=== PATIENT | male | born 1950 | race Caucasian/White ===

== ENCOUNTER → 2018-03-22 15:00 | Outpatient (CLI) | payer MEDICARE, OTHER, SELFPAY ==
[2018-03-22 15:44] LABS: Add Manual Diff / Slide Review NO; Basophils Percent Auto 0.9 % (0-2); Eosinophils Percent Auto 9.2 % (2-4); Hematocrit 38.8 % (41-53); Hemoglobin 13.3 g/dL (13.5-17.5); Lymphocytes Percent Auto 18.2 % (25-40); Mean Corpuscular HGB Conc 34.3 % (30-36); Mean Corpuscular Hemoglobin 31.6 PG (26-34); Mean Corpuscular Volume 92.2 fL (80-100); Monocytes Percent Auto 4.3 % (3-14); Neutrophils Absolute Auto 5800 /uL (3000-5900); Neutrophils Percent Auto 67.4 % (50-75); Platelet Count 329 X10^3/uL (150-400); Red Blood Cell Count 4.21 X10^6/uL (4.5-5.9); Red Cell Distribution Width 13.6 % (11.6-14.8); White Blood Cell Count 8.6 X10^3/uL (4.5-11.0)
[2018-03-22 16:17] LABS: Microalbumi Creatinin Ratio Ur 18.6 ug/mg CR (<30); Microalbumin Urine Random 2.2 mg/dL (0-1.6)
[2018-03-22 16:37] LABS: Alanine Aminotransferase 17 IU/L (21-72); Albumin 4.2 g/dL (3.5-5.0); Albumin Globulin Ratio 1.5 (1.0-2.8); Alkaline Phosphatase 94 U/L (38-126); Aspartate Aminotransferase 9 IU/L (17-59); Bilirubin Total 0.5 mg/dL (0.2-1.3); Cholesterol 210 mg/dL (140-199); Estimated Glomerular Filt Rate > 60.0 mL/min (>60); Globulin 2.8 g/dL (1.7-4.1); Glucose 166 mg/dL (80-110); HDL Cholesterol 45 mg/dL (40-60); HEMOLYSIS < 15 (0-50); LDL Cholesterol Calculated 112 mg/dL (<100); Potassium 4.1 mmol/L (3.4-5.1); Sodium 141 mmol/L (137-145); Triglycerides 266 mg/dL (35-150)
[2018-03-22 16:38] LABS: Hemoglobin A1C% w Est Avg Glu 6.9 % (4.0-6.0)
[2018-03-22 17:06] LABS: Prostate Specific Antigen Scrn 1.57 ng/mL (0.1-4.0)
[2018-03-22 17:07] LABS: Thyroid Stimulating Hormone 1.36 uIU/mL (0.47-4.68)
== END ==
PROVIDERS: Family Provider Family Medicine; PCP Family Medicine; Visit Provider Family Medicine
DX: E11.9 Type 2 diabetes mellitus without complications (principal); E78.2 Mixed hyperlipidemia; I10 Essential (primary) hypertension; K52.839 Microscopic colitis, unspecified; N18.2 Chronic kidney disease, stage 2 (mild); R63.4 Abnormal weight loss; Z12.5 Encounter for screening for malignant neoplasm of prostate; Z87.442 Personal history of urinary calculi
CPT/HCPCS: 36415; 80053; 80061; 82043; 82570; 83036; 84443; 85025; G0103

== ENCOUNTER → 2018-09-13 13:10 | Outpatient (CLI) | payer MEDICARE, OTHER, SELFPAY ==
--- NOTE | 2018-09-13 13:14 | DI.RAD.S_ITS ---
PROCEDURE: XR SHOULDER LT MIN 2V INDICATIONS: left shoulder pain TECHNIQUE: 3 views of the shoulder were acquired. COMPARISON: None. FINDINGS: Bones: No fractures or dislocations. No suspicious bony lesions. Visualized ribs appear intact. Nonspecific sub-5 mm calcification projecting adjacent to the proximal left humeral diaphysis. Mild acromioclavicular and glenohumeral spurring Soft tissues: Minimal left shoulder calcific tendinitis. IMPRESSION: Minimal left shoulder calcific tendinitis. Dictated by: Elijah Cannon M.D. on 09/13/2018 at 15:23 Approved by: Elijah Cannon M.D. on 09/13/2018 at 15:27
== END ==
PROVIDERS: PCP Student in an Organized Health Care Education/Training Program; Visit Provider Student in an Organized Health Care Education/Training Program
DX: M25.512 Pain in left shoulder (principal)
CPT/HCPCS: 73030

== ENCOUNTER → 2018-09-14 08:31 | Outpatient (CLI) | payer MEDICARE, OTHER, SELFPAY ==
--- NOTE | 2018-09-14 08:33 | DI.US.S_ITS ---
PROCEDURE: US ABD AORTA ANEURYSM SCREEN INDICATIONS: AAA screen TECHNIQUE: Real time scanning was performed of the aorta and iliac arteries, with image documentation. COMPARISON: None. FINDINGS: Aorta: Proximal aortic diameter measures 1.8 cm. Mid-aorta measures 1.4 cm. Distal aortic diameter is 1.5 cm. Iliac arteries: Right common iliac artery measures 0.9 cm. Left common iliac artery measures 0.9 cm. IMPRESSION: No aneurysmal dilation. Dictated by: Esmer Lim M.D. on 09/14/2018 at 15:07 Approved by: Esmer Lim M.D. on 09/14/2018 at 15:07
== END ==
PROVIDERS: PCP Student in an Organized Health Care Education/Training Program; Visit Provider Student in an Organized Health Care Education/Training Program
DX: Z13.6 Encounter for screening for cardiovascular disorders (principal); Z87.891 Personal history of nicotine dependence
CPT/HCPCS: 76706

== ENCOUNTER → 2019-04-11 12:44 | Outpatient (CLI) | payer MEDICARE, OTHER, SELFPAY ==
[2019-04-11 13:30] LABS: Hematocrit 38.4 % (41-53); Hemoglobin 13.2 g/dL (13.5-17.5); Mean Corpuscular HGB Conc 34.5 % (30-36); Mean Corpuscular Hemoglobin 32.3 PG (26-34); Mean Corpuscular Volume 93.6 fL (80-100); Platelet Count 334 X10^3/uL (150-400); Red Cell Distribution Width 13.6 % (11.6-14.8); White Blood Cell Count 8.3 X10^3/uL (4.5-11.0)
[2019-04-11 13:34] LABS: Reticulocyte Count, Percent 1.1 % (0.87-2.60)
[2019-04-11 13:47] LABS: HEMOLYSIS < 15 (0-50); Iron 103 ug/dL (49-181)
[2019-04-11 13:49] LABS: Alanine Aminotransferase 14 IU/L (21-72); Albumin 4.7 g/dL (3.5-5.0); Albumin Globulin Ratio 1.6 (1.0-2.8); Alkaline Phosphatase 86 U/L (38-126); Aspartate Aminotransferase 14 IU/L (17-59); BUN Creatinine Ratio 14.2 (6-22); Bilirubin Total 0.7 mg/dL (0.2-1.3); Blood Urea Nitrogen 17 mg/dL (9-20); Calcium 10.3 mg/dL (8.4-10.2); Carbon Dioxide 28 mmol/L (22-32); Chloride 103 mmol/L (98-107); Cholesterol 235 mg/dL (140-199); Estimated Glomerular Filt Rate > 60.0 mL/min (>60); Globulin 2.9 g/dL (1.7-4.1); Glucose 183 mg/dL (80-110); HDL Cholesterol 45 mg/dL (40-60); HEMOLYSIS < 15 (0-50); LDL Cholesterol Calculated 130 mg/dL (<100); Potassium 5.3 mmol/L (3.4-5.1); Sodium 141 mmol/L (137-145); Total Protein 7.6 g/dL (6.3-8.2); Triglycerides 302 mg/dL (35-150)
[2019-04-11 13:59] LABS: Hemoglobin A1C% w Est Avg Glu 6.8 % (4.0-6.0); Percent Iron Saturation 29 % (20-50); Total Iron Binding Capacity 357 ug/dL (261-462); Transferrin 292 mg/dL (206-381)
[2019-04-11 14:20] LABS: TSH w/ Reflex to FT4 1.63 uIU/mL (0.47-4.68)
[2019-04-11 14:54] LABS: Folate 5.1 ng/mL (2.76-20.0); Vitamin B12 286 pg/mL (239-931)
[2019-04-11 17:16] LABS: Vitamin D 25 Hydroxy (D3) 37.1 ng/mL (30.0-100.0)
== END ==
PROVIDERS: PCP Student in an Organized Health Care Education/Training Program; Visit Provider Student in an Organized Health Care Education/Training Program
DX: D64.9 Anemia, unspecified (principal); E78.2 Mixed hyperlipidemia; E55.9 Vitamin D deficiency, unspecified; E11.9 Type 2 diabetes mellitus without complications; N18.2 Chronic kidney disease, stage 2 (mild); Z79.899 Other long term (current) drug therapy; I12.9 Hypertensive chronic kidney disease with stage 1 through stage 4 chronic kidney disease, or unspecified chronic kidney disease
CPT/HCPCS: 36415; 80053; 80061; 82306; 82607; 82728; 82746; 83036; 83540; 83550; 84443; 85027; 85045

== ENCOUNTER → 2019-07-11 13:56 | Outpatient (CLI) | payer MEDICARE, OTHER, SELFPAY ==
[2019-07-11 15:45] LABS: Hemoglobin A1C% w Est Avg Glu 7.4 % (4.0-6.0)
[2019-07-11 15:55] LABS: Alanine Aminotransferase 10 IU/L (21-72); Albumin 4.1 g/dL (3.5-5.0); Albumin Globulin Ratio 1.5 (1.0-2.8); Alkaline Phosphatase 75 U/L (38-126); Aspartate Aminotransferase 13 IU/L (17-59); BUN Creatinine Ratio 14.5 (6-22); Bilirubin Total 0.6 mg/dL (0.2-1.3); Blood Urea Nitrogen 16 mg/dL (9-20); Calcium 9.8 mg/dL (8.4-10.2); Carbon Dioxide 27 mmol/L (22-32); Chloride 102 mmol/L (98-107); Cholesterol 229 mg/dL (140-199); Estimated Glomerular Filt Rate > 60.0 mL/min (>60); Globulin 2.7 g/dL (1.7-4.1); Glucose 124 mg/dL (80-110); HDL Cholesterol 40 mg/dL (40-60); HEMOLYSIS < 15 (0-50); LDL Cholesterol Calculated 117 mg/dL (<100); Potassium 4.3 mmol/L (3.4-5.1); Sodium 140 mmol/L (137-145); Total Protein 6.8 g/dL (6.3-8.2); Triglycerides 360 mg/dL (35-150)
[2019-07-11 17:01] LABS: Creatinine Urine Random 88.3 mg/dL
[2019-07-11 17:06] LABS: Microalbumi Creatinin Ratio Ur 36.2 ug/mg CR (<30); Microalbumin Urine Random 3.2 mg/dL (0-1.6)
== END ==
PROVIDERS: PCP Student in an Organized Health Care Education/Training Program; Visit Provider Student in an Organized Health Care Education/Training Program
DX: E11.9 Type 2 diabetes mellitus without complications (principal); E78.2 Mixed hyperlipidemia; I10 Essential (primary) hypertension; N18.2 Chronic kidney disease, stage 2 (mild); Z79.899 Other long term (current) drug therapy; Z71.1 Person with feared health complaint in whom no diagnosis is made; Z91.89 Other specified personal risk factors, not elsewhere classified
CPT/HCPCS: 36415; 80053; 80061; 82043; 82570; 83036; 86787

== ENCOUNTER → 2020-04-07 13:28 | Outpatient (CLI) | payer MEDICARE, OTHER, SELFPAY ==
[2020-04-07 15:42] LABS: BUN Creatinine Ratio 13.5 (6-22); Blood Urea Nitrogen 19 mg/dL (9-20); Estimated Glomerular Filt Rate 49.8 mL/min (>60)
[2020-04-07 15:43] LABS: Hemoglobin A1C% w Est Avg Glu 6.5 % (4.0-6.0)
[2020-04-07 16:11] LABS: Prostate Specific Antigen Scrn 1.55 ng/mL (0.1-4.0)
[2020-04-07 16:31] LABS: Creatinine Urine Random 108.7 mg/dL
[2020-04-07 16:34] LABS: Microalbumi Creatinin Ratio Ur 17.4 ug/mg CR (<30); Microalbumin Urine Random 1.9 mg/dL (0-1.6)
== END ==
PROVIDERS: PCP Student in an Organized Health Care Education/Training Program; Referring Provider Student in an Organized Health Care Education/Training Program; Visit Provider Student in an Organized Health Care Education/Training Program
DX: E11.9 Type 2 diabetes mellitus without complications (principal); I10 Essential (primary) hypertension; N18.2 Chronic kidney disease, stage 2 (mild)
CPT/HCPCS: 36415; 82043; 82565; 82570; 83036; 84520; G0103

== ENCOUNTER → 2020-09-02 14:14 | Outpatient (CLI) | payer MEDICARE, OTHER, SELFPAY ==
[2020-09-02 15:57] LABS: BUN Creatinine Ratio 17.2 (6-22); Blood Urea Nitrogen 20 mg/dL (9-20); Estimated Glomerular Filt Rate > 60.0 mL/min (>60)
[2020-09-02 16:12] LABS: Hemoglobin A1C% w Est Avg Glu 6.8 % (4.0-6.0)
== END ==
PROVIDERS: PCP Student in an Organized Health Care Education/Training Program; Referring Provider Student in an Organized Health Care Education/Training Program; Visit Provider Student in an Organized Health Care Education/Training Program
DX: N17.9 Acute kidney failure, unspecified (principal); E11.9 Type 2 diabetes mellitus without complications
CPT/HCPCS: 36415; 82565; 83036; 84520

== ENCOUNTER → 2021-02-03 10:47 | Outpatient (CLI) | payer MEDICARE, OTHER, SELFPAY ==
[2021-02-03 12:06] LABS: BUN Creatinine Ratio 16.8 (6-22); Blood Urea Nitrogen 20 mg/dL (9-20); Estimated Glomerular Filt Rate > 60.0 mL/min (>60); Uric Acid 7.1 mg/dL (3.5-8.5)
[2021-02-03 13:24] LABS: Microalbumi Creatinin Ratio Ur 63.5 ug/mg CR (<30); Microalbumin Urine Random 7.5 mg/dL (0-1.6)
[2021-02-03 14:44] LABS: Hemoglobin A1C% w Est Avg Glu 7.2 % (4.0-6.0)
== END ==
PROVIDERS: PCP Student in an Organized Health Care Education/Training Program; Referring Provider Student in an Organized Health Care Education/Training Program; Visit Provider Student in an Organized Health Care Education/Training Program
DX: E11.9 Type 2 diabetes mellitus without complications (principal); M10.9 Gout, unspecified; N18.2 Chronic kidney disease, stage 2 (mild); I10 Essential (primary) hypertension
CPT/HCPCS: 36415; 82043; 82565; 82570; 83036; 84520; 84550

== ENCOUNTER → 2021-02-19 14:48 | Outpatient (CLI) | payer MEDICARE, OTHER, SELFPAY ==
[2021-02-19] MEDS: COVID-19 VACC #1, MRNA(MOD) 100 MCG/0.5 ML VIAL IM (14:59)
== END ==
PROVIDERS: PCP Student in an Organized Health Care Education/Training Program; Visit Provider Internal Medicine
DX: Z23 Encounter for immunization (principal)
CPT/HCPCS: 0011A; 91301

== ENCOUNTER → 2021-03-19 12:59 | Outpatient (CLI) | payer MEDICARE, OTHER, SELFPAY ==
[2021-03-19] MEDS: COVID-19 VACC #2, MRNA(MOD) 100 MCG/0.5 ML VIAL IM (13:20)
== END ==
PROVIDERS: PCP Student in an Organized Health Care Education/Training Program; Visit Provider Internal Medicine
DX: Z23 Encounter for immunization (principal)
CPT/HCPCS: 0012A; 91301

== ENCOUNTER 2021-04-23 09:49 | Emergency (ER) | payer MEDICARE, OTHER, SELFPAY ==
[2021-04-23] VITALS (17 sets, daily range): BP systolic 149–181; BP diastolic 72–85; PULSE 72–115; RESP 15–47; TEMP 37.1; O2SAT 94–98; BMI 27.8
[2021-04-23 10:31] LABS: Add Manual Diff / Slide Review NO; Basophils Absolute Auto 100 /uL (0-100); Basophils Percent Auto 0.8 % (0-2); Eosinophils Absolute Auto 300 /uL (0-450); Eosinophils Percent Auto 2.3 % (2-4); Hematocrit 36.6 % (41-53); Hemoglobin 12.4 g/dL (13.5-17.5); Lymphocytes Absolute Auto 1400 /uL (1100-4500); Lymphocytes Percent Auto 9.4 % (25-40); Mean Corpuscular Hemoglobin 31.5 PG (26-34); Mean Corpuscular Volume 92.5 fL (80-100); Monocytes Absolute Auto 1000 /uL (0-900); Monocytes Percent Auto 6.7 % (3-14); Neutrophils Absolute Auto 11900 /uL (1500-7000); Neutrophils Percent Auto 80.8 % (50-75); Platelet Count 373 X10^3/uL (150-400); Red Blood Cell Count 3.95 X10^6/uL (4.5-5.9); Red Cell Distribution Width 13.9 % (11.6-14.8); White Blood Cell Count 14.7 X10^3/uL (4.5-11.0)
[2021-04-23 10:41] LABS: Alanine Aminotransferase 13 IU/L (<50); Albumin 4.4 g/dL (3.5-5.0); Albumin Globulin Ratio 1.4 (1.0-2.8); Alkaline Phosphatase 89 U/L (38-126); Aspartate Aminotransferase 19 IU/L (17-59); Bilirubin Total 0.5 mg/dL (0.2-1.3); Blood Urea Nitrogen 21 mg/dL (9-20); Calcium 9.7 mg/dL (8.4-10.2); Carbon Dioxide 19 mmol/L (22-32); Chloride 108 mmol/L (98-107); Estimated Glomerular Filt Rate 46.3 mL/min (>60); Globulin 3.1 g/dL (1.7-4.1); Glucose 190 mg/dL (80-110); HEMOLYSIS 45 (0-50); Lipase 131 U/L (23-300); Potassium 4.1 mmol/L (3.4-5.1); Sodium 138 mmol/L (137-145); Total Protein 7.5 g/dL (6.3-8.2)
[2021-04-23 11:48] LABS: Bacteria Urine None Seen
[2021-04-23 12:15] LABS: Culture Indicated Urine Specimen Cultured; RBC Urine 10-30/HPF (0-5/HPF); WBC Urine 5-10/HPF (0-5/HPF)
--- NOTE | 2021-04-23 12:24 | ED_ITS ---
HPI - Abdominal Pain General Chief Complaint: Abdominal Pain Stated Complaint: states kidney stones Time Seen by Provider: 04/23/21 12:11 Source: patient Mode of arrival: Ambulatory Limitations: no limitations History of Present Illness HPI narrative: Patient is a 71-year-old male with history of kidney stones, hype rtension diabetes hyperlipidemia presenting today with 2 days of flank pain. He said the flank pain is actually a dull ache in his bilateral however today he is having increasing pain on the left side which is radiating to his abdomen. He is noted to have blood in his urine in the emergency department. He occasionally has some nausea but no vomiting. No fever or chills. MD complaint: abdominal pain and flank pain Onset (ago): day(s) (2) Pain Consistency: intermittent Related Data Home Medications Medication Instructions Recorded Confirmed aspirin 81 mg chewable tablet 81 mg PO DAILY 03/28/18 02/10/21 Previous Rx's Medication Instructions Recorded trazodone 50 mg tablet 50 mg PO HS PRN #30 tab 03/31/18 ketoconazole 2 % topical cream 1 applictn TOP BID PRN #15 gram 06/13/19 diclofenac sodium 75 mg 75 mg PO BID PRN #60 ect 04/17/20 tablet,delayed release omeprazole 20 mg capsule,delayed 20 mg PO DAILY #90 cap 10/01/20 release amlodipine 10 mg tablet 10 mg PO QDAY #90 tab 10/10/20 gemfibrozil 600 mg tablet 600 mg PO BID #180 tab 10/10/20 allopurinol 300 mg tablet 300 mg PO DAILY #90 tab 10/20/20 atorvastatin 80 mg tablet 80 mg PO HS #90 tab 10/21/20 metformin 1,000 mg tablet 1,000 mg PO BID #180 tab 11/28/20 sitagliptin 100 mg tablet 100 mg PO Q DAY #90 tab 02/19/21 losartan 50 mg tablet 50 mg PO DAILY #90 tab 04/07/21 budesonide 3 mg 3 mg PO QDAY #90 cap 04/17/21 capsule,delayed,extended release glipizide 10 mg tablet, extended 10 mg PO DAILY #90 tab 04/17/21 release 24 hr hydrocodone-acetaminophen 1 tab PO Q6H PRN #10 tab 04/23/21 ondansetron 4 mg PO Q8H PRN #10 tab 04/23/21 tamsulosin [Flomax] 0.4 mg PO DAILY #7 cap 04/23/21 Allergies Allergy/AdvReac Type Severity Reaction Status Date / Time MALCOLM Inhibitors AdvReac Severe Elevated Verified 04/23/21 10:02 creatinine Review of Systems Review of Systems Narrative: GENERAL: Denies chills, fatigue, malaise, fever, sweats, travel HEENT: Denies sinus pain, ear pain, sore throat, difficulty swallowing, neck pain RESPIRATORY: Denies dyspnea, cough, wheezing, hemoptysis, sputum. CARDIOVASCULAR: Denies chest pain, palpitations, orthopnea, edema GASTROINTESTINAL: See HPI : + flank pain Denies dysuria, frequency, incontinence, hematuria, urinary retention MUSCULOSKELETAL: Denies weakness, joint pain, or bony pain SKIN: No rash, no erythema, no pruritus NEUROLOGIC: Denies weakness, dizziness, headache, numbness, change in speech, confusion PSYCHIATRIC: No concerning psychosocial issues. 12 point review of systems is negative except for those stated above and HPI Patient History Medical History Anemia (Unknown) Asthma (Unknown) Chronic renal insufficiency, stage II (mild) (10/10/15) Depression (09/04/14) Depression (Unknown) Essential hypertension (09/11/15) Hyperlipidemia (Unknown) Hypertension (Unknown) Hypertriglyceridemia (Unknown) Kidney disease (Unknown) Kidney stones (2011) Labyrinthitis Lymphocytic colitis (2012) Microscopic colitis (10/10/15) Myopia (Unknown) Rosacea (Unknown) Type 2 diabetes mellitus without complication (09/11/15) Family History Father Cancer Mother Stroke Social History marital status: unmarried,single household members: none lives independently: Yes Smoking Status: Former smoker Smoking Status: Former smoker alcohol intake frequency: 0-2 drinks per day Substance Use Type: does not use Exam Initial Vital Signs Initial Vital Signs: Vital Signs Temperature 98.7 F 04/23/21 09:51 Pulse Rate 115 H 04/23/21 09:51 Respiratory Rate 15 04/23/21 09:51 Blood Pressure 173/77 H 04/23/21 09:51 Pulse Oximetry 98 04/23/21 09:51 GENERAL: Alert pleasant 71-year-old male and in no acute distress. HEENT: Head atraumatic,EOMI, pupils reactive, face symmetric, moist mucous membranes CARDIOVASCULAR: Regular rate and rhythm without murmurs, rubs or gallops. RESPIRATORY: Breath sounds equal bilaterally, no wheezes rales or rhonchi. ABDOMEN: Soft, nontender. Normoactive bowel sounds all 4 quadrants. No guarding or rebound. : Mild left CVA tenderness EXTREMITIES: Normal range of motion, no clubbing or edema. Neurovascularly intact NEUROLOGICAL: Alert and oriented x4.Normal gait and speech. SKIN: Warm, dry, no laceration, no petechiae, no rashes or lesions. Course Orders Ordered: ED Orders 04/23/21 12:41 CT kidney ureter bladder (KUB) Stat Discontinued Medications Ketorolac Tromethamine (Ketorolac 30 Mg/Ml Vial) 30 mg IV NOW ONE Stop: 04/23/21 12:32 Last Admin: 04/23/21 12:48 Dose: 30 mg Documented by: TYLER Vital Signs Vital signs: Vital Signs - 8 hr 04/23/21 11:30 04/23/21 12:00 04/23/21 12:30 Pulse Rate 83 79 94 H Respiratory Rate 18 17 Blood Pressure Pulse Oximetry 94 95 97 04/23/21 12:42 04/23/21 12:48 04/23/21 13:00 Pulse Rate 89 88 82 Respiratory Rate 16 17 19 Blood Pressure 181/85 H 161/74 H 149/82 H Pulse Oximetry 97 97 95 04/23/21 13:30 04/23/21 14:00 04/23/21 14:30 Pulse Rate 76 75 72 Respiratory Rate 17 17 16 Blood Pressure 157/78 H 154/80 H 150/76 H Pulse Oximetry 94 95 95 04/23/21 15:00 04/23/21 15:01 04/23/21 15:03 Pulse Rate 83 91 H 86 Respiratory Rate 47 H 24 Blood Pressure 181/74 H 152/72 H Pulse Oximetry 96 94 96 04/23/21 15:12 Pulse Rate 80 Respiratory Rate 18 Blood Pressure 152/72 H Pulse Oximetry 97 MDM - Abdominal Pain Lab Data Attestation: I reviewed the patient's lab results. Result diagrams: 04/23/21 10:20 06/24/21 10:20 Labs: Lab Results 04/23/21 04/23/21 04/23/21 Range/Units 09:53 10:20 10:20 WBC 14.7 H (4.5-11.0) X10^3/uL RBC 3.95 L (4.5-5.9) X10^6/uL Hgb 12.4 L (13.5-17.5) g/dL Hct 36.6 L (41-53) % MCV 92.5 (80-100) fL MCH 31.5 (26-34) PG MCHC 34.0 (30-36) % RDW 13.9 (11.6-14.8) % Plt Count 373 (150-400) X10^3/uL Neut % (Auto) 80.8 H (50-75) % Lymph % (Auto) 9.4 L (25-40) % [place] % (Auto) 6.7 (3-14) % Eos % (Auto) 2.3 (2-4) % Baso % (Auto) 0.8 (0-2) % Neut # (Auto) 20453 H (8111-3259) /uL Lymph # (Auto) 1400 (5069-0485) /uL [place] # (Auto) 1000 H (0-900) /uL Eos # (Auto) 300 (0-450) /uL Baso # (Auto) 100 (0-100) /uL Sodium 138 (137-145) mmol/L Potassium 4.1 (3.4-5.1) mmol/L Chloride 108 H (98-107) mmol/L Carbon Dioxide 19 L (22-32) mmol/L BUN 21 H (9-20) mg/dL Creatinine 1.50 H (0.66-1.25) mg/dL Estimated GFR 46.3 L (>60) mL/min BUN/Creatinine Ratio 14.0 (6-22) Glucose 190 H (80-110) mg/dL Calcium 9.7 (8.4-10.2) mg/dL Total Bilirubin 0.5 (0.2-1.3) mg/dL AST 19 (17-59) IU/L ALT 13 (<50) IU/L Alkaline Phosphatase 89 (38-126) U/L Total Protein 7.5 (6.3-8.2) g/dL Albumin 4.4 (3.5-5.0) g/dL Globulin 3.1 (1.7-4.1) g/dL Albumin/Globulin Ratio 1.4 (1.0-2.8) Lipase 131 (23-300) U/L Urine RBC 10-30/hpf H (0-5/HPF) Urine WBC 5-10/hpf H (0-5/HPF) Urine Bacteria None seen (None) Ur Culture Indicated? Specimen cultured Point of care testing: Urine Dip Bedside Urine Glucose Negative Bedside Urine Bilirubin - Negative Bedside Urine Ketone - Negative Urine Specific [place] 1.030 Bedside Urine Occult Blood +++ Bedside Urine pH 6.0 Bedside Urine Protein + 30 Bedside Urine Urobilinogen - Negative Bedside Urine Nitrite - Negative Bedside Urine Leukocytes - Negative Esterase Imaging Data CT scan - abdomen/pelvis: Radiologist's Impression: PROCEDURE: CT KIDNEY URETER BLADDER (KUB) INDICATIONS: left flank pain TECHNIQUE: Axial sections were acquired from the lung bases to the pubic symphysis. Coronal and sagittal reformats were performed. For radiation dose reduction, the following was used: automated exposure control, adjustment of mA and/or kV according to patient size. COMPARISON:[facility], CT, KIDNEY/ URETER/BLADDER, 04/19/2015, 5:14. FINDINGS: Image quality: Excellent. Lung bases: Unremarkable. Heart: No significant findings. URINARY: Right Kidney: There is a 1.5 x 0.9 by 2.2 cm calcification inferior right re nal pole, Hounsfield units 480. It was present in 2014 at which time it measured 1.2 x 0.8 x 1.8 cm. No hydronephrosis. Renal atrophy Right Ureter: No hydroureter. Left Kidney: 0.8 x 1.0 x 0.7 cm focus of calcification is noted within the inferior left renal pole, Hounsfield units 380. There is mild to moderate hydronephrosis. It is noted that calcification was present in the inferior left renal pole in 2015 although mildly decreased in size measuring 0.5 x 0.5 by 0.7 cm. Left Ureter: 8 mm proximal left ureteral calcification, Hounsfield unit 532 is present. There is mild proximal hydroureter. Bladder: Normal wall thickness. No stones. ABDOMEN: Liver: Liver is mildly enlarged with steatosis. Gallbladder: Minimal dependent calcifications are noted within the bladder with out wall thickening. Biliary ducts: Unremarkable. Pancreas: Unremarkable. Spleen: Unremarkable. Adrenal Glands: Unremarkable. Stomach and Bowel: Stomach, small bowel loops, and colon are unremarkable. Colonic diverticula are present. Peritoneum: No abnormal intraperitoneal fluid. No free air. Ventral Wall: No hernia. Abdominal Nodes: No enlarged retroperitoneal or mesenteric lymph nodes. Vessels: Aorta and inferior vena cava are normal in size. PELVIS: Pelvic Organs: Prostate gland is prominent. Pelvic Nodes: Unremarkable. Miscellaneous: Bilateral fat containing inguinal hernias are present. Bones: Unremarkable. IMPRESSION: 1. Gmnp-[id number]-ocigdidr left hydronephrosis and proximal hydroureter secondary to 8 mm proximal left ureteral calculus. 2. Bilateral nonobstructing renal calculi which have increased in size compared to 2015. 3. Cholelithiasis without imaging evidence of cholecystitis. 4. Diverticulosis. Dictated by: Esmer Lim M.D. on 04/23/2021 at 12:47 ECG Data Attestation: I personally reviewed and interpreted this ECG as follows: Interpretation: Normal sinus rhythm rate 98 p.r. interval 212 QRS [address] changes or T-wave inversions MDM Narrative Medical decision making narrative: Patient is found have an 8 mm proximal left- sided kidney stone. He has mild increasing creatinine 1.5 with leukocytosis of 14 without signs of infection. Pain is controlled with Toradol. Discussion with Dr. Lorenzo states that he follow up as an outpatient. Discharge Plan Departure Patient Disposition: Home Clinical Impression: Kidney stone on left side Instructions: DI for Kidney Stones Activity Restrictions/Additional Instructions: * You've been diagnosed with kidney stone * What to do: Increase fluid intake, Strain urine, try to catch stone, he will likely need intervention for this stone * Please follow-up with your primary care provider in the next 2-[address] Lorenzo, urology to schedule follow-up appointment. -If you should have fever, or pain is uncontrolled with medication at home or any other concerning symptoms return to ER for further evaluation MEDICATIONS--> SENT TO [facility] Take Motrin 600 mg every 8 hours as needed for pain Take [place] every 6 hours if needed for severe pain Take Zofran every 4-6 hours if needed for nausea Flomax 0.4mg daily CONTROLLED SUBSTANCE DISCHARGE (Narcotoic/benzodiazepine) 1. You have been prescribed narcotic medications, it does have acetaminophen/Tylenol/paracetamol in it so do not take extra Tylenol or Tylenol containing products 2. Please understand that we cannot provide further refills of narcotics, benzodiazepines or controlled substances through the ED and her pain management will need to be through your provider. 3. While on these medications you cannot drive or operate heavy machinery. 4. You cannot sign legal documents or perform any duties such as this. 5. As long as you're taking opiate pain medications he should also be taking a stool softener such as Colace, Dulcolax, MiraLAX or prune juice, to help avoid constipation. Prescriptions: New hydrocodone-acetaminophen 5-325 mg tablet 1 tab PO Q6H PRN (Reason: pain) Qty: 10 RF: 0 tamsulosin [Flomax] 0.4 mg capsule,extended release 24hr 0.4 mg PO DAILY Qty: 7 RF: 0 ondansetron 4 mg tablet,disintegrating 4 mg PO Q8H PRN (Reason: nausea and vomiting) Qty: 10 RF: 0 No Action aspirin 81 mg tablet,chewable 81 mg PO DAILY RF: 0 trazodone 50 mg tablet 50 mg PO HS PRN (Reason: insomnia) Qty: 30 RF: 11 ketoconazole 2 % cream 1 applictn TOP BID PRN (Reason: itching/rash) Qty: 15 RF: 2 omeprazole 20 mg capsule,delayed release(DR/EC) 20 mg PO DAILY Qty: 90 RF: 1 amlodipine 10 mg tablet 10 mg PO QDAY Qty: 90 RF: 3 gemfibrozil 600 mg tablet 600 mg PO BID Qty: 180 RF: 3 allopurinol 300 mg tablet 300 mg PO DAILY Qty: 90 RF: 3 atorvastatin 80 mg tablet 80 mg PO HS Qty: 90 RF: 3 metformin [Glucophage] 1,000 mg tablet 1,000 mg PO BID Qty: 180 RF: 1 Januvia 100 mg tablet 100 mg PO Q DAY Qty: 90 RF: 3 losartan 50 mg tablet 50 mg PO DAILY Qty: 90 RF: 2 glipizide 10 mg tablet extended release 24hr 10 mg PO DAILY Qty: 90 RF: 1 budesonide 3 mg capsule,delayed,extend.release 3 mg PO QDAY Qty: 90 RF: 2 diclofenac sodium 75 mg tablet,delayed release (DR/EC) 75 mg PO BID PRN (Reason: pain) Qty: 60 RF: 5 Referrals: Yousif Jimenez MD [Primary Care Provider] - Caleb Lorenzo MD [Physician] -
--- NOTE | 2021-04-23 12:41 | DI.CT.S_ITS ---
PROCEDURE: CT KIDNEY URETER BLADDER (KUB) INDICATIONS: left flank pain TECHNIQUE: Axial sections were acquired from the lung bases to the pubic symphysis. Coronal and sagittal reformats were performed. For radiation dose reduction, the following was used: automated exposure control, adjustment of mA and/or kV according to patient size. COMPARISON:[facility], CT, KIDNEY/ URETER/BLADDER, 04/19/2015, 5:14. FINDINGS: Image quality: Excellent. Lung bases: Unremarkable. Heart: No significant findings. URINARY: Right Kidney: There is a 1.5 x 0.9 by 2.2 cm calcification inferior right renal pole, Hounsfield units 480. It was present in 2014 at which time it measured 1.2 x 0.8 x 1.8 cm. No hydronephrosis. Renal atrophy Right Ureter: No hydroureter. Left Kidney: 0.8 x 1.0 x 0.7 cm focus of calcification is noted within the inferior left renal pole, Hounsfield units 380. There is mild to moderate hydronephrosis. It is noted that calcification was present in the inferior left renal pole in 2015 although mildly decreased in size measuring 0.5 x 0.5 by 0.7 cm. Left Ureter: 8 mm proximal left ureteral calcification, Hounsfield unit 532 is present. There is mild proximal hydroureter. Bladder: Normal wall thickness. No stones. ABDOMEN: Liver: Liver is mildly enlarged with steatosis. Gallbladder: Minimal dependent calcifications are noted within the bladder without wall thickening. Biliary ducts: Unremarkable. Pancreas: Unremarkable. Spleen: Unremarkable. Adrenal Glands: Unremarkable. Stomach and Bowel: Stomach, small bowel loops, and colon are unremarkable. Colonic diverticula are present. Peritoneum: No abnormal intraperitoneal fluid. No free air. Ventral Wall: No hernia. Abdominal Nodes: No enlarged retroperitoneal or mesenteric lymph nodes. Vessels: Aorta and inferior vena cava are normal in size. PELVIS: Pelvic Organs: Prostate gland is prominent. Pelvic Nodes: Unremarkable. Miscellaneous: Bilateral fat containing inguinal hernias are present. Bones: Unremarkable. IMPRESSION: 1. Qatu-ya-pvsmnvan left hydronephrosis and proximal hydroureter secondary to 8 mm proximal left ureteral calculus. 2. Bilateral nonobstructing renal calculi which have increased in size compared to 2015. 3. Cholelithiasis without imaging evidence of cholecystitis. 4. Diverticulosis. Dictated by: Esmer Lim M.D. on 04/23/2021 at 12:47 Approved by: Esmer Lim M.D. on 04/23/2021 at 12:53
[2021-04-23] MEDS: KETOROLAC 30 MG/ML VIAL IV (12:48)
== END 2021-04-23 15:12 | disposition home or self-care (01) ==
PROVIDERS: Emergency Provider Emergency Medicine; PCP Student in an Organized Health Care Education/Training Program
DX: N20.0 Calculus of kidney (principal); R11.0 Nausea; I10 Essential (primary) hypertension; Z87.891 Personal history of nicotine dependence
CPT/HCPCS: 36415; 74176; 80053; 81003; 81015; 83690; 85025; 87086; 93005; 93010; 96374; 99284; J1885

== ENCOUNTER → 2021-04-28 10:04 | Outpatient (CLI) | payer MEDICARE, OTHER, SELFPAY ==
--- NOTE | 2021-04-28 10:07 | DI.RAD.S_ITS ---
PROCEDURE: XR KUB INDICATIONS: Kidney stone TECHNIQUE: One view of the abdomen acquired. COMPARISON: [facility], CT, CT KIDNEY URETER BLADDER (KUB), 04/23/2021, 12:41. FINDINGS: Surgical changes and devices: None. Bowel: Bowel gas pattern is normal. Soft tissues: Bilateral renal stones. The proximal left ureteral stone seen on CT is not well seen. Visualized solid organ contours appear normal in size. Bones: No suspicious bony lesions. IMPRESSION: 1. The proximal left ureteral stone seen on CT is not well seen on this radiograph. 2. Bilateral renal calculi. Dictated by: Liam Elliott M.D. on 04/28/2021 at 17:38 Approved by: Liam Elliott M.D. on 04/28/2021 at 17:41
[2021-04-28 15:22] LABS: COVID19 -Nasal RAPID Negative (Negative)
== END ==
PROVIDERS: PCP Student in an Organized Health Care Education/Training Program; Referring Provider Specialist; Visit Provider Specialist
DX: N20.0 Calculus of kidney (principal); N20.1 Calculus of ureter; E78.2 Mixed hyperlipidemia; Z87.442 Personal history of urinary calculi; Z20.822 Contact with and (suspected) exposure to COVID-19
CPT/HCPCS: 36415; 74018; 84153; 87635; 99214

== ENCOUNTER 2021-04-29 07:34 | Day surgery (SDC) | payer MEDICARE, OTHER, SELFPAY ==
[2021-04-29] VITALS (8 sets, daily range): BP systolic 121–147; BP diastolic 61–76; PULSE 67–95; RESP 10–17; TEMP 36.2–36.7; O2SAT 94–99; BMI 27.8
--- NOTE | 2021-04-29 | DI.RAD.S_ITS ---
PROCEDURE: XR ABDOMEN 1V INDICATIONS: CYSTO AND LEFT STENT PLACEMENT TECHNIQUE: One view of the abdomen acquired. COMPARISON: None. FINDINGS: Surgical changes and devices: Two-view show a guidewire superimposed on the expected region of the left kidney and thereafter the upper aspect of a ureteral stent can be seen in this same area.. Bowel: Bowel gas pattern is normal. Soft tissues: No suspicious abdominal calcifications. Visualized solid organ contours appear normal in size. Bones: No suspicious bony lesions. IMPRESSION: Limited visualization of the urological procedure, with guidewire and thereafter stent in expected position over the upper left quadrant. Dictated by: Gregory Porter M.D. on 04/29/2021 at 12:37 Approved by: Gregory Porter M.D. on 04/29/2021 at 12:37
[2021-04-29] MEDS: LACTATED RINGERS 1,000 ML 42 ML IV (07:54)
[2021-04-29] MEDS: ACETAMINOPHEN 325 MG TABLET 650 MG PO (08:15)
--- NOTE | 2021-04-29 08:33 | PM.PREOP ---
Pre-operative Note Interval Note History & Physical reviewed/Exam performed by Physician: Yes Changes to H&P: No
[2021-04-29] MEDS: CEFAZOLIN 1 GM VIAL 2 GM IV (08:50)
--- NOTE | 2021-04-29 09:13 | SUR.OPER ---
Lithotomy on padded OR bed, head on pillow, arms secured on padded arm boards at <90 degrees abduction. Legs secured in padded yellow fins stirrups.
--- NOTE | 2021-04-29 09:20 | PM.OP.1 ---
Operative Date/Time/Diagnoses Date of procedure: 04/29/21 Time of procedure: 09:20 Pre-op diagnosis: 1. Obstructing 8 x 11 mm left proximal to mid ureteral calculus. 2. Intractable left renal colic. Post-op diagnosis: same Procedure & Clinicians Procedure: 1. Cystoscopy/left ureteral stone manipulation without removal. 2. Cystoscopy/placement left ureteral stent. Same procedure as scheduled: Yes Indications: 1. Obstructing 8 x 11 mm left proximal to mid ureteral calculus. 2. Intractable left renal colic. Surgeon: Caleb Lorenzo Click Yes if Unassisted: Yes Anesthesia Type: General Operative Notes Findings: 1. Urethra-normal caliber without annular stricture or lesion. 2. External sphincter-coapted with normal overlying urothelium. 3. Prostate-4 cm length with [id number] lateral lobe hyperplasia and elevated median bar. 4. Bladder-1+ trabeculation. Normal ureteral orifices bilaterally. There were numerous tiny calcific fragments line dependently in the base of the bladder. Following advancement of the hybrid ureteral guidewire a turbid obstructive efflux was observed. Also, numerous tiny calcific fragments noted within the efflux. Closure Type: not applicable Specimen(s): none sent Applied: other (Seven [place] times 22-32 cm multi-length stent) Estimated Blood Loss (mL): 0 Blood products transfused: none Tourniquet time (min): 0 Procedure in detail: The patient was positioned supine and was administered general anesthesia. The patient was then positioned in semi lithotomy and the lower abdomen, genitalia, and groin were then prepped and draped in sterile fashion. The 22 [place] panendoscope was then passed a lower urinary tract with the findings as described above. A 0.35 hybrid guidewire was then selected and advanced into the left ureter and advanced proximally under direct and fluoroscopic guidance. Next, a 7 [place] by 22-32 cm multi-length stent was selected. This too was then advanced under direct and fluoroscopic guidance over the ureteral guidewire. NO RETRIEVAL LINE WAS LEFT ATTACHED. The bladder was then drained completely and all instrumentation was removed. The patient was then repositioned in supine, was awakened, and transferred to [facility] for transport to the PACU. Complications: none Post-operative Condition: stable Disposition: PACU Plan for aftercare: Home
== END 2021-04-29 10:15 | disposition home or self-care (01) ==
PROVIDERS: PCP Student in an Organized Health Care Education/Training Program; Referring Provider Specialist; Visit Provider Specialist
PROC: (CPT 52330; principal; 2021-04-29 08:45)
DX: N20.1 Calculus of ureter (principal); E11.22 Type 2 diabetes mellitus with diabetic chronic kidney disease; I12.9 Hypertensive chronic kidney disease with stage 1 through stage 4 chronic kidney disease, or unspecified chronic kidney disease; N18.2 Chronic kidney disease, stage 2 (mild); K21.9 Gastro-esophageal reflux disease without esophagitis; Z87.442 Personal history of urinary calculi; Z79.84 Long term (current) use of oral hypoglycemic drugs; Z87.891 Personal history of nicotine dependence
CPT/HCPCS: 52330; 52332; 74018; 76000; 82962; J0690; J2405; J2704

== ENCOUNTER → 2021-05-06 07:47 | Outpatient (CLI) | payer MEDICARE, OTHER, SELFPAY ==
[2021-05-06 14:20] LABS: COVID19 -Nasal RAPID Negative (Negative)
== END ==
PROVIDERS: PCP Student in an Organized Health Care Education/Training Program; Visit Provider Specialist
DX: Z20.822 Contact with and (suspected) exposure to COVID-19 (principal)
CPT/HCPCS: 87635; C9803

== ENCOUNTER 2021-05-08 08:01 | Day surgery (SDC) | payer MEDICARE, OTHER, SELFPAY ==
[2021-05-05 08:46] VITALS: BMI 27.8
[2021-05-08] VITALS (8 sets, daily range): BP systolic 122–157; BP diastolic 60–76; PULSE 68–104; RESP 10–14; TEMP 36.1–36.3; O2SAT 92–98; BMI 27.8
[2021-05-08] MEDS: LACTATED RINGERS 500 ML 25 ML IV (08:47)
--- NOTE | 2021-05-08 09:25 | PM.PREOP ---
Pre-operative Note Interval Note History & Physical reviewed/Exam performed by Physician: Yes Changes to H&P: No
[2021-05-08] MEDS: CEFAZOLIN 1 GM VIAL 2 GM IV (09:46)
--- NOTE | 2021-05-08 09:51 | SUR.OPER ---
Lithotomy on padded OR bed, head on pillow, arms secured on padded arm boards at <90 degrees abduction. Legs secured in padded yellow fins stirrups.
[2021-05-08] MEDS: IOPAMIDOL 15 ML VIAL INJ (09:58)
--- NOTE | 2021-05-08 10:32 | SUR.OPER ---
SOLTIVE LASER TOTAL ENERGY 9.763 KJ TOTAL TIME 20:00 MIN
--- NOTE | 2021-05-08 10:51 | PM.OP.1 ---
Operative Date/Time/Diagnoses Date of procedure: 05/08/21 Time of procedure: 10:51 Pre-op diagnosis: 1. History of obstructing 12 mm left UPJ calculus. 2. Retained left ureteral stent Post-op diagnosis: same Procedure & Clinicians Procedure: 1. Cystoscopy and left ureteroscopic intrarenal laser lithotripsy. 2. Cystoscopy and left retrograde pyelogram. 3. Cystoscopy and left ureteral stent exchange (6 Pashto by 22-32 cm). Same procedure as scheduled: Yes Indications: 1. History of obstructing 12 mm left ureteropelvic junction calculus. 2. Retained left ureteral stent. Surgeon: Caleb Lorenzo Click Yes if Unassisted: Yes Anesthesia Type: General Operative Notes Findings: 1. Urethra-normal caliber without annular stricture or lesion. 2. External sphincter-coapted with normal overlying urothelium. 3. Xsznykzu-8-8.5 cm length with moderate lateral lobe hyperplasia. 4. Bladder-1+ trabeculation. Normal right ureteral orifice. Left ureteral orifice had emanating left ureteral stent was surrounding mild edema and erythema. 5. Left upper tract-index calculus was identified in the left lower pole and was subsequently fragmented with the laser as planned. Closure Type: not applicable Specimen(s): none sent Applied: other (Six Pashto by 22-32 cm multi-length stent) Estimated Blood Loss (mL): 0 Blood products transfused: none Tourniquet time (min): 0 Procedure in detail: Patient was positioned in supine and was administered general anesthesia. He was then repositioned semi lithotomy the lower abdomen, genitalia, groin were then prepped and draped sterile fashion. The 22 Pashto panendoscope was then passed lower urinary tract with findings as described above. Foreign body grasper was then utilized to engage the distal end of the left ureteral stent and upon withdrawal the distal end was brought just distal to the urethral meatus. A 0.35 hybrid guidewire was then advanced through the lumen of the retained stent and advanced proximally under direct fluoroscopic guidance. The retained stent was then backloaded off the remainder of the wire and discarded. A dual lumen access sheath was then advanced over this wire under direct and fluoroscopic guidance into the left upper collecting system. Now a 2nd 0.35 hybrid guidewire was advanced through the accessory lumen of the dual-lumen ureteral access sheath and was advanced proximally under direct and fluoroscopic guidance. Now the dual-lumen ureteral access sheath was backloaded off both wires. One wire was secured to the drape usual fashion. Over the other wire the flexible ureteral scope was advanced under direct and fluoroscopic guidance. The guidewire was then withdrawn and left retrograde pyelogram was then performed delineating the intrarenal left collecting system. Index calculus was identified the left lower pole. A 200 micron laser fiber was then selected. All operating room personnel and patient were then fitted with laser safety eyewear. Laser lithotripsy was then commenced with excellent subsequent fragmentation of the calculus. The flexible ureteral scope was then withdrawn and removed. Twenty-two Pashto panendoscope was then front loaded and advanced over the existing safety guidewire. A 6 Pashto by 22-32 cm multi-length stent was then selected. NO RETRIEVAL LINE WAS LEFT ATTACHED. The bladder contents or completely. All instrumentation was removed. The patient was then repositioned supine, was awakened, [facility]. Complications: none Post-operative Condition: stable Disposition: PACU Plan for aftercare: Discharge home
[2021-05-08] MEDS: FUROSEMIDE 20 MG/2 ML VIAL IV (11:25)
--- NOTE | 2021-05-08 12:18 | SUR.PHASEII ---
late add: spoke with Dr Lorenzo yesterday 05/07/21 to discuss pt leaving via MD beto stated that was ok.
== END 2021-05-08 12:50 | disposition home or self-care (01) ==
PROVIDERS: PCP Student in an Organized Health Care Education/Training Program; Referring Provider Specialist; Visit Provider Specialist
PROC: (CPT 52356; principal; 2021-05-08 09:15)
DX: N20.1 Calculus of ureter (principal); I10 Essential (primary) hypertension; E11.21 Type 2 diabetes mellitus with diabetic nephropathy; Z79.84 Long term (current) use of oral hypoglycemic drugs
CPT/HCPCS: 52356; 76000; 82962; J0690; J1940; J2405; J2704; J3010

== ENCOUNTER → 2021-05-14 09:01 | Outpatient (CLI) | payer MEDICARE, OTHER, SELFPAY ==
[2021-05-14 09:45] LABS: Hemoglobin A1C% w Est Avg Glu 7.5 % (4.0-6.0)
[2021-05-14 09:56] LABS: BUN Creatinine Ratio 14.5 (6-22); Blood Urea Nitrogen 20 mg/dL (9-20); Estimated Glomerular Filt Rate 50.9 mL/min (>60)
[2021-05-14 09:59] LABS: Creatinine Urine Random 172.2 mg/dL
[2021-05-14 10:30] LABS: Microalbumi Creatinin Ratio Ur 2845.5 ug/mg CR (<30)
== END ==
PROVIDERS: PCP Student in an Organized Health Care Education/Training Program; Referring Provider Student in an Organized Health Care Education/Training Program; Visit Provider Student in an Organized Health Care Education/Training Program
DX: E11.22 Type 2 diabetes mellitus with diabetic chronic kidney disease (principal); N18.2 Chronic kidney disease, stage 2 (mild); R30.0 Dysuria; Z96.0 Presence of urogenital implants
CPT/HCPCS: 36415; 81002; 82043; 82565; 82570; 83036; 84520

== ENCOUNTER → 2021-08-05 10:29 | Outpatient (CLI) | payer MEDICARE, OTHER, SELFPAY ==
[2021-08-05 12:36] LABS: Prostate Specific Antigen 1.28 ng/mL (0.10-4.00)
== END ==
PROVIDERS: PCP Student in an Organized Health Care Education/Training Program; Referring Provider Specialist; Visit Provider Specialist
DX: R97.20 Elevated prostate specific antigen [PSA] (principal)
CPT/HCPCS: 36415; 84153

== ENCOUNTER → 2021-11-13 08:41 | Outpatient (CLI) | payer MEDICARE, OTHER, SELFPAY ==
[2021-11-13 09:45] LABS: BUN Creatinine Ratio 18.4 (6-22); Blood Urea Nitrogen 23 mg/dL (9-20); Estimated Glomerular Filt Rate 57.1 mL/min (>60)
[2021-11-13 09:53] LABS: Hemoglobin A1C% w Est Avg Glu 6.5 % (4.0-6.0)
== END ==
PROVIDERS: PCP Student in an Organized Health Care Education/Training Program; Referring Provider Student in an Organized Health Care Education/Training Program; Visit Provider Student in an Organized Health Care Education/Training Program
DX: E11.9 Type 2 diabetes mellitus without complications (principal); N18.2 Chronic kidney disease, stage 2 (mild)
CPT/HCPCS: 36415; 82565; 83036; 84520

== ENCOUNTER → 2022-03-09 12:45 | Outpatient (CLI) | payer MEDICARE, OTHER, SELFPAY ==
[2022-03-09 13:52] LABS: Appearance Urine UA CLEAR; Bilirubin Urine UA NEGATIVE (NEGATIVE); Color Urine UA YELLOW; Glucose Urine UA NEGATIVE (Negative); Ketones Urine UA NEGATIVE (NEGATIVE); Leukocyte Esterase Urine UA NEGATIVE (NEGATIVE); Nitrite Urine UA NEGATIVE (Negative); Occult Blood Urine UA NEGATIVE (Negative); Protein Urine UA 1+ (Negative); Specific Gravity Urine UA 1.015 (1.000-1.035); Urobilinogen Urine UA 0.2 E.U./dL (0.2)
[2022-03-09 14:06] LABS: Hemoglobin A1C% w Est Avg Glu 6.1 % (4.0-6.0)
[2022-03-09 14:08] LABS: Bacteria Urine None Seen; Culture Indicated Urine Cult Not Indicated; RBC Urine None Seen (0-5/HPF); Squamous Epithelial Cell Urine 0-1 /HPF (0-5/HPF); WBC Urine None Seen (0-5/HPF)
[2022-03-09 15:12] LABS: Creatinine Urine Random 136.8 mg/dL
[2022-03-09 15:16] LABS: Microalbumi Creatinin Ratio Ur 125.7 ug/mg CR (<30); Microalbumin Urine Random 17.2 mg/dL (0-1.6)
[2022-03-09 15:32] LABS: Alanine Aminotransferase 13 IU/L (<50); Albumin Globulin Ratio 1.6 (1.0-2.8); Alkaline Phosphatase 68 U/L (38-126); Aspartate Aminotransferase 16 IU/L (17-59); BUN Creatinine Ratio 18.6 (6-22); Bilirubin Total 0.5 mg/dL (0.2-1.3); Blood Urea Nitrogen 22 mg/dL (9-20); Carbon Dioxide 23 mmol/L (22-32); Chloride 107 mmol/L (98-107); Estimated Glomerular Filt Rate > 60 mL/min (>60); Globulin 2.5 g/dL (1.7-4.1); Glucose 190 mg/dL (80-110); HEMOLYSIS < 15 (0-50); Sodium 137 mmol/L (137-145); Total Protein 6.5 g/dL (6.3-8.2)
[2022-03-09 15:33] LABS: Cholesterol 196 mg/dL (140-199); HDL Cholesterol 47 mg/dL (40-60); LDL Cholesterol Calculated 101 mg/dL (<100); Triglycerides 239 mg/dL (35-150)
[2022-03-09 15:58] LABS: Prostate Specific Antigen Scrn 1.59 ng/mL (0.1-4.0)
== END ==
PROVIDERS: PCP Student in an Organized Health Care Education/Training Program; Referring Provider Specialist; Visit Provider Specialist
DX: N18.9 Chronic kidney disease, unspecified (principal); Z12.5 Encounter for screening for malignant neoplasm of prostate; R80.9 Proteinuria, unspecified; E11.69 Type 2 diabetes mellitus with other specified complication; E78.2 Mixed hyperlipidemia; N18.2 Chronic kidney disease, stage 2 (mild)
CPT/HCPCS: 36415; 80053; 80061; 81001; 82043; 82570; 83036; 84156; G0103

== ENCOUNTER → 2022-06-25 10:46 | Outpatient (CLI) | payer MEDICARE, OTHER, SELFPAY ==
[2022-06-25 11:51] LABS: Hemoglobin A1C% w Est Avg Glu 9.5 % (4.0-6.0)
[2022-06-25 12:05] LABS: Blood Urea Nitrogen 22 mg/dL (9-20); Estimated Glomerular Filt Rate > 60 mL/min (>60)
== END ==
PROVIDERS: PCP Student in an Organized Health Care Education/Training Program; Referring Provider Student in an Organized Health Care Education/Training Program; Visit Provider Student in an Organized Health Care Education/Training Program
DX: E11.9 Type 2 diabetes mellitus without complications (principal); N18.2 Chronic kidney disease, stage 2 (mild)
CPT/HCPCS: 36415; 82565; 83036; 84520

== ENCOUNTER → 2022-12-22 09:34 | Outpatient (CLI) | payer MEDICARE, OTHER, SELFPAY ==
--- NOTE | 2022-12-22 09:36 | DI.RAD.S_ITS ---
PROCEDURE: XR KUB INDICATIONS: kidney stone TECHNIQUE: One view of the abdomen acquired. COMPARISON: [facility], CR, XR KUB, 04/28/2021, 10:17. FINDINGS: Surgical changes and devices: None. Bowel: Bowel gas pattern is normal. Soft tissues: Previously visualized renal stones are not seen. Visualized solid organ contours appear normal in size. Bones: No suspicious bony lesions. IMPRESSION: Previously visualized renal stones are not seen. This could due to interval passage versus being obscured by overlying bowel gas. Dictated by: Cristian Luna M.D. on 12/22/2022 at 11:54 Approved by: Cristian Luna M.D. on 12/22/2022 at 11:55
[2022-12-22 12:14] LABS: Prostate Specific Antigen 1.75 ng/mL (0.10-4.00)
== END ==
PROVIDERS: PCP Student in an Organized Health Care Education/Training Program; Referring Provider Specialist; Visit Provider Specialist
DX: N40.1 Benign prostatic hyperplasia with lower urinary tract symptoms (principal); N13.8 Other obstructive and reflux uropathy; N20.0 Calculus of kidney; Z96.0 Presence of urogenital implants
CPT/HCPCS: 36415; 74018; 84153

== ENCOUNTER → 2023-02-08 10:47 | Outpatient (CLI) | payer MEDICARE, OTHER, SELFPAY ==
[2023-02-08 11:55] LABS: Alanine Aminotransferase 17 IU/L (<50); Albumin 3.8 g/dL (3.5-5.0); Albumin Globulin Ratio 1.3 (1.0-2.8); Alkaline Phosphatase 60 U/L (38-126); Aspartate Aminotransferase 16 IU/L (17-59); BUN Creatinine Ratio 22.5 (6-22); Bilirubin Total 0.4 mg/dL (0.2-1.3); Blood Urea Nitrogen 27 mg/dL (9-20); Calcium 10.5 mg/dL (8.4-10.2); Carbon Dioxide 27 mmol/L (22-32); Chloride 102 mmol/L (98-107); Cholesterol 221 mg/dL (140-199); Estimated Glomerular Filt Rate > 60 mL/min (>60); Globulin 2.9 g/dL (1.7-4.1); Glucose 107 mg/dL (80-110); HDL Cholesterol 58 mg/dL (40-60); HEMOLYSIS < 15 (0-50); LDL Cholesterol Calculated 119 mg/dL (<100); Potassium 4.8 mmol/L (3.4-5.1); Sodium 138 mmol/L (137-145); Total Protein 6.7 g/dL (6.3-8.2); Triglycerides 218 mg/dL (35-150)
[2023-02-08 11:58] LABS: Creatinine Urine Random 63.9 mg/dL
[2023-02-08 12:02] LABS: Microalbumi Creatinin Ratio Ur 179.9 ug/mg CR (<30); Microalbumin Urine Random 11.5 mg/dL (0-1.6)
[2023-02-08 12:44] LABS: Hep C Virus Ab w/Reflex Quant NEGATIVE s/c (NEGATIVE)
[2023-02-09 04:35] LABS: Fructosamine 216 umol/L (0-285)
== END ==
PROVIDERS: PCP Student in an Organized Health Care Education/Training Program; Referring Provider Student in an Organized Health Care Education/Training Program; Visit Provider Student in an Organized Health Care Education/Training Program
DX: E11.69 Type 2 diabetes mellitus with other specified complication (principal); E78.2 Mixed hyperlipidemia; I10 Essential (primary) hypertension; N18.2 Chronic kidney disease, stage 2 (mild); Z11.59 Encounter for screening for other viral diseases
CPT/HCPCS: 36415; 80053; 80061; 82043; 82570; 82985; 86803

== ENCOUNTER → 2023-04-15 09:52 | Outpatient (CLI) | payer MEDICARE, OTHER, SELFPAY ==
[2023-04-15 10:34] LABS: Creatinine Urine Random 45.4 mg/dL
[2023-04-15 10:37] LABS: Microalbumi Creatinin Ratio Ur 330.3 ug/mg CR (<30)
[2023-04-15 11:22] LABS: Alanine Aminotransferase 15 IU/L (<50); Albumin 4.2 g/dL (3.5-5.0); Albumin Globulin Ratio 1.5 (1.0-2.8); Alkaline Phosphatase 77 U/L (38-126); Aspartate Aminotransferase 15 IU/L (17-59); BUN Creatinine Ratio 21.8 (6-22); Bilirubin Total 0.7 mg/dL (0.2-1.3); Blood Urea Nitrogen 19 mg/dL (9-20); Carbon Dioxide 27 mmol/L (22-32); Chloride 102 mmol/L (98-107); Estimated Glomerular Filt Rate > 60 mL/min (>60); Globulin 2.8 g/dL (1.7-4.1); Glucose 267 mg/dL (80-110); HEMOLYSIS < 15 (0-50); Potassium 4.4 mmol/L (3.4-5.1); Sodium 138 mmol/L (137-145)
[2023-04-15 11:51] LABS: Thyroid Stimulating Hormone 3.17 uIU/mL (0.47-4.68)
[2023-04-16 17:40] LABS: Ionized Calcium 5.3 mg/dL (4.5-5.6)
== END ==
PROVIDERS: PCP Pediatrics; Referring Provider Pediatrics; Visit Provider Pediatrics
DX: I10 Essential (primary) hypertension (principal); E11.69 Type 2 diabetes mellitus with other specified complication; E78.2 Mixed hyperlipidemia; N18.2 Chronic kidney disease, stage 2 (mild); E11.9 Type 2 diabetes mellitus without complications; N20.0 Calculus of kidney
CPT/HCPCS: 36415; 80053; 82043; 82330; 82570; 84443

== ENCOUNTER → 2023-06-03 09:43 | Outpatient (CLI) | payer MEDICARE, OTHER, SELFPAY ==
[2023-06-04 05:18] LABS: x Labcorp Estim. Avg Glu (eAG) 197 mg/dL (.); x Labcorp Hemoglobin A1c 8.5 % (4.8-5.6)
== END ==
PROVIDERS: PCP Pediatrics; Referring Provider Pediatrics; Visit Provider Pediatrics
DX: E11.9 Type 2 diabetes mellitus without complications (principal)
CPT/HCPCS: 36415; 83036

== ENCOUNTER → 2023-06-09 10:28 | Outpatient (CLI) | payer MEDICARE, OTHER, SELFPAY ==
[2023-06-09 16:15] LABS: MRSA (Nasal) PCR Not Detected (Not Detect)
== END ==
PROVIDERS: PCP Pediatrics; Referring Provider Pediatrics; Visit Provider Pediatrics
DX: L73.9 Follicular disorder, unspecified (principal)
CPT/HCPCS: 87797

== ENCOUNTER 2023-08-04 12:37 | Day surgery (SDC) | payer MEDICARE, OTHER, SELFPAY ==
--- NOTE | 2023-08-04 | PATH_ITS ---
[facility] Accession Number: [id number] No. of containers..06 Tissue . 01 Material submitted: . PART A: colon - ASCENDING POLYP PART B: colon - TRANSVERSE POLYPS (3) PART C: colon - BIG TRANSVERSE POLYP PART D: colon - SPLENIC FLEXURE POLYP X2 PART E: colon - DESCENDING POLYP PART F: rectum - RECTAL POLYP . 01 Diagnosis: A. Ascending Colon, Polyp: Tubular adenoma, two fragments. . B. Transverse Colon, Polyps (3): Tubular adenomas. . C. Big Transverse Polyp: Tubular adenoma. . D. Splenic Flexure Polyp x2: Tubular adenomas. . E. Descending Colon, Polyp: Tubular adenoma. . F. Rectum, Polyp: Tubular adenoma. MRV 08/09/2023 1408 Local . 01 Electronically signed: . Tereza Clarke MD, Pathologist NPI- [id number] . 01 Gross description: . Part A: ASCENDING POLYP: Received in formalin is 1 fragment(s) of overton, soft tissue measuring 0.6 x 0.5 x 0.5 cm which is bisected and submitted entirely in 1 cassette(s) Part B: TRANSVERSE POLYPS (3): Received in formalin is multiple fragment(s) of overton, soft tissue measuring 1.2 x 0.5 x 0.3 cm in aggregate submitted entirely in 1 cassette(s) Part C: BIG TRANSVERSE POLYP: Received in formalin is multiple fragment(s) of overton, soft tissue measuring 2.0 x 1.0 x 0.5 cm in aggregate submitted entirely in 1 cassette(s) Part D: SPLENIC FLEXURE POLYP X2: Received in formalin is multiple fragment(s) of overton, soft tissue measuring 1.5 x 0.5 x 0.4 cm in aggregate submitted entirely in 1 cassette(s) Part E: DESCENDING POLYP: Received in formalin is 1 fragment(s) of overton, soft tissue measuring 1.2 x 0.5 x 0.4 cm in aggregate which is bisected and submitted entirely in 1 cassette(s) Part F: RECTAL POLYP: Received in formalin is 1 fragment(s) of overton, soft tissue measuring 0.4 x 0.3 x 0.2 cm submitted entirely in 1 cassette(s) /AAY 08/05/2023 2314 Local . 01 Pathologist provided ICD-10: D12.2, D12.3, D12.4, D12.8 . 01 CPT . 707509, 910794, 136216, [id number], [id number], [id number] Specimen Comment: A courtesy copy of this report has been sent to [phone] Performed at: 01 [facility] [address] [place] [address], [place], [place] [id number] MD Bart Ocampo MD Phone: [phone]
[2023-08-04] MEDS: LACTATED RINGERS 1,000 ML 150 ML IV (12:54)
[2023-08-04 12:59] VITALS: BP 146/76; PULSE 116; RESP 16; TEMP 36.2; O2SAT 97; BMI 24.4
--- NOTE | 2023-08-04 14:40 | PM.HP.1 ---
History of Present Illness History of Present Illness Date Patient Seen: 08/04/23 Time Patient Seen: 14:40 Chief complaint: Colonoscopy Narrative: Marty is a 73-year-old man who is here for a colonoscopy. He believes his last 1 was 5 or 6 years ago and polyps were removed. [facility], [facility] Medical History (Updated 08/04/23 @ 14:41 by Toni Ashraf MD) Screening due Folliculitis Myalgia COVID-19 BPH w urinary obs/LUTS Bilateral nephrolithiasis Retained ureteral stent Bilateral nephrolithiasis Left ureteral calculus Labyrinthitis Lymphocytic colitis (2012) Rosacea (Unknown) Kidney stones (2011) Kidney disease (Unknown) Myopia (Unknown) Asthma (Unknown) Anemia (Unknown) Depression (Unknown) Hypertriglyceridemia (Unknown) Hypertension (Unknown) Hyperlipidemia (Unknown) Microscopic colitis (10/10/15) Chronic renal insufficiency, stage II (mild) (10/10/15) Depression (09/04/14) Type 2 diabetes mellitus without complication (09/11/15) Essential hypertension (09/11/15) Surgical History Hx of cystoscopy (04/29/21) Family History Father Cancer Mother Stroke Social History marital status: unmarried,single household members: none lives independently: Yes Smoking Status: Former smoker alcohol intake: current Meds Home Medications and Allergies Home Medications Medication Instructions Recorded Confirmed Type amlodipine 10 mg tablet 10 mg PO DAILY #90 tabs 01/05/23 08/04/23 Rx budesonide 3 mg 3 mg PO BID #180 caps 01/05/23 08/04/23 Rx capsule,delayed,extended release gemfibrozil 600 mg tablet 600 mg PO BID #180 tabs 01/05/23 08/04/23 Rx omeprazole 20 mg capsule,delayed 20 mg PO DAILY #90 caps 01/05/23 08/04/23 Rx release sitagliptin phosphate 100 mg 100 mg PO DAILY #90 tabs 02/15/23 08/04/23 Rx tablet (Januvia) trazodone 50 mg tablet 50 mg PO BEDTIME PRN sleep #30 tabs 02/22/23 08/04/23 Rx diclofenac sodium 75 mg 75 mg PO BID PRN gout 05/10/23 08/04/23 History tablet,delayed release potassium citrate 10 mEq (1,080 10 meq PO BID 05/10/23 08/04/23 History mg) tablet,extended release lisinopril 10 mg tablet 10 mg PO DAILY #90 tabs 05/13/23 08/04/23 Rx ketoconazole 2 % topical cream 1 applic topical BID PRN 06/07/23 08/04/23 Rx itching/rash #15 grams losartan 50 mg tablet 25 mg (1/2 x 50 mg) PO DAILY #30 06/13/23 08/04/23 Rx tabs metformin 1,000 mg tablet 1,000 mg PO BIDWMEAL #180 tabs 07/25/23 08/04/23 Rx cholecalciferol (vitamin D3) 50 50 mcg PO DAILY 08/04/23 08/04/23 History mcg (2,000 unit) capsule (Vitamin D3) glipizide 10 mg tablet 10 mg PO DAILY 08/04/23 08/04/23 History Allergies Allergy/AdvReac Type Severity Reaction Status Date / Time MALCOLM Inhibitors AdvReac Severe Elevated Verified 08/04/23 12:55 creatinine Exam Vital Signs (past 8 hours): - 08/04/23 12:59 Temperature 97.1 F L Pulse Rate 116 H Respiratory Rate 16 Blood Pressure 146/76 H Pulse Oximetry 97 Oxygen Delivery Method Room Air Oxygen Delivery Method Room Air Const General: No acute distress Resp Effort & Inspection: normal respiratory effort Assessment & Plan Assessment and plan (1) History of colon polyps: Status: Acute Plan: We reviewed the risks and benefits of colonoscopy and he would like to proceed.
--- NOTE | 2023-08-04 15:36 | PM.OP.COLON ---
Operative Date/Time/Diagnoses Date of procedure: 08/04/23 Time of procedure: 15:36 Pre-op diagnosis: History of polyps Post-op diagnosis: same Procedure & Clinicians Study performed: Colonoscopy Same procedure as scheduled: Yes Surgeon: Toni Ashraf Procedure Notes Procedure in detail: Surgeon: Toni Ashraf MD Anesthesia: Alisha Willie DO Procedure: The patient was brought to the endoscopy suite, placed in left lateral decubitus position. The patient was connected to monitoring devices. A time-out was performed. Sedation was administered. Once the patient was adequately sedated, a digital rectal exam was performed and was normal. The scope was then inserted and advanced to the cecum where the appendiceal orifice was identified and photographed. The scope was then slowly withdrawn over greater than 6 minutes. The mucosa was thoroughly inspected. There was a 7 mm polyp in the ascending colon removed with a cold snare. There were 3 polyps in the transverse colon, each about 6 mm and removed with cold snare. They were sent together. There was a 1 cm polyp in the distal transverse colon removed with a cold snare. An additional 3 mm polyp was next to it and removed with a cold snare and they were sent together. The 1 cm polypectomy site was bleeding and so an 11 mm short clip was applied to the mucosal defect with good effect. Tattoo ink was injected just distal and proximal to the polypectomy site. Two additional 7 mm polyps were resected from the splenic flexure using a cold snare. A 5 mm polyp was resected from the descending colon using cold snare. A 5 mm polyp was resected from the rectum using a cold snare. The scope was retroflexed in the rectum. No other abnormalities were seen. The scope was straightened and removed. The patient was awakened and brought to recovery. Scope withdrawal time: 32 minutes Sedation time: 36 minutes EBL: 10 mL Findings: Multiple polyps as detailed above. The only polyp that was greater than or equal to 1 cm was in the distal transverse colon Post-procedure Disposition: PACU
[2023-08-04 15:41] VITALS: BP 119/66; PULSE 88; RESP 15; TEMP 36.1; O2SAT 98
[2023-08-04 15:46] VITALS: BP 149/69; PULSE 93; RESP 14; O2SAT 99
[2023-08-04 15:55] VITALS: BP 130/62; PULSE 88; RESP 16; TEMP 36.2; O2SAT 98
== END 2023-08-04 16:10 | disposition home or self-care (01) ==
PROVIDERS: PCP Pediatrics; Referring Provider Surgery; Visit Provider Surgery
PROC: 0DJD8ZZ Inspection of Lower Intestinal Tract, Via Natural or Artificial Opening Endoscopic (ICD-10-PCS; CPT 45378; principal; 2023-08-04 13:45)
DX: Z12.11 Encounter for screening for malignant neoplasm of colon (principal); Z86.010 Personal history of colon polyps; D12.2 Benign neoplasm of ascending colon; D12.3 Benign neoplasm of transverse colon; D12.4 Benign neoplasm of descending colon
CPT/HCPCS: 45385; 45381; J2704

== ENCOUNTER → 2023-09-20 08:56 | Outpatient (CLI) | payer MEDICARE, OTHER, SELFPAY ==
[2023-09-20 10:39] LABS: Hemoglobin A1C% w Est Avg Glu 7.1 % (4.0-6.0)
[2023-09-20 10:43] LABS: Alanine Aminotransferase 11 IU/L (<50); Albumin 3.9 g/dL (3.5-5.0); Albumin Globulin Ratio 1.4 (1.0-2.8); Alkaline Phosphatase 64 U/L (38-126); Aspartate Aminotransferase 13 IU/L (17-59); BUN Creatinine Ratio 22.6 (6-22); Bilirubin Total 0.5 mg/dL (0.2-1.3); Blood Urea Nitrogen 28 mg/dL (9-20); Calcium 10.2 mg/dL (8.4-10.2); Carbon Dioxide 25 mmol/L (22-32); Chloride 105 mmol/L (98-107); Cholesterol 275 mg/dL (140-199); Estimated Glomerular Filt Rate > 60 mL/min (>60); Globulin 2.7 g/dL (1.7-4.1); Glucose 158 mg/dL (80-110); HDL Cholesterol 51 mg/dL (40-60); HEMOLYSIS < 15 (0-50); LDL Cholesterol Calculated 192 mg/dL (<100); Potassium 5.6 mmol/L (3.4-5.1); Sodium 141 mmol/L (137-145); Total Protein 6.6 g/dL (6.3-8.2); Triglycerides 162 mg/dL (35-150); Uric Acid 10.3 mg/dL (3.5-8.5)
== END ==
PROVIDERS: PCP Family Medicine; Referring Provider Family Medicine; Visit Provider Family Medicine
DX: E11.9 Type 2 diabetes mellitus without complications (principal); E11.69 Type 2 diabetes mellitus with other specified complication; E78.2 Mixed hyperlipidemia; I10 Essential (primary) hypertension; N18.2 Chronic kidney disease, stage 2 (mild); M10.9 Gout, unspecified
CPT/HCPCS: 36415; 80053; 80061; 83036; 84550

== ENCOUNTER → 2023-12-26 10:03 | Outpatient (CLI) | payer MEDICARE, OTHER, SELFPAY ==
[2023-12-26 11:33] LABS: Alanine Aminotransferase 14 IU/L (<50); Albumin 3.7 g/dL (3.5-5.0); Albumin Globulin Ratio 1.2 (1.0-2.8); Alkaline Phosphatase 76 U/L (38-126); Aspartate Aminotransferase 15 IU/L (17-59); BUN Creatinine Ratio 23.4 (6-22); Bilirubin Total 0.5 mg/dL (0.2-1.3); Blood Urea Nitrogen 36 mg/dL (9-20); Calcium 9.5 mg/dL (8.4-10.2); Carbon Dioxide 19 mmol/L (22-32); Chloride 103 mmol/L (98-107); Estimated Glomerular Filt Rate 48 mL/min (>60); Glucose 309 mg/dL (80-110); HEMOLYSIS < 15 (0-50); Potassium 4.8 mmol/L (3.4-5.1); Sodium 135 mmol/L (137-145); Total Protein 6.7 g/dL (6.3-8.2)
== END ==
PROVIDERS: PCP Family Medicine; Referring Provider Family Medicine; Visit Provider Family Medicine
DX: I10 Essential (primary) hypertension (principal); M10.9 Gout, unspecified
CPT/HCPCS: 36415; 80053; 84550

== ENCOUNTER 2024-01-12 10:09 | Inpatient (IN) | payer MEDICARE, OTHER, SELFPAY ==
[2024-01-12] VITALS (19 sets, daily range): BP systolic 133–188; BP diastolic 69–94; PULSE 70–103; RESP 13–18; TEMP 36.3–36.6; O2SAT 98–100; BMI 26.4
--- NOTE | 2024-01-12 10:20 | DI.RAD.S_ITS ---
PROCEDURE: XR CHEST 1V INDICATIONS: Chest pain TECHNIQUE: One view of the chest was acquired. COMPARISON: None. FINDINGS: Surgical changes and devices: None. Lungs and pleura: Lungs are clear. No pleural effusions or pneumothorax. Mediastinum: Mediastinal contours appear normal. Heart size is normal. Bones and chest wall: No suspicious bony lesions. Overlying soft tissues appear unremarkable. IMPRESSION: No acute cardiopulmonary abnormality is seen. Dictated by: Cristian Luna M.D. on 01/12/2024 at 10:52 Approved by: Cristian Luna M.D. on 01/12/2024 at 10:53
[2024-01-12 10:30] LABS: Add Manual Diff / Slide Review YES; Hematocrit 34.6 % (41-53); Hemoglobin 12.2 g/dL (13.5-17.5); Mean Corpuscular HGB Conc 35.4 % (30-36); Mean Corpuscular Hemoglobin 38.3 PG (26-34); Mean Corpuscular Volume 108.1 fL (80-100); Platelet Count 453 X10^3/uL (150-400); Red Cell Distribution Width 15.1 % (11.6-14.8); White Blood Cell Count 8.9 X10^3/uL (4.5-11.0)
--- NOTE | 2024-01-12 10:47 | ED.CHESTPAIN ---
HPI - Chest Pain General Chief Complaint: Chest Pain Stated Complaint: poss heart attack Time Seen by Provider: 01/12/24 10:19 Source: patient Mode of arrival: Ambulatory History of Present Illness HPI narrative: Patient is a 73-year-old male. History of hypertension, [id number] diabetes, high triglycerides who is here for evaluation of left-sided chest pressure and left arm pain. He states the symptoms started approximately 0600 hours this morning. He was asleep at the time. He is unsure as to whether or not it was the discomfort that woke him up or he woke up on his own. It has been consistent since then however has had periods of time in his worse than others. Not worse with palpation or movement or breathing. Some nausea but no vomiting. His symptoms are much better but not completely resolved. No history of heart attack. No lower extremity swelling. Related Data Home Medications Medication Instructions Recorded Confirmed diclofenac sodium 75 mg 75 mg PO BID PRN gout 05/10/23 01/12/24 tablet,delayed release potassium citrate 10 mEq (1,080 10 meq PO BID 05/10/23 01/12/24 mg) tablet,extended release cholecalciferol (vitamin D3) 50 50 mcg PO DAILY 08/04/23 01/12/24 mcg (2,000 unit) capsule (Vitamin D3) Previous Rx's Medication Instructions Recorded budesonide 3 mg 3 mg PO BID #180 caps 01/05/23 capsule,delayed,extended release omeprazole 20 mg capsule,delayed 20 mg PO DAILY #90 caps 01/05/23 release trazodone 50 mg tablet 50 mg PO BEDTIME PRN sleep #30 tabs 02/22/23 ketoconazole 2 % topical cream 1 applic topical BID PRN 06/07/23 itching/rash #15 grams losartan 50 mg tablet 25 mg (1/2 x 50 mg) PO DAILY #30 06/13/23 tabs metformin 1,000 mg tablet 1,000 mg PO BIDWMEAL #180 tabs 11/10/23 metoprolol succinate 25 mg 12.5 mg (1/2 x 25 mg) PO DAILY #45 11/14/23 tablet,extended release 24 hr tabs allopurinol 100 mg tablet 100 mg PO DAILY #30 tabs 12/13/23 glipizide 2.5 mg tablet 2.5 mg PO DAILY #30 tabs 12/29/23 amlodipine 10 mg tablet 10 mg PO DAILY #90 tabs 01/04/24 gemfibrozil 600 mg tablet 600 mg PO BID #180 tabs 01/04/24 Allergies Allergy/AdvReac Type Severity Reaction Status Date / Time MALCOLM Inhibitors AdvReac Severe Elevated Verified 01/12/24 10:25 creatinine Review of Systems Constitutional Constitutional: Reports system reviewed and no additional complaints, except as documented Cardiovascular Cardiovascular: Reports system reviewed and no additional complaints, except as documented Respiratory Respiratory: Reports system reviewed and no additional complaints, except as documented Integumentary/Breasts Skin/Breast: Reports system reviewed and no additional complaints, except as documented Neurologic Neurologic: Reports system reviewed and no additional complaints, except as documented Hematologic/Lymphatic On Anticoagulants: No Patient History Medical History Screening due Folliculitis Myalgia COVID-19 BPH w urinary obs/LUTS Bilateral nephrolithiasis Retained ureteral stent Bilateral nephrolithiasis Left ureteral calculus Labyrinthitis Lymphocytic colitis (2012) Rosacea (Unknown) Kidney stones (2011) Kidney disease (Unknown) Myopia (Unknown) Asthma (Unknown) Anemia (Unknown) Depression (Unknown) Hypertriglyceridemia (Unknown) Hypertension (Unknown) Hyperlipidemia (Unknown) Microscopic colitis (10/10/15) Chronic renal insufficiency, stage II (mild) (10/10/15) Depression (09/04/14) Type 2 diabetes mellitus without complication (09/11/15) Essential hypertension (09/11/15) Surgical History Hx of cystoscopy (04/29/21) Family History Father Cancer Mother Stroke Social History marital status: unmarried,single household members: none lives independently: Yes Smoking Status: Former smoker alcohol intake: current Smoking Status: Former smoker alcohol intake frequency: 0-2 drinks per day Substance Use Type: does not use Exam Initial Vital Signs Initial Vital Signs: Vital Signs Pulse Rate 101 H 01/12/24 10:15 Respiratory Rate 16 01/12/24 10:15 Blood Pressure 169/78 H 01/12/24 10:15 Pulse Oximetry 100 01/12/24 10:15 Const General: cooperative, comfortable and No ill appearing [facility] Head: normal to inspection and normocephalic Resp Effort & Inspection: normal respiratory effort Auscultation: clear to auscultation bilaterally Cardio Rate: regular rate Rhythm: regular rhythm GI Inspection: normal to inspection and non-distended Neuro General: patient alert, patient awake and moves all extremities Extrem General: capillary refill normal Course Orders Ordered: ED Orders 01/12/24 10:12 PTT Partial Thromboplastin Andre Q6H 01/12/24 10:17 Complete Blood Count AUTO DIFF Stat Comprehensive Metabolic Panel Stat Lipase Stat Magnesium Stat Troponin & CK Cardiac Panel Stat 01/12/24 10:20 XR chest 1V Stat EKG-12 Lead Stat 01/12/24 18:00 PTT Partial Thromboplastin Andre Q6H 01/13/24 00:00 PTT Partial Thromboplastin Andre Q6H 01/13/24 05:00 Hemoglobin and Hematocrit DAILY Platelet Count DAILY 01/13/24 06:00 PTT Partial Thromboplastin Andre Q6H 01/14/24 05:00 Hemoglobin and Hematocrit DAILY Platelet Count DAILY Heparin Sodium/Dextrose (Heparin Drip) 25,000 unit in 500 mls @ 20.684 mls/hr IV CONT GERALDINE; Protocol Last Titration: 01/12/24 12:55 Dose: 11.6 units/kg/hr, 20 mls/hr Documented By: GILDARDO Co-signed By: JAZMINE Admin: 01/12/24 12:15 Dose: 11.6 units/kg/hr, 20 mls/hr Documented By: GILDARDO Co-signed By: MINNIE Discontinued Medications Aspirin (Aspirin 81 Mg Chew Tab) 324 mg PO NOW ONE Stop: 01/12/24 11:51 Last Admin: 01/12/24 12:06 Dose: 324 mg Documented By: GILDARDO Heparin Sodium (Porcine) (Heparin 5,000 Unit/Ml Vial) 5,000 unit 60 unit/kg (5000 unit) IV NOW ONE Stop: 01/12/24 11:49 Last Admin: 01/12/24 12:13 Dose: 5,000 unit Documented By: GILDARDO Nitroglycerin (Nitroglycerin 0.4 Mg Sl Tab) 0.4 mg SL [id number] PRN PRN Reason: Chest Pain Last Admin: 01/12/24 11:46 Dose: 0.4 mg Documented By: Admin: 01/12/24 11:20 Dose: 0.4 mg Documented By: Admin: 01/12/24 10:56 Dose: 0.4 mg Documented By: MINNIE Vital Signs Vital signs: Vital Signs - 8 hr 01/12/24 10:15 01/12/24 10:15 01/12/24 10:17 Temperature 97.3 F L Pulse Rate 101 H 103 H Respiratory Rate 16 17 Blood Pressure 169/78 H 169/78 H Pulse Oximetry 100 100 Oxygen Delivery Method Room Air 01/12/24 10:30 01/12/24 10:30 01/12/24 10:55 Temperature Pulse Rate 92 H Respiratory Rate 14 Blood Pressure 168/85 H 188/80 H Pulse Oximetry 100 Oxygen Delivery Method 01/12/24 10:55 01/12/24 10:56 01/12/24 11:00 Temperature Pulse Rate 93 H 93 H 91 H Respiratory Rate 18 15 Blood Pressure 188/80 H Pulse Oximetry 100 99 Oxygen Delivery Method 01/12/24 11:00 01/12/24 11:10 01/12/24 11:10 Temperature Pulse Rate 93 H Respiratory Rate 18 Blood Pressure 162/69 H 156/73 H Pulse Oximetry 100 Oxygen Delivery Method 01/12/24 11:20 01/12/24 11:30 01/12/24 11:30 Temperature Pulse Rate 91 H 87 Respiratory Rate 13 Blood Pressure 159/69 H 133/73 Pulse Oximetry 99 Oxygen Delivery Method 01/12/24 11:42 01/12/24 11:46 01/12/24 11:46 Temperature Pulse Rate 88 85 83 Respiratory Rate 16 17 Blood Pressure 159/82 H 157/85 H 157/85 H Pulse Oximetry 100 100 Oxygen Delivery Method Room Air Room Air 01/12/24 11:51 Temperature Pulse Rate 87 Respiratory Rate 16 Blood Pressure 146/72 H Pulse Oximetry 100 Oxygen Delivery Method Room Air MDM - Chest Pain Lab Data Attestation: I reviewed the patient's lab results. 01/12/24 10:17 01/12/24 10:17 Labs: Lab Results 01/12/24 Range/Units 10:17 WBC 8.9 (4.5-11.0) X10^3/uL RBC 3.20 L (4.5-5.9) X10^6/uL Hgb 12.2 L (13.5-17.5) g/dL Hct 34.6 L (41-53) % MCV 108.1 H (80-100) fL MCH 38.3 H (26-34) PG MCHC 35.4 (30-36) % RDW 15.1 H (11.6-14.8) % Plt Count 453 H (150-400) X10^3/uL Neut % (Auto) Not Reportable Lymph % (Auto) Not Reportable [place] % (Auto) Not Reportable Eos % (Auto) Not Reportable Baso % (Auto) Not Reportable Lymph # (Auto) Not Reportable [place] # (Auto) Not Reportable Baso # (Auto) Not Reportable Total Counted 100 Seg Neutrophils % 81.0 H (38-70) % Lymphocytes % (Manual) 17.0 L (25-45) % Monocytes % (Manual) 2.0 (2-11) % Neutrophils # (Manual) 7209 H (4460-1736) /uL RBC Morphology Normal morphology Sodium 139 (137-145) mmol/L Potassium 4.0 (3.4-5.1) mmol/L Chloride 108 H (98-107) mmol/L Carbon Dioxide 18 L (22-32) mmol/L BUN 26 H (9-20) mg/dL Creatinine 1.06 (0.66-1.25) mg/dL Estimated GFR > 60 (>60) mL/min BUN/Creatinine Ratio 24.5 H (6-22) Glucose 299 H (80-110) mg/dL Calcium 9.6 (8.4-10.2) mg/dL Magnesium 1.2 L (1.6-2.3) mg/dL Total Bilirubin 0.7 (0.2-1.3) mg/dL AST 17 (17-59) IU/L ALT 22 (<50) IU/L Alkaline Phosphatase 90 (38-126) U/L Total Creatine Kinase < 20 L (55-170) U/L Troponin I < 0.012 (0.01-0.034) ng/mL Total Protein 7.2 (6.3-8.2) g/dL Albumin 3.8 (3.5-5.0) g/dL Globulin 3.4 (1.7-4.1) g/dL Albumin/Globulin Ratio 1.1 (1.0-2.8) Lipase 120 (23-300) U/L Imaging Data Chest x-ray: Radiologist's Impression: PROCEDURE: XR CHEST 1V INDICATIONS: Chest pain TECHNIQUE: One view of the chest was acquired. COMPARISON: None. FINDINGS: Surgical changes and devices: None. Lungs and pleura: Lungs are clear. No pleural effusions or pneumothorax. Mediastinum: Mediastinal contours appear normal. Heart size is normal. Bones and chest wall: No suspicious bony lesions. Overlying soft tissues appear unremarkable. IMPRESSION: No acute cardiopulmonary abnormality is seen. ECG Data Attestation: I personally reviewed and interpreted this ECG as follows: Interpretation: Sinus rhythm Ventricular rate 93 Normal axis First-degree AV block WA interval 218 milliseconds Normal QTC Nonspecific ST T wave changes MDM Narrative Medical decision making narrative: Patient reports improvement of symptoms after nitro. First troponin ordered just under 6 hours after the onset of consistent symptoms which is negative. EKG is unremarkable. Discussed the case with Dr. Foley hospitalist on-call who will admit for further evaluation and treatment. He recommended starting the patient on heparin. Discussed the need for admission with the patient. He expressed understanding and agreement with plan. Discharge Plan Departure Patient Disposition: Admitted as Observation Clinical Impression: Chest pain Admit Date/Time: 01/12/24 11:57 Admit Provider: Dar Foley
[2024-01-12 10:56] LABS: Albumin 3.8 g/dL (3.5-5.0); Albumin Globulin Ratio 1.1 (1.0-2.8); Alkaline Phosphatase 90 U/L (38-126); Aspartate Aminotransferase 17 IU/L (17-59); BUN Creatinine Ratio 24.5 (6-22); Bilirubin Total 0.7 mg/dL (0.2-1.3); Blood Urea Nitrogen 26 mg/dL (9-20); Calcium 9.6 mg/dL (8.4-10.2); Carbon Dioxide 18 mmol/L (22-32); Chloride 108 mmol/L (98-107); Creatine Kinase < 20 U/L (55-170); Estimated Glomerular Filt Rate > 60 mL/min (>60); Globulin 3.4 g/dL (1.7-4.1); Glucose 299 mg/dL (80-110); HEMOLYSIS < 15 (0-50); Lipase 120 U/L (23-300); Magnesium 1.2 mg/dL (1.6-2.3); Sodium 139 mmol/L (137-145); Total Protein 7.2 g/dL (6.3-8.2)
[2024-01-12] MEDS: NITROGLYCERIN 0.4 MG SL TAB SL ×3 (10:56→11:46)
[2024-01-12 11:03] LABS: Alanine Aminotransferase 22 IU/L (<50)
[2024-01-12 11:08] LABS: Troponin I < 0.012 ng/mL (0.01-0.034)
--- NOTE | 2024-01-12 11:11 | PC.NURSE ---
Patient reports pain in neck and pressure in chest have subsided however there is still a deep ache in my left chest.
[2024-01-12 11:38] LABS: Neutrophils Absolute Manual 7209 /uL (3000-5900); Total Cells Counted 100
[2024-01-12 11:39] LABS: RBC Morphology Normal Morphology
--- NOTE | 2024-01-12 12:05 | P.HP_ITS ---
History of Present Illness History of Present Illness Date Patient Seen: 01/12/24 Time Patient Seen: 13:00 Chief complaint: poss heart attack Narrative: The patient is a 73-year-old male with a history of diabetes 2, hypertension, and high triglycerides who awoke with her this morning at 6:00 a.m.. The pain was substernal with radiation to the arm. The pain isolated and then worsened to about 9:00 a.m. when he decided to present for medical attention. No associated nausea, vomiting, diaphoresis, or dyspnea. He has no cardiac history and denies history of chest pain or exertional dyspnea. No orthopnea edema symptoms. In the emergency department his ECG was nonacute and in sinus rhythm. He was given nitroglycerin with some improvement of pain. He would normal troponin. The patient had a stress test 15 years ago said to be normal. He denies a prominent history of dyspepsia. He was started on heparin for possible unstable angina in the emergency department now feels mostly pain-free. He has a small residual component of left-sided chest pain which increases with palpation or deep movement or coughing. He denies recent URI symptoms. No rhinorrhea, cough. No fevers or chills. He has not short of breath. No pleuritic component to the pain. CXR was unremarkable. He does have extensive ecchymosis. This is chronic for him. He stopped taking baby aspirin about 2 years ago because of this. He also stopped atorvastatin about a year and a half ago because of prominent leg weakness. His like weakness was primarily in the thighs and did improve to some degree after this stopping the medication but he is still weak there. [facility] Medical History Screening due Folliculitis Myalgia COVID-19 BPH w urinary obs/LUTS Bilateral nephrolithiasis Retained ureteral stent Bilateral nephrolithiasis Left ureteral calculus Labyrinthitis Lymphocytic colitis (2012) Rosacea (Unknown) Kidney stones (2011) Kidney disease (Unknown) Myopia (Unknown) Asthma (Unknown) Anemia (Unknown) Depression (Unknown) Hypertriglyceridemia (Unknown) Hypertension (Unknown) Hyperlipidemia (Unknown) Microscopic colitis (10/10/15) Chronic renal insufficiency, stage II (mild) (10/10/15) Depression (09/04/14) Type 2 diabetes mellitus without complication (09/11/15) Essential hypertension (09/11/15) Surgical History Hx of cystoscopy (04/29/21) Family History Father Cancer Mother Stroke Social History marital status: unmarried,single household members: none lives independently: Yes Smoking Status: Former smoker alcohol intake: current Meds Home Medications and Allergies Home Medications Medication Instructions Recorded Confirmed Type budesonide 3 mg 3 mg PO BID #180 caps 01/05/23 01/12/24 Rx capsule,delayed,extended release omeprazole 20 mg capsule,delayed 20 mg PO DAILY #90 caps 01/05/23 01/12/24 Rx release trazodone 50 mg tablet 50 mg PO BEDTIME PRN sleep #30 tabs 02/22/23 01/12/24 Rx diclofenac sodium 75 mg 75 mg PO BID PRN gout 05/10/23 01/12/24 History tablet,delayed release potassium citrate 10 mEq (1,080 10 meq PO BID 05/10/23 01/12/24 History mg) tablet,extended release ketoconazole 2 % topical cream 1 applic topical BID PRN 06/07/23 01/12/24 Rx itching/rash #15 grams losartan 50 mg tablet 25 mg (1/2 x 50 mg) PO DAILY #30 06/13/23 01/12/24 Rx tabs cholecalciferol (vitamin D3) 50 50 mcg PO DAILY 08/04/23 01/12/24 History mcg (2,000 unit) capsule (Vitamin D3) metformin 1,000 mg tablet 1,000 mg PO BIDWMEAL #180 tabs 11/10/23 01/12/24 Rx metoprolol succinate 25 mg 12.5 mg (1/2 x 25 mg) PO DAILY #45 11/14/23 01/12/24 Rx tablet,extended release 24 hr tabs allopurinol 100 mg tablet 100 mg PO DAILY #30 tabs 12/13/23 01/12/24 Rx glipizide 2.5 mg tablet 2.5 mg PO DAILY #30 tabs 12/29/23 01/12/24 Rx amlodipine 10 mg tablet 10 mg PO DAILY #90 tabs 01/04/24 01/12/24 Rx gemfibrozil 600 mg tablet 600 mg PO BID #180 tabs 01/04/24 01/12/24 Rx Allergies Allergy/AdvReac Type Severity Reaction Status Date / Time MALCOLM Inhibitors AdvReac Severe Elevated Verified 01/12/24 10:25 creatinine Review of Systems Review of Systems Narrative: All else reviewed and otherwise unremarkable except as noted in the history and physical. Exam Vital Signs (past 8 hours): - 01/12/24 10:15 01/12/24 10:15 01/12/24 10:17 Temperature 97.3 F L Pulse Rate 101 H 103 H Respiratory Rate 16 17 Blood Pressure 169/78 H 169/78 H Pulse Oximetry 100 100 Oxygen Delivery Method Room Air 01/12/24 10:30 01/12/24 10:30 01/12/24 10:55 Temperature Pulse Rate 92 H Respiratory Rate 14 Blood Pressure 168/85 H 188/80 H Pulse Oximetry 100 Oxygen Delivery Method 01/12/24 10:55 01/12/24 10:56 01/12/24 11:00 Temperature Pulse Rate 93 H 93 H 91 H Respiratory Rate 18 15 Blood Pressure 188/80 H Pulse Oximetry 100 99 Oxygen Delivery Method 01/12/24 11:00 01/12/24 11:10 01/12/24 11:10 Temperature Pulse Rate 93 H Respiratory Rate 18 Blood Pressure 162/69 H 156/73 H Pulse Oximetry 100 Oxygen Delivery Method 01/12/24 11:20 01/12/24 11:30 01/12/24 11:30 Temperature Pulse Rate 91 H 87 Respiratory Rate 13 Blood Pressure 159/69 H 133/73 Pulse Oximetry 99 Oxygen Delivery Method 01/12/24 11:46 Temperature Pulse Rate 85 Respiratory Rate Blood Pressure 157/85 H Pulse Oximetry Oxygen Delivery Method Oxygen Delivery Method Room Air Narrative Exam Narrative: NAD, alert and oriented, fluent speech, calm. Normocephalic skull, EOMI, anicteric sclera, symmetric pupils. Oropharynx unremarkable, no droop. Neck supple, midline trachea, no adenopathy. Lungs clear, normal rate and effort. Heart regular, no murmur gallop or rub. Abdomen is soft, non distended and non tender. Extremities are free of edema. Skin is free of rash or lesions. He does have extensive ecchymosis. This is chronic for him. He stopped taking baby aspirin about 2 years ago because of this. Joints are not swollen or deformed. Judgment appears to be normal. Objective Imaging Chest x-ray: Radiologist's impression: No acute cardiopulmonary abnormality is seen. Labs 01/12/24 10:17 01/12/24 10:17 Labs: Laboratory Results - last 24 hr 01/12/24 10:17 WBC 8.9 RBC 3.20 L Hgb 12.2 L Hct 34.6 L MCV 108.1 H MCH 38.3 H MCHC 35.4 RDW 15.1 H Plt Count 453 H Neut % (Auto) Not Reportable Lymph % (Auto) Not Reportable Tucker % (Auto) Not Reportable Eos % (Auto) Not Reportable Baso % (Auto) Not Reportable Lymph # (Auto) Not Reportable Tucker # (Auto) Not Reportable Baso # (Auto) Not Reportable Total Counted 100 Seg Neutrophils % 81.0 H Lymphocytes % (Manual) 17.0 L Monocytes % (Manual) 2.0 Neutrophils # (Manual) 7209 H RBC Morphology Normal morphology Sodium 139 Potassium 4.0 Chloride 108 H Carbon Dioxide 18 L BUN 26 H Creatinine 1.06 Estimated GFR > 60 BUN/Creatinine Ratio 24.5 H Glucose 299 H Calcium 9.6 Magnesium 1.2 L Total Bilirubin 0.7 AST 17 ALT 22 Alkaline Phosphatase 90 Total Creatine Kinase < 20 L Troponin I < 0.012 Total Protein 7.2 Albumin 3.8 Globulin 3.4 Albumin/Globulin Ratio 1.1 Lipase 120 Assessment & Plan Assessment & Plan narrative: 1. Possible unstable angina, present on admission and active. 2. HTN, present on admission and active. 3. DM 2, present on admission and active. 4. High triglyceridemia, present on admission and active. 5. Asthma, present on admission and stable. 6. CKD 2, present on admission and active. PLAN: -heparin drip -serial troponins -ASA, BB -ECHO to assess LVEF and R/O WMA. -hold PO DM meds and SSI. Full code He lives alone and has no children. Time Spent With Patient Time with patient: 30 to 49 minutes with 50% spent counseling/coordinating care Quality MIPS - Admit I confirm the patient?s Advance Care Plan is present, Code status is documented, Surrogate decision maker is in patient?s record [If Yes, STOP here]: Yes [facility] - Meds 'Current medications' to include all prescriptions, [id number] products, herbals, cannabis/cannabidiol products, and vitamin/mineral/dietary (nutritional) supplements. I have utilized all available resources to obtain, update, or review the patient?s current medications. [If Yes, STOP here]: Yes
[2024-01-12] MEDS: ASPIRIN 81 MG CHEW TAB 324 MG PO (12:06)
[2024-01-12] MEDS: HEPARIN 5,000 UNIT/ML VIAL 5000 UNIT IV (12:13)
[2024-01-12] MEDS: HEPARIN DRIP 25,000 UNIT/500 ML IV.SOLN 20 UNIT IV (12:15)
[2024-01-12 12:18] LABS: PTT Partial Thromboplastin Tim 53 SECONDS (25.1-36.5)
--- NOTE | 2024-01-12 13:37 | DI.ECHO.S_ITS ---
[facility] +---------+ : : [address] : : : : [id number] : : : : Phone: [phone]+ Echocardiogram Report + + :Name: LUZ KUMAR Study Date: 01/12/2024 Height: 71 in : :[facility] ReadingLocation: Weight: 190 lb : : Gender: Male BSA: 2.1 m2 : :: 1950 Age: 73 yrs BP: 185/94 mmHg: :Reason For Study: CHEST PAIN : :Ordering Physician: LAUREN, : :LENIN Aviles Performed By: Sean Thompson : :Referring: LENIN AGUILAR : + + Interpretation Summary The ejection fraction is estimated to be 55-60%. Diastolic parameters suggest probable normal left ventricular diastolic function and normal filling pressures. The right ventricle is normal in size and function. No significant valvular abnormality. Procedure: A two-dimensional transthoracic echocardiogram with color flow and Doppler was performed. The study quality was technically adequate. There is no prior echocardiogram noted for this patient. The patient was in normal sinus rhythm during the exam. The heart rate ranged between 89-107 bpm during the study. Left Ventricle: The left ventricle is normal in size and wall thickness. The ejection fraction is estimated to be 55-60%. There are no obvious focal wall motion abnormalities noted but poor endocardial definition reduces the sensitivity for the detection of such. Diastolic parameters suggest probable normal left ventricular diastolic function and normal filling pressures. Right Ventricle: The right ventricle is normal in size and function. The right ventricular systolic function is normal. Atria: The left atrial size is normal. The right atrium is mildly dilated. The interatrial septum grossly appears intact with no obvious evidence for an atrial septal defect. Mitral Valve: The mitral valve is normal in structure and function. There is no mitral valve stenosis. There is no mitral regurgitation noted. Aortic Valve: The aortic valve is trileaflet. There is no aortic valve stenosis. No aortic regurgitation is present. Tricuspid Valve: There has been no significant change since the previous study. There has been no significant change since the previous study. There is a trace or physiologic amount of tricuspid regurgitation. Pulmonic Valve: The pulmonic valve is not well visualized. There is no pulmonic valvular stenosis. There has been no significant change since the previous study. Great Vessels: The aortic root is normal size. The dimensions of the ascending aorta are normal. The IVC is of normal diameter and collapses greater than 50% with a sniff. This suggests a low right atrial pressure of 3 mm Hg. Pericardium/ Pleura There is no pericardial effusion. There is no pleural effusion. MMode/2D Measurements & Calculations LVIDd: 5.1 cm LVOT diam: 2.3 cm LVIDs: 3.4 cm Ao root diam: 3.3 cm FS: 32.4 % asc Aorta Diam: 3.0 cm IVSd: 0.90 cm LVPWd: 1.0 cm LV martinez. diameter/BSA (cm/m^2): 2.5 LV sys. diameter/BSA (cm/m^2): 1.7 LA A2 area: 20.2 cm2 RA long axis: 4.5 cm LA A4 area: 17.3 cm2 RA area: 13.9 cm2 LA length (vol): 4.9 cm RA vol: 36.5 ml LA vol: 60.0 ml RA : 17.7 ml/m2 LA vol index: 29.1 ml/m2 RVD1 (basal): 3.4 cm RVD2 (mid): 2.6 cm TAPSE: 2.0 cm Doppler Measurements & Calculations Ao V2 max: 138.9 cm/sec LVOT Max Gerry: 113.9 cm/sec Ao V2 mean: 90.8 cm/sec LV V1 max P.2 mmHg Ao max P.7 mmHg LV V1 VTI: 23.8 cm Ao mean P.8 mmHg ADALBERTO(I,D): 4.0 cm2 Ao V2 VTI: 24.5 cm ADALBERTO(V,D): 3.4 cm2 sev ratio: 0.97 ADALBERTO indexed to BSA (cm^2/m^2): 1.9 MV E max gerry: 60.7 cm/sec PA V2 max: 149.6 cm/sec MV A max gerry: 97.3 cm/sec PA V2 mean: 117.5 cm/sec MV E/A: 0.62 PA mean P.0 mmHg MV dec time: 0.19 sec PA pr(Accel): 39.6 mmHg SV(LVOT): 97.6 ml Reading Physician:TAMI
[2024-01-12] MEDS: GEMFIBROZIL 600 MG 600 EACH PO ×2 (14:00→20:46)
[2024-01-12] MEDS: METOPROLOL ER 25 MG TABLET 12.5 MG PO (14:45)
[2024-01-12] MEDS: LOSARTAN 50 MG TABLET 25 MG PO (14:45)
[2024-01-12] MEDS: allopurinoL 100 MG TABLET PO (14:45)
[2024-01-12] MEDS: AMLODIPINE 5 MG TABLET 10 MG PO (14:47)
[2024-01-12] MEDS: BUDESONIDE 3 MG CAP PO ×2 (14:54→20:53)
--- NOTE | 2024-01-12 15:48 | PC.NURSE ---
Patient arrived from ED at 1300 A&OX4. He reports chest pain and L arm pain subsided to almost nothing. SBP elevated in 180's. Patient reports slight dizziness with ambulating to BR and back [facility] bed [facility]. He reports last having eaten last night but denies appetite today. He has a heparin drip running to L UE at 11.6 Units/20ml/hr, per MAR hung at 1255. Lab notified of next draw at 1855. Echo completed at bedside. Admission assessment completed. Troponin drawn. RN observed Skin rash to Left side of his back and under both arms, he stated he's had for a couple of years'. He states he lives alone and doesn't talk to people regularly and denied having a support system. He denied needing a SW consult. Bed alarm on, oriented to unit/ room, telemetry, ACHS BG, monitoring for bleeding. he declines SCD's at this time. Continuous monitoring.
[2024-01-12 17:16] LABS: Troponin I 0.651 ng/mL (0.01-0.034)
[2024-01-12] MEDS: INSULIN LISPRO 100 UNIT/ML 3ML VIAL SUBCUT ×2 (17:21→20:46)
[2024-01-12] MEDS: CLOPIDOGREL 75 MG TABLET 300 MG PO (18:53)
[2024-01-12 19:10] LABS: PTT Partial Thromboplastin Tim 82 SECONDS (25.1-36.5)
[2024-01-12] MEDS: TRAZODONE 50 MG TABLET PO (20:53)
[2024-01-12] MEDS: MAGNESIUM SULFATE 2 GM/50 ML PIGGYBACK IV (22:00)
[2024-01-13] VITALS (8 sets, daily range): BP systolic 123–153; BP diastolic 65–85; PULSE 79–91; RESP 16–18; TEMP 36.2–36.9; O2SAT 97–100
[2024-01-13 01:02] LABS: PTT Partial Thromboplastin Tim 69 SECONDS (25.1-36.5)
[2024-01-13] MEDS: PANTOPRAZOLE DR 20 MG TABLET PO (06:15)
[2024-01-13 06:52] LABS: Add Manual Diff / Slide Review NO; Basophils Absolute Auto 0 /uL (0-100); Basophils Percent Auto 0.3 % (0-2); Eosinophils Absolute Auto 0 /uL (0-450); Eosinophils Percent Auto 0.3 % (2-4); Hematocrit 31.6 % (41-53); Hemoglobin 11.3 g/dL (13.5-17.5); Lymphocytes Absolute Auto 700 /uL (1100-4500); Lymphocytes Percent Auto 7.7 % (25-40); Mean Corpuscular HGB Conc 35.6 % (30-36); Mean Corpuscular Hemoglobin 38.2 PG (26-34); Mean Corpuscular Volume 107.3 fL (80-100); Monocytes Absolute Auto 600 /uL (0-900); Monocytes Percent Auto 6.4 % (3-14); Neutrophils Absolute Auto 7700 /uL (1500-7000); Neutrophils Percent Auto 85.3 % (50-75); Platelet Count 373 X10^3/uL (150-400); Red Blood Cell Count 2.94 X10^6/uL (4.5-5.9); Red Cell Distribution Width 14.9 % (11.6-14.8)
[2024-01-13 06:58] LABS: PTT Partial Thromboplastin Tim 69 SECONDS (25.1-36.5)
[2024-01-13 07:05] LABS: BUN Creatinine Ratio 28.4 (6-22); Blood Urea Nitrogen 23 mg/dL (9-20); Carbon Dioxide 27 mmol/L (22-32); Chloride 106 mmol/L (98-107); Estimated Glomerular Filt Rate > 60 mL/min (>60); Glucose 227 mg/dL (80-110); HEMOLYSIS < 15 (0-50); Sodium 137 mmol/L (137-145)
[2024-01-13] MEDS: INSULIN LISPRO 100 UNIT/ML 3ML VIAL SUBCUT ×4 (08:25→21:07)
[2024-01-13] MEDS: ASPIRIN EC 81 MG TABLET PO (08:26)
[2024-01-13] MEDS: CHOLECALCIFEROL (VITAMIN D3) 1,000 UNIT TABLET 2000 UNIT PO (08:26)
[2024-01-13] MEDS: allopurinoL 100 MG TABLET PO (08:26)
[2024-01-13] MEDS: GEMFIBROZIL 600 MG 600 EACH PO ×2 (08:28→21:07)
[2024-01-13] MEDS: BUDESONIDE 3 MG CAP PO ×2 (08:28→21:07)
[2024-01-13] MEDS: LOSARTAN 50 MG TABLET 25 MG PO (08:29)
[2024-01-13] MEDS: AMLODIPINE 5 MG TABLET 10 MG PO (08:29)
[2024-01-13] MEDS: METOPROLOL ER 25 MG TABLET 12.5 MG PO (08:29)
[2024-01-13] MEDS: CLOPIDOGREL 75 MG TABLET PO (08:31)
--- NOTE | 2024-01-13 11:39 | CM.DANOTE ---
DCP Assessment Note Pt is a 73yo M, resident [facility], presented to the ED with symptoms congruent with a possible heart attack. Pt is single, never , with no children. Pt lives alone in an apartment and at baseline, is independent and drives his own vehicle. PCP: Nina Loza Payer: Medicare, [employer] [facility] Reviewed chart and team rounds for pt's medical status and initial discharge needs. COMMERCIAL CREDIT OFFICER met w/patient at bedside; introduced self and role. Pt was found lying in bed, alert and oriented. Pt was able to verbalize preferences and declined any pending discharge needs at this time. Pt was able to provide Emergency Contact: Maddy Serrano, Sister who lives in [place], [place] ( ). COMMERCIAL CREDIT OFFICER discussed plans of possible procedure at [facility] and pt was agreeable to plan. Plan: Per hospitalist, pending possible procedure at [facility] and monitoring before discharge. Pt drove himself to ED, vehicle is parked at [facility] parking lot. Hoping to drive himself home. CM team will plan to follow clinical course closely for assessment of need and coordination of discharge plan. MEENAKSHI Campos Discharge Planning/Care Management CM Discharge Assessment Start: 01/13/24 11:35 Freq: Status: Active Protocol: Document 01/13/24 11:35 MW (Rec: 01/13/24 11:38 MW [id number]) Discharge Planning Assessment Assigned Latex Spooler MEENAKSHI Pérez DPOA/Assigned Designee Name Sister Jimenez Contact Information [phone] Advance Directives? No History Provided By Patient,Medical Record Has Patient been admitted in last 30 No days? Prior Living Arrangements Apartment/Condo Household Members none Type of transporation used prior to Drives own vehicle admit Comment Pt drove himself to ED, vehicle parked in [facility] parking lot. Independent with ADL's Yes Is patient alert and oriented? Yes Caregiver for Another No Comment No discharge plans identified at this time, following closely. Barriers to Discharge No Discharge Plan Home Transportation Arrangement Pt hopes to drive himself home at discharge. Whiteboard Updated in Patient Room with Yes name and ext. # of Latex Spooler Please Provide Date Initial DC 01/13/24 Assessment Was Performed Next Review Type Continued Stay Review
--- NOTE | 2024-01-13 12:19 | P.PN_ITS ---
Subjective Subjective Interval history: No chest pain overnight. No dyspnea overnight. He had a very low-level troponin elevation yesterday late afternoon but then had a very significant troponin mL of the night of 44. Echo yesterday without wall motion abnormalities and normal EF. His ECG this morning is nonacute. Discuss this with Cardiology at [facility] 7:10 a.m.. We are trying to work towards an expedited transfer but due to capacity issues there this has been delayed. We have sent [facility] see if we can get an expedited transfer for coronary evaluation from Cardiology. Exam Vital Signs (past 8 hours): - 01/13/24 08:00 01/13/24 08:29 01/13/24 08:29 Temperature 97.9 F Pulse Rate 91 H 91 H 91 H Respiratory Rate 16 Blood Pressure 153/85 H 153/85 H 153/85 H Pulse Oximetry 100 Oxygen Flow Rate 0 01/13/24 11:42 01/13/24 11:47 Temperature 98 F Pulse Rate 88 88 Respiratory Rate 16 Blood Pressure 148/78 H 148/78 H Pulse Oximetry 99 Oxygen Flow Rate 0 Oxygen Delivery Method Room Air Oxygen Flow Rate 0 Narrative Exam Narrative: NAD, alert and oriented. Fluent speech. Lungs are clear, normal rate and effort. Heart is regular, no murmur gallop or rub. Abdomen is soft, non distended. Extremities are free of edema. Objective ECG Impression: ECG this morning, NSR, no ST segment elevations or Q-waves. Imaging Echo: Radiologist's impression: The ejection fraction is estimated to be 55-60%. Diastolic parameters suggest probable normal left ventricular diastolic function and normal filling pressures. The right ventricle is normal in size and function. No significant valvular abnormality. Labs 01/13/24 06:20 01/13/24 06:20 Labs: Laboratory Results - last 24 hr 01/12/24 01/12/24 01/12/24 10:12 15:55 18:25 WBC RBC Hgb Hct MCV MCH MCHC RDW Plt Count Neut % (Auto) Lymph % (Auto) Juncos % (Auto) Eos % (Auto) Baso % (Auto) Neut # (Auto) Lymph # (Auto) [place] # (Auto) Eos # (Auto) Baso # (Auto) APTT 53 H 82 H* D Sodium Potassium Chloride Carbon Dioxide BUN Creatinine Estimated GFR BUN/Creatinine Ratio Glucose Calcium Magnesium Troponin I 0.651 H* 01/13/24 01/13/24 00:40 06:20 WBC 9.0 RBC 2.94 L Hgb 11.3 L Hct 31.6 L MCV 107.3 H MCH 38.2 H MCHC 35.6 RDW 14.9 H Plt Count 373 Neut % (Auto) 85.3 H Lymph % (Auto) 7.7 L Juncos % (Auto) 6.4 Eos % (Auto) 0.3 L Baso % (Auto) 0.3 Neut # (Auto) 7700 H Lymph # (Auto) 700 L Juncos # (Auto) 600 Eos # (Auto) 0 Baso # (Auto) 0 APTT 69 H D 69 H Sodium 137 Potassium 4.0 Chloride 106 Carbon Dioxide 27 BUN 23 H Creatinine 0.81 Estimated GFR > 60 BUN/Creatinine Ratio 28.4 H Glucose 227 H Calcium 9.0 Magnesium 2.0 Troponin I 44.700 H* 39.300 H* PFSH Medical History Screening due Folliculitis Myalgia COVID-19 BPH w urinary obs/LUTS Bilateral nephrolithiasis Retained ureteral stent Bilateral nephrolithiasis Left ureteral calculus Labyrinthitis Lymphocytic colitis (2012) Rosacea (Unknown) Kidney stones (2011) Kidney disease (Unknown) Myopia (Unknown) Asthma (Unknown) Anemia (Unknown) Depression (Unknown) Hypertriglyceridemia (Unknown) Hypertension (Unknown) Hyperlipidemia (Unknown) Microscopic colitis (10/10/15) Chronic renal insufficiency, stage II (mild) (10/10/15) Depression (09/04/14) Type 2 diabetes mellitus without complication (09/11/15) Essential hypertension (09/11/15) Surgical History Hx of cystoscopy (04/29/21) Family History Father Cancer Mother Stroke Social History marital status: unmarried,single household members: none lives independently: Yes Smoking Status: Former smoker alcohol intake: current Assessment & Plan Assessment & Plan narrative: 1. NSTEMI, new and active. 2. HTN, present on admission and active. 3. DM 2, present on admission and active. 4. High triglyceridemia, present on admission and active. 5. Asthma, present on admission and stable. 6. CKD 2, present on admission and active. PLAN: -continue heparin drip -serial troponins -ASA, BB, was loaded with Plavix 300 yesterday and we will continue 75 daily. -ECHO as above. -hold PO DM meds and SSI. Discussed at length with Dr. Billings at [facility] Cardiology. Unable to take the patient at this point in transfer due to bed capacity issues. We are contacting all other hospitals as of 10:30 a.m.. The patient remains clinically stable and symptom-free.
[2024-01-13] MEDS: HEPARIN DRIP 25,000 UNIT/500 ML IV.SOLN 18.271 UNIT IV (16:41)
--- NOTE | 2024-01-13 18:42 | PC.NURSE ---
MOVED TO ROOM 229, REPORTED TO ESTRELLA SCHWAB
--- NOTE | 2024-01-13 21:14 | PC.NURSE ---
Patient alert, oriented , no labored breathing, no c/o chest pain or chest pressure, able to ambulate to bathroom with standby assist, sinus rhythm on bedside property assessment monitor.
[2024-01-14] VITALS: BP 142/75; PULSE 79; RESP 24; TEMP 36.5; O2SAT 98
[2024-01-14 04:00] VITALS: BP 147/73; PULSE 78; RESP 20; TEMP 36.8; O2SAT 98
[2024-01-14 05:05] LABS: Add Manual Diff / Slide Review NO; Basophils Absolute Auto 0 /uL (0-100); Basophils Percent Auto 0.2 % (0-2); Eosinophils Absolute Auto 0 /uL (0-450); Eosinophils Percent Auto 0.6 % (2-4); Hematocrit 29.8 % (41-53); Hemoglobin 10.6 g/dL (13.5-17.5); Lymphocytes Absolute Auto 900 /uL (1100-4500); Lymphocytes Percent Auto 13.6 % (25-40); Mean Corpuscular HGB Conc 35.5 % (30-36); Mean Corpuscular Hemoglobin 38.3 PG (26-34); Mean Corpuscular Volume 107.9 fL (80-100); Monocytes Absolute Auto 500 /uL (0-900); Neutrophils Absolute Auto 5400 /uL (1500-7000); Neutrophils Percent Auto 78.6 % (50-75); Platelet Count 347 X10^3/uL (150-400); Red Blood Cell Count 2.76 X10^6/uL (4.5-5.9); Red Cell Distribution Width 15.3 % (11.6-14.8); White Blood Cell Count 6.9 X10^3/uL (4.5-11.0)
[2024-01-14 05:16] LABS: BUN Creatinine Ratio 24.4 (6-22); Blood Urea Nitrogen 33 mg/dL (9-20); Calcium 8.6 mg/dL (8.4-10.2); Carbon Dioxide 26 mmol/L (22-32); Chloride 106 mmol/L (98-107); Estimated Glomerular Filt Rate 56 mL/min (>60); Glucose 225 mg/dL (80-110); HEMOLYSIS < 15 (0-50); Potassium 4.1 mmol/L (3.4-5.1); Sodium 136 mmol/L (137-145)
[2024-01-14 05:56] LABS: Adenovirus Not Detected (Not Detect); B. parapertussis Not Detected (Not Detecte); Bordetella pertussis Not Detected (Not Detect); Chlamydophila pneumoniae Not Detected (Not Detect); Coronavirus 229E Not Detected (Not Detect); Coronavirus HKU1 Not Detected (Not Detect); Coronavirus NL 63 Not Detected (Not Detect); Coronavirus OC43 Not Detected (Not Detect); Human Metapneumovirus Not Detected (Not Detect); Human Rhinovirus/Enterovirus Not Detected (Not Detect); Influenza A Not Detected (Not Detect); Influenza B Not Detected (Not Detect); Mycoplasma pneumoniae Not Detected (Not Detect); Parainfluenza Virus 1 Not Detected (Not Detect); Parainfluenza Virus 2 Not Detected (Not Detect); Parainfluenza Virus 3 Not Detected (Not Detect); Parainfluenza Virus 4 Not Detected (Not Detect); Respiratory Syncytial Virus Not Detected (Not Detect); SARS- CoV-2 Not Detected (Not Detecte)
[2024-01-14] MEDS: PANTOPRAZOLE DR 20 MG TABLET PO (06:05)
[2024-01-14 06:45] LABS: PTT Partial Thromboplastin Tim 66 SECONDS (25.1-36.5)
[2024-01-14 08:00] VITALS: BP 124/71; PULSE 75; RESP 14; TEMP 36.8; O2SAT 97
[2024-01-14] MEDS: INSULIN LISPRO 100 UNIT/ML 3ML VIAL SUBCUT (08:09)
[2024-01-14] MEDS: AMLODIPINE 5 MG TABLET 10 MG PO (08:21)
[2024-01-14] MEDS: allopurinoL 100 MG TABLET PO (08:21)
[2024-01-14] MEDS: ASPIRIN EC 81 MG TABLET PO (08:22)
[2024-01-14] MEDS: BUDESONIDE 3 MG CAP PO (08:22)
[2024-01-14] MEDS: CLOPIDOGREL 75 MG TABLET PO (08:23)
[2024-01-14] MEDS: CHOLECALCIFEROL (VITAMIN D3) 1,000 UNIT TABLET 2000 UNIT PO (08:23)
[2024-01-14 08:24] VITALS: BP 124/71; PULSE 104
[2024-01-14] MEDS: GEMFIBROZIL 600 MG 600 EACH PO (08:24)
[2024-01-14] MEDS: METOPROLOL ER 25 MG TABLET 12.5 MG PO (08:24)
[2024-01-14] MEDS: LOSARTAN 50 MG TABLET 25 MG PO (08:24)
[2024-01-14] MEDS: INSULIN GLARGINE 100 UNIT/ML 3ML PEN 15 UNIT SUBCUT (08:28)
--- NOTE | 2024-01-14 10:34 | CM.DPC ---
DCP Cont. Reviewed EMR and team rounds for status updates. Pt is pending transfer to a high level of care hospital, pending bed availability. [place] in [facility], and [facility] are all contacted and pt is on waiting lists. Will continue to monitor for any emerging DCP needs.
[2024-01-14 10:48] VITALS: BP 150/76; PULSE 83
[2024-01-14 12:00] VITALS: BP 138/71; PULSE 81; RESP 16; TEMP 37.1; O2SAT 97
--- NOTE | 2024-01-14 12:06 | PM.DS.1 ---
History of Present Illness <Dar Foley MD - Last Filed: 01/13/24 18:24> History of Present Illness Chief complaint: poss heart attack Narrative: The patient is a 73-year-old male with a history of diabetes 2, hypertension, and high triglycerides who awoke with her this morning at 6:00 a.m.. The pain was substernal with radiation to the arm. The pain isolated and then worsened to about 9:00 a.m. when he decided to present for medical attention. No associated nausea, vomiting, diaphoresis, or dyspnea. He has no cardiac history and denies history of chest pain or exertional dyspnea. No orthopnea edema symptoms. In the emergency department his ECG was nonacute and in sinus rhythm. He was given nitroglycerin with some improvement of pain. He would normal troponin. The patient had a stress test 15 years ago said to be normal. He denies a prominent history of dyspepsia. He was started on heparin for possible unstable angina in the emergency department now feels mostly pain-free. He has a small residual component of left-sided chest pain which increases with palpation or deep movement or coughing. He denies recent URI symptoms. No rhinorrhea, cough. No fevers or chills. He has not short of breath. No pleuritic component to the pain. CXR was unremarkable. He does have extensive ecchymosis. This is chronic for him. He stopped taking baby aspirin about 2 years ago because of this. He also stopped atorvastatin about a year and a half ago because of prominent leg weakness. His like weakness was primarily in the thighs and did improve to some degree after this stopping the medication but he is still weak there. Discharge Providers <Dar Foley MD - Last Filed: 01/13/24 18:24> Provider Date of admission: 01/12/24 11:57 Primary care physician: Nina Joel DO Consults: Telephone consult with Dr Billings [facility] ([facility]). Discharge provider: Dar Foley MD <Mingo Wilkins DO - Last Filed: 01/14/24 12:10> Provider Discharge Date: 01/14/24 Summary <Dar Foley MD - Last Filed: 01/13/24 18:24> Hospital Course Discharge Diagnosis: 1. NSTEMI, new and active. 2. HTN, present on admission and active. 3. DM 2, present on admission and active. 4. High triglyceridemia, present on admission and active. 5. Asthma, present on admission and stable. 6. CKD 2, present on admission and active. PLAN: -continue heparin drip -serial troponins -ASA, BB, was loaded with Plavix 300 yesterday and we will continue 75 daily. -ECHO as above. -hold PO DM meds and SSI. Discussed at length with Dr. Billings at [facility] Cardiology. Unable to take the patient at this point in transfer due to bed capacity issues. We are contacting all other hospitals as of 10:30 a.m.. The patient remains clinically stable and symptom-free. On wait list at multiple hospitals for transfer for further evaluation including angiogram and possible PCI. Hospital Course: He was admitted initially with transient chest pain which improved with the nitroglycerin sublingual. In the ED his ECG and troponin were normal. He has no cardiac history but does have multiple risk factors including insulin-dependent diabetes and hypertension. He had a low-level elevation of troponin in the 1st afternoon of admission. He was on a heparin drip and given aspirin as well as Plavix originally. The patient then had a dramatic troponin elevation in the middle of the night of 44. The patient had no symptoms after into the floor. He denied any chest pain or dyspnea overnight. His ECG on the morning of 01 [address] segment changes. Attempted to transfer him to [facility] on the morning of the without success due to capacity issues. He was maintained on dual antiplatelet therapy and heparin. He is on a beta chance. [facility]. We have been wait listed at multiple facilities. The patient remained stable. I did do a limited echo to reassess LV function and see if he would developed wall motion abnormalities on the afternoon of the and the results are pending. Status at Discharge Cognitive/behavioral status at discharge: oriented Functional status at discharge: independent ambulation Overall status at discharge: patient is back to baseline Time Spent with Patient Time spent: Greater than 30 minutes <Mingo Wilkins DO - Last Filed: 01/14/24 12:10> Hospital Course Discharge Diagnosis: 1. NSTEMI, new and active. 2. HTN, present on admission and active. 3. DM 2, present on admission and active. 4. High triglyceridemia, present on admission and active. 5. Asthma, present on admission and stable. 6. CKD 2, present on admission and active. PLAN: -continue heparin drip -serial troponins, now downtrending from 44.0 to 17.5 -ASA, BB, was loaded with Plavix 300 load on 01/11 and we will continue 75 daily. -ECHO with EF 55-60%, no WMA, no valvular abnormalities -hold PO DM meds and intiated lantus 10u daily and med dose SSI. Discussed at length with Dr. Billings at [facility]. Unable to take the patient at this point in transfer due to bed capacity issues. accepted on 01/13 and patient discharged. Hospital Course: He was admitted initially with transient chest pain which improved with the nitroglycerin sublingual. In the ED his ECG and troponin were normal. He has no cardiac history but does have multiple risk factors including insulin-dependent diabetes and hypertension. He had a low-level elevation of troponin in the 1st afternoon of admission. He was on a heparin drip and given aspirin as well as Plavix originally. The patient then had a dramatic troponin elevation in the middle of the night of 44. The patient had no symptoms after into the floor. He denied any chest pain or dyspnea overnight. His ECG on the morning of 01/[address] segment changes. Echo reassuring. Attempted to transfer him to [facility] on the morning of the without success due to capacity issues. He was maintained on dual antiplatelet therapy and heparin. He is on a beta chance. Was accepted and transferred to on 01/13. Exam <Dar Foley MD - Last Filed: 01/13/24 18:24> Vital Signs (past 8 hours): - 01/13/24 11:42 01/13/24 11:47 01/13/24 16:00 Temperature 98 F 98.2 F Pulse Rate 88 88 80 Respiratory Rate 16 16 Blood Pressure 148/78 H 148/78 H 145/75 H Pulse Oximetry 99 99 Oxygen Flow Rate 0 0 Oxygen Delivery Method Room Air Oxygen Flow Rate 0 Narrative Exam Narrative: NAD, alert and oriented. Fluent speech. Lungs are clear, normal rate and effort. Heart is regular, no murmur gallop or rub. Abdomen is soft, non distended. Extremities are free of edema. Objective <Dar Foley MD - Last Filed: 01/13/24 18:24> ECG Impression: 01/12: NSR without acute ST segment changes. Imaging Chest x-ray: Radiologist's impression: No acute cardiopulmonary abnormality is seen. Echo: Radiologist's impression: Radiologist's impression: The ejection fraction is estimated to be 55-60%. Diastolic parameters suggest probable normal left ventricular diastolic function and normal filling pressures. The right ventricle is normal in size and function. No significant valvular abnormality. Labs 01/14/24 04:15 01/14/24 04:15 Labs: Laboratory Results - last 24 hr 01/12/24 01/13/24 01/13/24 18:25 00:40 06:20 WBC 9.0 RBC 2.94 L Hgb 11.3 L Hct 31.6 L MCV 107.3 H MCH 38.2 H MCHC 35.6 RDW 14.9 H Plt Count 373 Neut % (Auto) 85.3 H Lymph % (Auto) 7.7 L [place] % (Auto) 6.4 Eos % (Auto) 0.3 L Baso % (Auto) 0.3 Neut # (Auto) 7700 H Lymph # (Auto) 700 L [place] # (Auto) 600 Eos # (Auto) 0 Baso # (Auto) 0 APTT 82 H* D 69 H D 69 H Sodium 137 Potassium 4.0 Chloride 106 Carbon Dioxide 27 BUN 23 H Creatinine 0.81 Estimated GFR > 60 BUN/Creatinine Ratio 28.4 H Glucose 227 H Calcium 9.0 Magnesium 2.0 Troponin I 44.700 H* 39.300 H* 01/13/24 17:30 WBC RBC Hgb Hct MCV MCH MCHC RDW Plt Count Neut % (Auto) Lymph % (Auto) [place] % (Auto) Eos % (Auto) Baso % (Auto) Neut # (Auto) Lymph # (Auto) [place] # (Auto) Eos # (Auto) Baso # (Auto) APTT Sodium Potassium Chloride Carbon Dioxide BUN Creatinine Estimated GFR BUN/Creatinine Ratio Glucose Calcium Magnesium Troponin I 17.800 H* PFSH <Dar Foley MD - Last Filed: 01/13/24 18:24> Medical History Screening due Folliculitis Myalgia COVID-19 BPH w urinary obs/LUTS Bilateral nephrolithiasis Retained ureteral stent Bilateral nephrolithiasis Left ureteral calculus Labyrinthitis Lymphocytic colitis (2013) Rosacea (Unknown) Kidney stones (2012) Kidney disease (Unknown) Myopia (Unknown) Asthma (Unknown) Anemia (Unknown) Depression (Unknown) Hypertriglyceridemia (Unknown) Hypertension (Unknown) Hyperlipidemia (Unknown) Microscopic colitis (10/10/15) Chronic renal insufficiency, stage II (mild) (10/10/15) Depression (09/04/14) Type 2 diabetes mellitus without complication (09/11/15) Essential hypertension (09/11/15) Surgical History Hx of cystoscopy (04/29/21) Family History Father Cancer Mother Stroke Social History marital status: unmarried,single household members: none lives independently: Yes Smoking Status: Former smoker alcohol intake: current Discharge Assessment & Plan <Dar Foley MD - Last Filed: 01/13/24 18:24> Assessment and Plan Assessment: 1. NSTEMI, new and active. 2. HTN, present on admission and active. 3. DM 2, present on admission and active. 4. High triglyceridemia, present on admission and active. 5. Asthma, present on admission and stable. 6. CKD 2, present on admission and active. PLAN: -continue heparin drip -serial troponins -ASA, BB, was loaded with Plavix 300 yesterday and we will continue 75 daily. -ECHO as above. -hold PO DM meds and SSI. Plan of Treatment: Transfer to a higher level of care for cardiology evaluation including angiogram and possible PCI. Discharge Plan Discharge Plan Patient Disposition: [facility] Hospital Provider Discharge Comment: Stable Discharge orders & Medications Medication counseling provided by Pharmacist: No Discharge Health Status Multidrug resistant organism: No MDRO Diet/Activity/Treatments Diet: Carb-consistent/Diabetic Visit Report/Discharge Packet Stand Alone Forms: Patient Portal/API, Stroke Signs & Symptoms Discharge Data Primary Care Provider: Nina Joel <Dar Foley MD - Last Filed: 01/13/24 18:24> MIPS - DC The patient has a history of heart transplant or Left Ventricular Assist Device (LVAD). If yes, STOP here.: No The patient has current or prior documentation of left ventricular ejection fraction (LVEF) less than or equal to 40%, or moderate or severely depressed left ventricular systolic function.: No
--- NOTE | 2024-01-14 13:13 | PC.NURSE ---
Discharge Bed open at [facility], report given to transfer center. Packet provided to EMS upon arrival, pt. transferred via stretcher with belongings at 1300.
== END 2024-01-14 13:00 | disposition short-term general hospital (02) | DRG 282 ==
LOC: ED 11:26 → AC 12:08 → ICU 01-13 18:34
PROVIDERS: Internal Medicine; Admitting Provider Hospitalist; Emergency Provider Emergency Medicine; PCP Family Medicine; Referring Provider Emergency Medicine; Visit Provider Hospitalist
DX: I21.4 Non-ST elevation (NSTEMI) myocardial infarction (principal); E11.22 Type 2 diabetes mellitus with diabetic chronic kidney disease; I12.9 Hypertensive chronic kidney disease with stage 1 through stage 4 chronic kidney disease, or unspecified chronic kidney disease; N18.2 Chronic kidney disease, stage 2 (mild); Z79.84 Long term (current) use of oral hypoglycemic drugs; Z87.891 Personal history of nicotine dependence
CPT/HCPCS: 36415; 71045; 80048; 80053; 82550; 82962; 83690; 83735; 84484; 85007; 85025; 85730; 87633; 93005; 93010; 93306; 93307; 96365; 99284; J1644; J1815; J3475

== ENCOUNTER 2024-02-03 09:12 | Emergency (ER) | payer MEDICARE, OTHER, SELFPAY ==
[2024-01-12 14:57] VITALS: BMI 26.4
[2024-02-03] VITALS (54 sets, daily range): BP systolic 116–177; BP diastolic 55–93; PULSE 77–100; RESP 12–24; TEMP 32.3–37.7; O2SAT 87–99
--- NOTE | 2024-02-03 09:17 | DI.CT.S_ITS ---
PROCEDURE: CT HEAD/BRAIN WO CON INDICATIONS: found down TECHNIQUE: Noncontrast 4.5 mm thick angled axial sections acquired from the foramen magnum to the vertex, with coronal and sagittal reformats. For radiation dose reduction, the following was used: automated exposure control, adjustment of mA and/or kV according to patient size. COMPARISON: [facility], CR, XR CHEST 1V, 02/03/2024, 10:00. FINDINGS: Image quality: Diagnostic. CSF spaces: Basal cisterns are patent. No extra-axial fluid collections. The ventricles are symmetric in size and shape. Brain: No intracranial bleeds or masses. There is cerebral volume loss for age, with resultant ventricular and sulcal prominence. There are periventricular and deep white matter chronic small vessel ischemic changes. There is intracranial internal carotid artery atherosclerosis. Skull and face: Calvarium and visualized facial bones appear intact, without suspicious lesions. Sinuses: Visualized sinuses and mastoids are clear. IMPRESSION: No acute intracranial hemorrhage is seen. No acute intracranial pathology. No displaced calvarial fracture can be seen. Dictated by: Ricardo Cartagena M.D. on 02/03/2024 at 9:11 Approved by: Ricardo Cartagena M.D. on 02/03/2024 at 9:12
--- NOTE | 2024-02-03 09:17 | DI.RAD.S_ITS ---
PROCEDURE: XR CHEST 1V INDICATIONS: chest pain TECHNIQUE: One view of the chest was acquired. COMPARISON: [facility], CR, XR CHEST 1V, 01/12/2024, 10:35. FINDINGS: Surgical changes and devices: Cervical cerclage wire. Lungs and pleura: Lungs are clear. No pleural effusions or pneumothorax. Mediastinum: Mediastinal contours appear normal. Heart size is normal. Bones and chest wall: No suspicious bony lesions. Overlying soft tissues appear unremarkable. IMPRESSION: No acute cardiopulmonary abnormality is seen. Dictated by: Oliverio Harding M.D. on 02/03/2024 at 10:30 Approved by: Oliverio Harding M.D. on 02/03/2024 at 10:30
--- NOTE | 2024-02-03 09:20 | ED_ITS ---
HPI - Altered Mental Status General Chief Complaint: Diabetic Problem Stated Complaint: Hypoglycemia Time Seen by Provider: 02/03/24 09:12 History of Present Illness HPI narrative: Patient 73-year-old male history of hypertension [id number] diabetes high triglycerides, NSTEMI w/ ALVARO to circumflex obtuse marginal presenting today with found down. A neighbor peaked in his window and saw that he was lying on the floor unresponsive GCS 3. EMS arrived and found a glucose 39. Given D10 mental status improved quickly. He has left arm skin tear no known anticoagulation unknown trauma lots of alcohol around. Patient more awake can not remember what happened he is noted to be mildly hypothermic. Able to follow commands can not provide history. Patient was admitted December to the hospital for chest pain, he was ultimately transferred to [facility] for an elevation troponin of 44 without symptoms or EKG changes. He reports that he just got a stent in on January 16 he has a excessive bruising in the right groin. Patient becoming more awake reports that he has a decreased urine output for the past couple of days progressively getting more and more weak had the where with all to put his cane between his front door a neighbor in the apartment building saw him lying down on the ground. Related Data Home Medications Medication Instructions Recorded Confirmed diclofenac sodium 75 mg 75 mg PO BID PRN gout 05/10/23 01/12/24 tablet,delayed release cholecalciferol (vitamin D3) 50 50 mcg PO DAILY 08/04/23 01/12/24 mcg (2,000 unit) capsule (Vitamin D3) aspirin 81 mg tablet,delayed 81 mg PO DAILY 01/26/24 01/26/24 release potassium citrate 10 mEq (1,080 10 meq PO BID 01/26/24 01/26/24 mg) tablet,extended release sitagliptin phosphate 100 mg 100 mg PO DAILY 01/26/24 01/26/24 tablet (Januvia) Previous Rx's Medication Instructions Recorded omeprazole 20 mg capsule,delayed 20 mg PO DAILY #90 caps 01/05/23 release trazodone 50 mg tablet 50 mg PO BEDTIME PRN sleep #30 tabs 02/22/23 ketoconazole 2 % topical cream 1 applic topical BID PRN 06/07/23 itching/rash #15 grams amlodipine 10 mg tablet 10 mg PO DAILY #90 tabs 01/04/24 gemfibrozil 600 mg tablet 600 mg PO BID #180 tabs 01/04/24 budesonide 3 mg 3 mg PO BID #180 caps 01/18/24 capsule,delayed,extended release allopurinol 100 mg tablet 100 mg PO DAILY #90 tabs 01/26/24 blood sugar diagnostic (Blood #100 ea 01/26/24 Glucose Test strips) blood-glucose meter (Blood Glucose #1 ea 01/26/24 Monitoring kit) carvedilol 6.25 mg tablet 6.25 mg PO BID #180 tabs 01/26/24 glipizide 2.5 mg tablet 2.5 mg PO DAILY #90 tabs 01/26/24 lancets 30 gauge #100 ea 01/26/24 losartan 50 mg tablet 25 mg (1/2 x 50 mg) PO DAILY #90 01/26/24 tabs metformin 1,000 mg tablet 1,000 mg PO BIDWMEAL #180 tabs 01/26/24 nitroglycerin 0.4 mg sublingual 0.4 mg sublingual Q5M PRN chest 01/26/24 tablet pain #10 tabs prasugrel 10 mg tablet 10 mg PO DAILY #90 tabs 01/26/24 rosuvastatin 40 mg tablet 40 mg PO DAILY #90 tabs 01/26/24 Allergies Allergy/AdvReac Type Severity Reaction Status Date / Time MALCOLM Inhibitors AdvReac Severe Elevated Verified 02/03/24 09:58 creatinine Patient History Medical History Screening due Folliculitis Myalgia COVID-19 BPH w urinary obs/LUTS Bilateral nephrolithiasis Retained ureteral stent Bilateral nephrolithiasis Left ureteral calculus Labyrinthitis Lymphocytic colitis (2012) Rosacea (Unknown) Kidney stones (2011) Kidney disease (Unknown) Myopia (Unknown) Asthma (Unknown) Anemia (Unknown) Depression (Unknown) Hypertriglyceridemia (Unknown) Hypertension (Unknown) Hyperlipidemia (Unknown) Microscopic colitis (10/10/15) Chronic renal insufficiency, stage II (mild) (10/10/15) Depression (09/04/14) Type 2 diabetes mellitus without complication (09/11/15) Essential hypertension (09/11/15) Surgical History Hx of cystoscopy (04/29/21) Family History Father Cancer Mother Stroke Social History marital status: unmarried,single household members: none lives independently: Yes Smoking Status: Former smoker alcohol intake: current Smoking Status: Former smoker alcohol intake frequency: 0-2 drinks per day Substance Use Type: does not use Exam Initial Vital Signs Initial Vital Signs: Vital Signs Blood Pressure 147/78 H 02/03/24 09:20 GENERAL: Alert 73-year-old male appears older than stated HEENT: Head atraumatic,EOMI, pupils reactive pupils slightly pinpoint, face symmetric dry mucous membranes CARDIOVASCULAR: Regular rate and rhythm without murmurs, rubs or gallops. RESPIRATORY: Breath sounds equal bilaterally, no wheezes rales or rhonchi. ABDOMEN: Soft, nontender. Normoactive bowel sounds all 4 quadrants. No guarding or rebound. EXTREMITIES: Normal range of motion, no clubbing or edema. Neurovascularly intact NEUROLOGICAL: Alert to name value analyst strength equal bilaterally no facial droop SKIN: Left arm large skin tear contusion Course Orders Ordered: ED Orders 02/03/24 09:17 CT head/brain wo con Stat XR chest 1V Stat EKG-12 Lead Stat 02/03/24 09:40 Sodium Urine Random Stat Urinalysis and Microscopic Stat Urine Drug Screen, Rapid Stat 02/03/24 09:45 Acetaminophen Stat Complete Blood Count AUTO DIFF Stat Comprehensive Metabolic Panel Stat ETOH [Ethanol (ETOH)] Stat Lactate (Lactic Acid) Stat Lipase Stat PTT Partial Thromboplastin Andre Stat Procalcitonin Stat Prothrombin Time INR Stat Salicylate Stat Troponin & CK Cardiac Panel Stat VBG [Venous Blood Gas] Stat 02/03/24 10:00 Consult to CONTINUOUS CRUSHER OPERATOR - Window Trimmer Apprentice Stat 02/03/24 10:40 Blood Culture Stat 02/03/24 11:05 Consult After Hours PICC Line RN Stat 02/03/24 11:57 Covid-19 + FLU A/B + RSV - PCR Stat 02/03/24 12:03 CMP [Comprehensive Metabolic Panel] Stat 02/03/24 12:35 US renal complete Stat 02/03/24 14:17 XR chest for PICC 1V Stat 02/03/24 14:57 BMP [Basic Metabolic Panel] Stat Discontinued Medications Dextrose (Dextrose 50 % In Water 25 Gm/50 Ml Syringe) 25 gm IV NOW ONE Stop: 02/03/24 10:20 Last Admin: 02/03/24 10:40 Dose: 25 gm Documented By: MAXIMILIAN Dextrose (Dextrose 50 % In Water 25 Gm/50 Ml Syringe) 25 gm IV NOW ONE Stop: 02/03/24 12:40 Last Admin: 02/03/24 12:58 Dose: 25 gm Documented By: MAXIMILIAN Furosemide (Furosemide 40 Mg/4 Ml Vial) 40 mg IV NOW ONE Stop: 02/03/24 10:28 Last Admin: 02/03/24 10:57 Dose: 40 mg Documented By: MAXIMILIAN Sodium Chloride (Normal Saline 0.9%) 1,000 mls @ 1,000 mls/hr IV BOLUS ONE Stop: 02/03/24 11:05 Last Infusion: 02/03/24 12:45 Dose: Infused Documented By: Infusion: 02/03/24 12:44 Dose: 990 mls/hr Documented By: Admin: 02/03/24 10:35 Dose: 1,000 mls/hr Documented By: MAXIMILIAN Dextrose (D10w) 1,000 mls @ 100 mls/hr IV CONT GERALDINE Last Infusion: 02/03/24 12:47 Dose: Infused Documented By: Infusion: 02/03/24 12:46 Dose: 0 mls/hr Documented By: Admin: 02/03/24 10:37 Dose: 100 mls/hr Documented By: MAXIMILIAN Piperacillin Sod/Tazobactam (Sod 4.5 gm/ Sodium Chloride) 100 mls @ 200 mls/hr IV NOW ONE Stop: 02/03/24 10:21 Last Infusion: 02/03/24 11:38 Dose: Infused Documented By: Admin: 02/03/24 10:38 Dose: 200 mls/hr Documented By: MAXIMILIAN Sodium Chloride (Normal Saline 0.9%) 1,000 mls @ 125 mls/hr IV CONT GERALDINE Last Infusion: 02/03/24 12:47 Dose: Infused Documented By: Infusion: 02/03/24 12:46 Dose: 0 mls/hr Documented By: Admin: 02/03/24 11:11 Dose: 125 mls/hr Documented By: MAXIMILIAN Sodium Bicarbonate 150 meq/ (Dextrose) 1,150 mls @ 150 mls/hr IV CONT GERALDINE Last Infusion: 02/03/24 16:02 Dose: 150 mls/hr Documented By: Admin: 02/03/24 12:57 Dose: 150 mls/hr Documented By: MAXIMILIAN Insulin Human Regular (Insulin Regular 100 Unit/Ml 3 Ml Vial) 5 unit IV NOW ONE Stop: 02/03/24 10:20 Last Admin: 02/03/24 10:50 Dose: 5 unit Documented By: MAXIMILIAN Co-signed By: CHARMAINE Insulin Human Regular (Insulin Regular 100 Unit/Ml 3 Ml Vial) 5 unit IV NOW ONE Stop: 02/03/24 12:40 Last Admin: 02/03/24 13:01 Dose: 5 unit Documented By: MAXIMILIAN Co-signed By: NBA Vital Signs Vital signs: Vital Signs - 8 hr 02/03/24 09:58 02/03/24 10:12 02/03/24 10:15 Temperature 91.8 F L Pulse Rate 81 79 Respiratory Rate 20 Blood Pressure Pulse Oximetry 99 94 Oxygen Delivery Method Room Air 02/03/24 10:16 02/03/24 10:16 02/03/24 10:30 Temperature 91.8 F L Pulse Rate 80 Respiratory Rate 17 Blood Pressure 136/62 141/68 H Pulse Oximetry 94 Oxygen Delivery Method Room Air 02/03/24 10:30 02/03/24 10:45 02/03/24 10:45 Temperature 92.3 F L 92.8 F L Pulse Rate 81 80 Respiratory Rate 19 19 Blood Pressure 147/57 H Pulse Oximetry 96 96 Oxygen Delivery Method 02/03/24 11:00 02/03/24 11:01 02/03/24 11:01 Temperature 93.4 F L 93.4 F L Pulse Rate 85 82 Respiratory Rate 15 15 Blood Pressure 145/71 H Pulse Oximetry 95 94 Oxygen Delivery Method 02/03/24 11:15 02/03/24 11:15 02/03/24 11:20 Temperature 93.9 F L 94.3 F L Pulse Rate 85 81 Respiratory Rate 18 16 Blood Pressure 139/63 Pulse Oximetry 94 94 Oxygen Delivery Method 02/03/24 11:20 02/03/24 11:30 02/03/24 11:30 Temperature 94.6 F L Pulse Rate 84 Respiratory Rate 16 Blood Pressure 146/70 H 137/58 L Pulse Oximetry 94 Oxygen Delivery Method 02/03/24 11:40 02/03/24 11:40 02/03/24 11:45 Temperature 95.0 F L 95.2 F L Pulse Rate 79 79 Respiratory Rate 14 14 Blood Pressure 133/61 Pulse Oximetry 92 92 Oxygen Delivery Method 02/03/24 11:50 02/03/24 11:50 02/03/24 12:00 Temperature 95.4 F L 95.7 F L Pulse Rate 80 84 Respiratory Rate 15 15 Blood Pressure 130/60 Pulse Oximetry 94 93 Oxygen Delivery Method 02/03/24 12:00 02/03/24 12:10 02/03/24 12:10 Temperature 96.1 F L Pulse Rate 86 Respiratory Rate 15 Blood Pressure 133/64 141/67 H Pulse Oximetry 94 Oxygen Delivery Method 02/03/24 12:15 02/03/24 12:20 02/03/24 12:20 Temperature 96.3 F L 96.4 F L Pulse Rate 85 84 Respiratory Rate 15 16 Blood Pressure 137/62 Pulse Oximetry 94 93 Oxygen Delivery Method 02/03/24 12:30 02/03/24 12:30 02/03/24 12:40 Temperature 96.8 F L 97.0 F L Pulse Rate 83 85 Respiratory Rate 15 16 Blood Pressure 134/63 Pulse Oximetry 92 92 Oxygen Delivery Method 02/03/24 12:40 02/03/24 12:45 02/03/24 12:50 Temperature 97.2 F L 97.3 F L Pulse Rate 92 H 88 Respiratory Rate 17 15 Blood Pressure 133/64 Pulse Oximetry 99 99 Oxygen Delivery Method 02/03/24 12:50 02/03/24 13:00 02/03/24 13:00 Temperature 97.5 F L Pulse Rate 85 Respiratory Rate 16 Blood Pressure 175/76 H 142/59 H Pulse Oximetry 98 Oxygen Delivery Method 02/03/24 13:10 02/03/24 13:10 02/03/24 13:15 Temperature 97.7 F 97.7 F Pulse Rate 86 91 H Respiratory Rate 17 17 Blood Pressure 157/72 H Pulse Oximetry 98 98 Oxygen Delivery Method 02/03/24 13:20 02/03/24 13:20 02/03/24 13:30 Temperature 97.9 F Pulse Rate 95 H Respiratory Rate 24 Blood Pressure 147/73 H 141/60 H Pulse Oximetry 97 Oxygen Delivery Method 02/03/24 13:30 02/03/24 13:40 02/03/24 13:40 Temperature 97.9 F 98.1 F Pulse Rate 91 H 87 Respiratory Rate 14 15 Blood Pressure 131/61 Pulse Oximetry 97 97 Oxygen Delivery Method 02/03/24 13:45 02/03/24 13:50 02/03/24 13:50 Temperature 98.2 F 98.2 F Pulse Rate 87 87 Respiratory Rate 16 16 Blood Pressure 136/63 Pulse Oximetry 97 96 Oxygen Delivery Method 02/03/24 14:00 02/03/24 14:00 02/03/24 14:10 Temperature 98.6 F 98.8 F Pulse Rate 96 H 90 Respiratory Rate 15 12 Blood Pressure 147/70 H Pulse Oximetry 99 98 Oxygen Delivery Method 02/03/24 14:10 02/03/24 14:15 02/03/24 14:21 Temperature 98.8 F Pulse Rate 91 H Respiratory Rate 14 Blood Pressure 116/60 148/67 H Pulse Oximetry 98 Oxygen Delivery Method 02/03/24 14:21 02/03/24 14:30 02/03/24 14:30 Temperature 99.0 F 99.1 F Pulse Rate 91 H 92 H Respiratory Rate 18 19 Blood Pressure 136/58 L Pulse Oximetry 97 97 Oxygen Delivery Method Room Air 02/03/24 14:40 02/03/24 14:40 02/03/24 14:45 Temperature 99.3 F 99.5 F Pulse Rate 94 H 96 H Respiratory Rate 13 17 Blood Pressure 136/65 Pulse Oximetry 94 97 Oxygen Delivery Method 02/03/24 14:50 02/03/24 14:50 02/03/24 15:00 Temperature 99.7 F H Pulse Rate 94 H 94 H Respiratory Rate 19 17 Blood Pressure 133/55 L Pulse Oximetry 95 97 Oxygen Delivery Method 02/03/24 15:00 02/03/24 15:10 02/03/24 15:10 Temperature Pulse Rate 98 H Respiratory Rate 17 Blood Pressure 137/63 146/63 H Pulse Oximetry 97 Oxygen Delivery Method 02/03/24 15:15 02/03/24 15:20 02/03/24 15:20 Temperature 99.9 F H 99.9 F H Pulse Rate 97 H 96 H Respiratory Rate 20 18 Blood Pressure 130/62 Pulse Oximetry 97 97 Oxygen Delivery Method 02/03/24 15:30 02/03/24 15:30 02/03/24 15:40 Temperature 99.9 F H 99.9 F H Pulse Rate 95 H 95 H Respiratory Rate 18 19 Blood Pressure 135/69 Pulse Oximetry 98 95 Oxygen Delivery Method 02/03/24 15:40 02/03/24 15:45 02/03/24 15:50 Temperature 99.7 F H Pulse Rate 97 H Respiratory Rate 19 Blood Pressure 132/64 145/67 H Pulse Oximetry 96 Oxygen Delivery Method 02/03/24 15:50 02/03/24 16:00 02/03/24 16:00 Temperature 99.7 F H 99.7 F H Pulse Rate 97 H 100 H Respiratory Rate 18 15 Blood Pressure 145/71 H Pulse Oximetry 97 96 Oxygen Delivery Method 02/03/24 16:05 Temperature 99.7 F H Pulse Rate 95 H Respiratory Rate 16 Blood Pressure 145/71 H Pulse Oximetry 95 Oxygen Delivery Method Room Air MDM - Altered Mental Status Lab Data 02/03/24 09:45 02/03/24 14:57 Labs: Lab Results 02/03/24 02/03/24 02/03/24 Range/Units 09:40 09:40 09:45 WBC 15.7 H (4.5-11.0) X10^3/uL RBC 2.82 L (4.5-5.9) X10^6/uL Hgb 10.3 L (13.5-17.5) g/dL Hct 30.3 L (41-53) % MCV 107.4 H (80-100) fL MCH 36.5 H (26-34) PG MCHC 34.0 (30-36) % RDW 14.6 (11.6-14.8) % Plt Count 555 H (150-400) X10^3/uL Neut % (Auto) 89.3 H (50-75) % Lymph % (Auto) 3.8 L (25-40) % [place] % (Auto) 6.5 (3-14) % Eos % (Auto) 0.2 L (2-4) % Baso % (Auto) 0.2 (0-2) % Neut # (Auto) 93902 H (6206-4592) /uL Lymph # (Auto) 600 L (9477-1224) /uL [place] # (Auto) 1000 H (0-900) /uL Eos # (Auto) 0 (0-450) /uL Baso # (Auto) 0 (0-100) /uL PT 12.0 (9.4-12.5) SECONDS INR 1.0 (0.9-1.3) APTT 60 H (25.1-36.5) SECONDS VBG pH 7.19 L* (7.33-7.43) VBG pCO2 36.1 L (45-50) mmHg VBG pO2 28 L (35-45) mmHg VBG HCO3 14 L (24-28) mmol/L VBG Total CO2 15 L (24-29) mmol/L VBG O2 Saturation 39 L (70-75) % VBG Base Excess -15.0 L (0-4) mmol/L FiO2 21 Sodium 139 (137-145) mmol/L Potassium 6.8 H* (3.4-5.1) mmol/L Chloride 110 H (98-107) mmol/L Carbon Dioxide 10 L (22-32) mmol/L BUN 75 H (9-20) mg/dL Creatinine 9.12 H* (0.66-1.25) mg/dL Estimated GFR 6 L (>60) mL/min BUN/Creatinine Ratio 8.2 (6-22) Glucose 80 (80-110) mg/dL Lactate 2.7 H (0.7-2.1) mmol/L Calcium 10.1 (8.4-10.2) mg/dL Total Bilirubin 0.5 (0.2-1.3) mg/dL AST 43 (17-59) IU/L ALT 18 (<50) IU/L Alkaline Phosphatase 134 H (38-126) U/L Total Creatine Kinase 452 H (55-170) U/L Troponin I 0.034 (0.01-0.034) ng/mL Total Protein 7.8 (6.3-8.2) g/dL Albumin 4.0 (3.5-5.0) g/dL Globulin 3.8 (1.7-4.1) g/dL Albumin/Globulin Ratio 1.1 (1.0-2.8) Lipase 842 H (23-300) U/L Procalcitonin 0.64 H (<0.5) ng/mL Urine Color Yellow Urine Appearance Sl cloudy Urine pH 5.0 Normal (4.5-8.0) Ur Specific [place] 1.025 (1.000-1.035) Urine Protein 2+ H (Negative) Urine Glucose (UA) Negative (Negative) g/dL Urine Ketones Negative (NEGATIVE) Urine Occult Blood 2+ H (Negative) Urine Nitrate Negative (Negative) Urine Bilirubin Negative (NEGATIVE) Urine Urobilinogen 0.2 (0.2) E.U./dL Ur Leukocyte Esterase Negative (NEGATIVE) Urine RBC 1-5/hpf (0-5/HPF) Urine WBC None seen (0-5/HPF) Ur Squamous Epith Cells 0-1 /hpf (0-5/HPF) Urine Bacteria None seen (None) Hyaline Casts 0-1/lpf (None) Ur Culture Indicated? Cult not indicated Vol Urine Centrifuged 10ml (spun) Ur Random Sodium 91 H (30-90) mmol/L Salicylates < 1.0 (<20) mg/dL U Opiates 300ng/mL cut Negative (Negative) Ur Oxycodone Screen Negative (Negative) Urine Methadone Screen Negative (Negative) Acetaminophen < 10 (10-30) ug/mL Ur Barbiturates Screen Negative (Negative) U Tricyclic Antidepress Negative (Negative) Ur Phencyclidine Scrn Negative (Negative) Ur Amphetamines Screen Negative (Negative) U Methamphetamines Scrn Negative (Negative) Ur MDMA Scrn (Ecstasy) Negative (Negative) U Benzodiazepines Scrn Negative (Negative) Urine Cocaine Screen Negative (Negative) U Marijuana (THC) Screen Negative (Negative) Urine Specific [place] Normal (Normal) Ethyl Alcohol < 10 ( - 10) mg/dL Ur Creatinine Normal (Normal) SARS-CoV-2 (PCR) (Negative) Influenza A (RT-PCR) (NEGATIVE) Influenza B (RT-PCR) (NEGATIVE) RSV (PCR) (Negative) 02/03/24 02/03/24 02/03/24 Range/Units 11:57 12:03 14:57 WBC (4.5-11.0) X10^3/uL RBC (4.5-5.9) X10^6/uL Hgb (13.5-17.5) g/dL Hct (41-53) % MCV (80-100) fL MCH (26-34) PG MCHC (30-36) % RDW (11.6-14.8) % Plt Count (150-400) X10^3/uL Neut % (Auto) (50-75) % Lymph % (Auto) (25-40) % [place] % (Auto) (3-14) % Eos % (Auto) (2-4) % Baso % (Auto) (0-2) % Neut # (Auto) (6141-2171) /uL Lymph # (Auto) (4135-5449) /uL [place] # (Auto) (0-900) /uL Eos # (Auto) (0-450) /uL Baso # (Auto) (0-100) /uL PT (9.4-12.5) SECONDS INR (0.9-1.3) APTT (25.1-36.5) SECONDS VBG pH (7.33-7.43) VBG pCO2 (45-50) mmHg VBG pO2 (35-45) mmHg VBG HCO3 (24-28) mmol/L VBG Total CO2 (24-29) mmol/L VBG O2 Saturation (70-75) % VBG Base Excess (0-4) mmol/L FiO2 Sodium 136 L 137 (137-145) mmol/L Potassium 6.4 H* 6.3 H* (3.4-5.1) mmol/L Chloride 112 H 110 H (98-107) mmol/L Carbon Dioxide 10 L 13 L (22-32) mmol/L BUN 72 H 73 H (9-20) mg/dL Creatinine 8.78 H* 8.82 H* (0.66-1.25) mg/dL Estimated GFR 6 L 6 L (>60) mL/min BUN/Creatinine Ratio 8.2 8.3 (6-22) Glucose 156 H 129 H (80-110) mg/dL Lactate 2.3 H (0.7-2.1) mmol/L Calcium 9.0 8.7 (8.4-10.2) mg/dL Total Bilirubin 0.4 (0.2-1.3) mg/dL AST 34 (17-59) IU/L ALT 15 (<50) IU/L Alkaline Phosphatase 101 (38-126) U/L Total Creatine Kinase (55-170) U/L Troponin I (0.01-0.034) ng/mL Total Protein 6.2 L (6.3-8.2) g/dL Albumin 3.1 L (3.5-5.0) g/dL Globulin 3.1 (1.7-4.1) g/dL Albumin/Globulin Ratio 1.0 (1.0-2.8) Lipase (23-300) U/L Procalcitonin (<0.5) ng/mL Urine Color Urine Appearance Urine pH (4.5-8.0) Ur Specific [place] (1.000-1.035) Urine Protein (Negative) Urine Glucose (UA) (Negative) g/dL Urine Ketones (NEGATIVE) Urine Occult Blood (Negative) Urine Nitrate (Negative) Urine Bilirubin (NEGATIVE) Urine Urobilinogen (0.2) E.U./dL Ur Leukocyte Esterase (NEGATIVE) Urine RBC (0-5/HPF) Urine WBC (0-5/HPF) Ur Squamous Epith Cells (0-5/HPF) Urine Bacteria (None) Hyaline Casts (None) Ur Culture Indicated? Vol Urine Centrifuged Ur Random Sodium (30-90) mmol/L Salicylates (<20) mg/dL U Opiates 300ng/mL cut (Negative) Ur Oxycodone Screen (Negative) Urine Methadone Screen (Negative) Acetaminophen (10-30) ug/mL Ur Barbiturates Screen (Negative) U Tricyclic Antidepress (Negative) Ur Phencyclidine Scrn (Negative) Ur Amphetamines Screen (Negative) U Methamphetamines Scrn (Negative) Ur MDMA Scrn (Ecstasy) (Negative) U Benzodiazepines Scrn (Negative) Urine Cocaine Screen (Negative) U Marijuana (THC) Screen (Negative) Urine Specific [place] (Normal) Ethyl Alcohol ( - 10) mg/dL Ur Creatinine (Normal) SARS-CoV-2 (PCR) Negative (Negative) Influenza A (RT-PCR) Flu a negative (NEGATIVE) Influenza B (RT-PCR) Flu b negative (NEGATIVE) RSV (PCR) Negative (Negative) Point of Care Testing Glucose POC [address] scan - head: Radiologist's Impression: PROCEDURE: CT HEAD/BRAIN WO CON INDICATIONS: found down TECHNIQUE: Noncontrast 4.5 mm thick angled axial sections acquired from the foramen magnum to the vertex, with coronal and sagittal reformats. For radiation dose reduction, the following was used: automated exposure control, adjustment of mA and/or kV according to patient size. COMPARISON: [facility], CR, XR CHEST 1V, 02/03/2024, 10:00. FINDINGS: Image quality: Diagnostic. CSF spaces: Basal cisterns are patent. No extra-axial fluid collections. The ventricles are symmetric in size and shape. Brain: No intracranial bleeds or masses. There is cerebral volume loss for age, with resultant ventricular and sulcal prominence. There are periventricular and deep white matter chronic small vessel ischemic changes. There is intracranial internal carotid artery atherosclerosis. Skull and face: Calvarium and visualized facial bones appear intact, without suspicious lesions. Sinuses: Visualized sinuses and mastoids are clear. IMPRESSION: No acute intracranial hemorrhage is seen. No acute intracranial pathology. No displaced calvarial fracture can be seen. Dictated by: Ricardo Cartagena M.D. on 02/03/2024 at 9:11 US renal: Radiologist's Impression: PROCEDURE: US RENAL COMPLETE INDICATIONS: RENAL FAILURE TECHNIQUE: Real-time scanning was performed of the kidneys and bladder, with image documentation. COMPARISON: None. FINDINGS: Kidneys: Kidneys are normal in size. Right kidney measures 13.3 cm long; left kidney measures 13.4 cm long. Right renal cortical thickness is 1.2 cm; left renal cortical thickness is 1.5 cm. Renal cortical echotexture is normal. No hydronephrosis or nephrolithiasis. No suspicious solid mass lesions. Bladder: The bladder is not distended, a Kaplan catheter is centrally positioned. Miscellaneous: No free pelvic fluid. IMPRESSION: Kaplan catheter centrally positioned, no bladder distension present. Both kidneys are free of hydronephrosis and nephrolithiasis. Etiology of renal insufficiency is not identified. Dictated by: Gregory Porter M.D. on 02/03/2024 at 14:25 ECG Data Interpretation: Artifact sinus rhythm rate 82 peaked T-waves in V3 no obvious ischemia MDM Narrative Medical decision making narrative: MDM CC: Found down Complicating co-morbidities: Diabetes recent coronary artery disease with stent, anemia, hypertension Corroborating data: [ ] Data collected from: Prior [facility] records previous hospitalization Medical records reviewed: Records from recent admission and BMI Differential considered: Intracranial hemorrhage sepsis coronary artery disease, hepatic encephalopathy toxidrome Exam documented above, pertinent findings include: Awake alert confused no focal deficits significant contusion right groin area bilateral skin tears on arms Lab Test results independently reviewed as above. Pertinent findings: WBC 57 3, 30.3, platelets 555, sodium 139 potassium elevated 6.8, chloride 110, carbon dioxide 10, BUN 75, creatinine 9.1 previously 1.35, glucose 80, bilirubin 0.5 AST 43 ALT 18 alk-phos 134, CK 452 troponin 0.034, lipase 842 Final CMP potassium 6.3 chloride 110 bicarb 13 BUN 73 creatinine 8.82 up from 8.7 Independently reviewed EKG as above Imaging studies independently reviewed: Head CT no intracranial hemorrhage, chest x-ray Consultations: Dr. Schneider hospitalist at [facility] updated patient's symptoms test results and kindly accepts Treatments: NS, Dextrose, insulin lasix, Lokalema, bicarb drip Re-evaluations: Patient becoming more awake and alert Discussion: Patient 73-year-old male multiple comorbidities presenting today with decreased down time and hypoglycemia. He is found to be in acute renal failure baseline creatinine 1.39 today is 9.1 found to have hyperkalemia as well with a potassium of 6.8 which is improving to 6.3. Interventions for hyperkalemia helped slightly he was given some IV fluids. Ultimately put on a bicarb drip potassium is improving creatinine has stabilized. Renal ultrasound does not show any hydronephrosis head CT is negative. Critical Care Time Critical Care Time Critical Care Time: Yes Total Critical Care Time: 60 Attestation: The high probability of a clinically significant, sudden or life threatening deterioration of the [cardiovascular] system(s) required my full and direct attention, intervention and personal management. The aggregate critical care time was 60 minutes. This time is in addition to time spent performing reported procedures but includes the following: [x] Data Review and interpretation [x] Patient assessment and monitoring of vital signs [x] Documentation [x] Medication orders and management Discharge Plan Departure Patient Disposition: [facility] Clinical Impression: Acute renal failure, Acute hyperkalemia, Hypoglycemia Prescriptions: No Action trazodone 50 mg tablet 50 mg PO BEDTIME PRN (Reason: sleep) Qty: 30 0RF amlodipine 10 mg tablet 10 mg PO DAILY Qty: 90 3RF gemfibrozil 600 mg tablet 600 mg PO BID Qty: 180 3RF Hold Instructions: Needs labs budesonide 3 mg capsule,delayed,extend.release 3 mg PO BID Qty: 180 3RF omeprazole 20 mg capsule,delayed release(DR/EC) 20 mg PO DAILY Qty: 90 3RF diclofenac sodium 75 mg tablet,delayed release (DR/EC) 75 mg PO BID PRN (Reason: gout) ketoconazole 2 % cream 1 applic TOP BID PRN (Reason: itching/rash) Qty: 15 11RF Rx Instructions: Apply to the affected area BID till clear. Januvia 100 mg tablet 100 mg PO DAILY aspirin 81 mg tablet,delayed release (DR/EC) 81 mg PO DAILY nitroglycerin 0.4 mg tablet, sublingual 0.4 mg sublingual Q5M PRN (Reason: chest pain) Qty: 10 0RF Rx Instructions: do not exceed 3 doses per episode allopurinol 100 mg tablet 100 mg PO DAILY Qty: 90 3RF carvedilol 6.25 mg tablet 6.25 mg PO BID Qty: 180 3RF Rx Instructions: must administer with a meal/food glipizide 2.5 mg tablet 2.5 mg PO DAILY Qty: 90 3RF losartan 50 mg tablet 25 mg PO DAILY Qty: 90 1RF metformin 1,000 mg tablet 1,000 mg PO BIDWMEAL Qty: 180 3RF Hold Instructions: Needs labs potassium citrate 10 mEq (1,080 mg) tablet extended release 10 meq PO BID prasugrel 10 mg tablet 10 mg PO DAILY Qty: 90 3RF rosuvastatin 40 mg tablet 40 mg PO DAILY Qty: 90 3RF (DME) blood-glucose meter [Blood Glucose Monitoring] Kit See Rx Instructions .ROUTE .MEDSUPPLY Qty: 1 1RF Rx Instructions: Use daily to check blood sugar as directed (DME) Blood Glucose Test Strip See Rx Instructions .ROUTE .MEDSUPPLY Qty: 100 5RF Rx Instructions: use to test blood sugar twice daily as directed (DME) lancets 30 gauge misc See Rx Instructions .ROUTE .MEDSUPPLY Qty: 100 5RF Rx Instructions: use to check blood sugar twice daily as directed cholecalciferol (vitamin D3) [Vitamin D3] 50 mcg (2,000 unit) Capsule 50 mcg PO DAILY Referrals: Nina Joel DO [Primary Care Provider] -
[2024-02-03 09:50] LABS: Appearance Urine UA SL CLOUDY; Bilirubin Urine UA NEGATIVE (NEGATIVE); Color Urine UA YELLOW; Glucose Urine UA NEGATIVE (Negative); Ketones Urine UA NEGATIVE (NEGATIVE); Leukocyte Esterase Urine UA NEGATIVE (NEGATIVE); Nitrite Urine UA NEGATIVE (Negative); Occult Blood Urine UA 2+ (Negative); Protein Urine UA 2+ (Negative); Specific Gravity Urine UA 1.025 (1.000-1.035); Urobilinogen Urine UA 0.2 E.U./dL (0.2)
[2024-02-03 09:51] LABS: Urine Volume 10mL (spun)
[2024-02-03 09:52] LABS: UR Morphine/Opiate cutoff 300 Negative (Negative); Ur Creatinine Normal (Normal); Ur Specific Gravity Normal (Normal); Urine Amphetamines Negative (Negative); Urine Barbiturates Negative (Negative); Urine Benzodiazepines Negative (Negative); Urine Cocaine Negative (Negative); Urine MDMA Negative (Negative); Urine Methadone Negative (Negative); Urine Methamphetamines Negative (Negative); Urine Oxycodone Negative (Negative); Urine Phencyclidine Negative (Negative); Urine Tetrahydrocannabinol Negative (Negative); Urine Tricyclic Antidepressant Negative (Negative); Urine pH Normal (Normal)
[2024-02-03 09:54] LABS: Bacteria Urine None Seen; Culture Indicated Urine Cult Not Indicated; Hyaline Casts Urine 0-1/LPF; RBC Urine 1-5/HPF (0-5/HPF); Squamous Epithelial Cell Urine 0-1 /HPF (0-5/HPF); WBC Urine None Seen (0-5/HPF)
[2024-02-03 09:59] LABS: Add Manual Diff / Slide Review NO; Basophils Absolute Auto 0 /uL (0-100); Basophils Percent Auto 0.2 % (0-2); Eosinophils Absolute Auto 0 /uL (0-450); Eosinophils Percent Auto 0.2 % (2-4); Hematocrit 30.3 % (41-53); Hemoglobin 10.3 g/dL (13.5-17.5); Lymphocytes Absolute Auto 600 /uL (1100-4500); Lymphocytes Percent Auto 3.8 % (25-40); Mean Corpuscular Hemoglobin 36.5 PG (26-34); Mean Corpuscular Volume 107.4 fL (80-100); Monocytes Absolute Auto 1000 /uL (0-900); Monocytes Percent Auto 6.5 % (3-14); Neutrophils Absolute Auto 14000 /uL (1500-7000); Neutrophils Percent Auto 89.3 % (50-75); Platelet Count 555 X10^3/uL (150-400); Red Blood Cell Count 2.82 X10^6/uL (4.5-5.9); Red Cell Distribution Width 14.6 % (11.6-14.8); White Blood Cell Count 15.7 X10^3/uL (4.5-11.0)
[2024-02-03 10:04] LABS: PCO2 VBG 36.1 mmHg (45-50); PO2 VBG 28 mmHg (35-45); pH VBG 7.19 (7.33-7.43)
[2024-02-03 10:05] LABS: Fractionated Inspired Oxygen 21; HCO3 VBG 14 mmol/L (24-28); Oxygen Saturation VBG 39 % (70-75); Total CO2 VBG 15 mmol/L (24-29)
[2024-02-03 10:11] LABS: Lactate (Lactic Acid) 2.7 mmol/L (0.7-2.1)
[2024-02-03 10:13] LABS: Acetaminophen < 10 ug/mL (10-30); Alanine Aminotransferase 18 IU/L (<50); Albumin Globulin Ratio 1.1 (1.0-2.8); Alkaline Phosphatase 134 U/L (38-126); Aspartate Aminotransferase 43 IU/L (17-59); BUN Creatinine Ratio 8.2 (6-22); Bilirubin Total 0.5 mg/dL (0.2-1.3); Blood Urea Nitrogen 75 mg/dL (9-20); Calcium 10.1 mg/dL (8.4-10.2); Carbon Dioxide 10 mmol/L (22-32); Chloride 110 mmol/L (98-107); Creatine Kinase 452 U/L (55-170); Estimated Glomerular Filt Rate 6 mL/min (>60); Ethanol (ETOH) < 10 mg/dL; Globulin 3.8 g/dL (1.7-4.1); Glucose 80 mg/dL (80-110); HEMOLYSIS < 15 (0-50); Lipase 842 U/L (23-300); Salicylate < 1.0 mg/dL (<20); Sodium 139 mmol/L (137-145); Total Protein 7.8 g/dL (6.3-8.2)
[2024-02-03 10:15] LABS: PTT Partial Thromboplastin Tim 60 SECONDS (25.1-36.5); Potassium 6.8 mmol/L (3.4-5.1)
[2024-02-03 10:24] LABS: Troponin I 0.034 ng/mL (0.01-0.034)
[2024-02-03] MEDS: SODIUM CHLORIDE 0.9% 1,000 ML 1000 ML IV (10:35)
[2024-02-03] MEDS: DEXTROSE 10 % IN WATER 1,000 ML 100 ML IV (10:37)
[2024-02-03] MEDS: PIPERACILLIN/TAZO 4.5 GM in SODIUM CHLORIDE 0.9% 100 ML IV (10:38)
[2024-02-03] MEDS: SODIUM ZIRCONIUM CYCLOSILICATE 10 GM POWD.PACK PO (10:38)
[2024-02-03] MEDS: DEXTROSE 50 % IN WATER 25 GM/50 ML SYRINGE IV ×2 (10:40→12:58)
[2024-02-03 10:43] LABS: Procalcitonin 0.64 ng/mL (<0.5)
[2024-02-03] MEDS: INSULIN REGULAR 100 UNIT/ML 3 ML VIAL IV ×2 (10:50→13:01)
[2024-02-03] MEDS: FUROSEMIDE 40 MG/4 ML VIAL IV (10:57)
[2024-02-03] MEDS: SODIUM CHLORIDE 0.9% 1,000 ML 125 ML IV (11:11)
[2024-02-03 11:31] LABS: Reflexed Lactate in 2 Hours Y
[2024-02-03 12:30] LABS: Lactate 2HR (Lactic Acid Rflx) 2.3 mmol/L (0.7-2.1)
[2024-02-03 12:32] LABS: Alanine Aminotransferase 15 IU/L (<50); Albumin 3.1 g/dL (3.5-5.0); Alkaline Phosphatase 101 U/L (38-126); Aspartate Aminotransferase 34 IU/L (17-59); BUN Creatinine Ratio 8.2 (6-22); Bilirubin Total 0.4 mg/dL (0.2-1.3); Blood Urea Nitrogen 72 mg/dL (9-20); Carbon Dioxide 10 mmol/L (22-32); Chloride 112 mmol/L (98-107); Estimated Glomerular Filt Rate 6 mL/min (>60); Globulin 3.1 g/dL (1.7-4.1); Glucose 156 mg/dL (80-110); HEMOLYSIS < 15 (0-50); Sodium 136 mmol/L (137-145); Total Protein 6.2 g/dL (6.3-8.2)
[2024-02-03 12:34] LABS: Potassium 6.4 mmol/L (3.4-5.1)
--- NOTE | 2024-02-03 12:35 | DI.US.S_ITS ---
PROCEDURE: US RENAL COMPLETE INDICATIONS: RENAL FAILURE TECHNIQUE: Real-time scanning was performed of the kidneys and bladder, with image documentation. COMPARISON: None. FINDINGS: Kidneys: Kidneys are normal in size. Right kidney measures 13.3 cm long; left kidney measures 13.4 cm long. Right renal cortical thickness is 1.2 cm; left renal cortical thickness is 1.5 cm. Renal cortical echotexture is normal. No hydronephrosis or nephrolithiasis. No suspicious solid mass lesions. Bladder: The bladder is not distended, a Kaplan catheter is centrally positioned. Miscellaneous: No free pelvic fluid. IMPRESSION: Kaplan catheter centrally positioned, no bladder distension present. Both kidneys are free of hydronephrosis and nephrolithiasis. Etiology of renal insufficiency is not identified. Dictated by: Gregory Porter M.D. on 02/03/2024 at 14:25 Approved by: Gregory Porter M.D. on 02/03/2024 at 14:26
--- NOTE | 2024-02-03 12:47 | PC.NURSE ---
MD Roper; stated to stop all infusions and to switch to bicarb drip.
[2024-02-03] MEDS: SODIUM BICARB 8.4% VIAL 150 MEQ in DEXTROSE 5% WATER 1,000 ML IV (12:57)
[2024-02-03 12:58] LABS: Influenza A - CEPHEID Flu A NEGATIVE (NEGATIVE); Influenza B - CEPHEID Flu B NEGATIVE (NEGATIVE); Respiratory Syncytial Virus Negative (Negative)
[2024-02-03 13:07] LABS: COVID-19 CEPHEID 4-PLEX PCR Negative (Negative)
--- NOTE | 2024-02-03 13:15 | PC.NURSE ---
Transfer Progress [facility] called at 1306, talked with Kirsty at the patient transfer center. given needed info and imaging; calling back with hospitalist. [facility] called at 1314, talked with the warehouse material handler. Faxed over needed info, calling back as soon as possible. [facility] called at 1319, talked with Mack in the patient transfer center. [facility] sent needed info and imaging; calling back as soon as possible.
[2024-02-03 14:15] LABS: Sodium Urine Random 91 mmol/L (30-90)
--- NOTE | 2024-02-03 14:17 | DI.RAD.S_ITS ---
PROCEDURE: XR CHEST FOR PICC 1V INDICATIONS: [facility], XR CHEST 1V, 01/12/2024, 10:35. FINDINGS: PICC was placed by the intravenous therapy team from the right side. Fluoroscopic spot film demonstrates the tip of PICC projecting to the area of distal SVC. IMPRESSION: Tip of PICC projects to the area of distal SVC. Dictated by: Gregory Porter M.D. on 02/03/2024 at 14:43 Approved by: Gregory Porter M.D. on 02/03/2024 at 14:44
--- NOTE | 2024-02-03 14:47 | PC.NURSE ---
Pt thinks he was down for 3-4 hours. Pt states he felt weak, then fell, and had his cane sticking out of the door in hopes someone would see him.
--- NOTE | 2024-02-03 14:48 | PC.NURSE ---
Initially pt had decreased responsiveness and confusion; however pt has recovered and GCS has improved to 15.
[2024-02-03 15:20] LABS: BUN Creatinine Ratio 8.3 (6-22); Blood Urea Nitrogen 73 mg/dL (9-20); Calcium 8.7 mg/dL (8.4-10.2); Carbon Dioxide 13 mmol/L (22-32); Chloride 110 mmol/L (98-107); Estimated Glomerular Filt Rate 6 mL/min (>60); Glucose 129 mg/dL (80-110); HEMOLYSIS < 15 (0-50); Sodium 137 mmol/L (137-145)
[2024-02-03 15:23] LABS: Potassium 6.3 mmol/L (3.4-5.1)
== END 2024-02-03 16:20 | disposition short-term general hospital (02) ==
PROVIDERS: Emergency Provider Emergency Medicine; PCP Family Medicine
DX: N19 Unspecified kidney failure (principal); E87.5 Hyperkalemia; E11.649 Type 2 diabetes mellitus with hypoglycemia without coma; Z20.822 Contact with and (suspected) exposure to COVID-19
CPT/HCPCS: 0241U; 36415; 36569; 70450; 71045; 76770; 80048; 80053; 80305; 80320; 80329; 81001; 82550; 82805; 82962; 83605; 83690; 84145; 84300; 84484; 85025; 85610; 85730; 87040; 93005; 93010; 96361; 96365; 96375; 96376; 99285; 99291; G0480; J1940; J2543

== ENCOUNTER → 2024-04-09 13:22 | Outpatient (CLI) | payer MEDICARE, OTHER, SELFPAY ==
[2024-01-12 14:57] VITALS: BMI 26.4
[2024-04-09 14:06] LABS: Add Manual Diff / Slide Review NO; Basophils Absolute Auto 100 /uL (0-100); Basophils Percent Auto 0.7 % (0-2); Eosinophils Absolute Auto 300 /uL (0-450); Eosinophils Percent Auto 4.2 % (2-4); Hematocrit 29.1 % (41-53); Lymphocytes Absolute Auto 1400 /uL (1100-4500); Lymphocytes Percent Auto 17.2 % (25-40); Mean Corpuscular HGB Conc 34.3 % (30-36); Mean Corpuscular Hemoglobin 30.7 PG (26-34); Mean Corpuscular Volume 89.5 fL (80-100); Monocytes Absolute Auto 500 /uL (0-900); Monocytes Percent Auto 6.9 % (3-14); Neutrophils Absolute Auto 5700 /uL (1500-7000); Platelet Count 360 X10^3/uL (150-400); Red Blood Cell Count 3.25 X10^6/uL (4.5-5.9); Red Cell Distribution Width 16.8 % (11.6-14.8)
[2024-04-09 14:15] LABS: Hemoglobin A1C% w Est Avg Glu 6.5 % (4.0-6.0)
[2024-04-09 14:26] LABS: HEMOLYSIS < 15 (0-50); Iron 45 ug/dL (49-181)
[2024-04-09 14:34] LABS: Alanine Aminotransferase 10 IU/L (<50); Albumin 3.3 g/dL (3.5-5.0); Albumin Globulin Ratio 1.5 (1.0-2.8); Alkaline Phosphatase 107 U/L (38-126); Aspartate Aminotransferase 14 IU/L (17-59); BUN Creatinine Ratio 9.7 (6-22); Bilirubin Total 0.6 mg/dL (0.2-1.3); Blood Urea Nitrogen 17 mg/dL (9-20); Calcium 8.7 mg/dL (8.4-10.2); Carbon Dioxide 28 mmol/L (22-32); Chloride 103 mmol/L (98-107); Estimated Glomerular Filt Rate 41 mL/min (>60); Globulin 2.2 g/dL (1.7-4.1); Glucose 207 mg/dL (80-110); HEMOLYSIS < 15 (0-50); Sodium 138 mmol/L (137-145); Total Protein 5.5 g/dL (6.3-8.2)
[2024-04-09 14:37] LABS: Percent Iron Saturation 23 % (20-50); Total Iron Binding Capacity 199 ug/dL (261-462); Transferrin 146 mg/dL (206-381)
[2024-04-09 15:19] LABS: Vitamin B12 924 pg/mL (239-931)
[2024-04-09 16:10] LABS: Potassium 2.7 mmol/L (3.4-5.1)
[2024-04-09 17:38] LABS: Protein (Total) Urine Random 170 mg/dL (0-12)
[2024-04-09 17:54] LABS: Creatinine Urine Random 84.24 mg/dL; Protein Creatinine Ratio Urine 2.01 GRAM/24H
== END ==
PROVIDERS: Internal Medicine Nephrology; PCP Family Medicine; Referring Provider Family Medicine; Visit Provider Family Medicine
DX: R80.9 Proteinuria, unspecified (principal); D64.9 Anemia, unspecified; M79.10 Myalgia, unspecified site; N18.2 Chronic kidney disease, stage 2 (mild); R71.8 Other abnormality of red blood cells; R26.81 Unsteadiness on feet
CPT/HCPCS: 36415; 80053; 82570; 82607; 83036; 83540; 83550; 84156; 85025

== ENCOUNTER → 2024-04-17 12:43 | Outpatient (CLI) | payer MEDICARE, OTHER, SELFPAY ==
[2024-01-12 14:57] VITALS: BMI 26.4
[2024-04-17 15:23] LABS: BUN Creatinine Ratio 8.6 (6-22); Blood Urea Nitrogen 16 mg/dL (9-20); Calcium 8.8 mg/dL (8.4-10.2); Carbon Dioxide 30 mmol/L (22-32); Chloride 102 mmol/L (98-107); Estimated Glomerular Filt Rate 38 mL/min (>60); Glucose 192 mg/dL (80-110); HEMOLYSIS < 15 (0-50); Potassium 3.5 mmol/L (3.4-5.1); Sodium 138 mmol/L (137-145)
== END ==
LOC: LAB 12:45
PROVIDERS: PCP Family Medicine; Referring Provider Internal Medicine Nephrology; Visit Provider Internal Medicine Nephrology
DX: E87.5 Hyperkalemia (principal); E11.69 Type 2 diabetes mellitus with other specified complication; E78.2 Mixed hyperlipidemia; M10.9 Gout, unspecified; N18.2 Chronic kidney disease, stage 2 (mild)
CPT/HCPCS: 36415; 80048

== ENCOUNTER → 2024-06-22 11:04 | Outpatient (CLI) | payer MEDICARE, OTHER, SELFPAY ==
[2024-01-12 14:57] VITALS: BMI 26.4
[2024-06-22 12:22] LABS: BUN Creatinine Ratio 18.5 (6-22); Blood Urea Nitrogen 27 mg/dL (9-20); Calcium 8.8 mg/dL (8.4-10.2); Carbon Dioxide 21 mmol/L (22-32); Chloride 104 mmol/L (98-107); Estimated Glomerular Filt Rate 50 mL/min (>60); Glucose 318 mg/dL (80-110); HEMOLYSIS < 15 (0-50); Potassium 4.1 mmol/L (3.4-5.1); Sodium 136 mmol/L (137-145)
== END ==
PROVIDERS: PCP Family Medicine; Referring Provider Internal Medicine Nephrology; Visit Provider Internal Medicine Nephrology
DX: N05.9 Unspecified nephritic syndrome with unspecified morphologic changes (principal)
CPT/HCPCS: 36415; 80048

== ENCOUNTER 2024-07-07 12:04 | Inpatient (IN) | payer MEDICARE, OTHER, SELFPAY ==
[2024-01-12 14:57] VITALS: BMI 26.4
[2024-07-07] VITALS (100 sets, daily range): BP systolic 82–142; BP diastolic 49–82; PULSE 69–120; RESP 8–28; TEMP 36.8; O2SAT 89–100; BMI 26.7
--- NOTE | 2024-07-07 12:25 | EKG_ITS ---
[facility] [id number] [place] [address] Test Date: 2024-07-07 Pat Name: Jaime Serrano Department: [facility] Room: Gender: Male [employer]: MARGAUX : 1950 Requested By: Order Number: [id number] Reading MD: Jose Cool MD Measurements Intervals [place] Rate: 74 P: 84 AR: 230 QRS: 23 QRSD: 72 T: 65 QT: 376 QTc: 417 Interpretive Statements Sinus rhythm with 1st degree AV block Nonspecific ST abnormality Electronically Signed On 07-07-2024 21:34:40 PDT by Jose Cool MD
--- NOTE | 2024-07-07 12:25 | ED.WEAKNESS ---
HPI - Weakness <Everton Arguello MD - Last Filed: 07/07/24 22:34> General Chief complaint: Trauma Stated complaint: Fall; blood loss Time Seen by Provider: 07/07/24 12:25 Source: patient Mode of arrival: Ambulatory History of Present Illness HPI Narrative: 74-year-old male with generalized weakness, history of chronic anticoagulation, recent right arm laceration treated with [facility] with overlying dressing, forming clot in that area. Low blood pressure in the field today, transported by EMS, no black or red stools. He denies cough shortness of breath. He denies chest pain. He denies abdominal pain. Related Data Home Medications Medication Instructions Recorded Confirmed diclofenac sodium 75 mg 75 mg PO BID PRN gout 05/10/23 07/07/24 tablet,delayed release cholecalciferol (vitamin D3) 50 50 mcg PO DAILY 08/04/23 07/07/24 mcg (2,000 unit) capsule (Vitamin D3) aspirin 81 mg tablet,delayed 81 mg PO DAILY 01/26/24 07/07/24 release potassium citrate 10 mEq (1,080 10 meq PO BID 01/26/24 07/07/24 mg) tablet,extended release carvedilol 6.25 mg tablet (Coreg) 6.25 mg PO BID 07/07/24 07/07/24 insulin glargine 100 unit/mL (3 17 unit SUBCUT QAM 07/07/24 07/07/24 mL) subcutaneous pen (Basaglar KwikPen U-100 Insulin) sitagliptin phosphate 100 mg 100 mg PO DAILY 07/07/24 07/07/24 tablet (Januvia) Previous Rx's Medication Instructions Recorded ketoconazole 2 % topical cream 1 applic topical BID PRN 06/07/23 itching/rash #15 grams amlodipine 10 mg tablet 10 mg PO DAILY #90 tabs 01/04/24 budesonide 3 mg 3 mg PO BID #180 caps 01/18/24 capsule,delayed,extended release blood sugar diagnostic (Blood #100 ea 01/26/24 Glucose Test strips) blood-glucose meter (Blood Glucose #1 ea 01/26/24 Monitoring kit) lancets 30 gauge #100 ea 01/26/24 losartan 50 mg tablet 25 mg (1/2 x 50 mg) PO DAILY #90 01/26/24 tabs nitroglycerin 0.4 mg sublingual 0.4 mg sublingual Q5M PRN chest 01/26/24 tablet pain #10 tabs prasugrel 10 mg tablet 10 mg PO DAILY #90 tabs 01/26/24 rosuvastatin 40 mg tablet 40 mg PO DAILY #90 tabs 01/26/24 omeprazole 20 mg capsule,delayed 20 mg PO DAILY #90 caps 03/27/24 release trazodone 50 mg tablet 25 mg (1/2 x 50 mg) PO BEDTIME PRN 03/28/24 sleep #30 tabs methocarbamol 500 mg tablet 500 mg PO BID PRN muscle spasm #15 06/26/24 tabs Allergies Allergy/AdvReac Type Severity Reaction Status Date / Time MALCOLM Inhibitors AdvReac Severe Elevated Verified 07/07/24 12:17 creatinine Review of Systems <Everton Arguello MD - Last Filed: 07/07/24 22:34> Review of Systems Narrative: see HPI Patient History <Everton Arguello MD - Last Filed: 07/07/24 22:34> Medical History Screening due Folliculitis Myalgia COVID-19 BPH w urinary obs/LUTS Bilateral nephrolithiasis Retained ureteral stent Bilateral nephrolithiasis Left ureteral calculus Labyrinthitis Lymphocytic colitis (2012) Rosacea (Unknown) Kidney stones (2011) Kidney disease (Unknown) Myopia (Unknown) Asthma (Unknown) Anemia (Unknown) Depression (Unknown) Hypertriglyceridemia (Unknown) Hypertension (Unknown) Hyperlipidemia (Unknown) Microscopic colitis (10/10/15) Chronic renal insufficiency, stage II (mild) (10/10/15) Depression (09/04/14) Type 2 diabetes mellitus without complication (09/11/15) Essential hypertension (09/11/15) Surgical History Hx of cystoscopy (04/29/21) Family History Father Cancer Mother Stroke Social History marital status: unmarried,single household members: none lives independently: Yes Smoking Status: Former smoker alcohol intake: current Smoking Status: Former smoker alcohol intake frequency: 0-2 drinks per day Substance Use Type: does not use Exam <Everton Arguello MD - Last Filed: 07/07/24 22:34> Narrative Exam Narrative: GENERAL: Well-developed patient, in mild distress. HEAD: Atraumatic. Normocephalic. EYES: Pupils equal round and reactive. Extraocular motions intact. No scleral icterus. No injection or drainage. ENT: Nose without bleeding, purulent drainage. Throat without erythema, tonsillar hypertrophy or exudate. Airway patent. NECK: Trachea midline. Non tender CARDIOVASCULAR: Regular rate and rhythm without murmurs, gallops, or rubs. RESPIRATORY: Clear to auscultation. Breath sounds equal bilaterally. No wheezes, rales, or rhonchi. GASTROINTESTINAL: Abdomen soft, non-tender, nondistended. EXTREMITIES: No edema or joint tenderness. Numerous small areas of varied age ecchymoses upper and lower extremities. Dressing with blood saturation right mid lower arm, on removal of the dressing there is dried adherent clot, irrigated free, avulsion laceration, no arterial pulsatile bright red blood. Numerous small hematomas over upper and lower extremities, no gross deformities, no limitation range of motion. BACK: Nontender without deformity or crepitance. No flank tenderness. NEURO: AOx3. Nonfocal gross motor exam SKIN: No rash or erythema of visible areas Initial Vital Signs Initial Vital Signs: Vital Signs Pulse Rate 120 H 07/07/24 12:07 Respiratory Rate 20 07/07/24 12:07 <Graciela Roper DO - Last Filed: 07/08/24 02:26> Initial Vital Signs Initial Vital Signs: Vital Signs Pulse Rate 120 H 07/07/24 12:07 Respiratory Rate 07/07/24 12:07 Course <Everton Arguello MD - Last Filed: 07/07/24 22:34> Orders Ordered: ED Orders 07/07/24 18:00 Hemoglobin and Hematocrit Stat 07/07/24 19:04 Consult to PURCHASING MANAGER - Assistant Professor Of Life Sciences Stat 07/07/24 19:05 Consult to Physical Therapy Evaluate & Treat 07/07/24 19:06 Consult to Occupational Therapy Evaluate & Treat Acetaminophen (Acetaminophen 325 Mg Tablet) 650 mg PO Q6H PRN PRN Reason: Fever/Mild Pain (1-3) Last Admin: 07/08/24 01:02 Dose: 650 mg Documented By: AT Sodium Chloride (Normal Saline 0.9%) 1,000 mls @ 150 mls/hr IV CONT GERALDINE Last Admin: 07/07/24 17:45 Dose: 150 mls/hr Documented By: MAXIMILIAN Dextrose (D10w) 100 mls @ 999 mls/hr IV PRN PRN PRN Reason: Hypoglycemia Insulin Human Lispro (Insulin Lispro 100 Unit/Ml 3ml Vial) 0 unit SUBCUT ACHS GERALDINE; Protocol Naloxone HCl (Naloxone 0.4 Mg/Ml Vial) 0.2 mg IV Q2MIN PRN PRN Reason: Opiate Reversal Ondansetron HCl (Ondansetron 4 Mg/2 Ml Inj) 4 mg IV NOW PRN PRN Reason: Nausea And Vomiting Ondansetron HCl (Ondansetron 4 Mg Odt) 4 mg SL NOW PRN PRN Reason: Nausea And Vomiting Discontinued Medications Sodium Chloride (Normal Saline 0.9%) 1,000 mls @ 1,000 mls/hr IV BOLUS ONE Stop: 07/07/24 13:21 Last Infusion: 07/07/24 15:05 Dose: Infused Documented By: Admin: 07/07/24 13:01 Dose: 1,000 mls/hr Documented By: MAXIMILIAN Sodium Chloride (Normal Saline 0.9%) 1,000 mls @ 1,000 mls/hr IV BOLUS ONE Stop: 07/07/24 14:01 Last Admin: 07/07/24 13:19 Dose: Not Given Documented By: CHARMAINE Vital Signs Vital signs: Vital Signs - 8 hr 07/07/24 18:30 07/07/24 18:30 07/07/24 18:33 Pulse Rate 72 Pulse Rate [Orthostatic Lying] Pulse Rate [Orthostatic Sitting] Respiratory Rate 14 Blood Pressure 119/58 L 118/56 L Blood Pressure [Orthostatic Lying] Blood Pressure [Orthostatic Sitting] Pulse Oximetry 93 Oxygen Delivery Method 07/07/24 18:33 07/07/24 18:35 07/07/24 18:36 Pulse Rate 71 75 Pulse Rate [Orthostatic Lying] Pulse Rate [Orthostatic Sitting] Respiratory Rate 18 15 Blood Pressure 115/54 L Blood Pressure [Orthostatic Lying] Blood Pressure [Orthostatic Sitting] Pulse Oximetry 92 Oxygen Delivery Method 07/07/24 18:36 07/07/24 18:37 07/07/24 18:37 Pulse Rate 78 77 Pulse Rate [Orthostatic Lying] Pulse Rate [Orthostatic Sitting] Respiratory Rate 15 22 Blood Pressure 91/52 L Blood Pressure [Orthostatic Lying] Blood Pressure [Orthostatic Sitting] Pulse Oximetry Oxygen Delivery Method 07/07/24 18:39 07/07/24 18:39 07/07/24 18:40 Pulse Rate 85 82 Pulse Rate [Orthostatic Lying] Pulse Rate [Orthostatic Sitting] Respiratory Rate 18 23 Blood Pressure 111/50 L Blood Pressure [Orthostatic Lying] Blood Pressure [Orthostatic Sitting] Pulse Oximetry Oxygen Delivery Method 07/07/24 18:41 07/07/24 18:41 07/07/24 18:43 Pulse Rate 78 Pulse Rate [Orthostatic Lying] 71 Pulse Rate [Orthostatic Sitting] 80 Respiratory Rate 22 Blood Pressure 109/53 L Blood Pressure [Orthostatic Lying] 118/56 L Blood Pressure [Orthostatic Sitting] 91/52 L Pulse Oximetry Oxygen Delivery Method 07/07/24 18:45 07/07/24 18:50 07/07/24 18:50 Pulse Rate 77 80 Pulse Rate [Orthostatic Lying] Pulse Rate [Orthostatic Sitting] Respiratory Rate 18 Blood Pressure 115/58 L Blood Pressure [Orthostatic Lying] Blood Pressure [Orthostatic Sitting] Pulse Oximetry 95 93 Oxygen Delivery Method 07/07/24 18:55 07/07/24 19:00 07/07/24 19:00 Pulse Rate 80 80 Pulse Rate [Orthostatic Lying] Pulse Rate [Orthostatic Sitting] Respiratory Rate 19 26 H Blood Pressure 124/59 L Blood Pressure [Orthostatic Lying] Blood Pressure [Orthostatic Sitting] Pulse Oximetry 95 94 Oxygen Delivery Method 07/07/24 19:05 07/07/24 19:10 07/07/24 19:10 Pulse Rate 80 73 Pulse Rate [Orthostatic Lying] Pulse Rate [Orthostatic Sitting] Respiratory Rate 28 H 14 Blood Pressure 117/57 L Blood Pressure [Orthostatic Lying] Blood Pressure [Orthostatic Sitting] Pulse Oximetry 94 92 Oxygen Delivery Method 07/07/24 19:15 07/07/24 19:20 07/07/24 19:20 Pulse Rate 73 72 Pulse Rate [Orthostatic Lying] Pulse Rate [Orthostatic Sitting] Respiratory Rate 15 17 Blood Pressure 101/55 L Blood Pressure [Orthostatic Lying] Blood Pressure [Orthostatic Sitting] Pulse Oximetry 92 92 Oxygen Delivery Method 07/07/24 19:25 07/07/24 19:30 07/07/24 19:30 Pulse Rate 74 73 Pulse Rate [Orthostatic Lying] Pulse Rate [Orthostatic Sitting] Respiratory Rate 17 16 Blood Pressure 107/52 L Blood Pressure [Orthostatic Lying] Blood Pressure [Orthostatic Sitting] Pulse Oximetry 92 94 Oxygen Delivery Method 07/07/24 19:35 07/07/24 19:40 07/07/24 19:40 Pulse Rate 72 71 Pulse Rate [Orthostatic Lying] Pulse Rate [Orthostatic Sitting] Respiratory Rate 19 18 Blood Pressure 104/53 L Blood Pressure [Orthostatic Lying] Blood Pressure [Orthostatic Sitting] Pulse Oximetry 94 95 Oxygen Delivery Method 07/07/24 19:45 07/07/24 19:50 07/07/24 19:50 Pulse Rate 73 72 Pulse Rate [Orthostatic Lying] Pulse Rate [Orthostatic Sitting] Respiratory Rate 18 17 Blood Pressure 109/52 L Blood Pressure [Orthostatic Lying] Blood Pressure [Orthostatic Sitting] Pulse Oximetry 94 94 Oxygen Delivery Method 07/07/24 19:55 07/07/24 20:00 07/07/24 20:00 Pulse Rate 75 75 Pulse Rate [Orthostatic Lying] Pulse Rate [Orthostatic Sitting] Respiratory Rate 19 18 Blood Pressure 106/55 L Blood Pressure [Orthostatic Lying] Blood Pressure [Orthostatic Sitting] Pulse Oximetry 95 93 Oxygen Delivery Method 07/07/24 20:05 07/07/24 20:10 07/07/24 20:10 Pulse Rate 75 76 Pulse Rate [Orthostatic Lying] Pulse Rate [Orthostatic Sitting] Respiratory Rate 18 14 Blood Pressure 111/55 L Blood Pressure [Orthostatic Lying] Blood Pressure [Orthostatic Sitting] Pulse Oximetry 94 94 Oxygen Delivery Method 07/07/24 20:15 07/07/24 20:20 07/07/24 20:20 Pulse Rate 75 77 Pulse Rate [Orthostatic Lying] Pulse Rate [Orthostatic Sitting] Respiratory Rate 18 18 Blood Pressure 97/50 L Blood Pressure [Orthostatic Lying] Blood Pressure [Orthostatic Sitting] Pulse Oximetry 94 94 Oxygen Delivery Method Room Air 07/07/24 20:25 07/07/24 20:30 07/07/24 20:30 Pulse Rate 78 77 Pulse Rate [Orthostatic Lying] Pulse Rate [Orthostatic Sitting] Respiratory Rate 14 18 Blood Pressure 106/52 L Blood Pressure [Orthostatic Lying] Blood Pressure [Orthostatic Sitting] Pulse Oximetry 95 94 Oxygen Delivery Method <Graciela Roper DO - Last Filed: 07/08/24 02:26> Orders Ordered: ED Orders 07/07/24 18:00 Hemoglobin and Hematocrit Stat 07/07/24 19:04 Consult to PURCHASING MANAGER - Assistant Professor Of Life Sciences Stat 07/07/24 19:05 Consult to Physical Therapy Evaluate & Treat 07/07/24 19:06 Consult to Occupational Therapy Evaluate & Treat Acetaminophen (Acetaminophen 325 Mg Tablet) 650 mg PO Q6H PRN PRN Reason: Fever/Mild Pain (1-3) Last Admin: 07/08/24 01:02 Dose: 650 mg Documented By: SUSSY Sodium Chloride (Normal Saline 0.9%) 1,000 mls @ 150 mls/hr IV CONT GERALDINE Last Admin: 07/07/24 17:45 Dose: 150 mls/hr Documented By: MAXIMILIAN Dextrose (D10w) 100 mls @ 999 mls/hr IV PRN PRN PRN Reason: Hypoglycemia Insulin Human Lispro (Insulin Lispro 100 Unit/Ml 3ml Vial) 0 unit SUBCUT ACHS GERALDINE; Protocol Naloxone HCl (Naloxone 0.4 Mg/Ml Vial) 0.2 mg IV Q2MIN PRN PRN Reason: Opiate Reversal Ondansetron HCl (Ondansetron 4 Mg/2 Ml Inj) 4 mg IV NOW PRN PRN Reason: Nausea And Vomiting Ondansetron HCl (Ondansetron 4 Mg Odt) 4 mg SL NOW PRN PRN Reason: Nausea And Vomiting Discontinued Medications Sodium Chloride (Normal Saline 0.9%) 1,000 mls @ 1,000 mls/hr IV BOLUS ONE Stop: 07/07/24 13:21 Last Infusion: 07/07/24 15:05 Dose: Infused Documented By: Admin: 07/07/24 13:01 Dose: 1,000 mls/hr Documented By: MAXIMILIAN Sodium Chloride (Normal Saline 0.9%) 1,000 mls @ 1,000 mls/hr IV BOLUS ONE Stop: 07/07/24 14:01 Last Admin: 07/07/24 13:19 Dose: Not Given Documented By: CHARMAINE Vital Signs Vital signs: Vital Signs - 8 hr 07/07/24 18:30 07/07/24 18:30 07/07/24 18:33 Pulse Rate 72 Pulse Rate [Orthostatic Lying] Pulse Rate [Orthostatic Sitting] Respiratory Rate 14 Blood Pressure 119/58 L 118/56 L Blood Pressure [Orthostatic Lying] Blood Pressure [Orthostatic Sitting] Pulse Oximetry 93 Oxygen Delivery Method 07/07/24 18:33 07/07/24 18:35 07/07/24 18:36 Pulse Rate 71 75 Pulse Rate [Orthostatic Lying] Pulse Rate [Orthostatic Sitting] Respiratory Rate 18 15 Blood Pressure 115/54 L Blood Pressure [Orthostatic Lying] Blood Pressure [Orthostatic Sitting] Pulse Oximetry 92 Oxygen Delivery Method 07/07/24 18:36 07/07/24 18:37 07/07/24 18:37 Pulse Rate 78 77 Pulse Rate [Orthostatic Lying] Pulse Rate [Orthostatic Sitting] Respiratory Rate 15 22 Blood Pressure 91/52 L Blood Pressure [Orthostatic Lying] Blood Pressure [Orthostatic Sitting] Pulse Oximetry Oxygen Delivery Method 07/07/24 18:39 07/07/24 18:39 07/07/24 18:40 Pulse Rate 85 82 Pulse Rate [Orthostatic Lying] Pulse Rate [Orthostatic Sitting] Respiratory Rate 18 23 Blood Pressure 111/50 L Blood Pressure [Orthostatic Lying] Blood Pressure [Orthostatic Sitting] Pulse Oximetry Oxygen Delivery Method 07/07/24 18:41 07/07/24 18:41 07/07/24 18:43 Pulse Rate 78 Pulse Rate [Orthostatic Lying] 71 Pulse Rate [Orthostatic Sitting] 80 Respiratory Rate 22 Blood Pressure 109/53 L Blood Pressure [Orthostatic Lying] 118/56 L Blood Pressure [Orthostatic Sitting] 91/52 L Pulse Oximetry Oxygen Delivery Method 07/07/24 18:45 07/07/24 18:50 07/07/24 18:50 Pulse Rate 77 80 Pulse Rate [Orthostatic Lying] Pulse Rate [Orthostatic Sitting] Respiratory Rate 18 Blood Pressure 115/58 L Blood Pressure [Orthostatic Lying] Blood Pressure [Orthostatic Sitting] Pulse Oximetry 95 93 Oxygen Delivery Method 07/07/24 18:55 07/07/24 19:00 07/07/24 19:00 Pulse Rate 80 80 Pulse Rate [Orthostatic Lying] Pulse Rate [Orthostatic Sitting] Respiratory Rate 19 26 H Blood Pressure 124/59 L Blood Pressure [Orthostatic Lying] Blood Pressure [Orthostatic Sitting] Pulse Oximetry 95 94 Oxygen Delivery Method 07/07/24 19:05 07/07/24 19:10 07/07/24 19:10 Pulse Rate 80 73 Pulse Rate [Orthostatic Lying] Pulse Rate [Orthostatic Sitting] Respiratory Rate 28 H 14 Blood Pressure 117/57 L Blood Pressure [Orthostatic Lying] Blood Pressure [Orthostatic Sitting] Pulse Oximetry 94 92 Oxygen Delivery Method 07/07/24 19:15 07/07/24 19:20 07/07/24 19:20 Pulse Rate 73 72 Pulse Rate [Orthostatic Lying] Pulse Rate [Orthostatic Sitting] Respiratory Rate 15 17 Blood Pressure 101/55 L Blood Pressure [Orthostatic Lying] Blood Pressure [Orthostatic Sitting] Pulse Oximetry 92 92 Oxygen Delivery Method 07/07/24 19:25 07/07/24 19:30 07/07/24 19:30 Pulse Rate 74 73 Pulse Rate [Orthostatic Lying] Pulse Rate [Orthostatic Sitting] Respiratory Rate 17 16 Blood Pressure 107/52 L Blood Pressure [Orthostatic Lying] Blood Pressure [Orthostatic Sitting] Pulse Oximetry 92 94 Oxygen Delivery Method 07/07/24 19:35 07/07/24 19:40 07/07/24 19:40 Pulse Rate 72 71 Pulse Rate [Orthostatic Lying] Pulse Rate [Orthostatic Sitting] Respiratory Rate 19 18 Blood Pressure 104/53 L Blood Pressure [Orthostatic Lying] Blood Pressure [Orthostatic Sitting] Pulse Oximetry 94 95 Oxygen Delivery Method 07/07/24 19:45 07/07/24 19:50 07/07/24 19:50 Pulse Rate 73 72 Pulse Rate [Orthostatic Lying] Pulse Rate [Orthostatic Sitting] Respiratory Rate 18 17 Blood Pressure 109/52 L Blood Pressure [Orthostatic Lying] Blood Pressure [Orthostatic Sitting] Pulse Oximetry 94 94 Oxygen Delivery Method 07/07/24 19:55 07/07/24 20:00 07/07/24 20:00 Pulse Rate 75 75 Pulse Rate [Orthostatic Lying] Pulse Rate [Orthostatic Sitting] Respiratory Rate 19 18 Blood Pressure 106/55 L Blood Pressure [Orthostatic Lying] Blood Pressure [Orthostatic Sitting] Pulse Oximetry 95 93 Oxygen Delivery Method 07/07/24 20:05 07/07/24 20:10 07/07/24 20:10 Pulse Rate 75 76 Pulse Rate [Orthostatic Lying] Pulse Rate [Orthostatic Sitting] Respiratory Rate 18 14 Blood Pressure 111/55 L Blood Pressure [Orthostatic Lying] Blood Pressure [Orthostatic Sitting] Pulse Oximetry 94 94 Oxygen Delivery Method 07/07/24 20:15 07/07/24 20:20 07/07/24 20:20 Pulse Rate 75 77 Pulse Rate [Orthostatic Lying] Pulse Rate [Orthostatic Sitting] Respiratory Rate 18 18 Blood Pressure 97/50 L Blood Pressure [Orthostatic Lying] Blood Pressure [Orthostatic Sitting] Pulse Oximetry 94 94 Oxygen Delivery Method Room Air 07/07/24 20:25 07/07/24 20:30 07/07/24 20:30 Pulse Rate 78 77 Pulse Rate [Orthostatic Lying] Pulse Rate [Orthostatic Sitting] Respiratory Rate 14 18 Blood Pressure 106/52 L Blood Pressure [Orthostatic Lying] Blood Pressure [Orthostatic Sitting] Pulse Oximetry 95 94 Oxygen Delivery Method MDM - Weakness <Everton Arguello MD - Last Filed: 07/07/24 22:34> Lab Data Attestation: I reviewed the patient's lab results. 07/07/24 18:00 07/07/24 12:45 Labs: Lab Results 07/07/24 07/07/24 07/07/24 Range/Units 12:45 12:58 14:24 WBC 11.2 H (4.5-11.0) X10^3/uL RBC 2.79 L (4.5-5.9) X10^6/uL Hgb 8.6 L (13.5-17.5) g/dL Hct 25.9 L (41-53) % MCV 92.8 (80-100) fL MCH 30.7 (26-34) PG MCHC 33.1 (30-36) % RDW 16.1 H (11.6-14.8) % Plt Count 341 (150-400) X10^3/uL Neut % (Auto) 86.8 H (50-75) % Lymph % (Auto) 6.2 L (25-40) % Lares % (Auto) 5.6 (3-14) % Eos % (Auto) 1.0 L (2-4) % Baso % (Auto) 0.4 (0-2) % Neut # (Auto) 9700 H (1705-6820) /uL Lymph # (Auto) 700 L (2443-6858) /uL Lares # (Auto) 600 (0-900) /uL Eos # (Auto) 100 (0-450) /uL Baso # (Auto) 0 (0-100) /uL PT 11.3 (9.4-12.5) SECONDS INR 1.0 (0.9-1.3) APTT 40 H (25.1-36.5) SECONDS Sodium 137 (137-145) mmol/L Potassium 4.9 (3.4-5.1) mmol/L Chloride 101 (98-107) mmol/L Carbon Dioxide 22 (22-32) mmol/L BUN 72 H (9-20) mg/dL Creatinine 1.88 H (0.66-1.25) mg/dL Estimated GFR 37 L (>60) mL/min BUN/Creatinine Ratio 38.3 H (6-22) Glucose 178 H (80-110) mg/dL Lactate 1.8 (0.7-2.1) mmol/L Calcium 9.6 (8.4-10.2) mg/dL Total Bilirubin 0.8 (0.2-1.3) mg/dL AST 25 (17-59) IU/L ALT 33 (<50) IU/L Alkaline Phosphatase 105 (38-126) U/L Total Creatine Kinase 82 (55-170) U/L Troponin I < 0.012 (0.01-0.034) ng/mL NT-Pro-B Natriuret Pep 487 H (<125) pg/mL Total Protein 6.1 L (6.3-8.2) g/dL Albumin 3.4 L (3.5-5.0) g/dL Globulin 2.7 (1.7-4.1) g/dL Albumin/Globulin Ratio 1.3 (1.0-2.8) Lipase 162 (23-300) U/L Procalcitonin 0.356 (<0.5) ng/mL Urine RBC None seen (0-5/HPF) Urine WBC None seen (0-5/HPF) Ur Squamous Epith Cells None seen (0-5/HPF) Ur Renal Epithelial Cell 0-1/hpf (0-1/HPF) Urine Bacteria None seen (None) Hyaline Casts 0-1/lpf (None) Granular Casts 0-1/lpf (None) Ur Culture Indicated? Cult not indicated Vol Urine Centrifuged 10ml (spun) U Opiates 300ng/mL cut Negative (Negative) Ur Oxycodone Screen Negative (Negative) Urine Methadone Screen Negative (Negative) Ur Barbiturates Screen Negative (Negative) U Tricyclic Antidepress Negative (Negative) Ur Phencyclidine Scrn Negative (Negative) Ur Amphetamines Screen Negative (Negative) U Methamphetamines Scrn Negative (Negative) Ur MDMA Scrn (Ecstasy) Negative (Negative) U Benzodiazepines Scrn Negative (Negative) Urine Cocaine Screen Negative (Negative) U Marijuana (THC) Screen Negative (Negative) Urine pH Normal (Normal) Urine Specific [place] Normal (Normal) Ethyl Alcohol < 10 ( - 10) mg/dL Ur Creatinine Normal (Normal) Chlamy pneumoniae PCR Not detected (Not Detect) Adenovirus (PCR) Not detected (Not Detect) B.parapertussis DNA PCR Not detected (Not Detecte) Coronavirus OC43 (PCR) Not detected (Not Detect) Coronavirus HKU1 (PCR) Not detected (Not Detect) Coronavirus 229E (PCR) Not detected (Not Detect) SARS-CoV-2 (PCR) Not detected (Not Detecte) Coronavirus NL63 (PCR) Not detected (Not Detect) Human Metapneumovir PCR Not detected (Not Detect) Influenza Type A (PCR) Not detected (Not Detect) Influenza Type B (PCR) Not detected (Not Detect) M. pneumoniae (PCR) Not detected (Not Detect) Parainfluenza 1 (PCR) Not detected (Not Detect) Parainfluenza 2 (PCR) Not detected (Not Detect) Parainfluenza 3 (PCR) Not detected (Not Detect) Parainfluenza 4 (PCR) Not detected (Not Detect) RSV (PCR) Not detected (Not Detect) Entero/Rhino (PCR) Not detected (Not Detect) Blood Type O Positive Antibody Screen Negative 07/07/24 07/07/24 Range/Units 15:20 18:00 WBC (4.5-11.0) X10^3/uL RBC (4.5-5.9) X10^6/uL Hgb 7.7 L 8.2 L (13.5-17.5) g/dL Hct 22.5 L 24.1 L (41-53) % MCV (80-100) fL MCH (26-34) PG MCHC (30-36) % RDW (11.6-14.8) % Plt Count (150-400) X10^3/uL Neut % (Auto) (50-75) % Lymph % (Auto) (25-40) % Lares % (Auto) (3-14) % Eos % (Auto) (2-4) % Baso % (Auto) (0-2) % Neut # (Auto) (5324-6679) /uL Lymph # (Auto) (2086-4699) /uL Lares # (Auto) (0-900) /uL Eos # (Auto) (0-450) /uL Baso # (Auto) (0-100) /uL PT (9.4-12.5) SECONDS INR (0.9-1.3) APTT (25.1-36.5) SECONDS Sodium (137-145) mmol/L Potassium (3.4-5.1) mmol/L Chloride (98-107) mmol/L Carbon Dioxide (22-32) mmol/L BUN (9-20) mg/dL Creatinine (0.66-1.25) mg/dL Estimated GFR (>60) mL/min BUN/Creatinine Ratio (6-22) Glucose (80-110) mg/dL Lactate (0.7-2.1) mmol/L Calcium (8.4-10.2) mg/dL Total Bilirubin (0.2-1.3) mg/dL AST (17-59) IU/L ALT (<50) IU/L Alkaline Phosphatase (38-126) U/L Total Creatine Kinase (55-170) U/L Troponin I < 0.012 (0.01-0.034) ng/mL NT-Pro-B Natriuret Pep (<125) pg/mL Total Protein (6.3-8.2) g/dL Albumin (3.5-5.0) g/dL Globulin (1.7-4.1) g/dL Albumin/Globulin Ratio (1.0-2.8) Lipase (23-300) U/L Procalcitonin (<0.5) ng/mL Urine RBC (0-5/HPF) Urine WBC (0-5/HPF) Ur Squamous Epith Cells (0-5/HPF) Ur Renal Epithelial Cell (0-1/HPF) Urine Bacteria (None) Hyaline Casts (None) Granular Casts (None) Ur Culture Indicated? Vol Urine Centrifuged U Opiates 300ng/mL cut (Negative) Ur Oxycodone Screen (Negative) Urine Methadone Screen (Negative) Ur Barbiturates Screen (Negative) U Tricyclic Antidepress (Negative) Ur Phencyclidine Scrn (Negative) Ur Amphetamines Screen (Negative) U Methamphetamines Scrn (Negative) Ur MDMA Scrn (Ecstasy) (Negative) U Benzodiazepines Scrn (Negative) Urine Cocaine Screen (Negative) U Marijuana (THC) Screen (Negative) Urine pH (Normal) Urine Specific [place] (Normal) Ethyl Alcohol ( - 10) mg/dL Ur Creatinine (Normal) Chlamy pneumoniae PCR (Not Detect) Adenovirus (PCR) (Not Detect) B.parapertussis DNA PCR (Not Detecte) Coronavirus OC43 (PCR) (Not Detect) Coronavirus HKU1 (PCR) (Not Detect) Coronavirus 229E (PCR) (Not Detect) SARS-CoV-2 (PCR) (Not Detecte) Coronavirus NL63 (PCR) (Not Detect) Human Metapneumovir PCR (Not Detect) Influenza Type A (PCR) (Not Detect) Influenza Type B (PCR) (Not Detect) M. pneumoniae (PCR) (Not Detect) Parainfluenza 1 (PCR) (Not Detect) Parainfluenza 2 (PCR) (Not Detect) Parainfluenza 3 (PCR) (Not Detect) Parainfluenza 4 (PCR) (Not Detect) RSV (PCR) (Not Detect) Entero/Rhino (PCR) (Not Detect) Blood Type Antibody Screen Point of Care Testing Glucose POC 168 Urine Dip Bedside Urine Glucose Negative Bedside Urine Bilirubin - Negative Bedside Urine Ketone +/- 5 Urine Specific [place] 1.020 Bedside Urine Occult Blood + Bedside Urine pH 5.5 Bedside Urine Protein + 30 Bedside Urine Urobilinogen - Negative Bedside Urine Nitrite - Negative Bedside Urine Leukocytes - Negative Esterase Imaging Data CT scan - head: Radiologist Impression: [address] [id number] [address] Scan Report Signed Patient: Jaime Serrano MR#: [id number] : 1950 Acct:[id number] Age/Sex: 74 / M Date of Service: 07/07/24 Loc: ED Accession Number: [id number] Procedure: CT head/brain wo con Ordering Provider: Everton Arguello MD PROCEDURE: CT HEAD/BRAIN WO CON INDICATIONS: weak, fall, takes thinners TECHNIQUE: Noncontrast 4.5 mm thick angled axial sections acquired from the foramen magnum to the vertex, with coronal and sagittal reformats. For radiation dose reduction, the following was used: automated exposure control, adjustment of mA and/or kV according to patient size. COMPARISON: [facility], CT, CT HEAD/BRAIN WO CON, 02/03/2024, 10:00. FINDINGS: Image quality: Diagnostic. CSF spaces: Basal cisterns are patent. No extra-axial fluid collections. The ventricles are symmetric in size and shape. Brain: No intracranial bleeds or masses. There is cerebral volume loss for age, with resultant ventricular and sulcal prominence. There are periventricular and deep white matter chronic small vessel ischemic changes. There is intracranial internal carotid artery atherosclerosis. Skull and face: Calvarium and visualized facial bones appear intact, without suspicious lesions. Sinuses: Visualized sinuses and mastoids are clear. IMPRESSION: No acute intracranial pathology. Dictated by: Ailin Pickard M.D. on 07/07/2024 at 13:19 Approved by: Ailin Pickard M.D. on 07/07/2024 at 13:21 CT chest abdomen and pelvis: Radiologist Impression: [place] [address] CT Scan Report Signed Patient: Jaime Serrano MR#: [id number] : 1950 Acct:[id number] Age/Sex: 74 / M Date of Service: 07/07/24 Loc: ED Accession Number: [id number] Procedure: CT chest abd pel wo con Ordering Provider: Everton Arguello MD PROCEDURE: CT CHEST ABD PEL WO CON INDICATIONS: fall, weak, low BP, hx thinner meds TECHNIQUE: After the administration of oral contrast, 5 mm thick sections acquired from the lung apices to the symphysis pubis. 5 mm thick coronal and sagittal reformats acquired, with additional 7 mm coronal MIP reformats through the lungs. For radiation dose reduction, the following was used: automated exposure control, adjustment of mA and/or kV according to patient size. COMPARISON: 04/23/2021. FINDINGS: Image quality: Diagnostic. CHEST: Lower Neck: No enlarged lymph nodes. Thyroid: No thyroid nodules which require sonographic follow up, per consensus guidelines. Axillae: No enlarged lymph nodes. Chest Wall: Unremarkable. Bones: Unremarkable. Lungs and Pleura: No pneumothorax or pleural effusions. No consolidation or suspicious nodules. a 5 mm pulmonary nodule seen in the left lower lobe on axial image 64 and sub 4 mm pulmonary nodules are seen right lower lobe on axial image 59. Heart: Heart size is normal. No pericardial effusion. Thoracic Vessels: The aorta and pulmonary arteries demonstrate normal size. Mediastinum and Lidia: No enlarged lymph nodes. Esophagus: No wall thickening. No hiatal hernia. ABDOMEN: Liver: No solid mass. Gallbladder: The gallbladder is mildly distended with a few tiny stones. There is no wall thickening or pericholecystic fluid. Biliary ducts: No biliary dilation. Pancreas: No ductal dilation. Spleen: Size is within normal limits. Adrenal Glands: No adrenal nodules. Kidneys and Ureters: No hydronephrosis. No solid mass. No complex renal cystic lesion which requires follow up. There is a 1.2 cm nonobstructing right renal stone. The kidneys are mildly atrophic with mild perinephric inflammation. Stomach and Bowel: Normal colonic caliber, without significant wall thickening. Multiple sigmoid diverticula are shown without associated inflammation. There is a large stool ball within the rectum. The appendix is normal. Peritoneum: No abnormal intraperitoneal fluid. No free air. Ventral Wall: No hernia. Abdominal Nodes: No retroperitoneal or mesenteric adenopathy by size criteria. Vessels: Aorta and inferior vena cava are normal in size. PELVIS: Pelvic Organs: Unremarkable. Bladder: Unremarkable. Pelvic Nodes: No enlarged lymph nodes. Miscellaneous: No inguinal hernias are seen. Bones: No aggressive osseous abnormality. There is an 8 mm sclerotic lesion within the left ilium which is larger than seen on the comparison exam.. IMPRESSION: No traumatic injury of the chest, abdomen, or pelvis. Chronic findings as above, including mild interval enlargement of a sclerotic lesion in the ileum which otherwise shows no aggressive characteristics. Correlate with history of primary malignancy. Dictated by: Ailin Pickard M.D. on 07/07/2024 at 13:21 Approved by: Ailin Pickard M.D. on 07/07/2024 at 13:29 CT - cervical spine: Radiologist Impression: [address] [address] [address] Scan Report Signed Patient: Jaime Serrano MR#: [id number] : 1950 Acct:[id number] Age/Sex: 74 / M Date of Service: 07/07/24 Loc: ED Accession Number: [id number] Procedure: CT cervical spine wo con Ordering Provider: Everton Arguello MD PROCEDURE: CT CERVICAL SPINE WO CON INDICATIONS: falls, weakness TECHNIQUE: Noncontrast 3 mm thick sections acquired from the skull base to the T4 level. Sagittal and coronal reformats were then constructed. For radiation dose reduction, the following was used: automated exposure control, adjustment of mA and/or kV according to patient size. COMPARISON: None. FINDINGS: Image quality: Excellent. Bones: No fractures or dislocations. Visualized superior ribs are intact. Postsurgical changes of the posterior elements of C5 and C6 is shown. Degenerative changes at T1-T2 are present. Soft tissues: Prevertebral soft tissues are normal in thickness. No paravertebral hematomas. No apical pneumothoraces. IMPRESSION: No displaced fracture or traumatic subluxation. Dictated by: Ailin Pickard M.D. on 07/07/2024 at 13:30 Approved by: Ailin Pickard M.D. on 07/07/2024 at 13:31 ECG Data Attestation: I personally reviewed and interpreted this ECG as follows: Interpretation: Normal sinus rhythm with a rate of 74, no obvious ST segment elevation or depression changes. First-degree AV block. MO 230, QRS 72, QTC 417. [facility] Narrative Medical decision making narrative: 74-year-old male with recent falls, low blood pressure by EMS, given IV fluids en route, improved blood pressure here. Numerous bruising to upper extremities, recent avulsion laceration to the right arm had been dressed by [place] [facility], some clot under the avulsion area, no skin present to debride. No active bleeding, new dressing placed. EKG showed no obvious ischemic changes. Initial hemoglobin 8.[address] head cervical spine chest abdomen and pelvis imaging initiated. CT head and cervical spine, no acute changes. CT chest abdomen and pelvis, no acute changes noted, done noncontrast due to renal function. We will repeat troponin and hemoglobin. Repeat troponin negative. Repeat hemoglobin decreased consistent with hydration, we will hold further IV fluids if blood pressure we will support. No obvious source of sepsis identified. No occult bleeding identified, no visible external bleeding or GI bleeding or nose bleeding while in the emergency department. We will repeat interval hemoglobin Last hemoglobin increased to 8.2 from 7.7, not further decreasing. Unclear if patient has any admittable diagnosis, though patient seems unsafe for home discharge at this time. No active hemorrhage identified. No sources sepsis identified. No medications changes. We will ask for consultation with social work msw, occupational therapy, physical therapy, if patient might be candidate for longterm placement. Signed out to Dr Jacquelin Roper-patient signed out to me by Dr. Arguello. Patient presenting today after multiple falls at home evidenced by multiple skin tears and abrasions on extremities. He continues to be hypotensive he is mildly anemic without acute bleeding. He has failed orthostatics he is failed ambulation trial. He is unsafe to be discharged home. He has persistent hypotension and anemia. <Graciela Roper, - Last Filed: 07/08/24 02:26> Lab Data Labs: Lab Results 07/07/24 07/07/24 07/07/24 Range/Units 12:45 12:58 14:24 WBC 11.2 H (4.5-11.0) X10^3/uL RBC 2.79 L (4.5-5.9) X10^6/uL Hgb 8.6 L (13.5-17.5) g/dL Hct 25.9 L (41-53) % MCV 92.8 (80-100) fL MCH 30.7 (26-34) PG MCHC 33.1 (30-36) % RDW 16.1 H (11.6-14.8) % Plt Count 341 (150-400) X10^3/uL Neut % (Auto) 86.8 H (50-75) % Lymph % (Auto) 6.2 L (25-40) % Lares % (Auto) 5.6 (3-14) % Eos % (Auto) 1.0 L (2-4) % Baso % (Auto) 0.4 (0-2) % Neut # (Auto) 9700 H (1132-6730) /uL Lymph # (Auto) 700 L (4776-9285) /uL Lares # (Auto) 600 (0-900) /uL Eos # (Auto) 100 (0-450) /uL Baso # (Auto) 0 (0-100) /uL PT 11.3 (9.4-12.5) SECONDS INR 1.0 (0.9-1.3) APTT 40 H (25.1-36.5) SECONDS Sodium 137 (137-145) mmol/L Potassium 4.9 (3.4-5.1) mmol/L Chloride 101 (98-107) mmol/L Carbon Dioxide 22 (22-32) mmol/L BUN 72 H (9-20) mg/dL Creatinine 1.88 H (0.66-1.25) mg/dL Estimated GFR 37 L (>60) mL/min BUN/Creatinine Ratio 38.3 H (6-22) Glucose 178 H (80-110) mg/dL Lactate 1.8 (0.7-2.1) mmol/L Calcium 9.6 (8.4-10.2) mg/dL Total Bilirubin 0.8 (0.2-1.3) mg/dL AST 25 (17-59) IU/L ALT 33 (<50) IU/L Alkaline Phosphatase 105 (38-126) U/L Total Creatine Kinase 82 (55-170) U/L Troponin I < 0.012 (0.01-0.034) ng/mL NT-Pro-B Natriuret Pep 487 H (<125) pg/mL Total Protein 6.1 L (6.3-8.2) g/dL Albumin 3.4 L (3.5-5.0) g/dL Globulin 2.7 (1.7-4.1) g/dL Albumin/Globulin Ratio 1.3 (1.0-2.8) Lipase 162 (23-300) U/L Procalcitonin 0.356 (<0.5) ng/mL Urine RBC None seen (0-5/HPF) Urine WBC None seen (0-5/HPF) Ur Squamous Epith Cells None seen (0-5/HPF) Ur Renal Epithelial Cell 0-1/hpf (0-1/HPF) Urine Bacteria None seen (None) Hyaline Casts 0-1/lpf (None) Granular Casts 0-1/lpf (None) Ur Culture Indicated? Cult not indicated Vol Urine Centrifuged 10ml (spun) U Opiates 300ng/mL cut Negative (Negative) Ur Oxycodone Screen Negative (Negative) Urine Methadone Screen Negative (Negative) Ur Barbiturates Screen Negative (Negative) U Tricyclic Antidepress Negative (Negative) Ur Phencyclidine Scrn Negative (Negative) Ur Amphetamines Screen Negative (Negative) U Methamphetamines Scrn Negative (Negative) Ur MDMA Scrn (Ecstasy) Negative (Negative) U Benzodiazepines Scrn Negative (Negative) Urine Cocaine Screen Negative (Negative) U Marijuana (THC) Screen Negative (Negative) Urine pH Normal (Normal) Urine Specific [place] Normal (Normal) Ethyl Alcohol < 10 ( - 10) mg/dL Ur Creatinine Normal (Normal) Chlamy pneumoniae PCR Not detected (Not Detect) Adenovirus (PCR) Not detected (Not Detect) B.parapertussis DNA PCR Not detected (Not Detecte) Coronavirus OC43 (PCR) Not detected (Not Detect) Coronavirus HKU1 (PCR) Not detected (Not Detect) Coronavirus 229E (PCR) Not detected (Not Detect) SARS-CoV-2 (PCR) Not detected (Not Detecte) Coronavirus NL63 (PCR) Not detected (Not Detect) Human Metapneumovir PCR Not detected (Not Detect) Influenza Type A (PCR) Not detected (Not Detect) Influenza Type B (PCR) Not detected (Not Detect) M. pneumoniae (PCR) Not detected (Not Detect) Parainfluenza 1 (PCR) Not detected (Not Detect) Parainfluenza 2 (PCR) Not detected (Not Detect) Parainfluenza 3 (PCR) Not detected (Not Detect) Parainfluenza 4 (PCR) Not detected (Not Detect) RSV (PCR) Not detected (Not Detect) Entero/Rhino (PCR) Not detected (Not Detect) Blood Type O Positive Antibody Screen Negative 07/07/24 07/07/24 Range/Units 15:20 18:00 WBC (4.5-11.0) X10^3/uL RBC (4.5-5.9) X10^6/uL Hgb 7.7 L 8.2 L (13.5-17.5) g/dL Hct 22.5 L 24.1 L (41-53) % MCV (80-100) fL MCH (26-34) PG MCHC (30-36) % RDW (11.6-14.8) % Plt Count (150-400) X10^3/uL Neut % (Auto) (50-75) % Lymph % (Auto) (25-40) % Lares % (Auto) (3-14) % Eos % (Auto) (2-4) % Baso % (Auto) (0-2) % Neut # (Auto) (0612-1767) /uL Lymph # (Auto) (3585-7931) /uL Lares # (Auto) (0-900) /uL Eos # (Auto) (0-450) /uL Baso # (Auto) (0-100) /uL PT (9.4-12.5) SECONDS INR (0.9-1.3) APTT (25.1-36.5) SECONDS Sodium (137-145) mmol/L Potassium (3.4-5.1) mmol/L Chloride (98-107) mmol/L Carbon Dioxide (22-32) mmol/L BUN (9-20) mg/dL Creatinine (0.66-1.25) mg/dL Estimated GFR (>60) mL/min BUN/Creatinine Ratio (6-22) Glucose (80-110) mg/dL Lactate (0.7-2.1) mmol/L Calcium (8.4-10.2) mg/dL Total Bilirubin (0.2-1.3) mg/dL AST (17-59) IU/L ALT (<50) IU/L Alkaline Phosphatase (38-126) U/L Total Creatine Kinase (55-170) U/L Troponin I < 0.012 (0.01-0.034) ng/mL NT-Pro-B Natriuret Pep (<125) pg/mL Total Protein (6.3-8.2) g/dL Albumin (3.5-5.0) g/dL Globulin (1.7-4.1) g/dL Albumin/Globulin Ratio (1.0-2.8) Lipase (23-300) U/L Procalcitonin (<0.5) ng/mL Urine RBC (0-5/HPF) Urine WBC (0-5/HPF) Ur Squamous Epith Cells (0-5/HPF) Ur Renal Epithelial Cell (0-1/HPF) Urine Bacteria (None) Hyaline Casts (None) Granular Casts (None) Ur Culture Indicated? Vol Urine Centrifuged U Opiates 300ng/mL cut (Negative) Ur Oxycodone Screen (Negative) Urine Methadone Screen (Negative) Ur Barbiturates Screen (Negative) U Tricyclic Antidepress (Negative) Ur Phencyclidine Scrn (Negative) Ur Amphetamines Screen (Negative) U Methamphetamines Scrn (Negative) Ur MDMA Scrn (Ecstasy) (Negative) U Benzodiazepines Scrn (Negative) Urine Cocaine Screen (Negative) U Marijuana (THC) Screen (Negative) Urine pH (Normal) Urine Specific [place] (Normal) Ethyl Alcohol ( - 10) mg/dL Ur Creatinine (Normal) Chlamy pneumoniae PCR (Not Detect) Adenovirus (PCR) (Not Detect) B.parapertussis DNA PCR (Not Detecte) Coronavirus OC43 (PCR) (Not Detect) Coronavirus HKU1 (PCR) (Not Detect) Coronavirus 229E (PCR) (Not Detect) SARS-CoV-2 (PCR) (Not Detecte) Coronavirus NL63 (PCR) (Not Detect) Human Metapneumovir PCR (Not Detect) Influenza Type A (PCR) (Not Detect) Influenza Type B (PCR) (Not Detect) M. pneumoniae (PCR) (Not Detect) Parainfluenza 1 (PCR) (Not Detect) Parainfluenza 2 (PCR) (Not Detect) Parainfluenza 3 (PCR) (Not Detect) Parainfluenza 4 (PCR) (Not Detect) RSV (PCR) (Not Detect) Entero/Rhino (PCR) (Not Detect) Blood Type Antibody Screen Point of Care Testing Glucose POC 168 Urine Dip Bedside Urine Glucose Negative Bedside Urine Bilirubin - Negative Bedside Urine Ketone +/- 5 Urine Specific [place] 1.020 Bedside Urine Occult Blood + Bedside Urine pH 5.5 Bedside Urine Protein + 30 Bedside Urine Urobilinogen - Negative Bedside Urine Nitrite - Negative Bedside Urine Leukocytes - Negative Esterase MDM Narrative Medical decision making narrative: 74-year-old male with recent falls, low blood pressure by EMS, given IV fluids en route, improved blood pressure here. Numerous bruising to upper extremities, recent avulsion laceration to the right arm had been dressed by [place] [facility], some clot under the avulsion area, no skin present to debride. No active bleeding, new dressing placed. EKG showed no obvious ischemic changes. Initial hemoglobin 8.[address] head cervical spine chest abdomen and pelvis imaging initiated. CT head and cervical spine, no acute changes. CT chest abdomen and pelvis, no acute changes noted, done noncontrast due to renal function. We will repeat troponin and hemoglobin. Repeat troponin negative. Repeat hemoglobin decreased consistent with hydration, we will hold further IV fluids if blood pressure we will support. No obvious source of sepsis identified. No occult bleeding identified, no visible external bleeding or GI bleeding or nose bleeding while in the emergency department. We will repeat interval hemoglobin Last hemoglobin increased to 8.2 from 7.7, not further decreasing. Unclear if patient has any admittable diagnosis. We will ask for consultation with social work msw, occupational therapy, physical therapy, if patient might be candidate for longterm placement. Signed out to Dr Jacquelin Roper-patient signed out to me by Dr. Arguello. Patient presenting today after multiple falls at home evidenced by multiple skin tears and abrasions on extremities. He continues to be hypotensive he is mildly anemic without acute bleeding. He has failed orthostatics he is failed ambulation trial. He is unsafe to be discharged home. He has persistent hypotension and anemia. Discharge Plan Departure Patient Disposition: Admitted as Observation Clinical Impression: Generalized weakness, Hematoma of right upper extremity, Falls frequently, Anemia, Acute hypotension Admit Date/Time: 07/07/24 22:05 Admit Provider: Lan Penn
--- NOTE | 2024-07-07 12:28 | DI.CT.S_ITS ---
PROCEDURE: CT HEAD/BRAIN WO CON INDICATIONS: weak, fall, takes thinners TECHNIQUE: Noncontrast 4.5 mm thick angled axial sections acquired from the foramen magnum to the vertex, with coronal and sagittal reformats. For radiation dose reduction, the following was used: automated exposure control, adjustment of mA and/or kV according to patient size. COMPARISON: [facility], CT, CT HEAD/BRAIN WO CON, 02/03/2024, 10:00. FINDINGS: Image quality: Diagnostic. CSF spaces: Basal cisterns are patent. No extra-axial fluid collections. The ventricles are symmetric in size and shape. Brain: No intracranial bleeds or masses. There is cerebral volume loss for age, with resultant ventricular and sulcal prominence. There are periventricular and deep white matter chronic small vessel ischemic changes. There is intracranial internal carotid artery atherosclerosis. Skull and face: Calvarium and visualized facial bones appear intact, without suspicious lesions. Sinuses: Visualized sinuses and mastoids are clear. IMPRESSION: No acute intracranial pathology. Dictated by: Ailin Pickard M.D. on 07/07/2024 at 13:19 Approved by: Ailin Pickard M.D. on 07/07/2024 at 13:21
--- NOTE | 2024-07-07 12:29 | DI.CT.S_ITS ---
PROCEDURE: CT CERVICAL SPINE WO CON INDICATIONS: falls, weakness TECHNIQUE: Noncontrast 3 mm thick sections acquired from the skull base to the T4 level. Sagittal and coronal reformats were then constructed. For radiation dose reduction, the following was used: automated exposure control, adjustment of mA and/or kV according to patient size. COMPARISON: None. FINDINGS: Image quality: Excellent. Bones: No fractures or dislocations. Visualized superior ribs are intact. Postsurgical changes of the posterior elements of C5 and C6 is shown. Degenerative changes at T1-T2 are present. Soft tissues: Prevertebral soft tissues are normal in thickness. No paravertebral hematomas. No apical pneumothoraces. IMPRESSION: No displaced fracture or traumatic subluxation. Dictated by: Ailin Pickard M.D. on 07/07/2024 at 13:30 Approved by: Ailin Pickard M.D. on 07/07/2024 at 13:31
--- NOTE | 2024-07-07 12:29 | DI.CT.S_ITS ---
PROCEDURE: CT CHEST ABD PEL WO CON INDICATIONS: fall, weak, low BP, hx thinner meds TECHNIQUE: After the administration of oral contrast, 5 mm thick sections acquired from the lung apices to the symphysis pubis. 5 mm thick coronal and sagittal reformats acquired, with additional 7 mm coronal MIP reformats through the lungs. For radiation dose reduction, the following was used: automated exposure control, adjustment of mA and/or kV according to patient size. COMPARISON: 04/23/2021. FINDINGS: Image quality: Diagnostic. CHEST: Lower Neck: No enlarged lymph nodes. Thyroid: No thyroid nodules which require sonographic follow up, per consensus guidelines. Axillae: No enlarged lymph nodes. Chest Wall: Unremarkable. Bones: Unremarkable. Lungs and Pleura: No pneumothorax or pleural effusions. No consolidation or suspicious nodules. a 5 mm pulmonary nodule seen in the left lower lobe on axial image 64 and sub 4 mm pulmonary nodules are seen right lower lobe on axial image 59. Heart: Heart size is normal. No pericardial effusion. Thoracic Vessels: The aorta and pulmonary arteries demonstrate normal size. Mediastinum and Lidia: No enlarged lymph nodes. Esophagus: No wall thickening. No hiatal hernia. ABDOMEN: Liver: No solid mass. Gallbladder: The gallbladder is mildly distended with a few tiny stones. There is no wall thickening or pericholecystic fluid. Biliary ducts: No biliary dilation. Pancreas: No ductal dilation. Spleen: Size is within normal limits. Adrenal Glands: No adrenal nodules. Kidneys and Ureters: No hydronephrosis. No solid mass. No complex renal cystic lesion which requires follow up. There is a 1.2 cm nonobstructing right renal stone. The kidneys are mildly atrophic with mild perinephric inflammation. Stomach and Bowel: Normal colonic caliber, without significant wall thickening. Multiple sigmoid diverticula are shown without associated inflammation. There is a large stool ball within the rectum. The appendix is normal. Peritoneum: No abnormal intraperitoneal fluid. No free air. Ventral Wall: No hernia. Abdominal Nodes: No retroperitoneal or mesenteric adenopathy by size criteria. Vessels: Aorta and inferior vena cava are normal in size. PELVIS: Pelvic Organs: Unremarkable. Bladder: Unremarkable. Pelvic Nodes: No enlarged lymph nodes. Miscellaneous: No inguinal hernias are seen. Bones: No aggressive osseous abnormality. There is an 8 mm sclerotic lesion within the left ilium which is larger than seen on the comparison exam.. IMPRESSION: No traumatic injury of the chest, abdomen, or pelvis. Chronic findings as above, including mild interval enlargement of a sclerotic lesion in the ileum which otherwise shows no aggressive characteristics. Correlate with history of primary malignancy. Dictated by: Ailin Pickard M.D. on 07/07/2024 at 13:21 Approved by: Ailin Pickard M.D. on 07/07/2024 at 13:29
[2024-07-07] MEDS: SODIUM CHLORIDE 0.9% 1,000 ML 1000 ML IV (13:01)
[2024-07-07 13:02] LABS: Add Manual Diff / Slide Review NO; Basophils Absolute Auto 0 /uL (0-100); Basophils Percent Auto 0.4 % (0-2); Eosinophils Absolute Auto 100 /uL (0-450); Hematocrit 25.9 % (41-53); Hemoglobin 8.6 g/dL (13.5-17.5); Lymphocytes Absolute Auto 700 /uL (1100-4500); Lymphocytes Percent Auto 6.2 % (25-40); Mean Corpuscular HGB Conc 33.1 % (30-36); Mean Corpuscular Hemoglobin 30.7 PG (26-34); Mean Corpuscular Volume 92.8 fL (80-100); Monocytes Absolute Auto 600 /uL (0-900); Monocytes Percent Auto 5.6 % (3-14); Neutrophils Absolute Auto 9700 /uL (1500-7000); Neutrophils Percent Auto 86.8 % (50-75); Platelet Count 341 X10^3/uL (150-400); Red Blood Cell Count 2.79 X10^6/uL (4.5-5.9); Red Cell Distribution Width 16.1 % (11.6-14.8); White Blood Cell Count 11.2 X10^3/uL (4.5-11.0)
[2024-07-07 13:07] LABS: Prothrombin Time 11.3 SECONDS (9.4-12.5)
[2024-07-07 13:10] LABS: PTT Partial Thromboplastin Tim 40 SECONDS (25.1-36.5)
[2024-07-07 13:12] LABS: Alanine Aminotransferase 33 IU/L (<50); Albumin 3.4 g/dL (3.5-5.0); Albumin Globulin Ratio 1.3 (1.0-2.8); Alkaline Phosphatase 105 U/L (38-126); Aspartate Aminotransferase 25 IU/L (17-59); BUN Creatinine Ratio 38.3 (6-22); Bilirubin Total 0.8 mg/dL (0.2-1.3); Blood Urea Nitrogen 72 mg/dL (9-20); Calcium 9.6 mg/dL (8.4-10.2); Carbon Dioxide 22 mmol/L (22-32); Chloride 101 mmol/L (98-107); Creatine Kinase 82 U/L (55-170); Estimated Glomerular Filt Rate 37 mL/min (>60); Ethanol (ETOH) < 10 mg/dL; Globulin 2.7 g/dL (1.7-4.1); Glucose 178 mg/dL (80-110); HEMOLYSIS < 15 (0-50); Lactate (Lactic Acid) 1.8 mmol/L (0.7-2.1); Lipase 162 U/L (23-300); Potassium 4.9 mmol/L (3.4-5.1); Sodium 137 mmol/L (137-145); Total Protein 6.1 g/dL (6.3-8.2)
[2024-07-07 13:21] LABS: NT-proBNP (BNP-Adult 18+) 487 pg/mL (<125)
[2024-07-07 13:23] LABS: Troponin I < 0.012 ng/mL (0.01-0.034)
[2024-07-07 13:29] LABS: Procalcitonin 0.356 ng/mL (<0.5)
[2024-07-07 13:57] LABS: Adenovirus Not Detected (Not Detect); B. parapertussis Not Detected (Not Detecte); Bordetella pertussis Not Detected (Not Detect); Chlamydophila pneumoniae Not Detected (Not Detect); Coronavirus 229E Not Detected (Not Detect); Coronavirus HKU1 Not Detected (Not Detect); Coronavirus NL 63 Not Detected (Not Detect); Coronavirus OC43 Not Detected (Not Detect); Human Metapneumovirus Not Detected (Not Detect); Human Rhinovirus/Enterovirus Not Detected (Not Detect); Influenza A Not Detected (Not Detect); Influenza B Not Detected (Not Detect); Mycoplasma pneumoniae Not Detected (Not Detect); Parainfluenza Virus 1 Not Detected (Not Detect); Parainfluenza Virus 2 Not Detected (Not Detect); Parainfluenza Virus 3 Not Detected (Not Detect); Parainfluenza Virus 4 Not Detected (Not Detect); Respiratory Syncytial Virus Not Detected (Not Detect); SARS- CoV-2 Not Detected (Not Detecte)
[2024-07-07 14:45] LABS: UR Morphine/Opiate cutoff 300 Negative (Negative); Ur Creatinine Normal (Normal); Ur Specific Gravity Normal (Normal); Urine Amphetamines Negative (Negative); Urine Cocaine Negative (Negative); Urine Methamphetamines Negative (Negative); Urine Tetrahydrocannabinol Negative (Negative); Urine pH Normal (Normal)
[2024-07-07 14:46] LABS: Urine Barbiturates Negative (Negative); Urine Benzodiazepines Negative (Negative); Urine MDMA Negative (Negative); Urine Methadone Negative (Negative); Urine Oxycodone Negative (Negative); Urine Phencyclidine Negative (Negative); Urine Tricyclic Antidepressant Negative (Negative)
[2024-07-07 14:53] LABS: Bacteria Urine None Seen; Culture Indicated Urine Cult Not Indicated; Granular Casts Urine 0-1/LPF; Hyaline Casts Urine 0-1/LPF; RBC Urine None Seen (0-5/HPF); Renal Epithelial Cells Urine 0-1/HPF (0-1/HPF); Squamous Epithelial Cell Urine None Seen (0-5/HPF); Urine Volume 10mL (spun); WBC Urine None Seen (0-5/HPF)
[2024-07-07 15:27] LABS: Hematocrit 22.5 % (41-53); Hemoglobin 7.7 g/dL (13.5-17.5)
[2024-07-07 15:51] LABS: Troponin I < 0.012 ng/mL (0.01-0.034)
[2024-07-07] MEDS: SODIUM CHLORIDE 0.9% 1,000 ML 150 ML IV (17:45)
[2024-07-07 18:08] LABS: Hematocrit 24.1 % (41-53); Hemoglobin 8.2 g/dL (13.5-17.5)
--- NOTE | 2024-07-07 19:00 | PC.NURSE ---
Pt failed orthostatic vital signs; pt dropped 90 sys when sitting, however was unable to maintain standing for blood pressure reading.
--- NOTE | 2024-07-07 19:08 | CM.DANOTE ---
DCP Assessment Note: Pt is a 74yo male, resident of [place], presented to the ED for a fall which resulted in a hematoma of the right upper extremity. Pt lives in an apartment alone. Pt's Primary Care Provider is Dr. Nina Joel DO and insurance is Medicare and [facility]. Reviewed chart and discussed with ED staff about pt's medical status and initial discharge needs. ED POCKET MACHINE OPERATOR met w/patient at bedside; introduced self and role. Patient was found in bed, alert and oriented, cooperative with assessment. Pt confirmed recent hospitalizations as follows: -[facility], 01/12/2024 - possible heart attack, stent placed at [facility]. -[facility] ED, 02/03/24 and transferred to [facility] where he was placed on dialysis for two weeks. He was then discharged to [facility] for 5 weeks. -[facility], 06/19/24 - loss of consciousness/hypoglycemia. Pt expressed preference in possible SNF Rehab or PT to assist with strength/mobility building. Patient explains he has not been able to complete most ADLs for the past two weeks due to weakness. Patient is currently working with [employer] for PT/OT and [facility] for a wound on his left heel (3x/week). Patient denied any local support, only support is his sister who lives in [place]. Plan: Pt still completing medical work up, ED staff following for care coordination. FRAN Campos Discharge Planning/Care Management CM Discharge Assessment Start: 07/07/24 18:14 Freq: Status: Active Protocol: Document 07/07/24 18:14 MW (Rec: 07/07/24 18:17 MW [id number]) Discharge Planning Assessment Assigned Tattoo And Body Artist MEENAKSHI Negron DPOA/Assigned Designee Name Sister Castañeda (Lives in [place]) Contact Information [phone] Advance Directives? No History Provided By Patient,Medical Record Has Patient been admitted in last 30 No days? Comment Patient was admitted at [facility] on 06/19/2024 for loss of conciousness/ hypoglycemia. Prior Living Arrangements Apartment/Condo Household Members none Type of transporation used prior to Drives own vehicle admit Independent with ADL's No Is patient alert and oriented? No Needs Assistance With Bathing,Toileting,Home Chores / Shopping Caregiver for Another No Community Services used prior to Physical Therapy,Occupational admission: Therapy,Home Health Nurse, Wound Care Comment [facility] and [facility]. DME Already Rented / Owned Bath Bench,Elevated Toilet Seat,FWW / Walker Patient/Family Preference Fdc Facility,OP PT Therapy Barriers to Discharge No Please Provide Date Initial DC 07/07/24 Assessment Was Performed Next Review Type Continued Stay Review
[2024-07-08] VITALS (7 sets, daily range): BP systolic 110–136; BP diastolic 46–66; PULSE 74–81; RESP 16–18; TEMP 36.5–37.1; O2SAT 95–98
[2024-07-08] MEDS: ACETAMINOPHEN 325 MG TABLET 650 MG PO ×3 (01:02→20:29)
--- NOTE | 2024-07-08 06:01 | PM.HP.1 ---
History of Present Illness History of Present Illness Chief complaint: Fall; blood loss Narrative: 74 years old male with a past medical history of hypertension, diabetes mellitus type 2, chronic kidney disease, depression, anemia, coronary artery disease status post drug-eluting stent in December 2023 currently on prasugrel and multiple other medical issues was brought to the emergency room for generalized weakness with dizziness and gait instability. Recently seen by [facility] health care for right forearm laceration that was managed conservatively. Eventually she was advised to go to the emergency room due to dizziness and the squad noted lower blood pressures initially. Denies any loss of consciousness. No trauma to the head. Denies any chest pain or shortness of breath. Denies any abdominal pain nausea or vomiting. Subsequent workup showed a WBC count of 11.2 with a hemoglobin of 8.6 platelet count of 341. Sodium was 137 with a potassium of 4.9, BUN of 72 creatinine of 1.88. BNP is 487. Urine analysis is negative for bacteria and WBCs. Virus screen is negative. CT scan of the head shows no acute process. CT chest abdomen and pelvis shows no acute traumatic injury. CT cervical spine shows no significant fractures. Patient had significant gait instability with multiple falls and was deemed unsafe for discharge. Due to persistent hypotension and anemia, he was admitted for further evaluation [facility] Medical History Screening due Folliculitis Myalgia COVID-19 BPH w urinary obs/LUTS Bilateral nephrolithiasis Retained ureteral stent Bilateral nephrolithiasis Left ureteral calculus Labyrinthitis Lymphocytic colitis (2012) Rosacea (Unknown) Kidney stones (2011) Kidney disease (Unknown) Myopia (Unknown) Asthma (Unknown) Anemia (Unknown) Depression (Unknown) Hypertriglyceridemia (Unknown) Hypertension (Unknown) Hyperlipidemia (Unknown) Microscopic colitis (10/10/15) Chronic renal insufficiency, stage II (mild) (10/10/15) Depression (09/04/14) Type 2 diabetes mellitus without complication (09/11/15) Essential hypertension (09/11/15) Surgical History Hx of cystoscopy (04/29/21) Family History Father Cancer Mother Stroke Social History marital status: unmarried,single household members: none lives independently: Yes Smoking Status: Former smoker alcohol intake: current Meds Home Medications and Allergies Home Medications Medication Instructions Recorded Confirmed Type diclofenac sodium 75 mg 75 mg PO BID PRN gout 05/10/23 07/07/24 History tablet,delayed release ketoconazole 2 % topical cream 1 applic topical BID PRN 06/07/23 07/07/24 Rx itching/rash #15 grams cholecalciferol (vitamin D3) 50 50 mcg PO DAILY 08/04/23 07/07/24 History mcg (2,000 unit) capsule (Vitamin D3) amlodipine 10 mg tablet 10 mg PO DAILY #90 tabs 01/04/24 07/07/24 Rx budesonide 3 mg 3 mg PO BID #180 caps 01/18/24 07/07/24 Rx capsule,delayed,extended release aspirin 81 mg tablet,delayed 81 mg PO DAILY 01/26/24 07/07/24 History release blood sugar diagnostic (Blood #100 ea 01/26/24 07/07/24 Rx Glucose Test strips) blood-glucose meter (Blood Glucose #1 ea 01/26/24 07/07/24 Rx Monitoring kit) lancets 30 gauge #100 ea 01/26/24 07/07/24 Rx losartan 50 mg tablet 25 mg (1/2 x 50 mg) PO DAILY #90 01/26/24 07/07/24 Rx tabs nitroglycerin 0.4 mg sublingual 0.4 mg sublingual Q5M PRN chest 01/26/24 07/07/24 Rx tablet pain #10 tabs potassium citrate 10 mEq (1,080 10 meq PO BID 01/26/24 07/07/24 History mg) tablet,extended release prasugrel 10 mg tablet 10 mg PO DAILY #90 tabs 01/26/24 07/07/24 Rx rosuvastatin 40 mg tablet 40 mg PO DAILY #90 tabs 01/26/24 07/07/24 Rx omeprazole 20 mg capsule,delayed 20 mg PO DAILY #90 caps 03/27/24 07/07/24 Rx release trazodone 50 mg tablet 25 mg (1/2 x 50 mg) PO BEDTIME PRN 03/28/24 07/07/24 Rx sleep #30 tabs methocarbamol 500 mg tablet 500 mg PO BID PRN muscle spasm #15 06/26/24 07/07/24 Rx tabs carvedilol 6.25 mg tablet (Coreg) 6.25 mg PO BID 07/07/24 07/07/24 History insulin glargine 100 unit/mL (3 17 unit SUBCUT QAM 07/07/24 07/07/24 History mL) subcutaneous pen (Basaglar KwikPen U-100 Insulin) sitagliptin phosphate 100 mg 100 mg PO DAILY 07/07/24 07/07/24 History tablet (Januvia) Allergies Allergy/AdvReac Type Severity Reaction Status Date / Time MALCOLM Inhibitors AdvReac Severe Elevated Verified 07/07/24 12:17 creatinine Review of Systems Review of Systems Narrative: A 12 point review of system is negative unless otherwise stated in history of present illness Exam Vital Signs (past 8 hours): - 07/07/24 23:00 07/08/24 00:03 Temperature 98.4 F Pulse Rate 81 Respiratory Rate 17 Blood Pressure 128/49 L Pulse Oximetry 95 Oxygen Delivery Method Room Air Oxygen Flow Rate 0 Oxygen Delivery Method [1210] Room Air Oxygen Delivery Method Room Air Oxygen Flow Rate 0 Narrative Exam Narrative: Patient is awake alert and able to give a history. No acute distress. Air entry decreased likely the left lung base no wheezes no crackles Bruises noted in the right upper extremity with laceration dressing in place Objective Labs 07/07/24 18:00 07/07/24 12:45 Labs: Laboratory Results - last 24 hr 07/07/24 07/07/24 07/07/24 12:45 12:58 14:24 WBC 11.2 H RBC 2.79 L Hgb 8.6 L Hct 25.9 L MCV 92.8 MCH 30.7 MCHC 33.1 RDW 16.1 H Plt Count 341 Neut % (Auto) 86.8 H Lymph % (Auto) 6.2 L [place] % (Auto) 5.6 Eos % (Auto) 1.0 L Baso % (Auto) 0.4 Neut # (Auto) 9700 H Lymph # (Auto) 700 L [place] # (Auto) 600 Eos # (Auto) 100 Baso # (Auto) 0 PT 11.3 INR 1.0 APTT 40 H Sodium 137 Potassium 4.9 Chloride 101 Carbon Dioxide 22 BUN 72 H Creatinine 1.88 H Estimated GFR 37 L BUN/Creatinine Ratio 38.3 H Glucose 178 H Lactate 1.8 Calcium 9.6 Total Bilirubin 0.8 AST 25 ALT 33 Alkaline Phosphatase 105 Total Creatine Kinase 82 Troponin I < 0.012 NT-Pro-B Natriuret Pep 487 H Total Protein 6.1 L Albumin 3.4 L Globulin 2.7 Albumin/Globulin Ratio 1.3 Lipase 162 Procalcitonin 0.356 Urine RBC None seen Urine WBC None seen Ur Squamous Epith Cells None seen Ur Renal Epithelial Cell 0-1/hpf Urine Bacteria None seen Hyaline Casts 0-1/lpf Granular Casts 0-1/lpf Ur Culture Indicated? Cult not indicated Vol Urine Centrifuged 10ml (spun) U Opiates 300ng/mL cut Negative Ur Oxycodone Screen Negative Urine Methadone Screen Negative Ur Barbiturates Screen Negative U Tricyclic Antidepress Negative Ur Phencyclidine Scrn Negative Ur Amphetamines Screen Negative U Methamphetamines Scrn Negative Ur MDMA Scrn (Ecstasy) Negative U Benzodiazepines Scrn Negative Urine Cocaine Screen Negative U Marijuana (THC) Screen Negative Urine pH Normal Urine Specific [place] Normal Ethyl Alcohol < 10 Ur Creatinine Normal Chlamy pneumoniae PCR Not detected Adenovirus (PCR) Not detected B.parapertussis DNA PCR Not detected Coronavirus OC43 (PCR) Not detected Coronavirus HKU1 (PCR) Not detected Coronavirus 229E (PCR) Not detected SARS-CoV-2 (PCR) Not detected Coronavirus NL63 (PCR) Not detected Human Metapneumovir PCR Not detected Influenza Type A (PCR) Not detected Influenza Type B (PCR) Not detected M. pneumoniae (PCR) Not detected Parainfluenza 1 (PCR) Not detected Parainfluenza 2 (PCR) Not detected Parainfluenza 3 (PCR) Not detected Parainfluenza 4 (PCR) Not detected RSV (PCR) Not detected Entero/Rhino (PCR) Not detected Blood Type O Positive Antibody Screen Negative 07/07/24 07/07/24 15:20 18:00 WBC RBC Hgb 7.7 L 8.2 L Hct 22.5 L 24.1 L MCV MCH MCHC RDW Plt Count Neut % (Auto) Lymph % (Auto) [place] % (Auto) Eos % (Auto) Baso % (Auto) Neut # (Auto) Lymph # (Auto) [place] # (Auto) Eos # (Auto) Baso # (Auto) PT INR APTT Sodium Potassium Chloride Carbon Dioxide BUN Creatinine Estimated GFR BUN/Creatinine Ratio Glucose Lactate Calcium Total Bilirubin AST ALT Alkaline Phosphatase Total Creatine Kinase Troponin I < 0.012 NT-Pro-B Natriuret Pep Total Protein Albumin Globulin Albumin/Globulin Ratio Lipase Procalcitonin Urine RBC Urine WBC Ur Squamous Epith Cells Ur Renal Epithelial Cell Urine Bacteria Hyaline Casts Granular Casts Ur Culture Indicated? Vol Urine Centrifuged U Opiates 300ng/mL cut Ur Oxycodone Screen Urine Methadone Screen Ur Barbiturates Screen U Tricyclic Antidepress Ur Phencyclidine Scrn Ur Amphetamines Screen U Methamphetamines Scrn Ur MDMA Scrn (Ecstasy) U Benzodiazepines Scrn Urine Cocaine Screen U Marijuana (THC) Screen Urine pH Urine Specific [place] Ethyl Alcohol Ur Creatinine Chlamy pneumoniae PCR Adenovirus (PCR) B.parapertussis DNA PCR Coronavirus OC43 (PCR) Coronavirus HKU1 (PCR) Coronavirus 229E (PCR) SARS-CoV-2 (PCR) Coronavirus NL63 (PCR) Human Metapneumovir PCR Influenza Type A (PCR) Influenza Type B (PCR) M. pneumoniae (PCR) Parainfluenza 1 (PCR) Parainfluenza 2 (PCR) Parainfluenza 3 (PCR) Parainfluenza 4 (PCR) RSV (PCR) Entero/Rhino (PCR) Blood Type Antibody Screen Assessment & Plan Assessment & Plan narrative: 74 years old male with a past medical history of hypertension, diabetes mellitus type 2, chronic kidney disease, depression, anemia, coronary artery disease status post drug-eluting stent in December 2023 currently on prasugrel and multiple other medical issues was brought to the emergency room for generalized weakness with dizziness and gait instability. Recently seen by [place] home health care for right forearm laceration that was managed conservatively. Eventually she was advised to go to the emergency room due to dizziness and the squad noted lower blood pressures initially. Denies any loss of consciousness. No trauma to the head. Denies any chest pain or shortness of breath. Denies any abdominal pain nausea or vomiting. Subsequent workup showed a WBC count of 11.2 with a hemoglobin of 8.6 platelet count of 341. Sodium was 137 with a potassium of 4.9, BUN of 72 creatinine of 1.88. BNP is 487. Urine analysis is negative for bacteria and WBCs. Virus screen is negative. CT scan of the head shows no acute process. CT chest abdomen and pelvis shows no acute traumatic injury. CT cervical spine shows no significant fractures. Patient had significant gait instability with multiple falls and was deemed unsafe for discharge. Due to persistent hypotension and anemia, he was admitted for further evaluation Falls with gait instability in the setting of hypotension. Could be due to medication induced and symptomatic hypotension. Hold home blood pressure medication and initiate gentle IV hydration. Consult physical and Occupational Therapy for further input Anemia. Appears to be chronic with no evidence of active bleeding. Was evaluated by nephrology in January of this year. The labs on 02/18/2024 had shown TIBC of 19%, folate 11.6, ferritin 134 with vitamin B12 1711. Check a stool occult Coronary artery disease status post drug-eluting stent in December 2023 in setting of non-ST elevation AR. Aspirin was stopped due to bruising in his forearms initially and after follow-up with cardiology resumed on aspirin 81 mg daily in addition to prasugrel 10 mg daily. There was some plans to switch to Plavix eventually down the line. Resume the home Lipitor Hypertension. 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 twice daily. For now hold the Coreg due to hypotension episodes that may also be contributing to some of his dizziness Dyslipidemia continue the statin Diabetes mellitus type 2. Previously was on metformin/glipizide but now switched to sitagliptin per previous notes but current med list shows patient is on glargine 17 units subcu a.m./Januvia which will be resumed and watch the blood sugars ACHS with insulin sliding scale DVT prophylaxis currently on prasugrel Time-Based Coding :: [TOTAL MINUTES] spent with patient and on the chart (including review of chart, obtaining history, exam, reviewing outside data, placing orders, documenting exam and treatment plan, and counseling patient) on [DATE].
[2024-07-08 06:43] LABS: Add Manual Diff / Slide Review NO; Basophils Absolute Auto 100 /uL (0-100); Basophils Percent Auto 0.8 % (0-2); Eosinophils Absolute Auto 200 /uL (0-450); Eosinophils Percent Auto 2.6 % (2-4); Lymphocytes Absolute Auto 900 /uL (1100-4500); Mean Corpuscular Hemoglobin 31.3 PG (26-34); Monocytes Absolute Auto 600 /uL (0-900); Monocytes Percent Auto 8.9 % (3-14); Neutrophils Absolute Auto 5000 /uL (1500-7000); Neutrophils Percent Auto 74.7 % (50-75); Platelet Count 258 X10^3/uL (150-400); Red Blood Cell Count 2.23 X10^6/uL (4.5-5.9); Red Cell Distribution Width 16.1 % (11.6-14.8); White Blood Cell Count 6.7 X10^3/uL (4.5-11.0)
[2024-07-08] MEDS: PANTOPRAZOLE DR 40 MG TABLET PO (06:43)
[2024-07-08 06:50] LABS: Hematocrit 20.5 % (41-53)
[2024-07-08 07:01] LABS: BUN Creatinine Ratio 40.8 (6-22); Blood Urea Nitrogen 69 mg/dL (9-20); Calcium 8.2 mg/dL (8.4-10.2); Carbon Dioxide 20 mmol/L (22-32); Chloride 107 mmol/L (98-107); Estimated Glomerular Filt Rate 42 mL/min (>60); Glucose 116 mg/dL (80-110); HEMOLYSIS < 15 (0-50); Magnesium 2.4 mg/dL (1.6-2.3); Phosphorous 4.1 mg/dL (2.3-3.7); Potassium 3.8 mmol/L (3.4-5.1); Sodium 136 mmol/L (137-145)
[2024-07-08 07:10] LABS: HEMOLYSIS < 15 (0-50); Iron 43 ug/dL (49-181); NT-proBNP (BNP-Adult 18+) 371 pg/mL (<125)
[2024-07-08 07:20] LABS: Percent Iron Saturation 21 % (20-50); Total Iron Binding Capacity 202 ug/dL (261-462); Transferrin 138 mg/dL (206-381)
[2024-07-08 08:00] LABS: Vitamin B12 553 pg/mL (239-931)
[2024-07-08 08:19] LABS: Folate 8.6 ng/mL (2.76-20.0)
--- NOTE | 2024-07-08 08:36 | PT-IP ANOTE ---
Two PT consults received and notes for possible half-way placement. PT reviews wound photos and labs today and Hgb and HCT have dropped this a.m. and are 7.0 and 20.5 respectively. Will hold PT currently and con't efforts as pt more stable.
[2024-07-08] MEDS: AMLODIPINE 5 MG TABLET 10 MG PO (09:31)
[2024-07-08] MEDS: ASPIRIN EC 81 MG TABLET PO (09:31)
[2024-07-08] MEDS: ATORVASTATIN 20 MG TABLET 80 MG PO (09:32)
[2024-07-08] MEDS: CHOLECALCIFEROL (VITAMIN D3) 1,000 UNIT TABLET 2000 UNIT PO (09:33)
[2024-07-08] MEDS: LOSARTAN 50 MG TABLET 25 MG PO (09:34)
[2024-07-08] MEDS: SITAGLIPTIN 50 MG TABLET 100 MG PO (09:44)
[2024-07-08] MEDS: BUDESONIDE 3 MG CAP PO ×2 (09:45→20:29)
--- NOTE | 2024-07-08 10:40 | PC.NURSE ---
Addendum entered by Aminta Shore R.N. 07/08/24 12:55: held lunch insulin, pt having concerns about his Bs dropping low, decreased appetite will monitor at dinner. Original Note: Pt alert and oriented x4, pt states feeling very weak and tired for weeks after cardiac event with stent placement. c/o pain of right hand 2 middle fingers with tip hematoma purple and swollen, tender 8/10 pain med with tylenol, elevated hand and applied ice. Dr. Saini here to see pt
[2024-07-08 11:07] LABS: Hematocrit 20.2 % (41-53)
--- NOTE | 2024-07-08 12:55 | P.PN_ITS ---
Subjective Subjective Interval history: 74 years old male with a past medical history of hypertension, diabetes mellitus type 2, chronic kidney disease, depression, anemia, coronary artery disease status post drug-eluting stent in December 2023 currently on prasugrel and multiple other medical issues was brought to the emergency room for generalized weakness with dizziness and gait instability. He was hypotensive in the emergency room, Hg 7.0 today, stable on repeat. BP is slight improved. He also reports both elevated then lower BS (110 range where he felt a bit weak). He also had mild AMELIA with Cr 1.88, now improved. Exam Vital Signs (past 8 hours): - 07/08/24 08:00 07/08/24 09:34 07/08/24 12:00 Temperature 97.7 F 97.9 F Pulse Rate 75 77 Respiratory Rate 16 16 Blood Pressure 119/56 L 119/56 L 110/46 L Pulse Oximetry 98 98 Oxygen Flow Rate 0 Oxygen Delivery Method [1210] Room Air Oxygen Delivery Method Room Air Oxygen Flow Rate 0 Narrative Exam Narrative: Gen: Patient is awake alert and able to give a history. No acute distress. Pulm: Air entry decreased likely the left lung base no wheezes no crackles CV: RRR no m/r/g Ext: Bruises noted in the right upper extremity with laceration dressing in place. Objective Labs 07/08/24 10:55 07/08/24 06:34 Labs: Laboratory Results - last 24 hr 07/07/24 07/07/24 07/07/24 12:45 12:58 14:24 WBC 11.2 H RBC 2.79 L Hgb 8.6 L Hct 25.9 L MCV 92.8 MCH 30.7 MCHC 33.1 RDW 16.1 H Plt Count 341 Neut % (Auto) 86.8 H Lymph % (Auto) 6.2 L [place] % (Auto) 5.6 Eos % (Auto) 1.0 L Baso % (Auto) 0.4 Neut # (Auto) 9700 H Lymph # (Auto) 700 L [place] # (Auto) 600 Eos # (Auto) 100 Baso # (Auto) 0 PT 11.3 INR 1.0 APTT 40 H Sodium 137 Potassium 4.9 Chloride 101 Carbon Dioxide 22 BUN 72 H Creatinine 1.88 H Estimated GFR 37 L BUN/Creatinine Ratio 38.3 H Glucose 178 H Lactate 1.8 Calcium 9.6 Phosphorus Magnesium Iron TIBC % Saturation Transferrin Total Bilirubin 0.8 AST 25 ALT 33 Alkaline Phosphatase 105 Total Creatine Kinase 82 Troponin I < 0.012 NT-Pro-B Natriuret Pep 487 H Total Protein 6.1 L Albumin 3.4 L Globulin 2.7 Albumin/Globulin Ratio 1.3 Lipase 162 Vitamin B12 Folate Procalcitonin 0.356 Urine RBC None seen Urine WBC None seen Ur Squamous Epith Cells None seen Ur Renal Epithelial Cell 0-1/hpf Urine Bacteria None seen Hyaline Casts 0-1/lpf Granular Casts 0-1/lpf Ur Culture Indicated? Cult not indicated Vol Urine Centrifuged 10ml (spun) U Opiates 300ng/mL cut Negative Ur Oxycodone Screen Negative Urine Methadone Screen Negative Ur Barbiturates Screen Negative U Tricyclic Antidepress Negative Ur Phencyclidine Scrn Negative Ur Amphetamines Screen Negative U Methamphetamines Scrn Negative Ur MDMA Scrn (Ecstasy) Negative U Benzodiazepines Scrn Negative Urine Cocaine Screen Negative U Marijuana (THC) Screen Negative Urine pH Normal Urine Specific [place] Normal Ethyl Alcohol < 10 Ur Creatinine Normal Chlamy pneumoniae PCR Not detected Adenovirus (PCR) Not detected B.parapertussis DNA PCR Not detected Coronavirus OC43 (PCR) Not detected Coronavirus HKU1 (PCR) Not detected Coronavirus 229E (PCR) Not detected SARS-CoV-2 (PCR) Not detected Coronavirus NL63 (PCR) Not detected Human Metapneumovir PCR Not detected Influenza Type A (PCR) Not detected Influenza Type B (PCR) Not detected M. pneumoniae (PCR) Not detected Parainfluenza 1 (PCR) Not detected Parainfluenza 2 (PCR) Not detected Parainfluenza 3 (PCR) Not detected Parainfluenza 4 (PCR) Not detected RSV (PCR) Not detected Entero/Rhino (PCR) Not detected Blood Type O Positive Antibody Screen Negative 07/07/24 07/07/24 07/08/24 15:20 18:00 06:34 WBC 6.7 RBC 2.23 L Hgb 7.7 L 8.2 L 7.0 L Hct 22.5 L 24.1 L 20.5 L* MCV 92.0 MCH 31.3 MCHC 34.0 RDW 16.1 H Plt Count 258 Neut % (Auto) 74.7 Lymph % (Auto) 13.0 L [place] % (Auto) 8.9 Eos % (Auto) 2.6 Baso % (Auto) 0.8 Neut # (Auto) 5000 Lymph # (Auto) 900 L [place] # (Auto) 600 Eos # (Auto) 200 Baso # (Auto) 100 PT INR APTT Sodium 136 L Potassium 3.8 Chloride 107 Carbon Dioxide 20 L BUN 69 H Creatinine 1.69 H Estimated GFR 42 L BUN/Creatinine Ratio 40.8 H Glucose 116 H Lactate Calcium 8.2 L Phosphorus 4.1 H Magnesium 2.4 H Iron 43 L TIBC 202 L % Saturation 21 Transferrin 138 L Total Bilirubin AST ALT Alkaline Phosphatase Total Creatine Kinase Troponin I < 0.012 NT-Pro-B Natriuret Pep 371 H Total Protein Albumin Globulin Albumin/Globulin Ratio Lipase Vitamin B12 553 Folate 8.6 Procalcitonin Urine RBC Urine WBC Ur Squamous Epith Cells Ur Renal Epithelial Cell Urine Bacteria Hyaline Casts Granular Casts Ur Culture Indicated? Vol Urine Centrifuged U Opiates 300ng/mL cut Ur Oxycodone Screen Urine Methadone Screen Ur Barbiturates Screen U Tricyclic Antidepress Ur Phencyclidine Scrn Ur Amphetamines Screen U Methamphetamines Scrn Ur MDMA Scrn (Ecstasy) U Benzodiazepines Scrn Urine Cocaine Screen U Marijuana (THC) Screen Urine pH Urine Specific [place] Ethyl Alcohol Ur Creatinine Chlamy pneumoniae PCR Adenovirus (PCR) B.parapertussis DNA PCR Coronavirus OC43 (PCR) Coronavirus HKU1 (PCR) Coronavirus 229E (PCR) SARS-CoV-2 (PCR) Coronavirus NL63 (PCR) Human Metapneumovir PCR Influenza Type A (PCR) Influenza Type B (PCR) M. pneumoniae (PCR) Parainfluenza 1 (PCR) Parainfluenza 2 (PCR) Parainfluenza 3 (PCR) Parainfluenza 4 (PCR) RSV (PCR) Entero/Rhino (PCR) Blood Type Antibody Screen 07/08/24 10:55 WBC RBC Hgb 7.0 L Hct 20.2 L* MCV MCH MCHC RDW Plt Count Neut % (Auto) Lymph % (Auto) [place] % (Auto) Eos % (Auto) Baso % (Auto) Neut # (Auto) Lymph # (Auto) [place] # (Auto) Eos # (Auto) Baso # (Auto) PT INR APTT Sodium Potassium Chloride Carbon Dioxide BUN Creatinine Estimated GFR BUN/Creatinine Ratio Glucose Lactate Calcium Phosphorus Magnesium Iron TIBC % Saturation Transferrin Total Bilirubin AST ALT Alkaline Phosphatase Total Creatine Kinase Troponin I NT-Pro-B Natriuret Pep Total Protein Albumin Globulin Albumin/Globulin Ratio Lipase Vitamin B12 Folate Procalcitonin Urine RBC Urine WBC Ur Squamous Epith Cells Ur Renal Epithelial Cell Urine Bacteria Hyaline Casts Granular Casts Ur Culture Indicated? Vol Urine Centrifuged U Opiates 300ng/mL cut Ur Oxycodone Screen Urine Methadone Screen Ur Barbiturates Screen U Tricyclic Antidepress Ur Phencyclidine Scrn Ur Amphetamines Screen U Methamphetamines Scrn Ur MDMA Scrn (Ecstasy) U Benzodiazepines Scrn Urine Cocaine Screen U Marijuana (THC) Screen Urine pH Urine Specific [place] Ethyl Alcohol Ur Creatinine Chlamy pneumoniae PCR Adenovirus (PCR) B.parapertussis DNA PCR Coronavirus OC43 (PCR) Coronavirus HKU1 (PCR) Coronavirus 229E (PCR) SARS-CoV-2 (PCR) Coronavirus NL63 (PCR) Human Metapneumovir PCR Influenza Type A (PCR) Influenza Type B (PCR) M. pneumoniae (PCR) Parainfluenza 1 (PCR) Parainfluenza 2 (PCR) Parainfluenza 3 (PCR) Parainfluenza 4 (PCR) RSV (PCR) Entero/Rhino (PCR) Blood Type Antibody Screen PFSH Medical History Screening due Folliculitis Myalgia COVID-19 BPH w urinary obs/LUTS Bilateral nephrolithiasis Retained ureteral stent Bilateral nephrolithiasis Left ureteral calculus Labyrinthitis Lymphocytic colitis (2012) Rosacea (Unknown) Kidney stones (2011) Kidney disease (Unknown) Myopia (Unknown) Asthma (Unknown) Anemia (Unknown) Depression (Unknown) Hypertriglyceridemia (Unknown) Hypertension (Unknown) Hyperlipidemia (Unknown) Microscopic colitis (10/10/15) Chronic renal insufficiency, stage II (mild) (10/10/15) Depression (09/04/14) Type 2 diabetes mellitus without complication (09/11/15) Essential hypertension (09/11/15) Surgical History Hx of cystoscopy (04/29/21) Family History Father Cancer Mother Stroke Social History marital status: unmarried,single household members: none lives independently: Yes Smoking Status: Former smoker alcohol intake: current Assessment & Plan Assessment & Plan narrative: 74 years old male with a past medical history of hypertension, diabetes mellitus type 2, chronic kidney disease, depression, anemia, coronary artery disease status post drug-eluting stent in December 2023 currently on prasugrel and multiple other medical issues was brought to the emergency room for generalized weakness with dizziness and gait instability. He has AMELIA and hypotension both are which improved today. His anemia is stable, borderline Hg at 7.0 but will continue to monitor rather than transfuse at this time. Falls with gait instability in the setting of hypotension. - Could be due to medication induced and symptomatic hypotension, also possibly from anemia. He did not have home losartan nor amlodipine held this morning by overnight provider. Have held tomorrow, with suspected improvement anticipate resumption of this on 07/09 but resume with caution. - Hold home blood pressure medication. Have stopped IV fluids with h/h drop. Consult physical and Occupational Therapy for further input Acute on chronic anemia -Appears to be chronic with no evidence of active bleeding except for his R arm. Possible hematoma. H/h stable at 7.0 today x2. Will continue to follow. - Was evaluated by nephrology in January of this year. The labs on 02/18/2024 had shown TIBC of 19%, folate 11.6, ferritin 134 with vitamin B12 1711. Check a stool occult Coronary artery disease status post drug-eluting stent in December 2023 in setting of non-ST elevation [place]. - Aspirin was stopped due to bruising in his forearms initially and after follow-up with cardiology resumed on aspirin 81 mg daily in addition to prasugrel 10 mg daily. There was some plans to switch to Plavix eventually down the line. Resume the home Lipitor - continue aspirin, for now replace home prasugrel with plavix as prasurgel is non-formulary. Hypertension. -overnight provider held coreg, continued losartan and amlodipine. Have ordered to hold all antihypertensives tomorrow, resume with caution. Dyslipidemia continue the statin Diabetes mellitus type 2. - continue home Tanika blevins Code: Full, surrogate is patient's sister DVT: Hold with anemia, on asa/plavix for recent coronary stent I have utilized all available immediate resources to obtain, update, or review the patient's current medications. Dispo: patient admitted under inpatient status. Likely discharge to SNF in 2-3 days. Additional history obtained via discussions with the overnight provider, case management, bedside RN . These discussions contributed to the creation of the above assessment and plan. I have reviewed patient's presenting documentation, labs, and imaging personally. Time-Based Coding :: [TOTAL MINUTES] spent with patient and on the chart (including review of chart, obtaining history, exam, reviewing outside data, placing orders, documenting exam and treatment plan, and counseling patient) on [DATE].
[2024-07-08] MEDS: CLOPIDOGREL 75 MG TABLET PO (14:45)
--- NOTE | 2024-07-08 15:02 | CM.DPNOTE ---
DCP Note ASSOCIATE ART DIRECTOR reviewed EMR. Per chart, pt remains very weak. Held PT today due to low H&H. Per provider in morning rounds, may need a transfusion. Per Terri at , it's been more than 60 days since his admission so his Medicare benefit is good. She will review in closer depth tomorrow. Inquired about if pt had a Medicaid application? Pt does not have current medicaid in our system. ASSOCIATE ART DIRECTOR unable to meet with pt today due to triaging needs. P: likely [facility] pending acceptance. PASRR needed. (3rd midnight=Tuesday at earliest) CM team will continue to follow closely MEENAKSHI Jane
[2024-07-08] MEDS: INSULIN LISPRO 100 UNIT/ML 3ML VIAL SUBCUT ×2 (16:51→20:29)
--- NOTE | 2024-07-08 20:40 | PC.NURSE ---
No Potassium 10 meq given tonight (medication not availablet). Pt potassium level today was 3.8. will follow with pharmacy in the am.
[2024-07-08] MEDS: SODIUM CHLORIDE 0.9% FLUSH 10 ML IV (21:18)
[2024-07-09] VITALS (10 sets, daily range): BP systolic 115–144; BP diastolic 45–64; PULSE 67–78; RESP 12–20; TEMP 36.1–37.1; O2SAT 97–100
[2024-07-09 05:45] LABS: Add Manual Diff / Slide Review NO; Basophils Absolute Auto 0 /uL (0-100); Basophils Percent Auto 0.4 % (0-2); Eosinophils Absolute Auto 100 /uL (0-450); Eosinophils Percent Auto 1.1 % (2-4); Lymphocytes Absolute Auto 400 /uL (1100-4500); Lymphocytes Percent Auto 5.5 % (25-40); Mean Corpuscular HGB Conc 34.6 % (30-36); Mean Corpuscular Hemoglobin 31.5 PG (26-34); Mean Corpuscular Volume 90.8 fL (80-100); Monocytes Absolute Auto 500 /uL (0-900); Monocytes Percent Auto 6.7 % (3-14); Neutrophils Absolute Auto 6400 /uL (1500-7000); Neutrophils Percent Auto 86.3 % (50-75); Platelet Count 253 X10^3/uL (150-400); Red Blood Cell Count 2.13 X10^6/uL (4.5-5.9); Red Cell Distribution Width 16.1 % (11.6-14.8); White Blood Cell Count 7.4 X10^3/uL (4.5-11.0)
[2024-07-09 05:46] LABS: Hemoglobin 6.7 g/dL (13.5-17.5)
[2024-07-09 05:47] LABS: Hematocrit 19.3 % (41-53)
[2024-07-09 05:48] LABS: Alanine Aminotransferase 26 IU/L (<50); Albumin 2.7 g/dL (3.5-5.0); Alkaline Phosphatase 92 U/L (38-126); Aspartate Aminotransferase 22 IU/L (17-59); BUN Creatinine Ratio 36.4 (6-22); Bilirubin Total 0.6 mg/dL (0.2-1.3); Blood Urea Nitrogen 52 mg/dL (9-20); Calcium 8.7 mg/dL (8.4-10.2); Carbon Dioxide 21 mmol/L (22-32); Chloride 107 mmol/L (98-107); Estimated Glomerular Filt Rate 52 mL/min (>60); Globulin 2.6 g/dL (1.7-4.1); Glucose 206 mg/dL (80-110); HEMOLYSIS < 15 (0-50); Magnesium 2.2 mg/dL (1.6-2.3); Potassium 3.9 mmol/L (3.4-5.1); Sodium 136 mmol/L (137-145); Total Protein 5.3 g/dL (6.3-8.2)
[2024-07-09] MEDS: INSULIN GLARGINE 100 UNIT/ML 3ML PEN 17 UNIT SUBCUT (06:05)
[2024-07-09] MEDS: PANTOPRAZOLE DR 40 MG TABLET PO (06:05)
[2024-07-09] MEDS: ACETAMINOPHEN 325 MG TABLET 650 MG PO ×2 (06:11→22:46)
--- NOTE | 2024-07-09 07:35 | PC.NURSE ---
Notified MD Osman of critical labs: H/H (6.7/19.3). 1 unit PRBCs transfusing now. No adverse reactions noted, VSS.
[2024-07-09 08:20] LABS: Lactate Dehydrogenase 165 U/L (120-246)
[2024-07-09 08:21] LABS: Reticulocyte Count, Percent 1.8 % (0.9-2.6)
[2024-07-09] MEDS: SODIUM CHLORIDE 0.9% FLUSH 10 ML IV ×2 (08:48→20:35)
[2024-07-09] MEDS: BUDESONIDE 3 MG CAP PO ×2 (08:48→20:33)
[2024-07-09] MEDS: ATORVASTATIN 20 MG TABLET 80 MG PO (08:48)
[2024-07-09] MEDS: CHOLECALCIFEROL (VITAMIN D3) 1,000 UNIT TABLET 2000 UNIT PO (08:48)
[2024-07-09] MEDS: ASPIRIN EC 81 MG TABLET PO (08:48)
[2024-07-09 08:53] LABS: Ferritin 154 ng/mL (18-464)
--- NOTE | 2024-07-09 10:27 | PT-IP ANOTE ---
Pt's labs con't to drop and are 6.7 HGB and 19.3 HCT, which are less than yesterday. Will hold PT until these are in safe range for mobility.
--- NOTE | 2024-07-09 10:50 | OT.IPNOTE ---
Pt with H&H of 6.7 and 19.3 and planned for blood this AM. Will hold at this time.
[2024-07-09] MEDS: INSULIN LISPRO 100 UNIT/ML 3ML VIAL SUBCUT (11:20)
--- NOTE | 2024-07-09 12:19 | P.PN_ITS ---
Subjective Subjective Interval history: Patient states he feels weak today, he is open to going to SNF for continued rehab Exam Vital Signs (past 8 hours): - 07/09/24 06:55 07/09/24 07:10 07/09/24 08:00 Temperature 97.7 F 98.1 F 98.8 F Pulse Rate 70 71 71 Respiratory Rate 18 16 19 Blood Pressure 124/57 L 118/55 L 131/61 Pulse Oximetry 97 07/09/24 09:50 07/09/24 10:10 07/09/24 12:00 Temperature 97.0 F L 98.6 F 98.3 F Pulse Rate 74 72 67 Respiratory Rate 19 18 18 Blood Pressure 127/63 137/61 122/64 Pulse Oximetry 99 100 Oxygen Delivery Method [1210] Room Air Oxygen Delivery Method Room Air Oxygen Flow Rate 0 Narrative Exam Narrative: General: elderly frail Lungs: normal effort Cardio: RRR Abdomen: soft, non-tender MSK/Skin/Extremities: numerous ecchyomosis, fragile skin in various stages of healing Neuro: alert and oriented Psych:?pleasant Objective Labs 07/09/24 04:56 07/09/24 04:56 Labs: Laboratory Results - last 24 hr 07/07/24 07/09/24 12:45 04:56 WBC 7.4 RBC 2.13 L Hgb 6.7 L* Hct 19.3 L* MCV 90.8 MCH 31.5 MCHC 34.6 RDW 16.1 H Plt Count 253 Neut % (Auto) 86.3 H Lymph % (Auto) 5.5 L [place] % (Auto) 6.7 Eos % (Auto) 1.1 L Baso % (Auto) 0.4 Neut # (Auto) 6400 Lymph # (Auto) 400 L [place] # (Auto) 500 Eos # (Auto) 100 Baso # (Auto) 0 Percent Retic 1.8 Sodium 136 L Potassium 3.9 Chloride 107 Carbon Dioxide 21 L BUN 52 H Creatinine 1.43 H Estimated GFR 52 L BUN/Creatinine Ratio 36.4 H Glucose 206 H Calcium 8.7 Magnesium 2.2 Ferritin 154 Total Bilirubin 0.6 AST 22 ALT 26 Alkaline Phosphatase 92 Lactate Dehydrogenase 165 Total Protein 5.3 L Albumin 2.7 L Globulin 2.6 Albumin/Globulin Ratio 1.0 Blood Type O Positive Antibody Screen Negative Crossmatch See Detail [facility] Medical History Screening due Folliculitis Myalgia COVID-19 BPH w urinary obs/LUTS Bilateral nephrolithiasis Retained ureteral stent Bilateral nephrolithiasis Left ureteral calculus Labyrinthitis Lymphocytic colitis (2012) Rosacea (Unknown) Kidney stones (2012) Kidney disease (Unknown) Myopia (Unknown) Asthma (Unknown) Anemia (Unknown) Depression (Unknown) Hypertriglyceridemia (Unknown) Hypertension (Unknown) Hyperlipidemia (Unknown) Microscopic colitis (10/10/15) Chronic renal insufficiency, stage II (mild) (10/10/15) Depression (09/04/14) Type 2 diabetes mellitus without complication (09/11/15) Essential hypertension (09/11/15) Surgical History Hx of cystoscopy (04/29/21) Family History Father Cancer Mother Stroke Social History marital status: unmarried,single household members: none lives independently: Yes Smoking Status: Former smoker alcohol intake: current Assessment & Plan Assessment & Plan narrative: 74 years old male with a past medical history of hypertension, diabetes mellitus type 2, chronic kidney disease, depression, anemia, coronary artery disease status post drug-eluting stent in December 2023 currently on prasugrel and multiple other medical issues was brought to the emergency room for generalized weakness with dizziness and gait instability. He has AMELIA and hypotension both are which improved. Falls with gait instability in the setting of hypotension. - Could be due to medication induced and symptomatic hypotension, also possibly from anemia. Acute on chronic anemia -Appears to be chronic with no evidence of active bleeding except for his R arm. Possible hematoma. -Transfuse 1u PRBC, recheck hgb after -250mg IV Ferric Gluconate -transfuse to maintain hbg >8 Coronary artery disease status post drug-eluting stent in December 2023 in setting of non-ST elevation [place]. - Aspirin was stopped due to bruising in his forearms initially and after follow-up with cardiology resumed on aspirin 81 mg daily in addition to prasugrel 10 mg daily. There was some plans to switch to Plavix eventually down the line. Resume the home Lipitor - continue aspirin, for now replace home prasugrel with plavix as prasurgel is non-formulary. Hypertension. -overnight provider held coreg, continued losartan and amlodipine. Have ordered to hold all antihypertensives tomorrow, resume with caution. Dyslipidemia continue the statin Diabetes mellitus type 2. - continue home Tanika blevins added [facility] [place] insulin Code: Full, surrogate is patient's sister DVT: Hold with anemia, on asa/plavix for recent coronary stent I have utilized all available immediate resources to obtain, update, or review the patient's current medications. Dispo: patient admitted under inpatient status. Likely discharge to SNF in 2-3 days. Additional history obtained via discussions with the overnight provider, case management, bedside RN . These discussions contributed to the creation of the above assessment and plan. I have reviewed patient's presenting documentation, labs, and imaging personally. Time-Based Coding :: [TOTAL MINUTES] spent with patient and on the chart (including review of chart, obtaining history, exam, reviewing outside data, placing orders, documenting exam and treatment plan, and counseling patient) on [DATE].
[2024-07-09] MEDS: SUCROSE IV (12:30)
[2024-07-09] MEDS: SODIUM FERRIC GLUCONAT IV (12:30)
[2024-07-09] MEDS: SODIUM CHLORIDE 0.9% IV (12:30)
[2024-07-09] MEDS: SITAGLIPTIN 50 MG TABLET 100 MG PO (14:22)
[2024-07-09] MEDS: TRAMADOL 50 MG TABLET PO ×2 (14:46→20:33)
[2024-07-09 15:55] LABS: Hematocrit 24.8 % (41-53); Hemoglobin 8.7 g/dL (13.5-17.5); Mean Corpuscular Hemoglobin 31.4 PG (26-34); Mean Corpuscular Volume 89.9 fL (80-100); Platelet Count 255 X10^3/uL (150-400); Red Blood Cell Count 2.76 X10^6/uL (4.5-5.9); Red Cell Distribution Width 15.8 % (11.6-14.8); White Blood Cell Count 9.5 X10^3/uL (4.5-11.0)
--- NOTE | 2024-07-09 16:01 | CM.DPC ---
DCP Cont: Per MD, pt making progress and likely could be ready for discharge by tomorrow if his H&H remains stable as he received one unit of blood this morning. JAMES confirmed that [facility] can accept pt at d/c and likely have transport available for tomorrow 07/10 around 1130 if pt ready for d/c. Pt's improving and Medicare may not approve for a very long SNF stay. SW updated pt and his friend who was visiting bedside and they are agreeable to d/c to [facility] and aware pt may not have coverage for a very lengthy SNF stay. PASRR completed but needs MD signature for exempted hospital discharge for depression and anxiety. MEENAKSHI Streeter
[2024-07-09] MEDS: INSULIN LISPRO 100 UNIT/ML 3ML VIAL 15 UNIT SUBCUT (17:16)
[2024-07-09] MEDS: INSULIN NPH 100 UNIT/ML 10ML VIAL 12 UNIT SUBCUT (20:50)
[2024-07-10] VITALS (8 sets, daily range): BP systolic 95–152; BP diastolic 51–89; PULSE 68–84; RESP 18; TEMP 36.3–37.1; O2SAT 94–98
[2024-07-10 04:40] LABS: Haptoglobin 454 mg/dL (34-355)
[2024-07-10] MEDS: INSULIN GLARGINE 100 UNIT/ML 3ML PEN 17 UNIT SUBCUT (05:56)
[2024-07-10] MEDS: PANTOPRAZOLE DR 40 MG TABLET PO (05:57)
[2024-07-10] MEDS: ACETAMINOPHEN 325 MG TABLET 650 MG PO ×2 (06:00→23:54)
[2024-07-10 06:14] LABS: Add Manual Diff / Slide Review NO; Basophils Absolute Auto 0 /uL (0-100); Basophils Percent Auto 0.5 % (0-2); Eosinophils Absolute Auto 100 /uL (0-450); Eosinophils Percent Auto 1.5 % (2-4); Hematocrit 24.4 % (41-53); Hemoglobin 8.5 g/dL (13.5-17.5); Lymphocytes Absolute Auto 600 /uL (1100-4500); Lymphocytes Percent Auto 6.8 % (25-40); Mean Corpuscular HGB Conc 34.6 % (30-36); Mean Corpuscular Hemoglobin 31.5 PG (26-34); Mean Corpuscular Volume 90.8 fL (80-100); Monocytes Absolute Auto 600 /uL (0-900); Monocytes Percent Auto 6.1 % (3-14); Neutrophils Absolute Auto 7700 /uL (1500-7000); Neutrophils Percent Auto 85.1 % (50-75); Platelet Count 265 X10^3/uL (150-400); Red Blood Cell Count 2.69 X10^6/uL (4.5-5.9); Red Cell Distribution Width 15.8 % (11.6-14.8); White Blood Cell Count 9.1 X10^3/uL (4.5-11.0)
[2024-07-10 06:32] LABS: Albumin 2.8 g/dL (3.5-5.0); Carbon Dioxide 24 mmol/L (22-32); HEMOLYSIS < 15 (0-50)
[2024-07-10 06:45] LABS: Alanine Aminotransferase 25 IU/L (<50); Albumin Globulin Ratio 1.1 (1.0-2.8); Alkaline Phosphatase 88 U/L (38-126); Aspartate Aminotransferase 21 IU/L (17-59); BUN Creatinine Ratio 32.4 (6-22); Bilirubin Total 0.6 mg/dL (0.2-1.3); Blood Urea Nitrogen 36 mg/dL (9-20); Calcium 8.9 mg/dL (8.4-10.2); Chloride 107 mmol/L (98-107); Estimated Glomerular Filt Rate > 60 mL/min (>60); Globulin 2.5 g/dL (1.7-4.1); Glucose 170 mg/dL (80-110); Sodium 135 mmol/L (137-145); Total Protein 5.3 g/dL (6.3-8.2)
[2024-07-10] MEDS: ATORVASTATIN 20 MG TABLET 80 MG PO (08:05)
[2024-07-10] MEDS: ASPIRIN EC 81 MG TABLET PO (08:05)
[2024-07-10] MEDS: SITAGLIPTIN 50 MG TABLET 100 MG PO (08:05)
[2024-07-10] MEDS: BUDESONIDE 3 MG CAP PO ×2 (08:05→20:31)
[2024-07-10] MEDS: SODIUM CHLORIDE 0.9% IV (08:05)
[2024-07-10] MEDS: SUCROSE IV (08:05)
[2024-07-10] MEDS: SODIUM FERRIC GLUCONAT IV (08:05)
[2024-07-10] MEDS: CHOLECALCIFEROL (VITAMIN D3) 1,000 UNIT TABLET 2000 UNIT PO (08:05)
[2024-07-10] MEDS: SODIUM CHLORIDE 0.9% FLUSH 10 ML IV ×2 (08:07→20:33)
[2024-07-10] MEDS: INSULIN GLARGINE 100 UNIT/ML 3ML PEN 20 UNIT SUBCUT (08:08)
[2024-07-10] MEDS: INSULIN LISPRO 100 UNIT/ML 3ML VIAL 10 UNIT SUBCUT ×3 (08:10→17:29)
--- NOTE | 2024-07-10 10:56 | OT.IP.EVAL ---
Current Diagnoses Hypotension due to drugs (07/07/24) Past Medical History (Last Reviewed 01/12/24 @ 12:07 by Dar Foley MD) Anemia (Unknown) Asthma (Unknown) Bilateral nephrolithiasis Bilateral nephrolithiasis BPH w urinary obs/LUTS Chronic renal insufficiency, stage II (mild) (10/10/15) COVID-19 Depression (09/04/14) Depression (Unknown) Essential hypertension (09/11/15) Folliculitis Hyperlipidemia (Unknown) Hypertension (Unknown) Hypertriglyceridemia (Unknown) Kidney disease (Unknown) Kidney stones (2011) Labyrinthitis Left ureteral calculus Lymphocytic colitis (2012) Microscopic colitis (10/10/15) Myalgia Myopia (Unknown) Retained ureteral stent Rosacea (Unknown) Screening due Type 2 diabetes mellitus without complication (09/11/15) Surgical History (Last Reviewed 01/12/24 @ 12:07 by Dar Foley MD) Hx of cystoscopy (04/29/21) Occupational Therapy Inpatient Evaluation/Re-Eval M1 PT/OT-IP Prior Functional Status Start: 07/10/24 10:56 Freq: NEEDED Status: Active Protocol: Document 07/10/24 10:56 [facility] (Rec: 07/10/24 11:20 [facility] [id number]) Medical Review Prior Functional Status Communication Independent Mobility and Gait Pt states uses a 4ww to get around or collapsible cane. Activities of Daily Living and IADL's Pt states able to care for himself prior to the fall, but did minimal at home. Prior Functional Level (Other details) Pt states December 2023 had stent placed, ended up in SNF for 5 weeks and then was home. Pt states recently his legs have been feeling week and has been falling. Social History Household Members none Living Arrangements Apartment/Condo Number of Stairs To Enter/Railing? Use of elevator Home Environment Standard Height Toilet,Tub/ Shower Home Equipment Four Wheel Walker,Straight Cane,Shower Seat with Backrest ,Hand Held Shower,Grab Bars Near Toilet,Grab Bars In Shower Additional Social History Comment Pt states his cane is collapsible. Pt has a bed ladder assist to help him out of bed. M2 OT-IP Current Condition Start: 07/10/24 10:56 Freq: Status: Active Protocol: Document 07/10/24 10:56 [facility] (Rec: 07/10/24 11:20 [facility] [id number]) Occupational Therapy Current Condition Current Condition Evaluation Date 07/10/24 Treatment Diagnosis Dizziness, generalized weakness, falls Diagnosis Onset Date 07/07/24 M3 OT- IP Subjective and Pain Start: 07/10/24 10:56 Freq: Status: Active Protocol: Document 07/10/24 10:56 [facility] (Rec: 07/10/24 11:20 [facility] [id number]) OT- Subjective Occupational Therapy Visit Type Type Initial Evaluation Visit Start Time 10:15 Visit Stop Time 10:56 Occupational Therapy Visit Comments Patient Comments Pt agreed to get up. Patient/Caregiver Goals TO get better. OT Pain Assessment Pain When Pain Assessed At Rest Pain Present Pain Present Pain Reported Location Right Finger Intensity 4 Scale Used Numeric (0 - 10) Description Pressure,Throbbing M4 OT- IP ADL's Start: 07/10/24 10:56 Freq: Status: Active Protocol: Document 07/10/24 10:56 [facility] (Rec: 07/10/24 11:20 [facility] [id number]) OT OAH-Olle-Pcnctuo Comments OT Self-Feeding Comments Not at meal time. OT ADL-Grooming Comments OT Grooming Comments Not performed. OT ADL-Oral Care Comments Oral Care Comments NOt performed. OT ADL-Dressing General Eval Lower Body Dressing Ability Maximum Assistance Areas Needing Assistance Socks Comments OT Dressing Comments Pt needing assist for his socks. OT ADL-Toileting Comments OT Toileting Comments Pt not having to go at this time. OT ADL-Bathing Comments OT Bathing Comments Sponge bath more appropriate at this time. M5 OT- IP IADL's Start: 07/10/24 10:56 Freq: Status: Active Protocol: Document 07/10/24 10:56 [facility] (Rec: 07/10/24 11:20 [facility] [id number]) OT-Instrumental Activities of Daily Living Deficits IADL Deficits Identified Deficits Home Safety Awareness Home Safety Comments Pt aware that he is not capable to care for himself at this time. Medication Management Medication Management Comments Pt states managed on his own, but probably will benefit from assist. Money Management Money Management Comments Pt will benefit from assist. Meal Preparation Meal Preparation Comments Pt will need help. Voice Studies Director Voice Studies Director Comments Pt will need help. Driving Driving Concerns Identified Regarding Safety Driving Comments Pt states was driving before. M6 OT- IP Functional Cognition Start: 07/10/24 10:56 Freq: Status: Active Protocol: Document 07/10/24 10:56 [facility] (Rec: 07/10/24 11:20 [facility] [id number]) Cognitive Factors Limiting Selfcare Function Cognitive Ability Level of Alertness Alert Patient Orientation Name,Age,Birthday,Month,Date, Year,Day of Week,Place, Situation Attention Span Ability Capable of Focused Attention, Capable of Sustained Attention Ability to Follow Commands Able to Follow One Step Commands Cognitive Comments Cognitive Assessment Comments Pt able to follow commands. Pt admits to being lazy and not wanting to do much. Pt will benefit from formal cognitive assessment. OT- Vision and Hearing OT- Hearing Assessment OT- Hearing Assessment WFL OT- Vision Assessment Vision History Glaucoma Vision Assessment Comments Pt states suppose to to have cataracts taken out and that his vision and not as clear now. M7 OT- IP Mobility and Balance Start: 07/10/24 10:56 Freq: Status: Active Protocol: Document 07/10/24 10:56 [facility] (Rec: 07/10/24 11:20 [facility] [id number]) OT- Bed Mobility Assessment Supine to Sit Supine to Sit Assist Maximum Assistance Sit to Supine Sit to Supine Assist Moderate Assistance Scooting Scooting to Edge of Bed Minimal Assistance Scooting Up and Down in Bed Maximum Assistance OT-Transfer Assessment Sit to and From Stand Sit to and from Stand Maximum Assistance,Total Assistance,1 Person Assistance ,Use of Upper Extremities Devices Transfer Assistive Devices Gait Belt,Front Wheeled Walker Comments Mobility Comments Pt uses a bed ladder to assist out of bed. Pt needing MAXA X1 to assist to get his trunk upright . DEXTER to scoot forwards and MAX AX to help scoot up the bed. MAXA X 1 with bed raised to stand to FWW. BP Supine 140/69, sitting 124/ 64 , and after standing 95/51 and very symptomatic. Nursing notified. OT- Balance Assessment Sitting Balance and Reactions Static Sitting Balance Ability Fair Dynamic Sitting Balance Ability Fair Standing Balance and Reactions Static Standing Balance Ability Poor Dynamic Standing Balance Ability Poor M8 OT- IP Objective Assessments Start: 07/10/24 10:56 Freq: Status: Active Protocol: Document 07/10/24 10:56 [facility] (Rec: 07/10/24 11:20 [facility] [id number]) OT Gross Range of Motion Upper Extremity Range of Motion Assessment Within Functional Limits OT Strength Comments Strength Comments BUE 3+/5 to 4-/5 from proximal to distal. OT Sensation Assessment Comments Summary Comments Pt has bruises all throughout his arms/legs. M9 OT- IP Assessment and Plan Start: 07/10/24 10:56 Freq: Status: Active Protocol: Document 07/10/24 10:56 [facility] (Rec: 07/10/24 11:20 [facility] [id number]) OT Summary Assessment and Plan Potential Rehabilitation Potential Fair Analytic Complexity at Evaluation High Summary OT Impairments Pain,Strength,Balance, Functional Cognition, Functional Mobility,Self- Feeding,Grooming,Dressing, Toileting,Bathing,Toilet Transfers,Shower Transfers, Activity Tolerance Progress Towards Goals Slow Progress due to Pain,Slow Progress due to Medical Issues,Slow Progress due to Activity Tolerance Assessment Summary Pt high complexity and main barriers are pain, orthrostatic, and now needing extensive assist for all ADL and mobility needs due to weakness, decreased balance and activity tolerance. Pt will benefit from skilled rehab. Goals Self-Feeding Goal Independent Grooming Goal Independent Dressing Goal Minimal Assistance Toileting Goal Moderate Assistance Bathing Goal Moderate Assistance Toilet Transfer Goal Minimal Assistance Shower Transfer Goal Moderate Assistance Days to Meet Goals 20 Frequency of Treatment Frequency Of Treatment Once a Day Other frequency 5x/week Treatment Plan OT Treatment Plan ADL Training,Functional Cognition Training,Functional Mobility,Patient/Family Education,Discharge Planning Other Treatment Recommendations and Next Transfer to [facility] with MAX AX 2 Treatment Focus with FWW. Discharge Recommendations OT Discharge Recommendations SNF Rehab Transportation Needs at Discharge Wheelchair/Cabulance
--- NOTE | 2024-07-10 11:25 | PT.IIE ---
Current Diagnoses Hypotension due to drugs (07/07/24) Surgical History (Last Reviewed 01/12/24 @ 12:07 by Dar Foley MD) Hx of cystoscopy (04/29/21) Medical History (Last Reviewed 01/12/24 @ 12:07 by Dar Foley MD) Anemia (Unknown) Asthma (Unknown) Bilateral nephrolithiasis Bilateral nephrolithiasis BPH w urinary obs/LUTS Chronic renal insufficiency, stage II (mild) (10/10/15) COVID-19 Depression (09/04/14) Depression (Unknown) Essential hypertension (09/11/15) Folliculitis Hyperlipidemia (Unknown) Hypertension (Unknown) Hypertriglyceridemia (Unknown) Kidney disease (Unknown) Kidney stones (2011) Labyrinthitis Left ureteral calculus Lymphocytic colitis (2012) Microscopic colitis (10/10/15) Myalgia Myopia (Unknown) Retained ureteral stent Rosacea (Unknown) Screening due Type 2 diabetes mellitus without complication (09/11/15) Physical Therapy Inpatient Evaluation/Re-Eval M1 PT/OT-IP Prior Functional Status Start: 07/08/24 08:34 Freq: NEEDED Status: Active Protocol: Document 07/10/24 11:25 [facility] (Rec: 07/10/24 13:16 [facility] [id number]) Medical Review Prior Functional Status Medical History Reviewed Yes Communication able to make needs known Mobility and Gait pt stated that he was independent with all mobilities and ambulation without AD indoors; uses a 4WW for long distance outdoor mobility (grocery shopping) but typically just uses a SPC for outdoor walking Activities of Daily Living and IADL's per OT note: Pt states able to care for himself prior to the fall, but did minimal at home . Prior Functional Level (Other details) pt with h/o [place] s/p stent placement last december 2023 and d/c'd to rehab. pt has been home since February and was independent with all mobility but stated that he has BP and blood sugar instability since sx but was able to manage but for the last 2 days or so, has been getting worse and he was getting weaker Social History Household Members none Living Arrangements Apartment/Condo Number of Floors (Floors) One Floor Number of Stairs To Enter/Railing? Pt lives at [facility] on 2nd level with access to an elevator Home Environment Standard Height Toilet,Tub/ Shower Home Equipment Four Wheel Walker,Straight Cane,Bedside Commode,Shower Seat with Backrest,Hand Held Shower,Grab Bars Near Toilet, Grab Bars In Shower Additional Social History Comment Pt states his cane is collapsible. M1 PT/OT-IP Prior Functional Status Start: 07/10/24 10:56 Freq: NEEDED Status: Active Protocol: Document 07/10/24 10:56 [facility] (Rec: 07/10/24 11:20 [facility] [id number]) Medical Review Prior Functional Status Communication Independent Mobility and Gait Pt states uses a 4ww to get around or collaspible cane. Activities of Daily Living and IADL's Pt states able to care for himself prior to the fall, but did minimal at home. Prior Functional Level (Other details) Pt states December 2023 had stent placed, ended up in SNF for 5 weeks and then was home. Pt states recently his legs have been feeling week and has been falling. Social History Household Members none Living Arrangements Apartment/Condo Number of Stairs To Enter/Railing? Use of elevator Home Environment Standard Height Toilet,Tub/ Shower Home Equipment Four Wheel Walker,Straight Cane,Shower Seat with Backrest ,Hand Held Shower,Grab Bars Near Toilet,Grab Bars In Shower Additional Social History Comment Pt states his cane is collapsible. Pt has a bed ladder assist to help him out of bed. M2 PT-IP Current Condition Start: 07/08/24 08:34 Freq: NEEDED Status: Active Protocol: Document 07/10/24 11:25 [facility] (Rec: 07/10/24 13:16 [id number]) Physical Therapy Current Condition Current Condition Evaluation Date 07/10/24 Treatment Diagnosis hypotention; anemia; generalized weakness Onset Date 07/07/24 M3 PT-IP Subjective Start: 07/08/24 08:34 Freq: NEEDED Status: Active Protocol: Document 07/10/24 11:25 [facility] (Rec: 07/10/24 13:16 [id number]) Subjective Physical Therapy Visit Type Type Initial Evaluation Visit Start Time 11:25 Visit Stop Time 12:10 Number of BICYCLE REPAIR TECHNICIAN Visits 0 Physical Therapy Visit Comments Patient Comments agreeable to do PT M4 PT-IP Mobility and Gait Start: 09/08/24 08:34 Freq: NEEDED Status: Active Protocol: Document 07/10/24 11:25 [facility] (Rec: 07/10/24 13:16 [facility] [id number]) PT-Bed Mobility Assessment Supine to Sit Supine to Sit Standby Assistance Sit to Supine Sit to Supine Standby Assistance PT-Transfer Assessment Sit to and From Stand Sit to and from Stand Moderate Assistance,Maximum Assistance,1 Person Assistance ,Use of Upper Extremities Equipment Transfer Assistive Device Gait Belt,Front Wheeled Walker Orthotic/Prosthetic Devices or Brace: No Comments Mobility Comments pt supine in bed and agreeablet o do PT. obtained PLOF and home set up. BP monitored. BP in supine with HOB elevated to ~ 30 de/67 O2 sat: 96% and CT 78 pt completed supine to sit SBA . pt needed increase time to completed and presents with difficulty completing the task . pt c/o feeling lightheaded/ fuzzy. BP checked: 111/75. pt sat on EOB for 2 more minutes and BP checked: 128/68. pt completed sit to stand mod to max A and max cues. mod A for standing balance using FWW. BP checked: 115/51. pt was able to stand for ~ 1 min but B knee slowly giving out max A for descent. BP checked in sittin/49. pt refuse to sit up on the chair. stated that chair is not comfortable . pt agreed to get up again to position in bed. sit to stand max A and cues and was able to take side steps towards HOB using FWW mod to max A and max cues. educated pt on importance of being out of the bed but pt continues to refuse. BP checked in sitting again: 111/58. completed sit to supine SBA. positioned pt in bed. pt agreed for PT to put bed into chair position. call light and table placed within reach. Gait Assessment Comments Gait Comments was only able to take side steps using FWW mod to max A and max cues PT-Balance Assessment Sitting Balance and Reactions Static Sitting Balance Ability Good Dynamic Sitting Balance Ability Fair Standing Balance and Reactions Static Standing Balance Ability Poor Dynamic Standing Balance Ability Poor Device Used FWW M5 PT-IP Objective Assessments Start: 07/08/24 08:34 Freq: NEEDED Status: Active Protocol: Document 07/10/24 11:25 [facility] (Rec: 07/10/24 13:16 [facility] [id number]) Orientation Orientation/Cognition Level of Alertness Alert Orientation Name,Place,Situation Language Function Ability No Deficits Noted Safety Awareness Decreased Safety Awareness Memory Description No Deficits Noted Gross Range of Motion Lower Extremity ROM Assessment Within Functional Limits Strength Lower Extremity Strength Assessment Bilaterally Impaired Hip 4-/5 Knee 4-/5 Sensation Assessment Sensation Gross Sensation WNL Muscle Tone Muscle Tone WNL Yes M6 PT-IP Treatment Start: 07/08/24 08:34 Freq: NEEDED Status: Active Protocol: Document 07/10/24 11:25 [facility] (Rec: 07/10/24 13:16 AB [id number]) Physical Therapy Treatment Education Education Provided Safety M7 PT-IP Assessment and Plan Start: 07/08/24 08:34 Freq: NEEDED Status: Active Protocol: Document 07/10/24 11:25 [facility] (Rec: 07/10/24 13:16 [facility] [id number]) PT Summary Assessment and Plan Potential Rehabilitation Potential Fair Status of Condition at Evaluation Evolving Summary Impairments Pain,ROM,Strength,Balance, Coordination,Sensation,Tone, Cognition,Bed Mobility, Transfers,Gait,Activity Tolerance Assessment Summary pt is a 74 y/o M who was admitted for hypotention and anemia. pt continues to have orthostatic hypotension with c /o lightheadedness and also B knee giving out with increase standing. pt with decrease activity tolerance due to decrease in BP affecting level of assistance needed. pt will benefit from SNF rehab. will continue to assess. Goals Bed Mobility Goal Independent Transfer Goal Independent,Front Wheeled Walker Gait Goal Independent,Front Wheel Walker Gait Distance 50 Days to Meet Goals 10 Frequency of Treatment Frequency Of Treatment Once a Day Treatment Plan Physical Therapy Treatment Plan Bed Mobility Training,Transfer Training,Gait Training, Therapeutic Exercise,Balance Retraining,Post Op Education, Discharge Planning,Hot or Cold Pack,Neuromuscular Re-ed, Coordination Retraining,Manual Therapy Precautions Other Precautions BP; falls Recommendations To Nursing Amount of Assist Needed 2 Person Assist Discharge Recommendations PT Discharge Recommendations SNF Rehab Transportation Needs at Discharge Wheelchair/Cabulance,Stretcher /Ambulance
[2024-07-10] MEDS: TRAMADOL 50 MG TABLET PO ×2 (13:13→20:31)
--- NOTE | 2024-07-10 13:20 | CM.DANOTE ---
DCP Cont. Reviewed EMR and team rounds for status updates. Pt has been medically cleared for d/c, he will be going to [facility] at 2:00pm. D/c clinicals and orders have been faxed to the facility, no further DCP needs indicated at this time. Discharge Planning/Care Management CM Discharge Assessment Start: 07/07/24 18:14 Freq: Status: Active Protocol: Document 07/07/24 18:14 MW (Rec: 07/07/24 18:17 MW [id number]) Discharge Planning Assessment Assigned Entry Manager MEENAKSHI Negron DPOA/Assigned Designee Name Sister Castañeda (Lives in [place]) Contact Information [phone] Advance Directives? No History Provided By Patient,Medical Record Has Patient been admitted in last 30 No days? Comment Patient was admitted at [facility] on 06/19/2024 for loss of conciousness/ hypoglycemia. Prior Living Arrangements Apartment/Condo Household Members none Type of transporation used prior to Drives own vehicle admit Independent with ADL's No Is patient alert and oriented? No Needs Assistance With Bathing,Toileting,Home Chores / Shopping Caregiver for Another No Community Services used prior to Physical Therapy,Occupational admission: Therapy,Home Health Nurse, Wound Care Comment [facility] for PT[facility]OT and [facility]. DME Already Rented / Owned Bath Bench,Elevated Toilet Seat,FWW / Walker Patient/Family Preference Nursing Home Facility,OP PT Therapy Barriers to Discharge No Please Provide Date Initial DC 07/07/24 Assessment Was Performed Next Review Type Continued Stay Review
--- NOTE | 2024-07-10 13:24 | CM.DPC ---
DCP Cont. Reviewed EMR and team rounds for status updates. Per team, pt was too dizzy/weak today to work with PT and d/c to SNF. Discharge was cancelled for today, however they will plan for d/c tomorrow.
--- NOTE | 2024-07-10 14:13 | P.PN_ITS ---
Subjective Subjective Interval history: doing well today, he is looking forward to going home Exam Vital Signs (past 8 hours): - 07/10/24 08:00 07/10/24 10:45 07/10/24 12:00 Temperature 98.0 F 98.4 F Pulse Rate 69 72 Respiratory Rate 18 18 Blood Pressure 124/51 L 131/60 Blood Pressure [Orthostatic Lying] 140/69 Blood Pressure [Orthostatic Sitting] 124/64 Blood Pressure [Orthostatic Standing] 95/51 L Pulse Oximetry 96 96 Oxygen Flow Rate 0 0 Oxygen Delivery Method [1210] Room Air Oxygen Delivery Method Room Air Oxygen Flow Rate 0 Narrative Exam Narrative: General: elderly frail Lungs: normal effort Cardio: RRR Abdomen: soft, non-tender MSK/Skin/Extremities: numerous bruises, fragile skin in various stages of healing Neuro: alert and oriented Psych:?pleasant Objective Labs 07/10/24 05:34 07/10/24 05:34 Labs: Laboratory Results - last 24 hr 07/09/24 07/09/24 07/10/24 04:56 15:16 05:34 WBC 9.5 9.1 RBC 2.76 L 2.69 L Hgb 8.7 L 8.5 L Hct 24.8 L 24.4 L MCV 89.9 90.8 MCH 31.4 31.5 MCHC 35.0 34.6 RDW 15.8 H 15.8 H Plt Count 255 265 Neut % (Auto) 85.1 H Lymph % (Auto) 6.8 L [place] % (Auto) 6.1 Eos % (Auto) 1.5 L Baso % (Auto) 0.5 Neut # (Auto) 7700 H Lymph # (Auto) 600 L [place] # (Auto) 600 Eos # (Auto) 100 Baso # (Auto) 0 Haptoglobin 454 H Sodium 135 L Potassium 4.0 Chloride 107 Carbon Dioxide 24 BUN 36 H Creatinine 1.11 Estimated GFR > 60 BUN/Creatinine Ratio 32.4 H Glucose 170 H Calcium 8.9 Magnesium 2.0 Total Bilirubin 0.6 AST 21 ALT 25 Alkaline Phosphatase 88 Total Protein 5.3 L Albumin 2.8 L Globulin 2.5 Albumin/Globulin Ratio 1.1 PFSH Medical History Screening due Folliculitis Myalgia COVID-19 BPH w urinary obs/LUTS Bilateral nephrolithiasis Retained ureteral stent Bilateral nephrolithiasis Left ureteral calculus Labyrinthitis Lymphocytic colitis (2013) Rosacea (Unknown) Kidney stones (2012) Kidney disease (Unknown) Myopia (Unknown) Asthma (Unknown) Anemia (Unknown) Depression (Unknown) Hypertriglyceridemia (Unknown) Hypertension (Unknown) Hyperlipidemia (Unknown) Microscopic colitis (10/10/15) Chronic renal insufficiency, stage II (mild) (10/10/15) Depression (09/04/14) Type 2 diabetes mellitus without complication (09/11/15) Essential hypertension (09/11/15) Surgical History Hx of cystoscopy (04/29/21) Family History Father Cancer Mother Stroke Social History marital status: unmarried,single household members: none lives independently: Yes Smoking Status: Former smoker alcohol intake: current Assessment & Plan Assessment & Plan narrative: Relevant Past Medical History: hypertension, diabetes mellitus type 2, chronic kidney disease, depression, anemia, coronary artery disease status post drug- eluting stent in December 2023 Hospital Course: 74-year-old male who was brought to the ED due to falls at home generalized weakness category. He was found in the ED to have an elevation in creatinine and drop in his hemoglobin without any obvious bleeding source as well as hypotension thought to be iatrogenic from his blood pressure medications. Patient has received 1u PRBC as well as IV and holding of his BP. Clinical Status: improved from admission, close to discharge. #Frailty and generalized weakness in the setting advanced age and multiple chronic diseases #Acute Anemia without obvious bleeding source, likely component of anemia of chronic kidney disease #Insulin Dependent DMII #CAD s/p ALVARO in 01/21 -Daily CBC. Transfuse to maintain Hgb >8. Monitor for bleeding -250mg IV ferric gluconate (second dose). -Consider EPO outpatient -Holding PGY-12 inhibitor, consider restart tomorrow -Holding all home anti-hypertensives due to orthostasis -PT/OT Diabetic/Hyperglycemia Management Inpatient Regimen: Glargine 20u, NPH 10u bedtime lispro 10u ac TID. Sitagliptin 100mg/day Will adjust regimen to maintain blood glucose levels between 140-180 Home Diabetic Medications: Glargine 17u, SS insulin with meals, Sitagliptin 100mg/day Home Medication Reconciliation Continued * Dx: []. Rx: budesonide 3mg BID * Dx: insomnia. Rx: trazodone 25mg prn * Dx: CAD. Rx: Aspirin * Dx: GERD. Rx: prontonix Held * Dx: CAD. Rx: prasugrel * Dx: Hypertension. Rx: Amlodipine 10 mg, losartan 25 mg carvedilol 6.25 mg b.i.d. Discharge Planning Disposition/Anticipated Discharge Date: Anticipated shelter facility placement 07/11 Follow-up Appointments: PCP within 1 week Rx Changes: Likely changes in both antihypertensive an insulin Follow-up Diagnostics: None at this time Time-Based Coding :: [TOTAL MINUTES] spent with patient and on the chart (including review of chart, obtaining history, exam, reviewing outside data, placing orders, documenting exam and treatment plan, and counseling patient) on [DATE].
[2024-07-11] MEDS: ACETAMINOPHEN 325 MG TABLET 650 MG PO (06:12)
[2024-07-11] MEDS: PANTOPRAZOLE DR 40 MG TABLET PO (06:12)
[2024-07-11 06:35] VITALS: BP 156/57; PULSE 75; TEMP 36.2; O2SAT 97
--- NOTE | 2024-07-11 06:46 | PC.NURSE ---
Bed bath and linen change complete. Old dressing remove to RUE and placed new gauze and kerlix. 2 skin tears oozing blood, applied 2 Allevyn to RLE. Pt tolerated well, call light in reach.
[2024-07-11 08:00] VITALS: BP 145/75; PULSE 72; RESP 16; TEMP 36.4; O2SAT 98
[2024-07-11] MEDS: INSULIN GLARGINE 100 UNIT/ML 3ML PEN 20 UNIT SUBCUT (08:34)
[2024-07-11] MEDS: INSULIN LISPRO 100 UNIT/ML 3ML VIAL SUBCUT ×2 (08:36→12:17)
[2024-07-11] MEDS: BUDESONIDE 3 MG CAP PO (08:37)
[2024-07-11] MEDS: ATORVASTATIN 20 MG TABLET 80 MG PO (08:37)
[2024-07-11] MEDS: SITAGLIPTIN 50 MG TABLET 100 MG PO (08:37)
[2024-07-11] MEDS: CHOLECALCIFEROL (VITAMIN D3) 1,000 UNIT TABLET 2000 UNIT PO (08:37)
[2024-07-11] MEDS: ASPIRIN EC 81 MG TABLET PO (08:37)
[2024-07-11] MEDS: SODIUM CHLORIDE 0.9% FLUSH 10 ML IV (08:38)
[2024-07-11 08:58] LABS: Alanine Aminotransferase 26 IU/L (<50); Albumin Globulin Ratio 1.1 (1.0-2.8); Alkaline Phosphatase 100 U/L (38-126); Aspartate Aminotransferase 22 IU/L (17-59); BUN Creatinine Ratio 26.2 (6-22); Bilirubin Total 0.5 mg/dL (0.2-1.3); Blood Urea Nitrogen 28 mg/dL (9-20); Calcium 9.3 mg/dL (8.4-10.2); Carbon Dioxide 25 mmol/L (22-32); Chloride 103 mmol/L (98-107); Estimated Glomerular Filt Rate > 60 mL/min (>60); Globulin 2.7 g/dL (1.7-4.1); Glucose 118 mg/dL (80-110); HEMOLYSIS < 15 (0-50); Magnesium 1.7 mg/dL (1.6-2.3); Potassium 3.8 mmol/L (3.4-5.1); Sodium 135 mmol/L (137-145); Total Protein 5.7 g/dL (6.3-8.2)
[2024-07-11 09:15] LABS: Hematocrit 26.8 % (41-53); Hemoglobin 9.3 g/dL (13.5-17.5); Mean Corpuscular HGB Conc 34.7 % (30-36); Mean Corpuscular Hemoglobin 31.6 PG (26-34); Platelet Count 310 X10^3/uL (150-400); Red Blood Cell Count 2.94 X10^6/uL (4.5-5.9); Red Cell Distribution Width 15.9 % (11.6-14.8); White Blood Cell Count 8.9 X10^3/uL (4.5-11.0)
[2024-07-11 09:18] LABS: Add Manual Diff / Slide Review YES
[2024-07-11 09:42] LABS: Anisocytosis 1+; Neutrophils Absolute Manual 6586 /uL (3000-5900); Total Cells Counted 100
--- NOTE | 2024-07-11 10:08 | PT.IPTN ---
Current Diagnoses Hypotension due to drugs (07/07/24) Physical Therapy Treatment Note M2 PT-IP Current Condition Start: 07/08/24 08:34 Freq: NEEDED Status: Active Protocol: Document 07/10/24 11:25 AB (Rec: 07/10/24 13:16 AB [id number]) Physical Therapy Current Condition Current Condition Evaluation Date 07/10/24 Treatment Diagnosis hypotention; anemia; generalized weakness Onset Date 07/07/24 M3 PT-IP Subjective Start: 07/08/24 08:34 Freq: NEEDED Status: Active Protocol: Document 07/11/24 11:16 TS (Rec: 07/11/24 11:36 TS [id number]) Subjective Physical Therapy Visit Type Type Treatment Note Visit Start Time 10:08 Visit Stop Time 10:40 Number of HOUSEKEEPING/LAUNDRY Visits 1 Physical Therapy Visit Comments Patient Comments Pt found resting in bed, he reports weakness and low BP, he is agreeable to PT. Pt has concerns about ulcer on L heel . M4 PT-IP Mobility and Gait Start: 07/08/24 08:34 Freq: NEEDED Status: Active Protocol: Document 07/11/24 11:16 TS (Rec: 07/11/24 11:36 TS [id number]) PT-Bed Mobility Assessment Supine to Sit Supine to Sit Standby Assistance Sit to Supine Sit to Supine Standby Assistance Scooting Scooting to Edge of Bed Standby Assistance Scooting Up and Down in Bed Standby Assistance PT-Transfer Assessment Sit to and From Stand Sit to and from Stand Moderate Assistance,1 Person Assistance,Use of Upper Extremities Equipment Transfer Assistive Device Gait Belt,Front Wheeled Walker Orthotic/Prosthetic Devices or Brace: No Comments Mobility Comments Supine to sit SBA with HOB elevated. STS with FWW ModA, pt is slow to stand. He reports feeling weak and lightheaded in standing, he agreed to ambulate. He ambulated ~30' CGA with FWW, pt reports increase in dizziness and requests to sit down. BP in sitting 120/62, pt sits EOB with lightheadedness . He agreed stand again. STS with FWW ModA. BP in standing 129/62. Pt reported more dizziness and was brought back to bed. BP in supine 151/76. Pt was left in bed, all needs met. Gait Assessment Gait Gait Assistance Required: Contact Guard Assist Distance (Feet) 30 Assistive Devices Assistive Device Gait Belt,Front Wheeled Walker Gait Deviations General Gait Pattern Decreased Stride Length, Decreased Feet Clearance Factors Limiting Gait Function Factors Limiting Gait Function Decreased Activity Tolerance, Decreased Strength,Poor Balance Comments Gait Comments See mobility comments PT-Balance Assessment Sitting Balance and Reactions Static Sitting Balance Ability Good Dynamic Sitting Balance Ability Fair Standing Balance and Reactions Static Standing Balance Ability Fair Dynamic Standing Balance Ability Fair Device Used FWW M5 PT-IP Objective Assessments Start: 07/08/24 08:34 Freq: NEEDED Status: Active Protocol: Document 07/10/24 11:25 AB (Rec: 07/10/24 13:16 AB [id number]) Orientation Orientation/Cognition Level of Alertness Alert Orientation Name,Place,Situation Language Function Ability No Deficits Noted Safety Awareness Decreased Safety Awareness Memory Description No Deficits Noted Gross Range of Motion Lower Extremity ROM Assessment Within Functional Limits Strength Lower Extremity Strength Assessment Bilaterally Impaired Hip 4-/5 Knee 4-/5 Sensation Assessment Sensation Gross Sensation WNL Muscle Tone Muscle Tone WNL Yes M6 PT-IP Treatment Start: 07/08/24 08:34 Freq: NEEDED Status: Active Protocol: Document 07/11/24 11:16 TS (Rec: 07/11/24 11:36 TS [id number]) Physical Therapy Treatment Education Education Provided Safety M7 PT-IP Assessment and Plan Start: 07/08/24 08:34 Freq: NEEDED Status: Active Protocol: Document 07/11/24 11:16 TS (Rec: 07/11/24 11:36 TS [id number]) PT Summary Assessment and Plan Potential Rehabilitation Potential Fair Summary Impairments Pain,ROM,Strength,Balance, Coordination,Sensation,Tone, Cognition,Bed Mobility, Transfers,Gait,Activity Tolerance Progress Towards Goals Slow Progress due to Medical Issues,Slow Progress due to Activity Tolerance Assessment Summary Marty is making slow progress with his mobility. He continues to be SBA for all bed mobility. He fatigues quickly with gait and continues to be limited by ongoing hypotension. PT continues to recommend SNF at this time. Goals Bed Mobility Goal Independent Transfer Goal Independent,Front Wheeled Walker Gait Goal Independent,Front Wheel Walker Gait Distance 50 Days to Meet Goals 10 Frequency of Treatment Frequency Of Treatment Once a Day Treatment Plan Physical Therapy Treatment Plan Bed Mobility Training,Transfer Training,Gait Training, Therapeutic Exercise,Balance Retraining,Post Op Education, Discharge Planning,Hot or Cold Pack,Neuromuscular Re-ed, Coordination Retraining,Manual Therapy Precautions Other Precautions BP; falls Recommendations To Nursing Amount of Assist Needed 1 Person Assist Discharge Recommendations PT Discharge Recommendations SNF Rehab Transportation Needs at Discharge Wheelchair/Cabulance,Stretcher /Ambulance
--- NOTE | 2024-07-11 10:37 | P.DS_ITS ---
History of Present Illness History of Present Illness Chief complaint: Fall; blood loss Discharge Providers Provider Date of admission: 07/07/24 22:05 Discharge Date: 07/11/24 Primary care physician: Nina Joel DO Consults: 07/07/24 14:30 Consult to [facility] Sammying Machine Operator Stat Comment: Sammying Machine Operator Consult needed for:: Lives alone 07/07/24 19:04 Consult to [facility] [place] - Sammying Machine Operator Stat Comment: Sammying Machine Operator Consult needed for:: Unable to care for self Comment: possible jail placement 07/07/24 19:05 Consult to Physical Therapy Evaluate & Treat Comment: possible jail placement Physician Instructions: Evaluate and Treat 07/07/24 19:06 Consult to Occupational Therapy Evaluate & Treat Comment: possible jail Physician Instructions: Evaluate and treat 07/08/24 00:05 Consult to Physical Therapy Evaluate & Treat Comment: Physician Instructions: Evaluate and Treat Discharge provider: Mingo Lan MD Summary Hospital Course Hospital Course: Relevant Past Medical History: hypertension, insulin dependent diabetes mellitus type 2, chronic kidney disease, depression, anemia, coronary artery disease status post drug-eluting stent in December 2023 Hospital Course: 74 y.o. M with presenting from home due to falls. He was found to be hypotensive with orthostasis and also an acute drop in his HgB without obvious bleeding source other than hematoma on his right arm. HgB dropped to 6.7 with patients baseline being around 10-12. Patient anemia work-up showed likely mixed picture of anemia of kidney disease and possible hypo proliferation with retic count only at 1.9%, ferritin was 154 and TSAT 21%, IV iron was given to complete replete iron stores so EPO can be considered outpatient if indicated. Patient was on numerous antihypertensives all of which were held with improvement in BP. His blood glucose was elevated during his stay requiring escalation of his home insulin regimen. Patient was generally quite frail and weak and it was determined he would benefit from SNF for continued rehab. Status at Discharge Overall status at discharge: patient is progressing back to baseline Exam Vital Signs (past 8 hours): - 07/11/24 06:35 07/11/24 08:00 Temperature 97.2 F L 97.5 F L Pulse Rate 75 72 Respiratory Rate 16 Blood Pressure 156/57 H 145/75 H Pulse Oximetry 97 98 Oxygen Flow Rate 0 Oxygen Delivery Method [1210] Room Air Oxygen Delivery Method Room Air Oxygen Flow Rate 0 Objective Labs 07/11/24 08:14 07/11/24 08:14 Labs: Laboratory Results - last 24 hr 07/11/24 08:14 WBC 8.9 RBC 2.94 L Hgb 9.3 L Hct 26.8 L MCV 91.0 MCH 31.6 MCHC 34.7 RDW 15.9 H Plt Count 310 Neut % (Auto) Not Reportable Lymph % (Auto) Not Reportable Mcpherson % (Auto) Not Reportable Eos % (Auto) Not Reportable Baso % (Auto) Not Reportable Lymph # (Auto) Not Reportable Mcpherson # (Auto) Not Reportable Baso # (Auto) Not Reportable Total Counted 100 Seg Neutrophils % 70.0 Band Neutrophils % 4.0 Lymphocytes % (Manual) 15.0 L Monocytes % (Manual) 8.0 Eosinophils % (Manual) 1.0 L Basophils % (Manual) 2.0 H Neutrophils # (Manual) 6586 H RBC Morphology See below Anisocytosis 1+ H Sodium 135 L Potassium 3.8 Chloride 103 Carbon Dioxide 25 BUN 28 H Creatinine 1.07 Estimated GFR > 60 BUN/Creatinine Ratio 26.2 H Glucose 118 H Calcium 9.3 Magnesium 1.7 Total Bilirubin 0.5 AST 22 ALT 26 Alkaline Phosphatase 100 Total Protein 5.7 L Albumin 3.0 L Globulin 2.7 Albumin/Globulin Ratio 1.1 PFSH Medical History Screening due Folliculitis Myalgia COVID-19 BPH w urinary obs/LUTS Bilateral nephrolithiasis Retained ureteral stent Bilateral nephrolithiasis Left ureteral calculus Labyrinthitis Lymphocytic colitis (2012) Rosacea (Unknown) Kidney stones (2011) Kidney disease (Unknown) Myopia (Unknown) Asthma (Unknown) Anemia (Unknown) Depression (Unknown) Hypertriglyceridemia (Unknown) Hypertension (Unknown) Hyperlipidemia (Unknown) Microscopic colitis (10/10/15) Chronic renal insufficiency, stage II (mild) (10/10/15) Depression (09/04/14) Type 2 diabetes mellitus without complication (09/11/15) Essential hypertension (09/11/15) Surgical History Hx of cystoscopy (04/29/21) Family History Father Cancer Mother Stroke Social History marital status: unmarried,single household members: none lives independently: Yes Smoking Status: Former smoker alcohol intake: current Discharge Assessment & Plan Assessment and Plan Assessment: #Generalized weakness in the setting of advanced age and multiple chronic diseases -PT/OT -Discharge to SNF #Acute Anemia without obvious source of blood loss, likely multifactorial etiology Ferritin 154, TSAT 21%, Retic 1.8%. Patient has received 1u PRBC and 500mg IV Ferric Gluconate -Recommend CBC in 1wk -Consider EPO outpatient #Orthostasis/Hypotension with falls, likely iatrogenic vs anemia -Holding home antihypertensives (amlodipine 10mg, carvedilol 6.25mg, losartan 25mg) -Resumption per PCP #DM II insulin dependent -Continue home glargine #Coronary artery disease status s/p ALVARO in December 2023 due to NSTEMI -Aspirin 81mg/day, Atorvastatin 80mg, Prasugrel 10mg/day #AMELIA in the setting of CKD -improving from admission Plan of Treatment: Disposition/Anticipated Discharge Date: Anticipated senior care facility placement 07/11 Follow-up Appointments: PCP within 1 week Rx Changes: Holding home antihypertensives (amlodipine 10mg, carvedilol 6.25mg, losartan 25mg) Follow-up Diagnostics: CBC in 1wk Discharge Plan Discharge Plan Patient Disposition: SNF Transfer to: [facility] Discharge orders & Medications Prescriptions: Continued budesonide 3 mg capsule,delayed,extend.release 3 mg PO BID Qty: 180 3RF (DME) blood-glucose meter [Blood Glucose Monitoring] Kit See Rx Instructions .ROUTE .MEDSUPPLY Qty: 1 1RF Rx Instructions: Use daily to check blood sugar as directed (DME) Blood Glucose Test Strip See Rx Instructions .ROUTE .MEDSUPPLY Qty: 100 5RF Rx Instructions: use to test blood sugar twice daily as directed (DME) lancets 30 gauge misc See Rx Instructions .ROUTE .MEDSUPPLY Qty: 100 5RF Rx Instructions: use to check blood sugar twice daily as directed omeprazole 20 mg capsule,delayed release(DR/EC) 20 mg PO DAILY Qty: 90 3RF trazodone 50 mg tablet 25 mg PO BEDTIME PRN (Reason: sleep) Qty: 30 0RF methocarbamol 500 mg tablet 500 mg PO BID PRN (Reason: muscle spasm) Qty: 15 0RF ketoconazole 2 % cream 1 applic TOP BID PRN (Reason: itching/rash) Qty: 15 11RF Rx Instructions: Apply to the affected area BID till clear. aspirin 81 mg tablet,delayed release (DR/EC) 81 mg PO DAILY Hold Instructions: Patient held himself;excessive bruising and some bleeding nitroglycerin 0.4 mg tablet, sublingual 0.4 mg sublingual Q5M PRN (Reason: chest pain) Qty: 10 0RF Rx Instructions: do not exceed 3 doses per episode potassium citrate 10 mEq (1,080 mg) tablet extended release 20 meq PO BID Hold Instructions: hyperkalemia rosuvastatin 40 mg tablet 40 mg PO DAILY Qty: 90 3RF cholecalciferol (vitamin D3) [Vitamin D3] 50 mcg (2,000 unit) Capsule 50 mcg PO DAILY insulin glargine [Basaglar KwikPen U-100 Insulin] 100 unit/mL (3 mL) insulin pen 17 unit SUBCUT QAM Januvia 100 mg Tablet 100 mg PO DAILY prasugrel 10 mg tablet 10 mg PO DAILY Discontinued amlodipine 10 mg tablet 10 mg PO DAILY Qty: 90 3RF losartan 50 mg tablet 25 mg PO DAILY Qty: 90 1RF Hold Instructions: hypotension-Has not taken for 2 months prasugrel 10 mg tablet 10 mg PO DAILY Qty: 90 3RF carvedilol [Coreg] 6.25 mg Tablet 6.25 mg PO BID Rx Instructions: must administer with a meal/food Follow up/Referrals: Nina Joel DO [Primary Care Provider] - Visit Report/Discharge Packet Stand Alone Forms: Patient Portal/API Discharge Data Primary Care Provider: Nina Joel
[2024-07-11] MEDS: TRAMADOL 50 MG TABLET PO (12:21)
[2024-07-11] MEDS: MAGNESIUM CHLORIDE 64 MG TABLET 128 MG PO (13:09)
--- NOTE | 2024-07-11 13:56 | PC.NURSE ---
Pt discharged to [facility] at 1320, escorted off floor in wheelchair accompanied by facility designee. IV removed, discharge paperwork included in packet for facility. Attempted to call report 3 times and was finally able to get through to the facility at 1355. Report given to Ezequiel. Patient left the floor with all belongings.
== END 2024-07-11 13:20 | DRG 312 ==
LOC: ED 22:05 → AC 07-08 10:51
PROVIDERS: Emergency Medicine; Internal Medicine; Student in an Organized Health Care Education/Training Program; Admitting Provider Internal Medicine; Emergency Provider Emergency Medicine; PCP Family Medicine; Referring Provider Emergency Medicine; Visit Provider Internal Medicine
DX: I95.2 Hypotension due to drugs (principal); N17.9 Acute kidney failure, unspecified; D61.9 Aplastic anemia, unspecified; I25.10 Atherosclerotic heart disease of native coronary artery without angina pectoris; E78.5 Hyperlipidemia, unspecified; I12.9 Hypertensive chronic kidney disease with stage 1 through stage 4 chronic kidney disease, or unspecified chronic kidney disease; E11.22 Type 2 diabetes mellitus with diabetic chronic kidney disease; N18.9 Chronic kidney disease, unspecified; D63.1 Anemia in chronic kidney disease; R53.1 Weakness; J45.909 Unspecified asthma, uncomplicated; S50.11XD Contusion of right forearm, subsequent encounter; W19.XXXD Unspecified fall, subsequent encounter; I25.2 Old myocardial infarction; F32.A Depression, unspecified; Z79.84 Long term (current) use of oral hypoglycemic drugs; Z95.5 Presence of coronary angioplasty implant and graft; Z79.02 Long term (current) use of antithrombotics/antiplatelets; Z79.4 Long term (current) use of insulin; Z87.891 Personal history of nicotine dependence; Z91.81 History of falling
CPT/HCPCS: 36415; 36430; 70450; 71250; 72125; 74176; 80048; 80053; 80305; 80320; 81003; 81015; 82550; 82607; 82728; 82746; 82962; 83010; 83540; 83550; 83605; 83615; 83690; 83735; 83880; 84100; 84145; 84484; 85007; 85014; 85018; 85025; 85027; 85045; 85610; 85730; 86850; 86900; 86901; 87040; 87633; 93005; 97163; 97167; 97530; 99284; P9016; J1815; J2916

== ENCOUNTER 2024-07-13 10:43 | Inpatient (IN) | payer MEDICARE, OTHER, SELFPAY ==
[2024-07-07 23:06] VITALS: BMI 26.7
[2024-07-13] VITALS (74 sets, daily range): BP systolic 72–200; BP diastolic 30–113; PULSE 55–122; RESP 24–40; TEMP 36.5–39.8; O2SAT 32–100; BMI 26.6
--- NOTE | 2024-07-13 11:04 | EKG_ITS ---
[facility] [address] [address] Test Date: 2024-07-13 Pat Name: Jaime Serrano Department: [facility] Room: Gender: Male Elementary Reading Specialist: KIRSTEN : 1950 Requested By: Order Number: [id number] Reading MD: Dar Foley Measurements Intervals [place] Rate: 119 P: 66 SD: 194 QRS: 25 QRSD: 72 T: 58 QT: 298 QTc: 419 Interpretive Statements Sinus tachycardia Nonspecific ST abnormality Electronically Signed On 07-13-2024 18:02:32 PDT by Dar Foley
--- NOTE | 2024-07-13 11:04 | DI.RAD.S_ITS ---
PROCEDURE: XR CHEST 1V INDICATIONS: suspected sepsis TECHNIQUE: One view of the chest was acquired. COMPARISON: [facility], CR, XR CHEST FOR PICC 1V, 02/03/2024, 14:17. [facility], CR, XR CHEST 1V, 02/03/2024, 10:00. FINDINGS: Surgical changes and devices: None. Lungs and pleura: Lungs are clear. No pleural effusions or pneumothorax. Mediastinum: Mediastinal contours appear normal. Heart size is normal. Bones and chest wall: No suspicious bony lesions. Overlying soft tissues appear unremarkable. IMPRESSION: No acute cardiopulmonary abnormality is seen. Dictated by: Cristian Luna M.D. on 07/13/2024 at 11:48 Approved by: Cristian Luna M.D. on 07/13/2024 at 11:48
--- NOTE | 2024-07-13 11:11 | PC.NURSE ---
IV placed by another nurse
[2024-07-13 11:17] LABS: INR 1.3 (0.9-1.3); Prothrombin Time 14.4 SECONDS (9.4-12.5)
[2024-07-13 11:20] LABS: PTT Partial Thromboplastin Tim 41 SECONDS (25.1-36.5)
[2024-07-13 11:24] LABS: Alanine Aminotransferase 36 IU/L (<50); Alkaline Phosphatase 93 U/L (38-126); Aspartate Aminotransferase 39 IU/L (17-59); BUN Creatinine Ratio 22.8 (6-22); Blood Urea Nitrogen 34 mg/dL (9-20); Calcium 8.7 mg/dL (8.4-10.2); Carbon Dioxide 24 mmol/L (22-32); Chloride 96 mmol/L (98-107); Estimated Glomerular Filt Rate 49 mL/min (>60); Globulin 2.9 g/dL (1.7-4.1); Glucose 187 mg/dL (80-110); HEMOLYSIS 29 (0-50); Lipase 32 U/L (23-300); Potassium 4.1 mmol/L (3.4-5.1); Sodium 129 mmol/L (137-145); Total Protein 5.9 g/dL (6.3-8.2)
[2024-07-13 11:25] LABS: Lactate (Lactic Acid) 3.4 mmol/L (0.7-2.1)
[2024-07-13] MEDS: SODIUM CHLORIDE 0.9% 1,000 ML 1000 ML IV (11:25)
--- NOTE | 2024-07-13 11:35 | ED.WEAKNESS ---
HPI - Weakness General Chief complaint: Weakness Stated complaint: hypotension, weakness Time Seen by Provider: 07/13/24 11:21 Source: EMS Mode of arrival: EMS History of Present Illness HPI Narrative: Patient 74-year-old male history of hypertension diabetes chronic kidney disease depression anemia coronary artery disease drug-eluting stent in December 2023 on prasygrel presenting today with hypotension weakness. He was admitted to this hospital July 09 through the and discharged to rehab facility. A time he was admitted for hypotension anemia frequent falls. Hemoglobin dropped to 6.7 baseline being around 10-12 was given IV iron. Today he is presenting with increasing weakness and again hypotension. He has a rash diffusely all over his body which is new. He is weak also found to be hypoxic not really able to participate in exam or history. Related Data Home Medications Medication Instructions Recorded Confirmed cholecalciferol (vitamin D3) 50 50 mcg PO DAILY 08/04/23 07/07/24 mcg (2,000 unit) capsule (Vitamin D3) aspirin 81 mg tablet,delayed 81 mg PO DAILY 01/26/24 07/07/24 release potassium citrate 10 mEq (1,080 20 meq PO BID 01/26/24 07/09/24 mg) tablet,extended release insulin glargine 100 unit/mL (3 17 unit SUBCUT QAM 07/07/24 07/07/24 mL) subcutaneous pen (Basaglar KwikPen U-100 Insulin) sitagliptin phosphate 100 mg 100 mg PO DAILY 07/07/24 07/07/24 tablet (Januvia) prasugrel 10 mg tablet 10 mg PO DAILY 07/09/24 07/09/24 Previous Rx's Medication Instructions Recorded ketoconazole 2 % topical cream 1 applic topical BID PRN 06/07/23 itching/rash #15 grams budesonide 3 mg 3 mg PO BID #180 caps 01/18/24 capsule,delayed,extended release blood sugar diagnostic (Blood #100 ea 01/26/24 Glucose Test strips) blood-glucose meter (Blood Glucose #1 ea 01/26/24 Monitoring kit) lancets 30 gauge #100 ea 01/26/24 nitroglycerin 0.4 mg sublingual 0.4 mg sublingual Q5M PRN chest 01/26/24 tablet pain #10 tabs rosuvastatin 40 mg tablet 40 mg PO DAILY #90 tabs 01/26/24 omeprazole 20 mg capsule,delayed 20 mg PO DAILY #90 caps 03/27/24 release trazodone 50 mg tablet 25 mg (1/2 x 50 mg) PO BEDTIME PRN 03/28/24 sleep #30 tabs methocarbamol 500 mg tablet 500 mg PO BID PRN muscle spasm #15 06/26/24 tabs Allergies Allergy/AdvReac Type Severity Reaction Status Date / Time MALCOLM Inhibitors AdvReac Severe Elevated Verified 07/13/24 11:04 creatinine Patient History Medical History Screening due Folliculitis Myalgia COVID-19 BPH w urinary obs/LUTS Bilateral nephrolithiasis Retained ureteral stent Bilateral nephrolithiasis Left ureteral calculus Labyrinthitis Lymphocytic colitis (2012) Rosacea (Unknown) Kidney stones (2011) Kidney disease (Unknown) Myopia (Unknown) Asthma (Unknown) Anemia (Unknown) Depression (Unknown) Hypertriglyceridemia (Unknown) Hypertension (Unknown) Hyperlipidemia (Unknown) Microscopic colitis (10/10/15) Chronic renal insufficiency, stage II (mild) (10/10/15) Depression (09/04/14) Type 2 diabetes mellitus without complication (09/11/15) Essential hypertension (09/11/15) Surgical History Hx of cystoscopy (04/29/21) Family History Father Cancer Mother Stroke Social History marital status: unmarried,single household members: none lives independently: Yes Smoking Status: Former smoker alcohol intake: current Smoking Status: Former smoker alcohol intake frequency: 0-2 drinks per day Substance Use Type: does not use Exam Initial Vital Signs Initial Vital Signs: Vital Signs Pulse Rate 72 07/13/24 10:47 Pulse Oximetry 90 L 07/13/24 10:47 GENERAL: Chronically ill 74-year-old male HEENT: Head atraumatic,EOMI, pupils reactive, face symmetric, [moist] mucous membranes CARDIOVASCULAR: Regular rate and rhythm without murmurs, rubs or gallops. RESPIRATORY: Breath sounds equal bilaterally, no wheezes rales or rhonchi. ABDOMEN: Soft, nontender. Normoactive bowel sounds all 4 quadrants. No guarding or rebound. : No CVA tenderness EXTREMITIES: Normal range of motion, no clubbing or edema. Neurovascularly intact NEUROLOGICAL: Moving all extremities no facial droop SKIN: Diffuse erythematous rash multiple skin tears 1 on right arm legs noted as well Course Orders Ordered: ED Orders 07/13/24 10:45 Comprehensive Metabolic Panel Stat Lactate (Lactic Acid) Stat Lipase Stat PTT Partial Thromboplastin Andre Stat Procalcitonin Stat Prothrombin Time INR Stat 07/13/24 10:59 EKG-12 Lead Stat 07/13/24 11:04 XR chest 1V Stat RT Consult Eval and Treat NOW 07/13/24 11:10 Complete Blood Count AUTO DIFF Stat 07/13/24 11:28 Blood Culture Stat 07/13/24 12:01 XR chest for PICC 1V Stat Famotidine (Famotidine 20 Mg/2 Ml Vial) 20 mg IV BID GERALDINE Hydromorphone HCl (Hydromorphone 0.5 Mg Inj) 0.5 mg IV Q2H PRN PRN Reason: Pain, Severe (7-10) NOREPINEPHRINE BITARTRATE/D5W (Levophed) 4 mg in 250 mls @ 32.489 mls/hr IV TITRATE GERALDINE; Protocol Last Titration: 07/13/24 18:20 Dose: 0.2 mcg/kg/min, 64.977 mls/hr Documented By: Admin: 07/13/24 17:38 Dose: 0.17 mcg/kg/min, 55.23 mls/hr Documented By: Titration: 07/13/24 17:38 Dose: Infused Documented By: Titration: 07/13/24 17:31 Dose: 0.17 mcg/kg/min, 55.23 mls/hr Documented By: Titration: 07/13/24 16:08 Dose: 0.12 mcg/kg/min, 38.986 mls/hr Documented By: Titration: 07/13/24 15:41 Dose: 0.12 mcg/kg/min, 38.986 mls/hr Documented By: Titration: 07/13/24 15:38 Dose: 0.1 mcg/kg/min, 32.489 mls/hr Documented By: Titration: 07/13/24 15:32 Dose: 0.05 mcg/kg/min, 16.244 mls/hr Documented By: Titration: 07/13/24 15:20 Dose: 0.1 mcg/kg/min, 32.489 mls/hr Documented By: Titration: 07/13/24 15:14 Dose: 0.15 mcg/kg/min, 48.733 mls/hr Documented By: Titration: 07/13/24 15:06 Dose: 0.17 mcg/kg/min, 55.23 mls/hr Documented By: Titration: 07/13/24 14:53 Dose: 0.19 mcg/kg/min, 61.728 mls/hr Documented By: Titration: 07/13/24 14:46 Dose: 0.21 mcg/kg/min, 68.226 mls/hr Documented By: Titration: 07/13/24 14:39 Dose: 0.19 mcg/kg/min, 61.728 mls/hr Documented By: Titration: 07/13/24 14:26 Dose: 0.17 mcg/kg/min, 55.23 mls/hr Documented By: Titration: 07/13/24 14:21 Dose: 0.15 mcg/kg/min, 48.733 mls/hr Documented By: Titration: 07/13/24 12:41 Dose: 0.1 mcg/kg/min, 32.489 mls/hr Documented By: Titration: 07/13/24 12:13 Dose: 0.15 mcg/kg/min, 48.733 mls/hr Documented By: Admin: 07/13/24 11:50 Dose: 0.1 mcg/kg/min, 32.489 mls/hr Documented By: ZGG Sodium Chloride (Normal Saline 0.9%) 1,000 mls @ 130 mls/hr IV CONT GERALDINE Last Infusion: 07/13/24 16:09 Dose: 130 mls/hr Documented By: Admin: 07/13/24 15:35 Dose: 130 mls/hr Documented By: ZDOREEN Heparin Sodium/Dextrose (Heparin Drip) 25,000 unit in 500 mls @ 31.189 mls/hr IV CONT GERALDINE; Protocol Last Admin: 07/13/24 17:37 Dose: 18 units/kg/hr, 31.189 mls/hr Documented By: ELGIN Co-signed By: Cefepime HCl 2 gm/ Sodium (Chloride) 100 mls @ 200 mls/hr IV Q12H [facility] Last Admin: 07/13/24 17:27 Dose: 200 mls/hr Documented By: ELGIN Vancomycin HCl (Vancomycin) 1,250 mg in 250 mls @ 250 mls/hr IV Q18H [facility] Naloxone HCl (Naloxone 0.4 Mg/Ml Vial) 0.2 mg IV Q2MIN PRN PRN Reason: Opiate Reversal Ondansetron HCl (Ondansetron 4 Mg/2 Ml Inj) 4 mg IV NOW PRN PRN Reason: Nausea And Vomiting Ondansetron HCl (Ondansetron 4 Mg Odt) 4 mg SL NOW PRN PRN Reason: Nausea And Vomiting Vancomycin HCl (Vancomycin Per Pharmacy) 1 request [facility] NOW [facility] Vancomycin HCl (Vancomycin Trough) 1 request [facility] 173 [facility] Stop: 07/15/24 17:31 Vancomycin HCl (Vancomycin Peak) 1 request [facility] 1999 [facility] Stop: 07/15/24 20:01 Discontinued Medications Heparin Sodium (Porcine) (Heparin 5,000 Unit/Ml Vial) 7,000 unit 80 unit/kg (7000 unit) IV NOW ONE Stop: 07/13/24 16:46 Last Admin: 07/13/24 17:28 Dose: 7,000 unit Documented By: ELGIN Sodium Chloride (Normal Saline 0.9%) 1,000 mls @ 1,000 mls/hr IV BOLUS ONE Stop: 07/13/24 12:03 Last Infusion: 07/13/24 11:34 Dose: 150 mls/hr Documented By: Admin: 07/13/24 11:25 Dose: 1,000 mls/hr Documented By: MICHAEL Cefepime HCl 2 gm/ Sodium (Chloride) 100 mls @ 200 mls/hr IV NOW ONE Stop: 07/13/24 11:48 Last Infusion: 07/13/24 14:11 Dose: Infused Documented By: Admin: 07/13/24 12:07 Dose: 200 mls/hr Documented By: MICHAEL Vancomycin HCl/Dextrose (Vancomycin) 1,500 mg in 300 mls @ 200 mls/hr IV NOW ONE Stop: 07/13/24 13:16 Last Infusion: 07/13/24 14:53 Dose: Infused Documented By: Admin: 07/13/24 12:51 Dose: 200 mls/hr Documented By: MICHAEL Lidocaine HCl (Lidocaine 2% (Glydo) 6 Ml Gel) 6 ml TOP NOW ONE Stop: 07/13/24 12:58 Last Admin: 07/13/24 12:59 Dose: 6 ml Documented By: MICHAEL Vital Signs Vital signs: Vital Signs - 8 hr 07/13/24 10:47 07/13/24 10:49 07/13/24 10:49 Temperature Pulse Rate 72 73 Respiratory Rate Blood Pressure 72/50 L Pulse Oximetry 90 L 90 L Oxygen Delivery Method 07/13/24 10:51 07/13/24 10:51 07/13/24 10:59 Temperature 97.7 F Pulse Rate 120 H 119 H Respiratory Rate 28 H Blood Pressure 102/53 L 102/53 L Pulse Oximetry 97 93 Oxygen Delivery Method Room Air 07/13/24 11:00 07/13/24 11:00 07/13/24 11:11 Temperature Pulse Rate 116 H 122 H Respiratory Rate 33 H 31 H Blood Pressure 100/58 L Pulse Oximetry 93 89 L Oxygen Delivery Method 07/13/24 11:11 07/13/24 11:21 07/13/24 11:21 Temperature Pulse Rate 117 H Respiratory Rate 33 H Blood Pressure 92/51 L 96/53 L Pulse Oximetry 91 Oxygen Delivery Method 07/13/24 11:25 07/13/24 11:25 07/13/24 11:30 Temperature Pulse Rate 117 H 117 H Respiratory Rate 34 H 32 H Blood Pressure 92/55 L Pulse Oximetry 90 L Oxygen Delivery Method 07/13/24 11:30 07/13/24 11:38 07/13/24 11:39 Temperature Pulse Rate 122 H 118 H Respiratory Rate 31 H 33 H Blood Pressure 83/54 L 92/51 L Pulse Oximetry 89 L 86 L Oxygen Delivery Method 07/13/24 11:39 07/13/24 11:42 07/13/24 11:42 Temperature Pulse Rate 116 H Respiratory Rate 35 H Blood Pressure 87/30 L 81/35 L Pulse Oximetry 85 L Oxygen Delivery Method 07/13/24 11:46 07/13/24 11:46 07/13/24 11:57 Temperature Pulse Rate 119 H Respiratory Rate 31 H Blood Pressure 81/44 L 79/62 L Pulse Oximetry Oxygen Delivery Method 07/13/24 11:57 07/13/24 12:00 07/13/24 12:01 Temperature Pulse Rate 119 H 118 H 118 H Respiratory Rate 31 H 32 H 33 H Blood Pressure Pulse Oximetry 88 L 87 L 88 L Oxygen Delivery Method 07/13/24 12:01 Temperature Pulse Rate Respiratory Rate Blood Pressure 83/30 L Pulse Oximetry Oxygen Delivery Method MDM - Weakness Lab Data 07/13/24 11:10 07/13/24 10:45 Labs: Lab Results 07/13/24 07/13/24 Range/Units 10:45 11:10 WBC 19.1 H (4.5-11.0) X10^3/uL RBC 3.92 L (4.5-5.9) X10^6/uL Hgb 12.1 L (13.5-17.5) g/dL Hct 36.3 L (41-53) % MCV 92.7 (80-100) fL MCH 30.9 (26-34) PG MCHC 33.4 (30-36) % RDW 16.3 H (11.6-14.8) % Plt Count 415 H (150-400) X10^3/uL Neut % (Auto) 94.7 H (50-75) % Lymph % (Auto) 2.2 L (25-40) % [place] % (Auto) 2.9 L (3-14) % Eos % (Auto) 0.0 L (2-4) % Baso % (Auto) 0.2 (0-2) % Neut # (Auto) 87210 H (1105-9963) /uL Lymph # (Auto) 400 L (4278-4654) /uL [place] # (Auto) 600 (0-900) /uL Eos # (Auto) 0 (0-450) /uL Baso # (Auto) 0 (0-100) /uL PT 14.4 H (9.4-12.5) SECONDS INR 1.3 (0.9-1.3) APTT 41 H (25.1-36.5) SECONDS Sodium 129 L (137-145) mmol/L Potassium 4.1 (3.4-5.1) mmol/L Chloride 96 L (98-107) mmol/L Carbon Dioxide 24 (22-32) mmol/L BUN 34 H (9-20) mg/dL Creatinine 1.49 H (0.66-1.25) mg/dL Estimated GFR 49 L (>60) mL/min BUN/Creatinine Ratio 22.8 H (6-22) Glucose 187 H (80-110) mg/dL Lactate 3.4 H (0.7-2.1) mmol/L Calcium 8.7 (8.4-10.2) mg/dL Total Bilirubin 1.0 (0.2-1.3) mg/dL AST 39 (17-59) IU/L ALT 36 (<50) IU/L Alkaline Phosphatase 93 (38-126) U/L NT-Pro-B Natriuret Pep 6900 H (<125) pg/mL Total Protein 5.9 L (6.3-8.2) g/dL Albumin 3.0 L (3.5-5.0) g/dL Globulin 2.9 (1.7-4.1) g/dL Albumin/Globulin Ratio 1.0 (1.0-2.8) Lipase 32 D (23-300) U/L Procalcitonin 29.2 H (<0.5) ng/mL Imaging Data Chest x-ray: Radiologist Impression: PROCEDURE: XR CHEST 1V INDICATIONS: suspected sepsis TECHNIQUE: One view of the chest was acquired. COMPARISON: [facility], XR CHEST FOR PICC 1V, 02/03/2024, 14:17. [facility], XR CHEST 1V, 02/03/2024, 10:00. FINDINGS: Surgical changes and devices: None. Lungs and pleura: Lungs are clear. No pleural effusions or pneumothorax. Mediastinum: Mediastinal contours appear normal. Heart size is normal. Bones and chest wall: No suspicious bony lesions. Overlying soft tissues appear unremarkable. IMPRESSION: No acute cardiopulmonary abnormality is seen. Dictated by: Cristian Luna M.D. on 07/13/2024 at 11:48 CX 2: Radiologist Impression: PROCEDURE: XR CHEST FOR PICC 1V INDICATIONS: picc COMPARISON: [facility], XR CHEST 1V, 07/13/2024, 11:03. FINDINGS: PICC was placed by the intravenous therapy team from the left side. Tip of PICC projecting to the area of the mid superior vena cava could be advanced up to 7 cm to the level of the vena cava/right atrial junction. Numerous cardiac leads, tubes, lines and other left trunk device circuit boards overlie the chest and partially obscure radiographic detail. Severe calcifications of the aortic arch unchanged. Moderately elevated right hemidiaphragm unchanged. Mildly enlarged cardiopericardial silhouette and mild pulmonary vascular prominence unchanged. No pneumothorax. IMPRESSION: Tip of PICC mid superior vena cava could be advanced up to 7 cm to the level of the vena cava/right atrial junction. Remainder of the exam unchanged. Dictated by: Darci Ruiz M.D. on 07/13/2024 at 13:15 ECG Data Attestation: I personally reviewed and interpreted this ECG as follows: Prior ECG tracings: available for review Interpretation: Sinus tachycardia rate 119 [place] interval 194 QRS 72 QTC 419 MDM Narrative Medical decision making narrative: MDM CC: Altered mental status hypotension Complicating co-morbidities: Coronary artery disease chronic kidney disease, general downhill decline over last 1 year. In December had an NSTEMI and ultimately required a stent. The dye then led to [facility] with a creatinine up to 8.8 and was transferred to [facility]. He his not always compliant with medications has had issue with insulin Data collected from: Sister maddy. NOT DPOA unclear who his DPOA is Medical records reviewed: Please see above. Dr. Kwon nephrology consult states patient had AMELIA 1 month after coronary angiogram and angioplasty procedure he was briefly on dialysis and ultimately weaned off. Last admission here also reviewed Differential considered: Sepsis shock anemia, tox intracranial hemorrhage, CHF acute coronary syndrome, pulmonary embolism Exam documented above, pertinent findings include: Chronically ill, erythematous rash multiple wounds over body slightly pale mild tachypnea Lab Test results independently reviewed as above. Pertinent findings: WBC 19, hemoglobin 12.1 hematocrit 36.3 platelets 415 Lactate 3.4, procalcitonin 29.2 Sodium 129 potassium 4.1 chloride 96 carbon dioxide 24 BUN 34, creatinine 1.49 previously 1.0 1.4 seems to be about baseline for him Independently reviewed EKG as above sinus tachycardia Imaging studies independently reviewed: Chest x-ray clear Consultations: Dr. Foley updated patient's symptoms test results and accepts Treatments: IV fluids though not given sepsis fluids due to hypoxia, cefepime and vancomycin, Levophed f Re-evaluations: Runs of V-tach declining requiring more oxygen Discussion: Patient chronically ill 74-year-old male presenting today with hypoxia hypotension new rash. Certainly concern for sepsis. Cefepime vancomycin given. However IV fluids were not given due to hypoxia unclear what was causing the hypoxia. Chest x-ray is read as clear. He was placed on high-flow nasal cannula, which he tolerated. Patient admitted to Dr. Foley but remained in the emergency department due to bed status. Patient did have a couple runs of nonsustained V-tach that appeared real. Dr. Mascorro was notified. Patient also started becoming more hypoxic and restless. Dr. Foley also notified attempted a PE study however during the CT scan he did not tolerated became bradycardic and severely hypoxic in the CT scan was canceled. Dr. Foley in ED to see and evaluate Presumed PE, septic shock Patient continues to be on Levophed but improving After multiple attempts of calling multiple phone numbers I did talk with sister Maddy [phone]. She reports it is unclear who is DPOA is she understands and is aware of his ongoing decline. She was up here with him for a lot of the summer but went back to [facility] form signed by him in January shows DNR DNI but limited interventions. Critical Care Time Critical Care Time Critical Care Time: Yes Total Critical Care Time: 40 Attestation: The high probability of a clinically significant, sudden or life threatening deterioration of the [cardiovascular] system(s) required my full and direct attention, intervention and personal management. The aggregate critical care time was 40 minutes. This time is in addition to time spent performing reported procedures but includes the following: [x] Data Review and interpretation [x] Patient assessment and monitoring of vital signs [x] Documentation [x] Medication orders and management Discharge Plan Departure Patient Disposition: Admitted As Inpatient Admit Date/Time: 07/13/24 12:06 Admit Provider: Dar Foley
[2024-07-13 11:40] LABS: Procalcitonin 29.2 ng/mL (<0.5)
[2024-07-13 11:41] LABS: Add Manual Diff / Slide Review NO; Basophils Absolute Auto 0 /uL (0-100); Basophils Percent Auto 0.2 % (0-2); Eosinophils Absolute Auto 0 /uL (0-450); Hematocrit 36.3 % (41-53); Hemoglobin 12.1 g/dL (13.5-17.5); Lymphocytes Absolute Auto 400 /uL (1100-4500); Lymphocytes Percent Auto 2.2 % (25-40); Mean Corpuscular HGB Conc 33.4 % (30-36); Mean Corpuscular Hemoglobin 30.9 PG (26-34); Mean Corpuscular Volume 92.7 fL (80-100); Monocytes Absolute Auto 600 /uL (0-900); Monocytes Percent Auto 2.9 % (3-14); Neutrophils Absolute Auto 18100 /uL (1500-7000); Neutrophils Percent Auto 94.7 % (50-75); Platelet Count 415 X10^3/uL (150-400); Red Blood Cell Count 3.92 X10^6/uL (4.5-5.9); Red Cell Distribution Width 16.3 % (11.6-14.8); White Blood Cell Count 19.1 X10^3/uL (4.5-11.0)
[2024-07-13] MEDS: NOREPINEPHRINE BITARTRATE/D5W 4 MG/250 ML PLAST..BAG 32.489 MG IV (11:50)
--- NOTE | 2024-07-13 12:01 | DI.RAD.S_ITS ---
PROCEDURE: XR CHEST FOR PICC 1V INDICATIONS: picc COMPARISON: [facility], CR, XR CHEST 1V, 07/13/2024, 11:03. FINDINGS: PICC was placed by the intravenous therapy team from the left side. Tip of PICC projecting to the area of the mid superior vena cava could be advanced up to 7 cm to the level of the vena cava/right atrial junction. Numerous cardiac leads, tubes, lines and other left trunk device circuit boards overlie the chest and partially obscure radiographic detail. Severe calcifications of the aortic arch unchanged. Moderately elevated right hemidiaphragm unchanged. Mildly enlarged cardiopericardial silhouette and mild pulmonary vascular prominence unchanged. No pneumothorax. IMPRESSION: Tip of PICC mid superior vena cava could be advanced up to 7 cm to the level of the vena cava/right atrial junction. Remainder of the exam unchanged. Dictated by: Darci Ruiz M.D. on 07/13/2024 at 13:15 Approved by: Darci Ruiz M.D. on 07/13/2024 at 13:18
[2024-07-13] MEDS: CEFEPIME 2 GM in SODIUM CHLORIDE 0.9% 100 ML IV ×2 (12:07→17:27)
--- NOTE | 2024-07-13 12:24 | PC.NURSE ---
reymundo had one IV placed from the medics. a second IV was attemped and at the same time diagnostic RN came to insert central line. IV levophed and cefepime not compatible. Will start abx after central line is placed.
[2024-07-13 12:45] LABS: Reflexed Lactate in 2 Hours Y
[2024-07-13] MEDS: VANCOMYCIN 1,500 MG/300 ML PIGGYBACK 200 MG IV (12:51)
[2024-07-13] MEDS: LIDOCAINE 2% (GLYDO) 6 ML GEL TOP (12:59)
[2024-07-13 13:31] LABS: Lactate 2HR (Lactic Acid Rflx) 4.9 mmol/L (0.7-2.1)
[2024-07-13 13:39] LABS: NT-proBNP (BNP-Adult 18+) 6900 pg/mL (<125)
--- NOTE | 2024-07-13 14:02 | PC.NURSE ---
patient was taken for diagnostic PE study. The patient was laid flat and transfered over to the table. His HR on the monitor and on palpation showed a drop from 110 to 47. His o2 saturation went from 90% down to 45% while on hi flow nasal cannula...at >95% fio2 and 55L as well as 5L non rebreather. He also became minimally responsive. The imaging was aborted and the patient was transfered back to the [facility] and back to room 1. He the patient was placed on his left side since he seems to oxygenate better on his left side. His HR is 104, his 02 sat is at 100% now on HFNC. His RR is 30 and shallow. He is resting and is now responding to voice but is weak.
[2024-07-13 14:13] LABS: Urine Volume 10mL (spun)
[2024-07-13 14:19] LABS: Bacteria Urine None Seen; Culture Indicated Urine Cult Not Indicated; Granular Casts Urine 1-5/LPF; RBC Urine None Seen (0-5/HPF); Squamous Epithelial Cell Urine None Seen (0-5/HPF); WBC Urine None Seen (0-5/HPF)
[2024-07-13 14:28] LABS: Magnesium 1.4 mg/dL (1.6-2.3)
[2024-07-13 14:41] LABS: Troponin I < 0.012 ng/mL (0.01-0.034)
--- NOTE | 2024-07-13 14:58 | PC.NURSE ---
Patient getting an ABG draw from RT and is uncomfortable with the pain.
[2024-07-13 15:12] LABS: Allen Test for ABG Passed? Positive; Blood Gas Collection Site Left Radial; Delivery System High Flow Nas Cannul; HCO3 ABG 20 mmol/L (23-27); Oxygen Saturation ABG 91 % (95-100); PCO2 ABG 49.5 mmHg (35-45); PO2 ABG 73 mmHg (80-100); TCO2 ABG 20 mmol/L (23-27); pH ABG 7.21 (7.35-7.45)
--- NOTE | 2024-07-13 15:28 | PM.HP.1 ---
History of Present Illness History of Present Illness Date Patient Seen: 07/13/24 Chief complaint: hypotension, weakness Narrative: From ED provider: Patient 74-year-old male history of hypertension diabetes chronic kidney disease depression anemia coronary artery disease drug-eluting stent in December 2023 on prasygrel presenting today with hypotension weakness. He was admitted to this hospital July 09 through the and discharged to rehab facility. A time he was admitted for hypotension anemia frequent falls. Hemoglobin dropped to 6.7 baseline being around 10-12 was given IV iron. Today he is presenting with increasing weakness and again hypotension. He has a rash diffusely all over his body which is new. He is weak also found to be hypoxic not really able to participate in exam or history. Additional information: The patient was recently admitted for hypotension and anemia. He was transfused and improved symptomatically. The patient had no evidence of clinical bleeding. He was transferred to [facility] where he did well for about 1 day. He then apparently became more hypotensive and was brought over from the hospital. He has extensive ecchymosis over his entire body and is quite lethargic and cachectic. The patient has had a history of acute kidney injury and has evidence of mild AMELIA today. Upon arrival in the ED he was hypotensive and central access was obtained with a PICC line. He was started on pressors and given a weight based fluid bolus. The patient was given broad-spectrum antibiotics, cefepime and vancomycin. His chest x-ray was clear. There was no evidence of a focal soft tissue skin infection. The patient was also hypoxic and a chest x-ray was clear. There was a plan to pursue a CT pulmonary angiogram, however he would become more hypoxic with laying flat. The patient is on 1.2 mcg of norepinephrine and relatively stable. He was on high-flow oxygen which was started in the emergency department with sats of about 90% on maximum rate oxygen. He does desaturate if he lays flat. He was quite lethargic and not really able to add much in terms of additional history or symptoms. [facility] Medical History Screening due Folliculitis Myalgia COVID-19 BPH w urinary obs/LUTS Bilateral nephrolithiasis Retained ureteral stent Bilateral nephrolithiasis Left ureteral calculus Labyrinthitis Lymphocytic colitis (2012) Rosacea (Unknown) Kidney stones (2011) Kidney disease (Unknown) Myopia (Unknown) Asthma (Unknown) Anemia (Unknown) Depression (Unknown) Hypertriglyceridemia (Unknown) Hypertension (Unknown) Hyperlipidemia (Unknown) Microscopic colitis (10/10/15) Chronic renal insufficiency, stage II (mild) (10/10/15) Depression (09/04/14) Type 2 diabetes mellitus without complication (09/11/15) Essential hypertension (09/11/15) Surgical History Hx of cystoscopy (04/29/21) Family History Father Cancer Mother Stroke Social History marital status: unmarried,single household members: none lives independently: Yes Smoking Status: Former smoker alcohol intake: current Meds Home Medications and Allergies Home Medications Medication Instructions Recorded Confirmed Type ketoconazole 2 % topical cream 1 applic topical BID PRN 06/07/23 07/07/24 Rx itching/rash #15 grams cholecalciferol (vitamin D3) 50 50 mcg PO DAILY 08/04/23 07/07/24 History mcg (2,000 unit) capsule (Vitamin D3) budesonide 3 mg 3 mg PO BID #180 caps 01/18/24 07/07/24 Rx capsule,delayed,extended release aspirin 81 mg tablet,delayed 81 mg PO DAILY 01/26/24 07/07/24 History release blood sugar diagnostic (Blood #100 ea 01/26/24 07/07/24 Rx Glucose Test strips) blood-glucose meter (Blood Glucose #1 ea 01/26/24 07/07/24 Rx Monitoring kit) lancets 30 gauge #100 ea 01/26/24 07/07/24 Rx nitroglycerin 0.4 mg sublingual 0.4 mg sublingual Q5M PRN chest 01/26/24 07/07/24 Rx tablet pain #10 tabs potassium citrate 10 mEq (1,080 20 meq PO BID 01/26/24 07/09/24 History mg) tablet,extended release rosuvastatin 40 mg tablet 40 mg PO DAILY #90 tabs 01/26/24 07/07/24 Rx omeprazole 20 mg capsule,delayed 20 mg PO DAILY #90 caps 03/27/24 07/07/24 Rx release trazodone 50 mg tablet 25 mg (1/2 x 50 mg) PO BEDTIME PRN 03/28/24 07/07/24 Rx sleep #30 tabs methocarbamol 500 mg tablet 500 mg PO BID PRN muscle spasm #15 06/26/24 07/07/24 Rx tabs insulin glargine 100 unit/mL (3 17 unit SUBCUT QAM 07/07/24 07/07/24 History mL) subcutaneous pen (Basaglar KwikPen U-100 Insulin) sitagliptin phosphate 100 mg 100 mg PO DAILY 07/07/24 07/07/24 History tablet (Januvia) prasugrel 10 mg tablet 10 mg PO DAILY 07/09/24 07/09/24 History Allergies Allergy/AdvReac Type Severity Reaction Status Date / Time MALCOLM Inhibitors AdvReac Severe Elevated Verified 07/13/24 11:04 creatinine Review of Systems Review of Systems Narrative: Not obtainable due to his lethargy and mental status. Exam Vital Signs (past 8 hours): - 07/13/24 10:47 07/13/24 10:49 07/13/24 10:49 Temperature Pulse Rate 72 73 Respiratory Rate Blood Pressure 72/50 L Pulse Oximetry 90 L 90 L Oxygen Delivery Method Oxygen Flow Rate 07/13/24 10:51 07/13/24 10:51 07/13/24 10:59 Temperature 97.7 F Pulse Rate 120 H 119 H Respiratory Rate 28 H Blood Pressure 102/53 L 102/53 L Pulse Oximetry 97 93 Oxygen Delivery Method Room Air Oxygen Flow Rate 07/13/24 11:00 07/13/24 11:00 07/13/24 11:11 Temperature Pulse Rate 116 H 122 H Respiratory Rate 33 H 31 H Blood Pressure 100/58 L Pulse Oximetry 93 89 L Oxygen Delivery Method Oxygen Flow Rate 07/13/24 11:11 07/13/24 11:21 07/13/24 11:21 Temperature Pulse Rate 117 H Respiratory Rate 33 H Blood Pressure 92/51 L 96/53 L Pulse Oximetry 91 Oxygen Delivery Method Oxygen Flow Rate 07/13/24 11:25 07/13/24 11:25 07/13/24 11:30 Temperature Pulse Rate 117 H 117 H Respiratory Rate 34 H 32 H Blood Pressure 92/55 L Pulse Oximetry 90 L Oxygen Delivery Method Oxygen Flow Rate 07/13/24 11:30 07/13/24 11:38 07/13/24 11:39 Temperature Pulse Rate 122 H 118 H Respiratory Rate 31 H 33 H Blood Pressure 83/54 L 92/51 L Pulse Oximetry 89 L 86 L Oxygen Delivery Method Oxygen Flow Rate 07/13/24 11:39 07/13/24 11:42 07/13/24 11:42 Temperature Pulse Rate 116 H Respiratory Rate 35 H Blood Pressure 87/30 L 81/35 L Pulse Oximetry 85 L Oxygen Delivery Method Oxygen Flow Rate 07/13/24 11:46 07/13/24 11:46 07/13/24 11:57 Temperature Pulse Rate 119 H Respiratory Rate 31 H Blood Pressure 81/44 L 79/62 L Pulse Oximetry Oxygen Delivery Method Oxygen Flow Rate 07/13/24 11:57 07/13/24 12:00 07/13/24 12:01 Temperature Pulse Rate 119 H 118 H 118 H Respiratory Rate 31 H 32 H 33 H Blood Pressure Pulse Oximetry 88 L 87 L 88 L Oxygen Delivery Method Oxygen Flow Rate 07/13/24 12:01 07/13/24 12:07 07/13/24 12:07 Temperature Pulse Rate 119 H Respiratory Rate 34 H Blood Pressure 83/30 L 81/30 L Pulse Oximetry 94 Oxygen Delivery Method Oxygen Flow Rate 07/13/24 12:21 07/13/24 12:21 07/13/24 12:25 Temperature Pulse Rate 119 H Respiratory Rate 34 H Blood Pressure 129/67 136/75 Pulse Oximetry 91 Oxygen Delivery Method Oxygen Flow Rate 07/13/24 12:25 07/13/24 12:30 07/13/24 12:30 Temperature Pulse Rate 120 H 116 H Respiratory Rate 35 H 39 H Blood Pressure 148/64 H Pulse Oximetry 90 L 92 Oxygen Delivery Method Oxygen Flow Rate 07/13/24 12:35 07/13/24 12:35 07/13/24 12:40 Temperature Pulse Rate 121 H Respiratory Rate 33 H Blood Pressure 152/65 H 150/63 H Pulse Oximetry 93 Oxygen Delivery Method Oxygen Flow Rate 07/13/24 12:40 07/13/24 12:45 07/13/24 12:45 Temperature Pulse Rate 117 H 119 H Respiratory Rate 38 H 36 H Blood Pressure 151/65 H Pulse Oximetry 88 L 91 Oxygen Delivery Method Oxygen Flow Rate 07/13/24 12:50 07/13/24 12:50 07/13/24 12:56 Temperature Pulse Rate 121 H 111 H Respiratory Rate 34 H 39 H Blood Pressure 149/65 H Pulse Oximetry 84 L 85 L Oxygen Delivery Method Oxygen Flow Rate 07/13/24 12:56 07/13/24 13:00 07/13/24 13:00 Temperature Pulse Rate 117 H Respiratory Rate 36 H Blood Pressure 117/53 L 114/56 L Pulse Oximetry 81 L Oxygen Delivery Method Oxygen Flow Rate 07/13/24 13:05 07/13/24 13:05 07/13/24 13:10 Temperature Pulse Rate 117 H Respiratory Rate 35 H Blood Pressure 123/61 132/60 Pulse Oximetry 81 L Oxygen Delivery Method Oxygen Flow Rate 07/13/24 13:10 07/13/24 13:15 07/13/24 13:15 Temperature Pulse Rate 115 H 120 H Respiratory Rate 37 H 38 H Blood Pressure 112/59 L Pulse Oximetry 85 L 95 Oxygen Delivery Method Oxygen Flow Rate 07/13/24 13:20 07/13/24 13:20 07/13/24 13:20 Temperature Pulse Rate 111 H Respiratory Rate 37 H Blood Pressure 142/60 H 142/60 H Pulse Oximetry 95 Oxygen Delivery Method Oxygen Flow Rate 07/13/24 13:25 07/13/24 13:25 07/13/24 13:25 Temperature Pulse Rate 107 H Respiratory Rate 34 H Blood Pressure 112/49 L 112/49 L Pulse Oximetry 80 L Oxygen Delivery Method Oxygen Flow Rate 07/13/24 13:30 07/13/24 13:33 07/13/24 13:33 Temperature Pulse Rate 107 H 107 H Respiratory Rate 32 H 34 H Blood Pressure 120/51 L Pulse Oximetry 76 L 74 L Oxygen Delivery Method Oxygen Flow Rate 07/13/24 13:35 07/13/24 13:35 07/13/24 13:40 Temperature Pulse Rate 108 H 111 H Respiratory Rate 33 H 32 H Blood Pressure 145/57 H Pulse Oximetry 97 97 Oxygen Delivery Method Oxygen Flow Rate 07/13/24 13:40 07/13/24 13:45 07/13/24 13:45 Temperature Pulse Rate 109 H Respiratory Rate 34 H Blood Pressure 123/53 L 114/43 L Pulse Oximetry 96 Oxygen Delivery Method Oxygen Flow Rate 07/13/24 13:47 07/13/24 13:47 07/13/24 13:55 Temperature Pulse Rate 109 H 55 L Respiratory Rate 34 H 29 H Blood Pressure 107/51 L Pulse Oximetry 94 71 L Oxygen Delivery Method Oxygen Flow Rate 07/13/24 13:55 07/13/24 13:57 07/13/24 13:57 Temperature Pulse Rate 86 Respiratory Rate 24 Blood Pressure 118/54 L 118/54 L Pulse Oximetry 66 L Oxygen Delivery Method Oxygen Flow Rate 07/13/24 14:00 07/13/24 14:00 07/13/24 14:06 Temperature Pulse Rate 103 H 104 H Respiratory Rate 27 H 29 H Blood Pressure 172/73 H Pulse Oximetry 98 100 Oxygen Delivery Method Oxygen Flow Rate 07/13/24 14:06 07/13/24 14:10 07/13/24 14:10 Temperature Pulse Rate 108 H Respiratory Rate 32 H Blood Pressure 108/47 L 116/48 L Pulse Oximetry 100 Oxygen Delivery Method Oxygen Flow Rate 07/13/24 14:12 07/13/24 14:15 07/13/24 14:15 Temperature Pulse Rate 108 H 107 H Respiratory Rate 30 H 31 H Blood Pressure 116/48 L 104/42 L Pulse Oximetry 98 98 Oxygen Delivery Method High Flow Nasal Cannula Oxygen Flow Rate 55 07/13/24 14:20 07/13/24 14:20 07/13/24 14:23 Temperature Pulse Rate 104 H 104 H Respiratory Rate 34 H 31 H Blood Pressure 89/52 L Pulse Oximetry 98 100 Oxygen Delivery Method Oxygen Flow Rate 07/13/24 14:23 07/13/24 14:26 07/13/24 14:30 Temperature Pulse Rate 103 H 101 H Respiratory Rate 30 H 33 H Blood Pressure 84/41 L Pulse Oximetry 99 98 Oxygen Delivery Method Oxygen Flow Rate 07/13/24 14:32 07/13/24 14:32 07/13/24 14:57 Temperature Pulse Rate 100 H 99 H Respiratory Rate 35 H 31 H Blood Pressure 101/44 L 178/74 H Pulse Oximetry 92 82 L Oxygen Delivery Method Oxygen Flow Rate Oxygen Delivery Method High Flow Nasal Cannula Oxygen Flow Rate 55 Narrative Exam Narrative: He appears critically ill, he was lethargic. He was able to answer simple questions and night denies being in pain. He has an atraumatic head, anicteric sclera symmetric pupils, EOMI. Oropharynx is dry. There was no droop. Neck is supple, midline trachea. Lungs are clear, he has mild tachypnea. Heart is regular, no murmur is heard. Abdomen is grossly distended and soft. It was nontender. Legs are free of edema. Skin is notable for extensive ecchymosis and excoriations over arms and legs. Joints are not swollen and there are no deformities. He can moves arms and legs spontaneously. His speech is normal, soft and he was not speak very much. Objective ECG Impression: Sinus tachycardia Nonspecific ST abnormality Imaging Chest x-ray:: My impression: There is some cephalization of vessels. No focal infiltrate. Radiologist's impression: FINDINGS: PICC was placed by the intravenous therapy team from the left side. Tip of PICC projecting to the area of the mid superior vena cava could be advanced up to 7 cm to the level of the vena cava/right atrial junction. Numerous cardiac leads, tubes, lines and other left trunk device circuit boards overlie the chest and partially obscure radiographic detail. Severe calcifications of the aortic arch unchanged. Moderately elevated right hemidiaphragm unchanged. Mildly enlarged cardiopericardial silhouette and mild pulmonary vascular prominence unchanged. No pneumothorax. IMPRESSION: Tip of PICC mid superior vena cava could be advanced up to 7 cm to the level of the vena cava/right atrial junction. Remainder of the exam unchanged. Labs 07/13/24 11:10 07/13/24 10:45 Labs: Laboratory Results - last 24 hr 07/13/24 07/13/24 07/13/24 10:45 11:10 13:09 WBC 19.1 H RBC 3.92 L Hgb 12.1 L Hct 36.3 L MCV 92.7 MCH 30.9 MCHC 33.4 RDW 16.3 H Plt Count 415 H Neut % (Auto) 94.7 H Lymph % (Auto) 2.2 L Hunt % (Auto) 2.9 L Eos % (Auto) 0.0 L Baso % (Auto) 0.2 Neut # (Auto) 70823 H Lymph # (Auto) 400 L Hunt # (Auto) 600 Eos # (Auto) 0 Baso # (Auto) 0 PT 14.4 H INR 1.3 APTT 41 H ABG Sample Site ABG pH ABG pCO2 ABG pO2 ABG HCO3 ABG Total CO2 ABG O2 Saturation ABG Base Excess Dar Test O2 Delivery Device FiO2 % Sodium 129 L Potassium 4.1 Chloride 96 L Carbon Dioxide 24 BUN 34 H Creatinine 1.49 H Estimated GFR 49 L BUN/Creatinine Ratio 22.8 H Glucose 187 H Lactate 3.4 H 4.9 H* Calcium 8.7 Magnesium Total Bilirubin 1.0 AST 39 ALT 36 Alkaline Phosphatase 93 Troponin I NT-Pro-B Natriuret Pep 6900 H Total Protein 5.9 L Albumin 3.0 L Globulin 2.9 Albumin/Globulin Ratio 1.0 Lipase 32 D Procalcitonin 29.2 H Urine RBC Urine WBC Ur Squamous Epith Cells Urine Bacteria Granular Casts Ur Culture Indicated? Vol Urine Centrifuged 07/13/24 07/13/24 07/13/24 13:26 14:06 15:07 WBC RBC Hgb Hct MCV MCH MCHC RDW Plt Count Neut % (Auto) Lymph % (Auto) Hunt % (Auto) Eos % (Auto) Baso % (Auto) Neut # (Auto) Lymph # (Auto) Hunt # (Auto) Eos # (Auto) Baso # (Auto) PT INR APTT ABG Sample Site Left radial ABG pH 7.21 L* ABG pCO2 49.5 H ABG pO2 73 L ABG HCO3 20 L ABG Total CO2 20 L ABG O2 Saturation 91 L ABG Base Excess -8.0 L Dar Test Positive O2 Delivery Device High flow zahra cannul FiO2 % 100 % Sodium Potassium Chloride Carbon Dioxide BUN Creatinine Estimated GFR BUN/Creatinine Ratio Glucose Lactate Calcium Magnesium 1.4 L Total Bilirubin AST ALT Alkaline Phosphatase Troponin I < 0.012 NT-Pro-B Natriuret Pep Total Protein Albumin Globulin Albumin/Globulin Ratio Lipase Procalcitonin Urine RBC None seen Urine WBC None seen Ur Squamous Epith Cells None seen Urine Bacteria None seen Granular Casts 1-5/lpf Ur Culture Indicated? Cult not indicated Vol Urine Centrifuged 10ml (spun) Assessment & Plan Assessment & Plan narrative: 1. Septic shock, present on admission and active. 2. Lactic acidosis, present on admission and active. 3. Elevated procalcitonin, present on admission and active. 4. Acute hypoxic respiratory failure, present on admission and active. 5. Acute septic encephalopathy, present on admission and active. 6. AMEILA, present on admission and active. 7. Acute on chronic anemia without clinical bleeding, present on admission and active. PLAN: -broad spectrum Abx and follow blood cultures. -Sepsis bolus and pressors -HFO2 -trend lactate -wean O2 as able -heparin drip for possible pulmonary embolism. -DNR/DNI -monitor renal funstion DNR/DNI. Discussed with Sister (only family) Guarded prognosis Time-Based Coding :: 45 min critical care time spent with patient and on the chart (including review of chart, obtaining history, exam, reviewing outside data, placing orders, documenting exam and treatment plan, and counseling patient) on 07/13 Quality MIPS - Admit I confirm the patient?s Advance Care Plan is present, Code status is documented, Surrogate decision maker is in patient?s record [If Yes, STOP here]: Yes MIPS - Meds 'Current medications' to include all prescriptions, [id number] products, herbals, cannabis/cannabidiol products, and vitamin/mineral/dietary (nutritional) supplements. I have utilized all available resources to obtain, update, or review the patient?s current medications. [If Yes, STOP here]: Yes
[2024-07-13] MEDS: SODIUM CHLORIDE 0.9% 1,000 ML 130 ML IV ×2 (15:35→23:18)
--- NOTE | 2024-07-13 16:40 | PC.NURSE ---
Addendum entered by Jose Kat R.N. 07/13/24 17:05: Admission skin assessment completed as best as possible, unable to fully turn patient due to significant drop in O2 and BP when repositioned. Original Note: 1620 - Admitted from ED via stretcher, slide board to bed. 100% on HHF, Levo @ 0.12 mcgs/kg/min. Patient able to answer questions worth short responses, A/O x3. Fatigued. O2 and BP extremely positional, adjusting bed or moving patient significantly drops vital signs. Skin is extremely damaged, wounds from previous admission still present, new all-over body rash present. Admission assessment completed a best as possible.
[2024-07-13 17:25] LABS: PTT Partial Thromboplastin Tim 41 SECONDS (25.1-36.5)
[2024-07-13] MEDS: HEPARIN 5,000 UNIT/ML VIAL 7000 UNIT IV (17:28)
[2024-07-13] MEDS: HEPARIN DRIP 25,000 UNIT/500 ML IV.SOLN 31.189 UNIT IV (17:37)
[2024-07-13] MEDS: NOREPINEPHRINE BITARTRATE/D5W 4 MG/250 ML PLAST..BAG 55.23 MG IV (17:38)
[2024-07-13 17:41] LABS: Lactate (Lactic Acid) 2.8 mmol/L (0.7-2.1)
[2024-07-13 19:05] LABS: Reflexed Lactate in 2 Hours Y
--- NOTE | 2024-07-13 20:33 | PM.CN.EICU ---
History of Present Illness Consult details IF CAMERA ACTIVATED, patient seen via real-time interactive audiovisual communication: Camera activated Date Patient Seen: 07/13/24 Chief complaint: hypotension, weakness Reason for consult: Septic Shock, Acute hypoxic Respiratory failure Consent obtained for tele-loader unloader care: Yes Patient Location: ICU Provider location (State): [place] Other participants/roles: RN, Hospitalist Narrative: This is a 74 years old male with history of hypertension, diabetes type 2, CKD, depression, anemia, CAD s/p ALVARO in December 2023 (on prasugrel) who presented to ED with hypotension and generalized weakness. He was recently hospitalized from 07/09/2024 through 07/11/2024 and was discharged to rehab facility after being treated for hypertension, anemia and frequent falls, was transfused PRBC for hemoglobin of 6.7 which improved to 10-12 at the time of discharge, now presented again with generalized weakness and hypotension. He was also noted to have diffuse rash which was reportedly new. At the time of arrival to ED, he was hypoxic and required to be placed on high flow nasal cannula. Sepsis was suspected in the setting of hypotension, and he was started on empiric IV antibiotics cefepime and IV vancomycin as well as vasopressors. There was some concern about possible acute PE given severe hypoxia however he was unable to lay flat and was empirically started on heparin drip. His CODE STATUS was confirmed to be DNR/DNI after discussion with patient's daughter per hospitalist team. Initial labs and imaging studies reviewed. Initial workup was notable for WBC 19.1, INR 1.3, PTT 41.0, sodium 129, BUN 34, creatinine 1.49 (elevated from baseline 1.07), glucose 187, lactic acid 2.8 which increased to 3.4, mag 1.4, proBNP 6900, albumin 3.0, procalcitonin elevated 29.2. He tested negative for COVID-19, influenza A/B PCR and RSV. ABG with pH 7.21, pCO2 49.5, PaO2 73, bicarb 20 on 100% FiO2. Initial chest x-ray with no acute cardiopulmonary abnormality. He was admitted to ICU for further management. Tele-ICU consultation was requested to assist with ICU comanagement. COUNTS INCLUDE 234 BEDS AT THE [facility] Medical History Screening due Folliculitis Myalgia COVID-19 BPH w urinary obs/LUTS Bilateral nephrolithiasis Retained ureteral stent Bilateral nephrolithiasis Left ureteral calculus Labyrinthitis Lymphocytic colitis (2012) Rosacea (Unknown) Kidney stones (2011) Kidney disease (Unknown) Myopia (Unknown) Asthma (Unknown) Anemia (Unknown) Depression (Unknown) Hypertriglyceridemia (Unknown) Hypertension (Unknown) Hyperlipidemia (Unknown) Microscopic colitis (10/10/15) Chronic renal insufficiency, stage II (mild) (10/10/15) Depression (09/04/14) Type 2 diabetes mellitus without complication (09/11/15) Essential hypertension (09/11/15) Surgical History Hx of cystoscopy (04/29/21) Family History Father Cancer Mother Stroke Social History marital status: unmarried,single household members: none lives independently: Yes Smoking Status: Former smoker alcohol intake: current Current Medications Current Medications Medications: Home Medications ketoconazole 2 % topical cream 1 applic topical BID PRN itching/rash #15 grams 06/07/23 [Rx Confirmed 07/07/24] cholecalciferol (vitamin D3) 50 mcg (2,000 unit) capsule (Vitamin D3) 50 mcg PO DAILY 08/04/23 [History Confirmed 07/07/24] budesonide 3 mg capsule,delayed,extended release 3 mg PO BID #180 caps 01/18/24 [Rx Confirmed 07/07/24] aspirin 81 mg tablet,delayed release 81 mg PO DAILY 01/26/24 [History Confirmed 07/07/24] blood sugar diagnostic (Blood Glucose Test strips) #100 ea 01/26/24 [Rx Confirmed 07/07/24] blood-glucose meter (Blood Glucose Monitoring kit) #1 ea 01/26/24 [Rx Confirmed 07/07/24] lancets 30 gauge #100 ea 01/26/24 [Rx Confirmed 07/07/24] nitroglycerin 0.4 mg sublingual tablet 0.4 mg sublingual Q5M PRN chest pain #10 tabs 01/26/24 [Rx Confirmed 07/07/24] potassium citrate 10 mEq (1,080 mg) tablet,extended release 20 meq PO BID 01/26/24 [History Confirmed 07/09/24] rosuvastatin 40 mg tablet 40 mg PO DAILY #90 tabs 01/26/24 [Rx Confirmed 07/07/24] omeprazole 20 mg capsule,delayed release 20 mg PO DAILY #90 caps 03/27/24 [Rx Confirmed 07/07/24] trazodone 50 mg tablet 25 mg (1/2 x 50 mg) PO BEDTIME PRN sleep #30 tabs 03/28/24 [Rx Confirmed 07/07/24] methocarbamol 500 mg tablet 500 mg PO BID PRN muscle spasm #15 tabs 06/26/24 [Rx Confirmed 07/07/24] insulin glargine 100 unit/mL (3 mL) subcutaneous pen (Basaglar KwikPen U-100 Insulin) 17 unit SUBCUT QAM 07/07/24 [History Confirmed 07/07/24] sitagliptin phosphate 100 mg tablet (Januvia) 100 mg PO DAILY 07/07/24 [History Confirmed 07/07/24] prasugrel 10 mg tablet 10 mg PO DAILY 07/09/24 [History Confirmed 07/09/24] Visit Medications (administered) Generic Name Dose Route Start Last Admin Trade Name Freq PRN Reason Stop Dose Admin NOREPINEPHRINE BITARTRATE/D5W 4 mg in 250 mls @ 32.489 mls/hr 07/13/24 11:47 07/13/24 19:04 Levophed IV 0.25 mcg/kg/min TITRATE GERALDINE 81.221 mls/hr Titration Protocol 0.1 MCG/KG/MIN Sodium Chloride 1,000 mls @ 130 mls/hr 07/13/24 15:30 07/13/24 16:09 Normal Saline 0.9% IV 130 mls/hr CONT GERALDINE Infusion Heparin Sodium/Dextrose 25,000 unit in 500 mls @ 31.189 mls/hr 07/13/24 16:45 07/13/24 17:37 Heparin Drip IV 18 units/kg/hr CONT GERALDINE 31.189 mls/hr Administration Protocol 18 UNITS/KG/HR Cefepime HCl 2 gm/ Sodium 100 mls @ 200 mls/hr 07/13/24 17:00 07/13/24 19:55 Chloride IV Infused Q12H GERALDINE Infusion Review of Systems Review of Systems Narrative: Unable to obtain due to patient's current condition. Exam Vital Signs (past 8 hours): - 07/13/24 12:35 07/13/24 12:35 07/13/24 12:40 Temperature Pulse Rate 121 H Respiratory Rate 33 H Blood Pressure 152/65 H 150/63 H Pulse Oximetry 93 Oxygen Delivery Method Oxygen Flow Rate Fraction of Inspired Oxygen 07/13/24 12:40 07/13/24 12:41 07/13/24 12:45 Temperature Pulse Rate 117 H 119 H Respiratory Rate 38 H 36 H Blood Pressure Pulse Oximetry 88 L 91 Oxygen Delivery Method Heated High Flow Oxygen Flow Rate Fraction of Inspired Oxygen 07/13/24 12:45 07/13/24 12:50 07/13/24 12:50 Temperature Pulse Rate 121 H Respiratory Rate 34 H Blood Pressure 151/65 H 149/65 H Pulse Oximetry 84 L Oxygen Delivery Method Oxygen Flow Rate Fraction of Inspired Oxygen 07/13/24 12:56 07/13/24 12:56 07/13/24 13:00 Temperature Pulse Rate 111 H 117 H Respiratory Rate 39 H 36 H Blood Pressure 117/53 L Pulse Oximetry 85 L 81 L Oxygen Delivery Method Oxygen Flow Rate Fraction of Inspired Oxygen 07/13/24 13:00 07/13/24 13:05 07/13/24 13:05 Temperature Pulse Rate 117 H Respiratory Rate 35 H Blood Pressure 114/56 L 123/61 Pulse Oximetry 81 L Oxygen Delivery Method Oxygen Flow Rate Fraction of Inspired Oxygen 07/13/24 13:10 07/13/24 13:10 07/13/24 13:15 Temperature Pulse Rate 115 H Respiratory Rate 37 H Blood Pressure 132/60 112/59 L Pulse Oximetry 85 L Oxygen Delivery Method Oxygen Flow Rate Fraction of Inspired Oxygen 07/13/24 13:15 07/13/24 13:20 07/13/24 13:20 Temperature Pulse Rate 120 H 111 H Respiratory Rate 38 H 37 H Blood Pressure 142/60 H Pulse Oximetry 95 95 Oxygen Delivery Method Oxygen Flow Rate Fraction of Inspired Oxygen 07/13/24 13:20 07/13/24 13:25 07/13/24 13:25 Temperature Pulse Rate 107 H Respiratory Rate 34 H Blood Pressure 142/60 H 112/49 L Pulse Oximetry 80 L Oxygen Delivery Method Oxygen Flow Rate Fraction of Inspired Oxygen 07/13/24 13:25 07/13/24 13:30 07/13/24 13:33 Temperature Pulse Rate 107 H 107 H Respiratory Rate 32 H 34 H Blood Pressure 112/49 L Pulse Oximetry 76 L 74 L Oxygen Delivery Method Oxygen Flow Rate Fraction of Inspired Oxygen 07/13/24 13:33 07/13/24 13:35 07/13/24 13:35 Temperature Pulse Rate 108 H Respiratory Rate 33 H Blood Pressure 120/51 L 145/57 H Pulse Oximetry 97 Oxygen Delivery Method Oxygen Flow Rate Fraction of Inspired Oxygen 07/13/24 13:40 07/13/24 13:40 07/13/24 13:45 Temperature Pulse Rate 111 H 109 H Respiratory Rate 32 H 34 H Blood Pressure 123/53 L Pulse Oximetry 97 96 Oxygen Delivery Method Oxygen Flow Rate Fraction of Inspired Oxygen 07/13/24 13:45 07/13/24 13:47 07/13/24 13:47 Temperature Pulse Rate 109 H Respiratory Rate 34 H Blood Pressure 114/43 L 107/51 L Pulse Oximetry 94 Oxygen Delivery Method Oxygen Flow Rate Fraction of Inspired Oxygen 07/13/24 13:55 07/13/24 13:55 07/13/24 13:57 Temperature Pulse Rate 55 L 86 Respiratory Rate 29 H 24 Blood Pressure 118/54 L Pulse Oximetry 71 L 66 L Oxygen Delivery Method Oxygen Flow Rate Fraction of Inspired Oxygen 07/13/24 13:57 07/13/24 14:00 07/13/24 14:00 Temperature Pulse Rate 103 H Respiratory Rate 27 H Blood Pressure 118/54 L 172/73 H Pulse Oximetry 98 Oxygen Delivery Method Oxygen Flow Rate Fraction of Inspired Oxygen 07/13/24 14:06 07/13/24 14:06 07/13/24 14:10 Temperature Pulse Rate 104 H Respiratory Rate 29 H Blood Pressure 108/47 L 116/48 L Pulse Oximetry 100 Oxygen Delivery Method Oxygen Flow Rate Fraction of Inspired Oxygen 07/13/24 14:10 07/13/24 14:12 07/13/24 14:15 Temperature Pulse Rate 108 H 108 H 107 H Respiratory Rate 32 H 30 H 31 H Blood Pressure 116/48 L Pulse Oximetry 100 98 98 Oxygen Delivery Method High Flow Nasal Cannula Oxygen Flow Rate 55 Fraction of Inspired Oxygen 07/13/24 14:15 07/13/24 14:20 07/13/24 14:20 Temperature Pulse Rate 104 H Respiratory Rate 34 H Blood Pressure 104/42 L 89/52 L Pulse Oximetry 98 Oxygen Delivery Method Oxygen Flow Rate Fraction of Inspired Oxygen 07/13/24 14:23 07/13/24 14:23 07/13/24 14:26 Temperature Pulse Rate 104 H 103 H Respiratory Rate 31 H 30 H Blood Pressure 84/41 L Pulse Oximetry 100 99 Oxygen Delivery Method Oxygen Flow Rate Fraction of Inspired Oxygen 07/13/24 14:30 07/13/24 14:32 07/13/24 14:32 Temperature Pulse Rate 101 H 100 H Respiratory Rate 33 H 35 H Blood Pressure 101/44 L Pulse Oximetry 98 92 Oxygen Delivery Method Oxygen Flow Rate Fraction of Inspired Oxygen 07/13/24 14:40 07/13/24 14:40 07/13/24 14:45 Temperature Pulse Rate 94 H Respiratory Rate 33 H Blood Pressure 101/44 L 97/50 L Pulse Oximetry Oxygen Delivery Method Oxygen Flow Rate Fraction of Inspired Oxygen 07/13/24 14:45 07/13/24 14:51 07/13/24 14:51 Temperature Pulse Rate 96 H 98 H Respiratory Rate 33 H 33 H Blood Pressure 189/74 H Pulse Oximetry 85 L Oxygen Delivery Method Oxygen Flow Rate Fraction of Inspired Oxygen 07/13/24 14:55 07/13/24 14:55 07/13/24 14:57 Temperature Pulse Rate 99 H 99 H Respiratory Rate 31 H 31 H Blood Pressure 178/74 H 178/74 H Pulse Oximetry 84 L 82 L Oxygen Delivery Method Oxygen Flow Rate Fraction of Inspired Oxygen 07/13/24 15:00 07/13/24 15:00 07/13/24 15:06 Temperature Pulse Rate 100 H 100 H Respiratory Rate 32 H 33 H Blood Pressure 164/72 H Pulse Oximetry 87 L 92 Oxygen Delivery Method Oxygen Flow Rate Fraction of Inspired Oxygen 07/13/24 15:06 07/13/24 15:10 07/13/24 15:10 Temperature Pulse Rate 103 H Respiratory Rate 34 H Blood Pressure 162/67 H 200/79 H Pulse Oximetry Oxygen Delivery Method Oxygen Flow Rate Fraction of Inspired Oxygen 07/13/24 15:15 07/13/24 15:15 07/13/24 15:20 Temperature Pulse Rate 104 H 104 H Respiratory Rate 32 H 33 H Blood Pressure 181/86 H Pulse Oximetry 94 95 Oxygen Delivery Method Oxygen Flow Rate Fraction of Inspired Oxygen 07/13/24 15:20 07/13/24 15:25 07/13/24 15:25 Temperature Pulse Rate 102 H Respiratory Rate 36 H Blood Pressure 176/72 H 143/57 H Pulse Oximetry 93 Oxygen Delivery Method Oxygen Flow Rate Fraction of Inspired Oxygen 07/13/24 15:30 07/13/24 15:30 07/13/24 15:39 Temperature Pulse Rate 103 H 100 H Respiratory Rate 33 H 31 H Blood Pressure 168/61 H Pulse Oximetry 94 95 Oxygen Delivery Method Oxygen Flow Rate Fraction of Inspired Oxygen 07/13/24 15:39 07/13/24 15:40 07/13/24 15:40 Temperature Pulse Rate 101 H Respiratory Rate 33 H Blood Pressure 92/51 L 95/48 L Pulse Oximetry 95 Oxygen Delivery Method Oxygen Flow Rate Fraction of Inspired Oxygen 07/13/24 15:44 07/13/24 15:44 07/13/24 15:49 Temperature Pulse Rate 104 H 105 H Respiratory Rate 34 H 34 H Blood Pressure 100/56 L Pulse Oximetry 95 94 Oxygen Delivery Method Oxygen Flow Rate Fraction of Inspired Oxygen 07/13/24 15:49 07/13/24 15:56 07/13/24 15:56 Temperature Pulse Rate 100 H Respiratory Rate 31 H Blood Pressure 161/64 H 122/93 H Pulse Oximetry 94 Oxygen Delivery Method Oxygen Flow Rate Fraction of Inspired Oxygen 07/13/24 16:00 07/13/24 16:26 07/13/24 19:00 Temperature 100.8 F H Pulse Rate 105 H 104 H 118 H Respiratory Rate 35 H 24 40 H Blood Pressure 152/113 H 92/54 L Pulse Oximetry 97 97 96 Oxygen Delivery Method Oxygen Flow Rate 55 Fraction of Inspired Oxygen 100 Fraction of Inspired Oxygen 100 Oxygen Delivery Method High Flow Nasal Cannula Oxygen Flow Rate 55 Narrative Exam Narrative: Comfortably resting in bed, On HFNC. Arousable and follows simple commands. Moving all 4 extremities spontaneously. Objective Labs 07/13/24 11:10 07/13/24 10:45 Labs: Laboratory Results - last 24 hr 07/13/24 07/13/24 07/13/24 10:45 11:10 13:09 WBC 19.1 H RBC 3.92 L Hgb 12.1 L Hct 36.3 L MCV 92.7 MCH 30.9 MCHC 33.4 RDW 16.3 H Plt Count 415 H Neut % (Auto) 94.7 H Lymph % (Auto) 2.2 L [place] % (Auto) 2.9 L Eos % (Auto) 0.0 L Baso % (Auto) 0.2 Neut # (Auto) 12079 H Lymph # (Auto) 400 L [place] # (Auto) 600 Eos # (Auto) 0 Baso # (Auto) 0 PT 14.4 H INR 1.3 APTT 41 H ABG Sample Site ABG pH ABG pCO2 ABG pO2 ABG HCO3 ABG Total CO2 ABG O2 Saturation ABG Base Excess Dar Test O2 Delivery Device FiO2 % Sodium 129 L Potassium 4.1 Chloride 96 L Carbon Dioxide 24 BUN 34 H Creatinine 1.49 H Estimated GFR 49 L BUN/Creatinine Ratio 22.8 H Glucose 187 H Lactate 3.4 H 4.9 H* Calcium 8.7 Magnesium Total Bilirubin 1.0 AST 39 ALT 36 Alkaline Phosphatase 93 Troponin I NT-Pro-B Natriuret Pep 6900 H Total Protein 5.9 L Albumin 3.0 L Globulin 2.9 Albumin/Globulin Ratio 1.0 Lipase 32 D Procalcitonin 29.2 H Urine RBC Urine WBC Ur Squamous Epith Cells Urine Bacteria Granular Casts Ur Culture Indicated? Vol Urine Centrifuged 07/13/24 07/13/24 07/13/24 13:26 14:06 15:07 WBC RBC Hgb Hct MCV MCH MCHC RDW Plt Count Neut % (Auto) Lymph % (Auto) [place] % (Auto) Eos % (Auto) Baso % (Auto) Neut # (Auto) Lymph # (Auto) [place] # (Auto) Eos # (Auto) Baso # (Auto) PT INR APTT ABG Sample Site Left radial ABG pH 7.21 L* ABG pCO2 49.5 H ABG pO2 73 L ABG HCO3 20 L ABG Total CO2 20 L ABG O2 Saturation 91 L ABG Base Excess -8.0 L Dar Test Positive O2 Delivery Device High flow zahra cannul FiO2 % 100 % Sodium Potassium Chloride Carbon Dioxide BUN Creatinine Estimated GFR BUN/Creatinine Ratio Glucose Lactate Calcium Magnesium 1.4 L Total Bilirubin AST ALT Alkaline Phosphatase Troponin I < 0.012 NT-Pro-B Natriuret Pep Total Protein Albumin Globulin Albumin/Globulin Ratio Lipase Procalcitonin Urine RBC None seen Urine WBC None seen Ur Squamous Epith Cells None seen Urine Bacteria None seen Granular Casts 1-5/lpf Ur Culture Indicated? Cult not indicated Vol Urine Centrifuged 10ml (spun) 07/13/24 07/13/24 17:00 17:25 WBC RBC Hgb Hct MCV MCH MCHC RDW Plt Count Neut % (Auto) Lymph % (Auto) [place] % (Auto) Eos % (Auto) Baso % (Auto) Neut # (Auto) Lymph # (Auto) [place] # (Auto) Eos # (Auto) Baso # (Auto) PT INR APTT 41 H ABG Sample Site ABG pH ABG pCO2 ABG pO2 ABG HCO3 ABG Total CO2 ABG O2 Saturation ABG Base Excess Dar Test O2 Delivery Device FiO2 % Sodium Potassium Chloride Carbon Dioxide BUN Creatinine Estimated GFR BUN/Creatinine Ratio Glucose Lactate 2.8 H Calcium Magnesium Total Bilirubin AST ALT Alkaline Phosphatase Troponin I NT-Pro-B Natriuret Pep Total Protein Albumin Globulin Albumin/Globulin Ratio Lipase Procalcitonin Urine RBC Urine WBC Ur Squamous Epith Cells Urine Bacteria Granular Casts Ur Culture Indicated? Vol Urine Centrifuged Assessment & Plan Assessment & Plan narrative: # Septic shock, no clear source at this time - Follow-up on blood cultures x 2, UA with urine culture, sputum cultures. Procalcitonin elevated indicating infectious process. - Agree with broad-spectrum IV antibiotics cefepime and IV vancomycin pending cultures. - Minimize aggressive IV fluid resuscitation to avoid fluid overload/pulmonary edema. Would use albumin boluses instead for volume replacement. - Monitor markers of tissue perfusion (lactate clearance, base deficit, mental status, urine out). - Titrate pressors (Norepinephrine) to keep MAP > 65. Add vasopressin if necessary. # Acute hypoxic respiratory failure - Suspected to have PE but unable to obtain CT angio of chest since unable to lay flat and also has renal failure. - Empirically started on heparin drip pending CTA PE. Chest x-ray with no obvious pulmonary infiltrates to suggest pneumonia. UA negative. - Possibly some component of fluid overload given elevated BNP although chest x-ray with no obvious pulmonary edema. - Initial workup negative for influenza A/B PCR, RSV and COVID-19. - Per hospitalist, goals of care discussion was held with patient's daughter who agreed with DNR/DNI but requested conservative management including vasopressors. - If respiratory status declines further, may need to reevaluate goals of care and as patient may be more appropriate for comfort care measures at that point. # Acute kidney injury: - Most likely from prerenal versus ATN from sepsis. - Baseline creatinine around 1.07. Found to have elevated creatinine of 1.47 on admission. - C/w gental IVF hydration and monitor renal functions with serial BMP - Consider further work up including urine electrolytes and renal U/S if no improvement in renal functions. - Avoid nephrotoxic medications. # Insulin Dependent DM type II - Fairly controlled. # CAD s/p ALVARO in 01/21 # Anemia - C/w Daily CBC. Transfuse to maintain Hgb >8. Monitor for bleeding ICU Bundle: # FEN: Currently NPO. # Glucose: fairly controlled. C/w Accu checks Q6 hours and SSI. BG goal 120-160 # Prophylaxis: Heparin drip for DVT prophylaxis, PPI for stress ulcer prophylaxis # Lines/tubes: PIV, Kaplan, PICC line # CODE STATUS: DNR/DNI # Disposition: Remains in ICU Above plan was discussed with hospitalist, bedside RN. We will continue to follow. Please call us if any additional questions. Time-Based Coding :: [TOTAL MINUTES] spent with patient and on the chart (including review of chart, obtaining history, exam, reviewing outside data, placing orders, documenting exam and treatment plan, and counseling patient) on [DATE].
[2024-07-13] MEDS: NOREPINEPHRINE BITARTRATE/D5W 4 MG/250 ML PLAST..BAG 87.719 MG IV (20:59)
[2024-07-13] MEDS: FAMOTIDINE 20 MG/2 ML VIAL IV (21:03)
[2024-07-13 21:31] LABS: Acinetobacter calcoa-baumannii Not Detected (Not Detect); Bacteroides fragilis Not Detected (Not Detect); Candida albicans Not Detected (Not Detect); Candida auris Not Detected (Not Detect); Candida glabrata Not Detected (Not Detect); Candida krusei Not Detected (Not Detect); Candida parapsilosis Not Detected (Not Detect); Candida tropicalis Not Detected (Not Detect); Cryptococcus neoformans/gatti Not Detected (Not Detect); Enterobacter cloacae complex Not Detected (Not Detect); Enterobacterales Not Detected (Not Detect); Enterococcus faecalis Detected (Not Detect); Enterococcus faecium Not Detected (Not Detect); Haemophilus influenzae Not Detected (Not Detect); Klebsiella aerogenes Not Detected (Not Detect); Listeria monocytogenes Not Detected (Not Detect); Neisseria meningitidis Not Detected (Not Detect); Proteus species Not Detected (Not Detect); Pseudomonas aeruginosa Not Detected (Not Detect); Salmonella species Not Detected (Not Detect); Serratia marcescens Not Detected (Not Detect); Staphylococcus epidermidis Not Detected (Not Detect); Staphylococcus lugdunensis Not Detected (Not Detect); Staphylococcus species Detected (Not Detect); Stenotrophomonas maltophilia Not Detected (Not Detect); Streptococcus agalactiae (Gr B Not Detected (Not Detect); Streptococcus pneumonia Not Detected (Not Detect); Streptococcus pyogenes (Gr A) Not Detected (Not Detect); Streptococcus species Not Detected (Not Detect); Vancomycin-rest genes A/B Not Detected (Not Detect); mecA/C and MREJ (MRSA) Resista Not Detected (Not Detect)
[2024-07-13] MEDS: NOREPINEPHRINE BITARTRATE/D5W 4 MG/250 ML PLAST..BAG 129.954 MG IV (23:09)
[2024-07-13 23:42] LABS: MRSA (Nasal) PCR NOT DETECTED (Not Detect)
[2024-07-14] VITALS (62 sets, daily range): BP systolic 70–230; BP diastolic 27–93; PULSE 86–112; RESP 18–33; TEMP 36.3–38.4; O2SAT 85–100
[2024-07-14] MEDS: HYDROMORPHONE 0.5 MG INJ IV ×2 (00:46→19:36)
[2024-07-14] MEDS: NOREPINEPHRINE BITARTRATE/D5W 4 MG/250 ML PLAST..BAG 123.456 MG IV (02:14)
--- NOTE | 2024-07-14 03:33 | PC.NURSE ---
Patient PTT drawn multiple times from PICC line with unreliable results, psychiatry instructor attempted venipuncture but unsuccesful, Heparin gtt infusion moved to a peripheral IV site, PTT was drawn from PICC line after 1 hour, awaiting results.
[2024-07-14] MEDS: CEFEPIME 2 GM in SODIUM CHLORIDE 0.9% 100 ML IV (05:21)
[2024-07-14 05:42] LABS: Add Manual Diff / Slide Review NO; Basophils Absolute Auto 0 /uL (0-100); Basophils Percent Auto 0.4 % (0-2); Eosinophils Absolute Auto 0 /uL (0-450); Eosinophils Percent Auto 0.1 % (2-4); Hematocrit 29.3 % (41-53); Lymphocytes Absolute Auto 700 /uL (1100-4500); Lymphocytes Percent Auto 6.9 % (25-40); Mean Corpuscular HGB Conc 34.1 % (30-36); Mean Corpuscular Hemoglobin 31.6 PG (26-34); Mean Corpuscular Volume 92.7 fL (80-100); Monocytes Absolute Auto 800 /uL (0-900); Monocytes Percent Auto 7.5 % (3-14); Neutrophils Absolute Auto 8900 /uL (1500-7000); Neutrophils Percent Auto 85.1 % (50-75); Platelet Count 287 X10^3/uL (150-400); Red Blood Cell Count 3.16 X10^6/uL (4.5-5.9); Red Cell Distribution Width 16.4 % (11.6-14.8); White Blood Cell Count 10.4 X10^3/uL (4.5-11.0)
[2024-07-14] MEDS: NOREPINEPHRINE BITARTRATE/D5W 4 MG/250 ML PLAST..BAG 97.466 MG IV (06:17)
[2024-07-14] MEDS: VANCOMYCIN 1,250 MG/250 ML PIGGYBACK 250 MG IV (06:18)
[2024-07-14 06:22] LABS: Alanine Aminotransferase 87 IU/L (<50); Albumin 2.3 g/dL (3.5-5.0); Albumin Globulin Ratio 0.9 (1.0-2.8); Alkaline Phosphatase 74 U/L (38-126); Aspartate Aminotransferase 84 IU/L (17-59); BUN Creatinine Ratio 24.7 (6-22); Bilirubin Total 0.6 mg/dL (0.2-1.3); Blood Urea Nitrogen 47 mg/dL (9-20); Calcium 7.3 mg/dL (8.4-10.2); Carbon Dioxide 15 mmol/L (22-32); Chloride 100 mmol/L (98-107); Estimated Glomerular Filt Rate 37 mL/min (>60); Globulin 2.7 g/dL (1.7-4.1); Glucose 307 mg/dL (80-110); HEMOLYSIS < 15 (0-50); Potassium 3.9 mmol/L (3.4-5.1); Sodium 125 mmol/L (137-145)
[2024-07-14] MEDS: SODIUM CHLORIDE 0.9% 1,000 ML 130 ML IV ×3 (07:00→23:28)
[2024-07-14 07:41] LABS: PTT Partial Thromboplastin Tim > 150 SECONDS (25.1-36.5)
--- NOTE | 2024-07-14 07:45 | PC.NURSE ---
PTT >150. Notified Dr. Foley. Heparin gtt off x4hr and repeat PTT.
--- NOTE | 2024-07-14 08:09 | P.PN_ITS ---
Subjective Subjective Interval history: Admitted with septic shock, positive blood cultures over night. 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 S: He was more alert and denies pain other than his right hand and wrist. He denies a sensation of dyspnea. ICU doctor has focused antibiotics and stopped vancomycin. He was able to wean off from pressors this morning. Blood cultures are positive. Exam Vital Signs (past 8 hours): - 07/14/24 00:46 07/14/24 01:00 07/14/24 01:00 Temperature 101.1 F H 97.3 F L Pulse Rate 104 H 104 H Respiratory Rate 31 H Blood Pressure 88/52 L 88/52 L Pulse Oximetry 99 100 Oxygen Flow Rate 55 Fraction of Inspired Oxygen 100 07/14/24 01:26 07/14/24 02:00 07/14/24 03:00 Temperature 97.3 F L 99.1 F Pulse Rate 90 104 H Respiratory Rate 20 26 H Blood Pressure 187/76 H Pulse Oximetry 100 93 Oxygen Flow Rate 55 Fraction of Inspired Oxygen 100 07/14/24 03:01 07/14/24 03:01 07/14/24 03:30 Temperature Pulse Rate 104 H 92 H Respiratory Rate 28 H 22 Blood Pressure 95/45 L Pulse Oximetry 93 100 Oxygen Flow Rate Fraction of Inspired Oxygen 07/14/24 04:00 07/14/24 04:01 07/14/24 04:01 Temperature Pulse Rate 96 H 100 H Respiratory Rate 25 H 25 H Blood Pressure 230/93 H Pulse Oximetry 100 100 Oxygen Flow Rate Fraction of Inspired Oxygen 07/14/24 04:30 07/14/24 04:40 07/14/24 04:40 Temperature Pulse Rate 106 H 112 H Respiratory Rate 29 H 27 H Blood Pressure 70/27 L Pulse Oximetry 95 97 Oxygen Flow Rate Fraction of Inspired Oxygen 07/14/24 05:00 07/14/24 05:00 07/14/24 05:01 Temperature Pulse Rate 97 H 97 H 96 H Respiratory Rate 23 22 Blood Pressure 70/27 L Pulse Oximetry 100 100 100 Oxygen Flow Rate Fraction of Inspired Oxygen 07/14/24 05:01 07/14/24 05:15 07/14/24 05:15 Temperature Pulse Rate 103 H Respiratory Rate 27 H Blood Pressure 181/76 H 139/89 Pulse Oximetry 98 Oxygen Flow Rate Fraction of Inspired Oxygen 07/14/24 05:30 07/14/24 06:00 07/14/24 06:02 Temperature Pulse Rate 98 H 100 H Respiratory Rate 22 24 Blood Pressure 149/61 H Pulse Oximetry 100 100 Oxygen Flow Rate Fraction of Inspired Oxygen 07/14/24 06:02 Temperature Pulse Rate 101 H Respiratory Rate 24 Blood Pressure Pulse Oximetry 100 Oxygen Flow Rate Fraction of Inspired Oxygen Fraction of Inspired Oxygen 100 Oxygen Delivery Method High Flow Nasal Cannula Oxygen Flow Rate 55 Narrative Exam Narrative: No distress, on high-flow oxygen and lethargic. Lungs are diminished breath sounds, increased effort. Heart is regular, no murmur. Abdomen is distended and nontender. No leg edema. He was many excoriations and ecchymosis. He was evidence of an embolic necrosis of his right hand 4th finger. Objective Labs 07/14/24 05:20 07/14/24 05:20 Labs: Laboratory Results - last 24 hr 07/13/24 07/13/24 07/13/24 10:45 11:10 13:09 WBC 19.1 H RBC 3.92 L Hgb 12.1 L Hct 36.3 L MCV 92.7 MCH 30.9 MCHC 33.4 RDW 16.3 H Plt Count 415 H Neut % (Auto) 94.7 H Lymph % (Auto) 2.2 L [place] % (Auto) 2.9 L Eos % (Auto) 0.0 L Baso % (Auto) 0.2 Neut # (Auto) 01108 H Lymph # (Auto) 400 L [place] # (Auto) 600 Eos # (Auto) 0 Baso # (Auto) 0 PT 14.4 H INR 1.3 APTT 41 H ABG Sample Site ABG pH ABG pCO2 ABG pO2 ABG HCO3 ABG Total CO2 ABG O2 Saturation ABG Base Excess Dar Test O2 Delivery Device FiO2 % Sodium 129 L Potassium 4.1 Chloride 96 L Carbon Dioxide 24 BUN 34 H Creatinine 1.49 H Estimated GFR 49 L BUN/Creatinine Ratio 22.8 H Glucose 187 H Lactate 3.4 H 4.9 H* Calcium 8.7 Magnesium Total Bilirubin 1.0 AST 39 ALT 36 Alkaline Phosphatase 93 Troponin I NT-Pro-B Natriuret Pep 6900 H Total Protein 5.9 L Albumin 3.0 L Globulin 2.9 Albumin/Globulin Ratio 1.0 Lipase 32 D Procalcitonin 29.2 H Urine RBC Urine WBC Ur Squamous Epith Cells Urine Bacteria Granular Casts Ur Culture Indicated? Vol Urine Centrifuged Nasal Screen MRSA (PCR) A.calcoaceticus-baumannii cmplx PCR Bacteroides fragilis Madeline albicans (PCR) Madeline auris (PCR) C. glabrata (PCR) C. krusei (PCR) C. parapsilosis (PCR) C. tropicalis (PCR) C. neoform/gattii (PCR) Enterobacterales (PCR) E. cloacae complex PCR Enterococc faecalis PCR Enterococc faecium PCR E. coli (PCR) H. influenzae (PCR) Klebsiella aerogenes (PCR) Klebsiella oxytoca PCR Klebsiella pneumoniae List. monocytogenes PCR N. meningitidis (PCR) Proteus species (PCR) Salmonella spp. (PCR) Serratia marcescens PCR Staphylococcus sp PCR Staph aureus (PCR) mecA/C & MREJ Resist Gene mecA/C-Methicil Resis Gene mcr-1 Colistin Res Gene PCR Staph epidermidis (PCR) Staph lugdunensis PCR S. maltophilia (PCR) Streptococcus sp PCR Group A Strep (PCR) Strep agalactiae (PCR) Strep pneumoniae (PCR) P. aeruginosa (PCR) Jazmine/B-Vanco Res Genes blaIMP Car res Gene PCR KPC-Carbap Res Gene PCR blaNDM Car Res Gene PCR OXA-48 Carbapenem Resis Gene (PCR) blaVIM Car Res Gene PCR CTX-M Gene Resistance (PCR) 07/13/24 07/13/24 07/13/24 13:26 14:06 15:07 WBC RBC Hgb Hct MCV MCH MCHC RDW Plt Count Neut % (Auto) Lymph % (Auto) [place] % (Auto) Eos % (Auto) Baso % (Auto) Neut # (Auto) Lymph # (Auto) [place] # (Auto) Eos # (Auto) Baso # (Auto) PT INR APTT ABG Sample Site Left radial ABG pH 7.21 L* ABG pCO2 49.5 H ABG pO2 73 L ABG HCO3 20 L ABG Total CO2 20 L ABG O2 Saturation 91 L ABG Base Excess -8.0 L Dar Test Positive O2 Delivery Device High flow zahra cannul FiO2 % 100 % Sodium Potassium Chloride Carbon Dioxide BUN Creatinine Estimated GFR BUN/Creatinine Ratio Glucose Lactate Calcium Magnesium 1.4 L Total Bilirubin AST ALT Alkaline Phosphatase Troponin I < 0.012 NT-Pro-B Natriuret Pep Total Protein Albumin Globulin Albumin/Globulin Ratio Lipase Procalcitonin Urine RBC None seen Urine WBC None seen Ur Squamous Epith Cells None seen Urine Bacteria None seen Granular Casts 1-5/lpf Ur Culture Indicated? Cult not indicated Vol Urine Centrifuged 10ml (spun) Nasal Screen MRSA (PCR) A.calcoaceticus-baumannii cmplx PCR Bacteroides fragilis Madeline albicans (PCR) Madeline auris (PCR) C. glabrata (PCR) C. krusei (PCR) C. parapsilosis (PCR) C. tropicalis (PCR) C. neoform/gattii (PCR) Enterobacterales (PCR) E. cloacae complex PCR Enterococc faecalis PCR Enterococc faecium PCR E. coli (PCR) H. influenzae (PCR) Klebsiella aerogenes (PCR) Klebsiella oxytoca PCR Klebsiella pneumoniae List. monocytogenes PCR N. meningitidis (PCR) Proteus species (PCR) Salmonella spp. (PCR) Serratia marcescens PCR Staphylococcus sp PCR Staph aureus (PCR) mecA/C & MREJ Resist Gene mecA/C-Methicil Resis Gene mcr-1 Colistin Res Gene PCR Staph epidermidis (PCR) Staph lugdunensis PCR S. maltophilia (PCR) Streptococcus sp PCR Group A Strep (PCR) Strep agalactiae (PCR) Strep pneumoniae (PCR) P. aeruginosa (PCR) Jazmine/B-Vanco Res Genes blaIMP Car res Gene PCR KPC-Carbap Res Gene PCR blaNDM Car Res Gene PCR OXA-48 Carbapenem Resis Gene (PCR) blaVIM Car Res Gene PCR CTX-M Gene Resistance (PCR) 07/13/24 07/13/24 07/13/24 17:00 17:25 20:00 WBC RBC Hgb Hct MCV MCH MCHC RDW Plt Count Neut % (Auto) Lymph % (Auto) [place] % (Auto) Eos % (Auto) Baso % (Auto) Neut # (Auto) Lymph # (Auto) [place] # (Auto) Eos # (Auto) Baso # (Auto) PT INR APTT 41 H ABG Sample Site ABG pH ABG pCO2 ABG pO2 ABG HCO3 ABG Total CO2 ABG O2 Saturation ABG Base Excess Dar Test O2 Delivery Device FiO2 % Sodium Potassium Chloride Carbon Dioxide BUN Creatinine Estimated GFR BUN/Creatinine Ratio Glucose Lactate 2.8 H Calcium Magnesium Total Bilirubin AST ALT Alkaline Phosphatase Troponin I NT-Pro-B Natriuret Pep Total Protein Albumin Globulin Albumin/Globulin Ratio Lipase Procalcitonin Urine RBC Urine WBC Ur Squamous Epith Cells Urine Bacteria Granular Casts Ur Culture Indicated? Vol Urine Centrifuged Nasal Screen MRSA (PCR) A.calcoaceticus-baumannii cmplx PCR Not detected Bacteroides fragilis Not detected Madeline albicans (PCR) Not detected Madeline auris (PCR) Not detected C. glabrata (PCR) Not detected C. krusei (PCR) Not detected C. parapsilosis (PCR) Not detected C. tropicalis (PCR) Not detected C. neoform/gattii (PCR) Not detected Enterobacterales (PCR) Not detected E. cloacae complex PCR Not detected Enterococc faecalis PCR Detected Enterococc faecium PCR Not detected E. coli (PCR) Not detected H. influenzae (PCR) Not detected Klebsiella aerogenes (PCR) Not detected Klebsiella oxytoca PCR Not detected Klebsiella pneumoniae Not detected List. monocytogenes PCR Not detected N. meningitidis (PCR) Not detected Proteus species (PCR) Not detected Salmonella spp. (PCR) Not detected Serratia marcescens PCR Not detected Staphylococcus sp PCR Detected Staph aureus (PCR) Detected mecA/C & MREJ Resist Gene Not detected mecA/C-Methicil Resis Gene Not applicable mcr-1 Colistin Res Gene PCR Not applicable Staph epidermidis (PCR) Not detected Staph lugdunensis PCR Not detected S. maltophilia (PCR) Not detected Streptococcus sp PCR Not detected Group A Strep (PCR) Not detected Strep agalactiae (PCR) Not detected Strep pneumoniae (PCR) Not detected P. aeruginosa (PCR) Not detected Jazmine/B-Vanco Res Genes Not detected blaIMP Car res Gene PCR Not applicable KPC-Carbap Res Gene PCR Not applicable blaNDM Car Res Gene PCR Not applicable OXA-48 Carbapenem Resis Gene (PCR) Not applicable blaVIM Car Res Gene PCR Not applicable CTX-M Gene Resistance (PCR) Not applicable 07/13/24 07/13/24 07/14/24 20:20 20:41 01:50 WBC RBC Hgb Hct MCV MCH MCHC RDW Plt Count Neut % (Auto) Lymph % (Auto) [place] % (Auto) Eos % (Auto) Baso % (Auto) Neut # (Auto) Lymph # (Auto) [place] # (Auto) Eos # (Auto) Baso # (Auto) PT INR APTT Cancelled ABG Sample Site ABG pH ABG pCO2 ABG pO2 ABG HCO3 ABG Total CO2 ABG O2 Saturation ABG Base Excess Dar Test O2 Delivery Device FiO2 % Sodium Potassium Chloride Carbon Dioxide BUN Creatinine Estimated GFR BUN/Creatinine Ratio Glucose Lactate 2.0 Calcium Magnesium Total Bilirubin AST ALT Alkaline Phosphatase Troponin I NT-Pro-B Natriuret Pep Total Protein Albumin Globulin Albumin/Globulin Ratio Lipase Procalcitonin Urine RBC Urine WBC Ur Squamous Epith Cells Urine Bacteria Granular Casts Ur Culture Indicated? Vol Urine Centrifuged Nasal Screen MRSA (PCR) Not detected A.calcoaceticus-baumannii cmplx PCR Bacteroides fragilis Madeline albicans (PCR) Madeline auris (PCR) C. glabrata (PCR) C. krusei (PCR) C. parapsilosis (PCR) C. tropicalis (PCR) C. neoform/gattii (PCR) Enterobacterales (PCR) E. cloacae complex PCR Enterococc faecalis PCR Enterococc faecium PCR E. coli (PCR) H. influenzae (PCR) Klebsiella aerogenes (PCR) Klebsiella oxytoca PCR Klebsiella pneumoniae List. monocytogenes PCR N. meningitidis (PCR) Proteus species (PCR) Salmonella spp. (PCR) Serratia marcescens PCR Staphylococcus sp PCR Staph aureus (PCR) mecA/C & MREJ Resist Gene mecA/C-Methicil Resis Gene mcr-1 Colistin Res Gene PCR Staph epidermidis (PCR) Staph lugdunensis PCR S. maltophilia (PCR) Streptococcus sp PCR Group A Strep (PCR) Strep agalactiae (PCR) Strep pneumoniae (PCR) P. aeruginosa (PCR) Jazmine/B-Vanco Res Genes blaIMP Car res Gene PCR KPC-Carbap Res Gene PCR blaNDM Car Res Gene PCR OXA-48 Carbapenem Resis Gene (PCR) blaVIM Car Res Gene PCR CTX-M Gene Resistance (PCR) 07/14/24 07/14/24 05:20 06:25 WBC 10.4 RBC 3.16 L Hgb 10.0 L Hct 29.3 L MCV 92.7 MCH 31.6 MCHC 34.1 RDW 16.4 H Plt Count 287 Neut % (Auto) 85.1 H Lymph % (Auto) 6.9 L [place] % (Auto) 7.5 Eos % (Auto) 0.1 L Baso % (Auto) 0.4 Neut # (Auto) 8900 H Lymph # (Auto) 700 L [place] # (Auto) 800 Eos # (Auto) 0 Baso # (Auto) 0 PT INR APTT > 150 H* D ABG Sample Site ABG pH ABG pCO2 ABG pO2 ABG HCO3 ABG Total CO2 ABG O2 Saturation ABG Base Excess Dar Test O2 Delivery Device FiO2 % Sodium 125 L Potassium 3.9 Chloride 100 Carbon Dioxide 15 L BUN 47 H Creatinine 1.90 H Estimated GFR 37 L BUN/Creatinine Ratio 24.7 H Glucose 307 H D Lactate Calcium 7.3 L Magnesium Total Bilirubin 0.6 AST 84 H ALT 87 H Alkaline Phosphatase 74 Troponin I NT-Pro-B Natriuret Pep Total Protein 5.0 L Albumin 2.3 L Globulin 2.7 Albumin/Globulin Ratio 0.9 L Lipase Procalcitonin Urine RBC Urine WBC Ur Squamous Epith Cells Urine Bacteria Granular Casts Ur Culture Indicated? Vol Urine Centrifuged Nasal Screen MRSA (PCR) A.calcoaceticus-baumannii cmplx PCR Bacteroides fragilis Madeline albicans (PCR) Madeline auris (PCR) C. glabrata (PCR) C. krusei (PCR) C. parapsilosis (PCR) C. tropicalis (PCR) C. neoform/gattii (PCR) Enterobacterales (PCR) E. cloacae complex PCR Enterococc faecalis PCR Enterococc faecium PCR E. coli (PCR) H. influenzae (PCR) Klebsiella aerogenes (PCR) Klebsiella oxytoca PCR Klebsiella pneumoniae List. monocytogenes PCR N. meningitidis (PCR) Proteus species (PCR) Salmonella spp. (PCR) Serratia marcescens PCR Staphylococcus sp PCR Staph aureus (PCR) mecA/C & MREJ Resist Gene mecA/C-Methicil Resis Gene mcr-1 Colistin Res Gene PCR Staph epidermidis (PCR) Staph lugdunensis PCR S. maltophilia (PCR) Streptococcus sp PCR Group A Strep (PCR) Strep agalactiae (PCR) Strep pneumoniae (PCR) P. aeruginosa (PCR) Jazmine/B-Vanco Res Genes blaIMP Car res Gene PCR KPC-Carbap Res Gene PCR blaNDM Car Res Gene PCR OXA-48 Carbapenem Resis Gene (PCR) blaVIM Car Res Gene PCR CTX-M Gene Resistance (PCR) PFSH Medical History Screening due Folliculitis Myalgia COVID-19 BPH w urinary obs/LUTS Bilateral nephrolithiasis Retained ureteral stent Bilateral nephrolithiasis Left ureteral calculus Labyrinthitis Lymphocytic colitis (2013) Rosacea (Unknown) Kidney stones (2012) Kidney disease (Unknown) Myopia (Unknown) Asthma (Unknown) Anemia (Unknown) Depression (Unknown) Hypertriglyceridemia (Unknown) Hypertension (Unknown) Hyperlipidemia (Unknown) Microscopic colitis (10/10/15) Chronic renal insufficiency, stage II (mild) (10/10/15) Depression (09/04/14) Type 2 diabetes mellitus without complication (09/11/15) Essential hypertension (09/11/15) Surgical History Hx of cystoscopy (04/29/21) Family History Father Cancer Mother Stroke Social History marital status: unmarried,single household members: none lives independently: Yes Smoking Status: Former smoker alcohol intake: current Assessment & Plan Assessment & Plan narrative: 1. Septic shock and bacteremia (GPC and GPB, 2/2), present on admission and active. 2. Lactic acidosis, present on admission and active. 3. Elevated procalcitonin, present on admission and active. 4. Acute hypoxic respiratory failure, present on admission and active. 5. Acute septic encephalopathy, present on admission and active. 6. AMELIA, present on admission and active. 7. Acute on chronic anemia without clinical bleeding, present on admission and active. 8. GPC bacteremia, 2/2 blood cultures. PLAN: -PCR appears to be consistent with MSSA, ceftriaxone and follow cultures. -HFO2, wean O2 as able. -trend lactate -heparin drip for possible pulmonary embolism. -DNR/DNI -monitor renal function -right-handed wrist x-ray. -monitor finger which appears to be necrotic. -monitor mental status, which is improving. -bilateral leg duplex ultrasound, rule out DVT. Time-Based Coding :: [TOTAL MINUTES] spent with patient and on the chart (including review of chart, obtaining history, exam, reviewing outside data, placing orders, documenting exam and treatment plan, and counseling patient) on [DATE].
[2024-07-14] MEDS: FAMOTIDINE 20 MG/2 ML VIAL IV (10:12)
[2024-07-14] MEDS: cefTRIAXone 2,000 MG in SODIUM CHLORIDE 0.9% 100 ML 200 MG IV (10:52)
--- NOTE | 2024-07-14 11:15 | PC.NURSE ---
Norepi gtt weaned: 0820 0.15 mcg/kg/min 0835 0.1mcg 0855 0.075mcg 0910 .05mcg 0925 0.025mxg 1000 off cuff changed from LLL to left forearm BP 106/74. bedbath done. pt awake, helping to turn self. incontinent BM. Scattered bruises, scabs and abrasions. Avelyn drsg x2 on right lower leg. Large wound right upper arm, first layer skin off. drsg changed to vaseline and 4x4, wrapped with gauze. pt's sister, Maddy called from [place] phone [phone]. Pt states ok to give her update and info. Maddy states, pt's other sister coming with her to visit. [place]. Pt states he doesn't get along with this sister.
--- NOTE | 2024-07-14 11:46 | P.TELICUPN_ITS ---
Subjective Subjective IF CAMERA ACTIVATED, patient seen via real-time interactive audiovisual communication: Camera activated Consent obtained for tele-training and development rep care: Yes Patient Location: ICU Provider location (State): [place] Other participants/roles: RN Interval history: pt remains on HFNC, fio2 reduced, blood cx + for MSSA and enterococcus Current Medications Current Medications Medications: Home Medications ketoconazole 2 % topical cream 1 applic topical BID PRN itching/rash #15 grams 06/07/23 [Rx Confirmed 07/07/24] cholecalciferol (vitamin D3) 50 mcg (2,000 unit) capsule (Vitamin D3) 50 mcg PO DAILY 08/04/23 [History Confirmed 07/07/24] budesonide 3 mg capsule,delayed,extended release 3 mg PO BID #180 caps 01/18/24 [Rx Confirmed 07/07/24] aspirin 81 mg tablet,delayed release 81 mg PO DAILY 01/26/24 [History Confirmed 07/07/24] blood sugar diagnostic (Blood Glucose Test strips) #100 ea 01/26/24 [Rx Confirmed 07/07/24] blood-glucose meter (Blood Glucose Monitoring kit) #1 ea 01/26/24 [Rx Confirmed 07/07/24] lancets 30 gauge #100 ea 01/26/24 [Rx Confirmed 07/07/24] nitroglycerin 0.4 mg sublingual tablet 0.4 mg sublingual Q5M PRN chest pain #10 tabs 01/26/24 [Rx Confirmed 07/07/24] potassium citrate 10 mEq (1,080 mg) tablet,extended release 20 meq PO BID 01/26/24 [History Confirmed 07/09/24] rosuvastatin 40 mg tablet 40 mg PO DAILY #90 tabs 01/26/24 [Rx Confirmed 07/07/24] omeprazole 20 mg capsule,delayed release 20 mg PO DAILY #90 caps 03/27/24 [Rx Confirmed 07/07/24] trazodone 50 mg tablet 25 mg (1/2 x 50 mg) PO BEDTIME PRN sleep #30 tabs 03/28/24 [Rx Confirmed 07/07/24] methocarbamol 500 mg tablet 500 mg PO BID PRN muscle spasm #15 tabs 06/26/24 [Rx Confirmed 07/07/24] insulin glargine 100 unit/mL (3 mL) subcutaneous pen (Chidi WestPen U-100 Insulin) 17 unit SUBCUT QAM 07/07/24 [History Confirmed 07/07/24] sitagliptin phosphate 100 mg tablet (Januvia) 100 mg PO DAILY 07/07/24 [History Confirmed 07/07/24] prasugrel 10 mg tablet 10 mg PO DAILY 07/09/24 [History Confirmed 07/09/24] Visit Medications (administered) Generic Name Dose Route Start Last Admin Trade Name Freq PRN Reason Stop Dose Admin Famotidine 20 mg 07/14/24 09:00 07/14/24 10:12 Famotidine 20 Mg/2 Ml Vial IV 20 mg DAILY GERALDINE Administration Hydromorphone HCl 0.5 mg 07/13/24 15:25 07/14/24 00:46 Hydromorphone 0.5 Mg Inj IV 0.5 mg Q2H PRN Administration Pain, Severe (7-10) NOREPINEPHRINE BITARTRATE/D5W 4 mg in 250 mls @ 32.489 mls/hr 07/13/24 11:47 07/14/24 07:02 Levophed IV 0.25 mcg/kg/min TITRATE GERALDINE 81.221 mls/hr Titration Protocol 0.1 MCG/KG/MIN Sodium Chloride 1,000 mls @ 130 mls/hr 07/13/24 15:30 07/14/24 07:00 Normal Saline 0.9% IV 130 mls/hr CONT GERALDINE Administration Heparin Sodium/Dextrose 25,000 unit in 500 mls @ 31.189 mls/hr 07/13/24 16:45 07/13/24 17:37 Heparin Drip IV 18 units/kg/hr CONT GERALDINE 31.189 mls/hr Administration Protocol 18 UNITS/KG/HR Vancomycin HCl 1,250 mg in 250 mls @ 250 mls/hr 07/14/24 06:00 07/14/24 06:18 Vancomycin IV 250 mls/hr Q18H GERALDINE Administration Ceftriaxone Sodium 2,000 mg/ 100 mls @ 200 mls/hr 07/14/24 10:00 07/14/24 10:52 Sodium Chloride IV 200 mls/hr Q24H GERALDINE Administration Objective Ventilator Parameters: Ventilator Settings FiO2 95 Labs 07/14/24 05:20 07/14/24 05:20 Labs: Laboratory Results - last 24 hr 07/13/24 07/13/2424 10:45 13:09 13:26 WBC RBC Hgb Hct MCV MCH MCHC RDW Plt Count Neut % (Auto) Lymph % (Auto) Blaine % (Auto) Eos % (Auto) Baso % (Auto) Neut # (Auto) Lymph # (Auto) Blaine # (Auto) Eos # (Auto) Baso # (Auto) APTT ABG Sample Site ABG pH ABG pCO2 ABG pO2 ABG HCO3 ABG Total CO2 ABG O2 Saturation ABG Base Excess Dar Test O2 Delivery Device FiO2 % Sodium Potassium Chloride Carbon Dioxide BUN Creatinine Estimated GFR BUN/Creatinine Ratio Glucose Lactate 4.9 H* Calcium Magnesium Total Bilirubin AST ALT Alkaline Phosphatase Troponin I NT-Pro-B Natriuret Pep 6900 H Total Protein Albumin Globulin Albumin/Globulin Ratio Urine RBC None seen Urine WBC None seen Ur Squamous Epith Cells None seen Urine Bacteria None seen Granular Casts 1-5/lpf Ur Culture Indicated? Cult not indicated Vol Urine Centrifuged 10ml (spun) Nasal Screen MRSA (PCR) A.calcoaceticus-baumannii cmplx PCR Bacteroides fragilis Madeline albicans (PCR) Madeline auris (PCR) C. glabrata (PCR) C. krusei (PCR) C. parapsilosis (PCR) C. tropicalis (PCR) C. neoform/gattii (PCR) Enterobacterales (PCR) E. cloacae complex PCR Enterococc faecalis PCR Enterococc faecium PCR E. coli (PCR) H. influenzae (PCR) Klebsiella aerogenes (PCR) Klebsiella oxytoca PCR Klebsiella pneumoniae List. monocytogenes PCR N. meningitidis (PCR) Proteus species (PCR) Salmonella spp. (PCR) Serratia marcescens PCR Staphylococcus sp PCR Staph aureus (PCR) mecA/C & MREJ Resist Gene mecA/C-Methicil Resis Gene mcr-1 Colistin Res Gene PCR Staph epidermidis (PCR) Staph lugdunensis PCR S. maltophilia (PCR) Streptococcus sp PCR Group A Strep (PCR) Strep agalactiae (PCR) Strep pneumoniae (PCR) P. aeruginosa (PCR) Jazmine/B-Vanco Res Genes blaIMP Car res Gene PCR KPC-Carbap Res Gene PCR blaNDM Car Res Gene PCR OXA-48 Carbapenem Resis Gene (PCR) blaVIM Car Res Gene PCR CTX-M Gene Resistance (PCR) 07/13/24 07/13/24 07/13/24 14:06 15:07 17:00 WBC RBC Hgb Hct MCV MCH MCHC RDW Plt Count Neut % (Auto) Lymph % (Auto) Blaine % (Auto) Eos % (Auto) Baso % (Auto) Neut # (Auto) Lymph # (Auto) Blaine # (Auto) Eos # (Auto) Baso # (Auto) APTT 41 H ABG Sample Site Left radial ABG pH 7.21 L* ABG pCO2 49.5 H ABG pO2 73 L ABG HCO3 20 L ABG Total CO2 20 L ABG O2 Saturation 91 L ABG Base Excess -8.0 L Dar Test Positive O2 Delivery Device High flow zahra cannul FiO2 % 100 % Sodium Potassium Chloride Carbon Dioxide BUN Creatinine Estimated GFR BUN/Creatinine Ratio Glucose Lactate Calcium Magnesium 1.4 L Total Bilirubin AST ALT Alkaline Phosphatase Troponin I < 0.012 NT-Pro-B Natriuret Pep Total Protein Albumin Globulin Albumin/Globulin Ratio Urine RBC Urine WBC Ur Squamous Epith Cells Urine Bacteria Granular Casts Ur Culture Indicated? Vol Urine Centrifuged Nasal Screen MRSA (PCR) A.calcoaceticus-baumannii cmplx PCR Bacteroides fragilis Madeline albicans (PCR) Madeline auris (PCR) C. glabrata (PCR) C. krusei (PCR) C. parapsilosis (PCR) C. tropicalis (PCR) C. neoform/gattii (PCR) Enterobacterales (PCR) E. cloacae complex PCR Enterococc faecalis PCR Enterococc faecium PCR E. coli (PCR) H. influenzae (PCR) Klebsiella aerogenes (PCR) Klebsiella oxytoca PCR Klebsiella pneumoniae List. monocytogenes PCR N. meningitidis (PCR) Proteus species (PCR) Salmonella spp. (PCR) Serratia marcescens PCR Staphylococcus sp PCR Staph aureus (PCR) mecA/C & MREJ Resist Gene mecA/C-Methicil Resis Gene mcr-1 Colistin Res Gene PCR Staph epidermidis (PCR) Staph lugdunensis PCR S. maltophilia (PCR) Streptococcus sp PCR Group A Strep (PCR) Strep agalactiae (PCR) Strep pneumoniae (PCR) P. aeruginosa (PCR) Jazmine/B-Vanco Res Genes blaIMP Car res Gene PCR KPC-Carbap Res Gene PCR blaNDM Car Res Gene PCR OXA-48 Carbapenem Resis Gene (PCR) blaVIM Car Res Gene PCR CTX-M Gene Resistance (PCR) 07/13/24 07/13/24 07/13/24 17:25 20:00 20:20 WBC RBC Hgb Hct MCV MCH MCHC RDW Plt Count Neut % (Auto) Lymph % (Auto) Blaine % (Auto) Eos % (Auto) Baso % (Auto) Neut # (Auto) Lymph # (Auto) Blaine # (Auto) Eos # (Auto) Baso # (Auto) APTT ABG Sample Site ABG pH ABG pCO2 ABG pO2 ABG HCO3 ABG Total CO2 ABG O2 Saturation ABG Base Excess Dar Test O2 Delivery Device FiO2 % Sodium Potassium Chloride Carbon Dioxide BUN Creatinine Estimated GFR BUN/Creatinine Ratio Glucose Lactate 2.8 H 2.0 Calcium Magnesium Total Bilirubin AST ALT Alkaline Phosphatase Troponin I NT-Pro-B Natriuret Pep Total Protein Albumin Globulin Albumin/Globulin Ratio Urine RBC Urine WBC Ur Squamous Epith Cells Urine Bacteria Granular Casts Ur Culture Indicated? Vol Urine Centrifuged Nasal Screen MRSA (PCR) A.calcoaceticus-baumannii cmplx PCR Not detected Bacteroides fragilis Not detected Madeline albicans (PCR) Not detected Madeline auris (PCR) Not detected C. glabrata (PCR) Not detected C. krusei (PCR) Not detected C. parapsilosis (PCR) Not detected C. tropicalis (PCR) Not detected C. neoform/gattii (PCR) Not detected Enterobacterales (PCR) Not detected E. cloacae complex PCR Not detected Enterococc faecalis PCR Detected Enterococc faecium PCR Not detected E. coli (PCR) Not detected H. influenzae (PCR) Not detected Klebsiella aerogenes (PCR) Not detected Klebsiella oxytoca PCR Not detected Klebsiella pneumoniae Not detected List. monocytogenes PCR Not detected N. meningitidis (PCR) Not detected Proteus species (PCR) Not detected Salmonella spp. (PCR) Not detected Serratia marcescens PCR Not detected Staphylococcus sp PCR Detected Staph aureus (PCR) Detected mecA/C & MREJ Resist Gene Not detected mecA/C-Methicil Resis Gene Not applicable mcr-1 Colistin Res Gene PCR Not applicable Staph epidermidis (PCR) Not detected Staph lugdunensis PCR Not detected S. maltophilia (PCR) Not detected Streptococcus sp PCR Not detected Group A Strep (PCR) Not detected Strep agalactiae (PCR) Not detected Strep pneumoniae (PCR) Not detected P. aeruginosa (PCR) Not detected Jazmine/B-Vanco Res Genes Not detected blaIMP Car res Gene PCR Not applicable KPC-Carbap Res Gene PCR Not applicable blaNDM Car Res Gene PCR Not applicable OXA-48 Carbapenem Resis Gene (PCR) Not applicable blaVIM Car Res Gene PCR Not applicable CTX-M Gene Resistance (PCR) Not applicable 07/13/24 07/14/24 07/14/24 20:41 01:50 05:20 WBC 10.4 RBC 3.16 L Hgb 10.0 L Hct 29.3 L MCV 92.7 MCH 31.6 MCHC 34.1 RDW 16.4 H Plt Count 287 Neut % (Auto) 85.1 H Lymph % (Auto) 6.9 L Blaine % (Auto) 7.5 Eos % (Auto) 0.1 L Baso % (Auto) 0.4 Neut # (Auto) 8900 H Lymph # (Auto) 700 L Blaine # (Auto) 800 Eos # (Auto) 0 Baso # (Auto) 0 APTT Cancelled ABG Sample Site ABG pH ABG pCO2 ABG pO2 ABG HCO3 ABG Total CO2 ABG O2 Saturation ABG Base Excess Dar Test O2 Delivery Device FiO2 % Sodium 125 L Potassium 3.9 Chloride 100 Carbon Dioxide 15 L BUN 47 H Creatinine 1.90 H Estimated GFR 37 L BUN/Creatinine Ratio 24.7 H Glucose 307 H D Lactate Calcium 7.3 L Magnesium Total Bilirubin 0.6 AST 84 H ALT 87 H Alkaline Phosphatase 74 Troponin I NT-Pro-B Natriuret Pep Total Protein 5.0 L Albumin 2.3 L Globulin 2.7 Albumin/Globulin Ratio 0.9 L Urine RBC Urine WBC Ur Squamous Epith Cells Urine Bacteria Granular Casts Ur Culture Indicated? Vol Urine Centrifuged Nasal Screen MRSA (PCR) Not detected A.calcoaceticus-baumannii cmplx PCR Bacteroides fragilis Madeline albicans (PCR) Madeline auris (PCR) C. glabrata (PCR) C. krusei (PCR) C. parapsilosis (PCR) C. tropicalis (PCR) C. neoform/gattii (PCR) Enterobacterales (PCR) E. cloacae complex PCR Enterococc faecalis PCR Enterococc faecium PCR E. coli (PCR) H. influenzae (PCR) Klebsiella aerogenes (PCR) Klebsiella oxytoca PCR Klebsiella pneumoniae List. monocytogenes PCR N. meningitidis (PCR) Proteus species (PCR) Salmonella spp. (PCR) Serratia marcescens PCR Staphylococcus sp PCR Staph aureus (PCR) mecA/C & MREJ Resist Gene mecA/C-Methicil Resis Gene mcr-1 Colistin Res Gene PCR Staph epidermidis (PCR) Staph lugdunensis PCR S. maltophilia (PCR) Streptococcus sp PCR Group A Strep (PCR) Strep agalactiae (PCR) Strep pneumoniae (PCR) P. aeruginosa (PCR) aJzmine/B-Vanco Res Genes blaIMP Car res Gene PCR KPC-Carbap Res Gene PCR blaNDM Car Res Gene PCR OXA-48 Carbapenem Resis Gene (PCR) blaVIM Car Res Gene PCR CTX-M Gene Resistance (PCR) 07/14/24 06:25 WBC RBC Hgb Hct MCV MCH MCHC RDW Plt Count Neut % (Auto) Lymph % (Auto) Blaine % (Auto) Eos % (Auto) Baso % (Auto) Neut # (Auto) Lymph # (Auto) Blaine # (Auto) Eos # (Auto) Baso # (Auto) APTT > 150 H* D ABG Sample Site ABG pH ABG pCO2 ABG pO2 ABG HCO3 ABG Total CO2 ABG O2 Saturation ABG Base Excess Dar Test O2 Delivery Device FiO2 % Sodium Potassium Chloride Carbon Dioxide BUN Creatinine Estimated GFR BUN/Creatinine Ratio Glucose Lactate Calcium Magnesium Total Bilirubin AST ALT Alkaline Phosphatase Troponin I NT-Pro-B Natriuret Pep Total Protein Albumin Globulin Albumin/Globulin Ratio Urine RBC Urine WBC Ur Squamous Epith Cells Urine Bacteria Granular Casts Ur Culture Indicated? Vol Urine Centrifuged Nasal Screen MRSA (PCR) A.calcoaceticus-baumannii cmplx PCR Bacteroides fragilis Madeline albicans (PCR) Madeline auris (PCR) C. glabrata (PCR) C. krusei (PCR) C. parapsilosis (PCR) C. tropicalis (PCR) C. neoform/gattii (PCR) Enterobacterales (PCR) E. cloacae complex PCR Enterococc faecalis PCR Enterococc faecium PCR E. coli (PCR) H. influenzae (PCR) Klebsiella aerogenes (PCR) Klebsiella oxytoca PCR Klebsiella pneumoniae List. monocytogenes PCR N. meningitidis (PCR) Proteus species (PCR) Salmonella spp. (PCR) Serratia marcescens PCR Staphylococcus sp PCR Staph aureus (PCR) mecA/C & MREJ Resist Gene mecA/C-Methicil Resis Gene mcr-1 Colistin Res Gene PCR Staph epidermidis (PCR) Staph lugdunensis PCR S. maltophilia (PCR) Streptococcus sp PCR Group A Strep (PCR) Strep agalactiae (PCR) Strep pneumoniae (PCR) P. aeruginosa (PCR) Jazmine/B-Vanco Res Genes blaIMP Car res Gene PCR KPC-Carbap Res Gene PCR blaNDM Car Res Gene PCR OXA-48 Carbapenem Resis Gene (PCR) blaVIM Car Res Gene PCR CTX-M Gene Resistance (PCR) Exam Vital Signs (past 8 hours): - 07/14/24 04:00 07/14/24 04:01 07/14/24 04:01 Pulse Rate 96 H 100 H Respiratory Rate 25 H 25 H Blood Pressure 230/93 H Pulse Oximetry 100 100 07/14/24 04:30 07/14/24 04:40 07/14/24 04:40 Pulse Rate 106 H 112 H Respiratory Rate 29 H 27 H Blood Pressure 70/27 L Pulse Oximetry 95 97 07/14/24 05:00 07/14/24 05:00 07/14/24 05:01 Pulse Rate 97 H 97 H 96 H Respiratory Rate 23 22 Blood Pressure 70/27 L Pulse Oximetry 100 100 100 07/14/24 05:01 07/14/24 05:15 07/14/24 05:15 Pulse Rate 103 H Respiratory Rate 27 H Blood Pressure 181/76 H 139/89 Pulse Oximetry 98 07/14/24 05:30 07/14/24 06:00 07/14/24 06:02 Pulse Rate 98 H 100 H Respiratory Rate 22 24 Blood Pressure 149/61 H Pulse Oximetry 100 100 07/14/24 06:02 07/14/24 07:00 07/14/24 07:02 Pulse Rate 101 H 94 H Respiratory Rate 24 21 Blood Pressure 212/84 H Pulse Oximetry 100 99 07/14/24 07:02 07/14/24 07:03 07/14/24 07:03 Pulse Rate 94 H 96 H Respiratory Rate 21 21 Blood Pressure 165/63 H Pulse Oximetry 100 99 07/14/24 07:30 07/14/24 08:00 07/14/24 08:20 Pulse Rate 91 H 90 Respiratory Rate 23 21 Blood Pressure 183/77 H Pulse Oximetry 100 100 07/14/24 08:30 07/14/24 08:35 07/14/24 08:35 Pulse Rate 104 H 101 H Respiratory Rate 18 22 Blood Pressure 184/77 H 185/77 H Pulse Oximetry 100 100 07/14/24 08:36 07/14/24 08:36 07/14/24 08:55 Pulse Rate 101 H Respiratory Rate 25 H Blood Pressure 184/77 H 174/72 H Pulse Oximetry 100 07/14/24 09:00 07/14/24 09:01 07/14/24 09:01 Pulse Rate 103 H 104 H Respiratory Rate 25 H 27 H Blood Pressure 183/76 H Pulse Oximetry 100 99 07/14/24 09:10 07/14/24 09:12 07/14/24 09:12 Pulse Rate 100 H Respiratory Rate 25 H Blood Pressure 163/72 H 175/77 H Pulse Oximetry 100 07/14/24 09:13 07/14/24 09:13 Pulse Rate 100 H Respiratory Rate 22 Blood Pressure 163/72 H Pulse Oximetry 100 Fraction of Inspired Oxygen 100 Oxygen Delivery Method High Flow Nasal Cannula Oxygen Flow Rate 55 Narrative Exam Narrative: ill appearing on HFNC symmetric chest rise rate controlled Assessment & Plan Assessment & Plan narrative: Septic shock acute hypoxmeic respiratory failure AMELIA MSSA, Enterococcus bacteremia continue HFNC - i doubt his resp fialure is due to a PE given the abg findings thus far. There si a gradient but in thr setting of bacteremia i think its lower on the differential He needs a TTE to r/o endocarditis and even septic emboli as a source of his hypoxemia trend abg map goal >65 adat trend labs monitor UO dvt ppx on ceftraixone and vanco, can likely narrow to cenftriaxone and ampicllin. Total critical care time 35 min Time-Based Coding :: [TOTAL MINUTES] spent with patient and on the chart (including review of chart, obtaining history, exam, reviewing outside data, placing orders, documenting exam and treatment plan, and counseling patient) on [DATE].
[2024-07-14] MEDS: INSULIN LISPRO 100 UNIT/ML 3ML VIAL SUBCUT ×2 (12:03→17:20)
--- NOTE | 2024-07-14 12:24 | DI.RAD.S_ITS ---
PROCEDURE: XR HAND RT MIN 3V INDICATIONS: pain TECHNIQUE: 3 views of the hand(s) acquired. COMPARISON: None. FINDINGS: Bones: No fractures or dislocations. Carpal bones are normally aligned. No suspicious bony lesions. Chronic ossification noted at the ulnar base of the right 5th finger proximal phalanx. Mild polyarticular background degenerative changes of the right hand. Soft tissues: No suspicious soft tissue calcifications. Moderate soft tissue swelling of the right hand. Extensive vascular calcifications. IMPRESSION: Moderate soft tissue swelling of the right hand without underlying fracture or dislocation. If there are persistent symptoms or clinical suspicion for pathology, then repeat radiographs or advanced imaging (CT or MRI) may be considered for further evaluation. Dictated by: Dov Knowles M.D. on 07/14/2024 at 13:08 Approved by: Dov Knowles M.D. on 07/14/2024 at 13:10
[2024-07-14 12:26] LABS: PTT Partial Thromboplastin Tim 211 SECONDS (25.1-36.5)
--- NOTE | 2024-07-14 15:23 | CM.DANOTE ---
DCP Assessment Note: Pt is a 74yo male, resident [facility], admitted for hypotension and bacteremia. Pt lives in an apartment alone, pt was admitted from [facility]. Pt's Primary Care Provider is Dr. Nina Joel DO and insurance is Medicare and [facility]. Reviewed chart and team rounds about pt's medical status and initial discharge needs. DCP met w/patient at bedside 2x; introduced self and role, pt too somnolent to complete assessment. DCP Assessment compiled from EMR review and last admission. Per hospitalist, pt would likely return back to [facility] to complete rehab treatment. Plan: plan of care still evolving with medical work up, anticipating discharge back to [facility] when stable. CM team following for discharge needs. FRAN Campos Discharge Planning/Care Management CM Discharge Assessment Start: 07/14/24 15:20 Freq: Status: Active Protocol: Document 07/14/24 15:21 MW (Rec: 07/14/24 15:23 MW [id number]) Discharge Planning Assessment Assigned [employer] [id number] Negron DPOA/Assigned Designee Name sister Castañeda (Lives in [place]) Contact Information [phone] Advance Directives? No History Provided By Patient,Medical Record Has Patient been admitted in last 30 Yes days? Prior Living Arrangements Skilled Nurse Facility Household Members none Type of transporation used prior to Drives own vehicle admit Facility Name Admitted From: Other Willing to Return to Facility? Yes Independent with ADL's No Is patient alert and oriented? No Needs Assistance With Bathing,Toileting,Home Chores / Shopping Caregiver for Another No DME Already Rented / Owned Bath Bench,Elevated Toilet Seat,FWW / Walker,Other Comment diabetes management instruments Patient/Family Preference [facility] Discharge Plan [facility] Whiteboard Updated in Patient Room with Yes name and ext. # of [employer] Comment [phone] Review Status In Process Please Provide Date Initial DC 07/14/24 Assessment Was Performed Next Review Type Continued Stay Review
--- NOTE | 2024-07-14 20:13 | PM.ICURNDS ---
- Date Patient Seen: 07/14/24 Time Patient Seen: 20:13 :: This patient was seen via real time interactive two-way audiovisual telecommunication. Note: Patient is currently off levophed. On vanc/ceftriaxone. Heparin gtt held due to supratherapeutic level. Will continue abx and follow up cx. D/w bedside RN.
[2024-07-14] MEDS: INSULIN GLARGINE 100 UNIT/ML 3ML PEN 15 UNIT SUBCUT (21:41)
[2024-07-14] MEDS: SODIUM CHLORIDE 0.9% FLUSH 10 ML IV (21:41)
[2024-07-15] VITALS (60 sets, daily range): BP systolic 114–167; BP diastolic 48–102; PULSE 80–99; RESP 14–30; TEMP 37.2–38.4; O2SAT 87–100
[2024-07-15] MEDS: HYDROMORPHONE 0.5 MG INJ IV ×4 (04:41→19:56)
[2024-07-15 04:44] LABS: Add Manual Diff / Slide Review NO; Basophils Absolute Auto 0 /uL (0-100); Basophils Percent Auto 0.5 % (0-2); Eosinophils Absolute Auto 100 /uL (0-450); Eosinophils Percent Auto 1.4 % (2-4); Hemoglobin 7.2 g/dL (13.5-17.5); Lymphocytes Absolute Auto 400 /uL (1100-4500); Lymphocytes Percent Auto 5.4 % (25-40); Mean Corpuscular HGB Conc 34.9 % (30-36); Mean Corpuscular Hemoglobin 31.5 PG (26-34); Mean Corpuscular Volume 90.4 fL (80-100); Monocytes Absolute Auto 400 /uL (0-900); Monocytes Percent Auto 5.8 % (3-14); Neutrophils Absolute Auto 6600 /uL (1500-7000); Neutrophils Percent Auto 86.9 % (50-75); Platelet Count 170 X10^3/uL (150-400); Red Blood Cell Count 2.29 X10^6/uL (4.5-5.9); White Blood Cell Count 7.6 X10^3/uL (4.5-11.0)
[2024-07-15 04:45] LABS: Hematocrit 20.7 % (41-53)
[2024-07-15] MEDS: ONDANSETRON 4 MG/2 ML INJ IV (04:49)
[2024-07-15 06:08] LABS: Alanine Aminotransferase 62 IU/L (<50); Albumin 1.9 g/dL (3.5-5.0); Albumin Globulin Ratio 0.7 (1.0-2.8); Alkaline Phosphatase 70 U/L (38-126); Aspartate Aminotransferase 45 IU/L (17-59); BUN Creatinine Ratio 31.3 (6-22); Bilirubin Total 0.4 mg/dL (0.2-1.3); Blood Urea Nitrogen 40 mg/dL (9-20); Calcium 6.9 mg/dL (8.4-10.2); Carbon Dioxide 17 mmol/L (22-32); Chloride 107 mmol/L (98-107); Estimated Glomerular Filt Rate 59 mL/min (>60); Globulin 2.6 g/dL (1.7-4.1); Glucose 82 mg/dL (80-110); HEMOLYSIS < 15 (0-50); Sodium 130 mmol/L (137-145); Total Protein 4.5 g/dL (6.3-8.2)
[2024-07-15 06:09] LABS: Potassium 2.6 mmol/L (3.4-5.1)
[2024-07-15] MEDS: VANCOMYCIN 1,250 MG/250 ML PIGGYBACK 250 MG IV (06:25)
[2024-07-15] MEDS: POTASSIUM CHLORIDE IN WATER 10 MEQ/100 ML PIGGYBACK 100 MEQ IV ×6 (06:35→11:46)
[2024-07-15 06:39] LABS: Magnesium 1.3 mg/dL (1.6-2.3)
--- NOTE | 2024-07-15 08:00 | PM.PN.1 ---
Subjective Subjective Interval history: Admitted with septic shock, positive blood cultures over night. 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 S: More somnolent this morning, we will open eyes to request. Not really speaking. Concern of CO2 retention, although no history of. He was positive for MRSA bacteremia. He was significant necrosis of the right hand 4th finger which appears to be an embolic event. He was weaned down to 35% FiO2 on his high-flow, 40L flow Exam Vital Signs (past 8 hours): - 07/15/24 00:30 07/15/24 01:00 07/15/24 01:01 Pulse Rate 87 96 H 96 H Respiratory Rate 19 26 H 30 H Blood Pressure Pulse Oximetry 100 99 98 07/15/24 01:01 07/15/24 01:30 07/15/24 02:00 Pulse Rate 94 H 94 H Respiratory Rate 26 H 25 H Blood Pressure 114/52 L Pulse Oximetry 95 98 07/15/24 02:01 07/15/24 02:01 07/15/24 02:30 Pulse Rate 95 H 96 H Respiratory Rate 26 H 24 Blood Pressure 124/57 L Pulse Oximetry 97 97 07/15/24 03:00 07/15/24 03:00 07/15/24 03:30 Pulse Rate 98 H 99 H Respiratory Rate 26 H 25 H Blood Pressure 120/53 L Pulse Oximetry 99 100 07/15/24 04:00 07/15/24 04:00 07/15/24 04:00 Pulse Rate 98 H 98 H Respiratory Rate 24 24 Blood Pressure 115/54 L 115/54 L Pulse Oximetry 99 99 07/15/24 04:30 07/15/24 05:00 07/15/24 05:00 Pulse Rate 93 H 90 Respiratory Rate 24 18 Blood Pressure 117/51 L Pulse Oximetry 100 100 07/15/24 05:30 07/15/24 06:00 07/15/24 06:00 Pulse Rate 88 89 Respiratory Rate 18 21 Blood Pressure 149/62 H Pulse Oximetry 100 100 07/15/24 07:00 07/15/24 07:00 Pulse Rate 86 Respiratory Rate 16 Blood Pressure 142/60 H Pulse Oximetry 100 Fraction of Inspired Oxygen 48 Oxygen Delivery Method Heated High Flow Oxygen Flow Rate 40 Narrative Exam Narrative: No distress, on high-flow oxygen and lethargic. Very somnolent today. Lungs are diminished breath sounds, increased effort. Heart is regular, no murmur. Abdomen is distended and nontender. No leg edema. He was many excoriations and ecchymosis. He was evidence of an embolic necrosis of his right hand 4th finger. Objective Labs 07/15/24 04:30 07/15/24 05:15 Labs: Laboratory Results - last 24 hr 07/14/24 07/15/24 07/15/24 11:45 04:30 05:15 WBC 7.6 RBC 2.29 L Hgb 7.2 L Hct 20.7 L* MCV 90.4 MCH 31.5 MCHC 34.9 RDW 16.0 H Plt Count 170 Neut % (Auto) 86.9 H Lymph % (Auto) 5.4 L [place] % (Auto) 5.8 Eos % (Auto) 1.4 L Baso % (Auto) 0.5 Neut # (Auto) 6600 Lymph # (Auto) 400 L [place] # (Auto) 400 Eos # (Auto) 100 Baso # (Auto) 0 APTT 211 H* D Sodium 130 L Potassium 2.6 L* D Chloride 107 Carbon Dioxide 17 L BUN 40 H Creatinine 1.28 H Estimated GFR 59 L BUN/Creatinine Ratio 31.3 H Glucose 82 D Calcium 6.9 L Magnesium 1.3 L Total Bilirubin 0.4 AST 45 ALT 62 H Alkaline Phosphatase 70 Total Protein 4.5 L Albumin 1.9 L Globulin 2.6 Albumin/Globulin Ratio 0.7 L PFSH Medical History Screening due Folliculitis Myalgia COVID-19 BPH w urinary obs/LUTS Bilateral nephrolithiasis Retained ureteral stent Bilateral nephrolithiasis Left ureteral calculus Labyrinthitis Lymphocytic colitis (2012) Rosacea (Unknown) Kidney stones (2011) Kidney disease (Unknown) Myopia (Unknown) Asthma (Unknown) Anemia (Unknown) Depression (Unknown) Hypertriglyceridemia (Unknown) Hypertension (Unknown) Hyperlipidemia (Unknown) Microscopic colitis (10/10/15) Chronic renal insufficiency, stage II (mild) (10/10/15) Depression (09/04/14) Type 2 diabetes mellitus without complication (09/11/15) Essential hypertension (09/11/15) Surgical History Hx of cystoscopy (04/29/21) Family History Father Cancer Mother Stroke Social History marital status: unmarried,single household members: none lives independently: Yes Smoking Status: Former smoker alcohol intake: current Assessment & Plan Assessment & Plan narrative: 1. Septic shock and bacteremia (GPC and GPB, 2/2), present on admission and improved. 2. Lactic acidosis, present on admission and improved. 3. Elevated procalcitonin, present on admission and active. 4. Acute hypoxic respiratory failure, present on admission and improving. 5. Acute septic encephalopathy, present on admission and active. 6. AMELIA, present on admission and improved. 7. Acute on chronic anemia without clinical bleeding, present on admission and active. 8. MRSA bacteremia, 2/2 blood cultures. 9. Increased somnolence, new and active. 10. Hypokalemia, new and active. PLAN: -Cont ceftriaxone and vancomycin -ABG rule out hypercarbia -monitor hemoglobin, probable transfusion today. -decrease IV fluids to 75 an hour. -replace potassium and monitor. -2D echo to rule out vegetation. -HFO2, wean O2 as able. -stop heparin drip -DNR/DNI -monitor renal function -monitor finger which appears to be necrotic. He was quite ill but improving. His prognosis is guarded. DNR, DNI. His sister is his only family member, she was out of state. MARS is unknown. Time-Based Coding :: [TOTAL MINUTES] spent with patient and on the chart (including review of chart, obtaining history, exam, reviewing outside data, placing orders, documenting exam and treatment plan, and counseling patient) on [DATE].
[2024-07-15] MEDS: DEXTROSE 10 % IN WATER 100 ML 1200 ML IV (08:23)
[2024-07-15] MEDS: SODIUM CHLORIDE 0.9% 1,000 ML 130 ML IV (08:28)
[2024-07-15] MEDS: MAGNESIUM SULFATE 2 GM/50 ML PIGGYBACK IV (08:52)
[2024-07-15] MEDS: FAMOTIDINE 20 MG/2 ML VIAL IV ×2 (08:52→21:25)
[2024-07-15] MEDS: SODIUM CHLORIDE 0.9% FLUSH 10 ML IV ×2 (08:52→20:45)
--- NOTE | 2024-07-15 08:58 | DI.ECHO.S_ITS ---
[facility] : : [address] : : [place] : : [id number] : : Phone: [phone] Echocardiogram Report + + :Name: LUZ KUMAR Study Date: 07/15/2024 Height: 71 in : [facility] ReadingLocation: Weight: 192 lb : : Gender: Male BSA: 2.1 m2 : :: 1950 Age: 74 yrs BP: 135/53 mmHg: :Reason For Study: BACTEREMIA : :Ordering Physician: LAUREN, : :LENIN Aviles Performed By: Tamra Torres : :Referring: LENIN AGUILAR : + + Interpretation Summary 1) Normal left ventricular thickness, size, wall motion, and systolic function (EF 55-60%). 2) Normal right ventricular size and function. 3) No significant valvular abnormalities. 4) Compared to the Echo done 01/13/2024, no signficiant change. Procedure: A two-dimensional transthoracic echocardiogram with color flow and Doppler was performed. The study quality was technically adequate. Comparison is made with the echocardiogram of 01/13/2024. The patient was in sinus rhythm with heart rates between 86-88 bpm during the exam. Left Ventricle: The left ventricle is normal in size and wall thickness. The ejection fraction is estimated to be 55-60%. Left ventricular systolic function appears normal without focal wall motion abnormalities. Diastolic parameters suggest a pseudonormalization pattern, consistent with probable elevated filling pressures. Right Ventricle: The right ventricle is normal in size and function. Atria: The left atrium is mildly dilated. Right atrial size is normal. There is no Doppler evidence for an interatrial shunt. Mitral Valve: The mitral valve is normal in structure and function. There is trace mitral regurgitation. Aortic Valve: The aortic valve is trileaflet. The aortic valve opens well. There is no aortic valve stenosis. No aortic regurgitation is present. Tricuspid Valve: The tricuspid valve is normal in structure and function. There is trace tricuspid regurgitation. Pulmonic Valve: The pulmonic valve leaflets are thin and pliable; valve motion is normal. There is mild pulmonic regurgitation. Great Vessels: The aortic root is normal size. The dimensions of the ascending aorta are normal. The IVC is of normal diameter and collapses greater than 50% with a sniff. This suggests a low right atrial pressure of 3 mm Hg. Pericardium/ Pleura There is no pericardial effusion. There is no pleural effusion. MMode/2D Measurements & Calculations LVIDd: 5.1 cm LVOT diam: 2.1 cm LVIDs: 3.5 cm Ao root diam: 3.3 cm FS: 29.9 % asc Aorta Diam: 3.0 cm IVSd: 0.86 cm LVPWd: 1.1 cm LV martinez. diameter/BSA (cm/m^2): 2.4 LV sys. diameter/BSA (cm/m^2): 1.7 LA A2 area: 21.8 cm2 RA long axis: 5.7 cm LA A4 area: 22.5 cm2 RA area: 17.4 cm2 LA length (vol): 5.9 cm RA vol: 45.2 ml LA vol: 70.6 ml RA : 21.8 ml/m2 LA vol index: 34.1 ml/m2 IVC diam: 1.7 cm RVD1 (basal): 3.3 cm RVD2 (mid): 2.8 cm TAPSE: 2.0 cm Doppler Measurements & Calculations Ao V2 max: 135.5 cm/sec LVOT Max Gerry: 120.6 cm/sec Ao V2 mean: 97.8 cm/sec LV V1 max P.8 mmHg Ao max P.3 mmHg LV V1 VTI: 24.2 cm Ao mean P.2 mmHg ADALBERTO(I,D): 3.0 cm2 Ao V2 VTI: 27.5 cm ADALBERTO(V,D): 3.0 cm2 sev ratio: 0.88 ADALBEROT indexed to BSA (cm^2/m^2): 1.4 MV E max gerry: 96.5 cm/sec PA V2 max: 126.9 cm/sec MV A max gerry: 63.2 cm/sec PA V2 mean: 85.9 cm/sec MV E/A: 1.5 PA mean P.4 mmHg Med Peak E' Gerry: 6.8 cm/sec PA pr(Accel): 19.1 mmHg E/E' med: 14.2 Lat Peak E' Gerry: 6.4 cm/sec E/E' lat: 15.0 E/e' average: 14.6 MV dec time: 0.19 sec SV(LVOT): 82.6 ml Reading Physician:12:05 PM
[2024-07-15 09:09] LABS: Mean Corpuscular HGB Conc 34.3 % (30-36); Mean Corpuscular Hemoglobin 31.4 PG (26-34); Mean Corpuscular Volume 91.7 fL (80-100); Platelet Count 149 X10^3/uL (150-400); Red Blood Cell Count 1.96 X10^6/uL (4.5-5.9); White Blood Cell Count 7.5 X10^3/uL (4.5-11.0)
[2024-07-15 09:11] LABS: Hemoglobin 6.2 g/dL (13.5-17.5)
[2024-07-15 09:25] LABS: Base Excess ABG -7.9 mmol/L (-2-3); Blood Gas Collection Site Right Brachial; Delivery System HHFNC; HCO3 ABG 16 mmol/L (23-27); Oxygen Saturation ABG 97 % (95-100); PCO2 ABG 27.2 mmHg (35-45); PO2 ABG 94 mmHg (80-100); Respiratory Rate 18; TCO2 ABG 16 mmol/L (23-27); pH ABG 7.39 (7.35-7.45)
[2024-07-15] MEDS: cefTRIAXone 2,000 MG in SODIUM CHLORIDE 0.9% 100 ML 200 MG IV (09:55)
--- NOTE | 2024-07-15 15:35 | CM.DPNOTE ---
DCP Note VAULT PERSON reviewed EMR. Per chart review, Rebecca (sister) [phone] Сергей (brother) [phone] can have information per patient. Per hospitalist in morning rounds, 5 days until stable for dc at minimum. going to need 14 days of IV abx. Off pressers. Per March at , did not hold a bed for pt at this time due to bed availability there. willing to accept him back pending bed availability when stable. VAULT PERSON attempt to meet with pt in room, just got pain meds and not alert enough for DCP conversation. Met with sister Rebecca and brother Сергей here from out of town. Per siblings, pt hermit by choice from them and other siblings. 8 siblings total. Report they will be here until and other sister (Janina?) will also come in Tuesday from [place]. VAULT PERSON answered their questions to best of ability. Sister/brother report pt does not have healthcare/financial POA. gave blank copies for them to assist pt in completing when alert. Sister/brother report pt likely will need LTC but were unsure of pt's financial situation, report he does not own any assets. Gave blank copies of Medicaid brooke/LTC brooke for them to review with pt once alert. In agreement for pt to return to when medically stable. P: Medical POC continues to develop. Likely return to when stable, likely will transition from rehab to LTC pending progress. PASRR needed. CM team will continue to follow closely. MEENAKSHI Jane
[2024-07-15 16:48] LABS: HEMOLYSIS < 15 (0-50); Magnesium 1.7 mg/dL (1.6-2.3); Potassium 3.3 mmol/L (3.4-5.1)
--- NOTE | 2024-07-15 19:30 | PC.NURSE ---
Patient's right ring digit blackened, no visible cap refill. No visible cap refill in right pinkie. Provider notified. Bruising appears to be streaking up patient's wrist and arm, provider notified. Pictures obtained for reference. Pain managed (See MAR).
[2024-07-15] MEDS: SODIUM CHLORIDE 0.9% 1,000 ML 75 ML IV (21:25)
[2024-07-16] VITALS (66 sets, daily range): BP systolic 117–149; BP diastolic 48–66; PULSE 74–90; RESP 12–39; TEMP 36.2–37.6; O2SAT 80–100; BMI 27.2
[2024-07-16] MEDS: HYDROMORPHONE 0.5 MG INJ IV ×4 (01:08→10:27)
[2024-07-16 06:00] LABS: Add Manual Diff / Slide Review YES; Hematocrit 28.1 % (41-53); Hemoglobin 9.6 g/dL (13.5-17.5); Mean Corpuscular Hemoglobin 30.5 PG (26-34); Mean Corpuscular Volume 89.6 fL (80-100); Platelet Count 170 X10^3/uL (150-400); Red Blood Cell Count 3.13 X10^6/uL (4.5-5.9); Red Cell Distribution Width 17.4 % (11.6-14.8); White Blood Cell Count 11.7 X10^3/uL (4.5-11.0)
[2024-07-16 06:11] LABS: Alanine Aminotransferase 54 IU/L (<50); Albumin 2.1 g/dL (3.5-5.0); Albumin Globulin Ratio 0.8 (1.0-2.8); Alkaline Phosphatase 80 U/L (38-126); Aspartate Aminotransferase 29 IU/L (17-59); BUN Creatinine Ratio 29.5 (6-22); Bilirubin Total 0.6 mg/dL (0.2-1.3); Blood Urea Nitrogen 28 mg/dL (9-20); Calcium 7.4 mg/dL (8.4-10.2); Carbon Dioxide 14 mmol/L (22-32); Chloride 111 mmol/L (98-107); Estimated Glomerular Filt Rate > 60 mL/min (>60); Globulin 2.8 g/dL (1.7-4.1); Glucose 81 mg/dL (80-110); HEMOLYSIS < 15 (0-50); Potassium 2.9 mmol/L (3.4-5.1); Sodium 133 mmol/L (137-145); Total Protein 4.9 g/dL (6.3-8.2)
[2024-07-16 06:17] LABS: Vancomycin Trough 14.9 ug/mL (10-20)
[2024-07-16 06:19] LABS: Anisocytosis 1+; Neutrophils Absolute Manual 10998 /uL (3000-5900); Total Cells Counted 100
[2024-07-16] MEDS: VANCOMYCIN TROUGH 1 REQUEST MISC (06:44)
[2024-07-16] MEDS: VANCOMYCIN 1,250 MG/250 ML PIGGYBACK 250 MG IV (06:45)
--- NOTE | 2024-07-16 09:00 | DI.US.S_ITS ---
PROCEDURE: US PERIPH VENOUS LOW EXTREM BI INDICATIONS: EDEMA TECHNIQUE: Real-time imaging, as well as color and pulse Doppler interrogation, were performed of the deep veins of both legs from the inguinal ligament to the popliteal fossa, with documentation of the visualized calf veins. COMPARISON: None. FINDINGS: Right: The common femoral, femoral, popliteal, and the visualized calf veins are normally compressible, and free of intraluminal thrombus. Color and pulse Doppler demonstrate normal phasic intravascular flow. There is normal augmentation response to distal compression maneuver. Left: The common femoral, femoral, popliteal, and the visualized calf veins are normally compressible, and free of intraluminal thrombus. Color and pulse Doppler demonstrate normal phasic intravascular flow. There is normal augmentation response to distal compression maneuver. IMPRESSION: No findings of deep venous thrombosis in either lower extremity. Dictated by: Cristian Luna M.D. on 07/16/2024 at 8:54 Approved by: Cristian Luna M.D. on 07/16/2024 at 8:54
[2024-07-16] MEDS: FAMOTIDINE 20 MG/2 ML VIAL IV ×2 (09:16→21:16)
[2024-07-16] MEDS: POTASSIUM CHLORIDE IN WATER 10 MEQ/100 ML PIGGYBACK 100 MEQ IV ×8 (09:17→23:18)
[2024-07-16] MEDS: SODIUM CHLORIDE 0.9% FLUSH 10 ML IV ×2 (09:17→21:03)
[2024-07-16 09:47] LABS: Vancomycin Peak 35.4 ug/mL (20-40)
[2024-07-16] MEDS: cefTRIAXone 2,000 MG in SODIUM CHLORIDE 0.9% 100 ML 200 MG IV (10:28)
--- NOTE | 2024-07-16 11:04 | CM.DPNOTE ---
DCP Note DOMINATRIX reviewed EMR. DOMINATRIX met with pt, sister, and brother in room. Pt A/Ox4 during time of DOMINATRIX assessment. Pt confirms agreeable with completing healthcare/financial POA paperwork at this time naming sister Rebecca JOHNS. Confirms agreeable with plan to dc to [facility] when medically stable. Per sister/brother, will be here at any point over next few days for devorah to come up. Per devorah Platt, likely can come up to floor to notarize sometime in next day or so, her schedule pending. Per hospitalist in morning rounds pt's finger has been getting worse. Consulted ortho for potential finger amputation. Also likely needs DONAVNA and would need to be transferred out for that. CM team will continue to follow clinical course closely. Transfer vs [facility]. MEENAKSHI Jane
[2024-07-16] MEDS: SODIUM CHLORIDE 0.9% 1,000 ML 75 ML IV ×2 (11:37→18:43)
--- NOTE | 2024-07-16 14:56 | P.PN_ITS ---
Subjective Subjective Interval history: Somewhat improved mentation today, though he is still a bit more confused. R 4th finger is black, cultres with MRSA bacteremia. Consulted orthopedics for possible amputation and patient is currently NPO for OR later today. Exam Vital Signs (past 8 hours): - 07/16/24 08:00 07/16/24 08:25 07/16/24 10:49 Temperature 97.6 F Pulse Rate 80 Respiratory Rate 17 Blood Pressure 149/66 H Pulse Oximetry 95 Oxygen Delivery Method Room Air 07/16/24 11:02 07/16/24 11:03 07/16/24 11:04 Temperature Pulse Rate 83 83 84 Respiratory Rate 16 23 19 Blood Pressure Pulse Oximetry 91 93 92 Oxygen Delivery Method 07/16/24 11:05 07/16/24 11:06 07/16/24 11:07 Temperature Pulse Rate 83 84 84 Respiratory Rate 21 27 H 19 Blood Pressure Pulse Oximetry 93 92 87 L Oxygen Delivery Method 07/16/24 11:10 07/16/24 11:15 07/16/24 11:16 Temperature Pulse Rate 82 84 85 Respiratory Rate 19 13 19 Blood Pressure Pulse Oximetry 84 L 80 L Oxygen Delivery Method 07/16/24 11:18 07/16/24 11:19 07/16/24 11:20 Temperature Pulse Rate 89 89 89 Respiratory Rate 29 H 30 H 32 H Blood Pressure Pulse Oximetry 95 93 92 Oxygen Delivery Method 07/16/24 11:22 07/16/24 11:23 07/16/24 11:25 Temperature Pulse Rate 86 87 90 Respiratory Rate 33 H 18 23 Blood Pressure Pulse Oximetry 92 91 90 L Oxygen Delivery Method 07/16/24 11:26 07/16/24 11:27 07/16/24 11:30 Temperature Pulse Rate 87 87 85 Respiratory Rate 37 H 28 H 18 Blood Pressure Pulse Oximetry 91 92 90 L Oxygen Delivery Method 07/16/24 11:31 07/16/24 11:32 07/16/24 11:33 Temperature Pulse Rate 85 83 82 Respiratory Rate 16 15 16 Blood Pressure Pulse Oximetry 95 95 94 Oxygen Delivery Method 07/16/24 11:34 07/16/24 11:35 07/16/24 11:36 Temperature Pulse Rate 83 82 81 Respiratory Rate 19 17 15 Blood Pressure Pulse Oximetry 95 96 95 Oxygen Delivery Method 07/16/24 11:37 07/16/24 11:38 07/16/24 11:39 Temperature Pulse Rate 81 82 83 Respiratory Rate 23 25 H 25 H Blood Pressure Pulse Oximetry 95 95 95 Oxygen Delivery Method 07/16/24 11:40 07/16/24 11:41 07/16/24 11:42 Temperature Pulse Rate 84 85 85 Respiratory Rate 26 H 21 39 H Blood Pressure Pulse Oximetry 96 97 96 Oxygen Delivery Method 07/16/24 11:43 07/16/24 11:44 07/16/24 11:45 Temperature Pulse Rate 87 87 85 Respiratory Rate 25 H 30 H 26 H Blood Pressure Pulse Oximetry 96 96 96 Oxygen Delivery Method 07/16/24 11:46 07/16/24 11:47 07/16/24 11:48 Temperature Pulse Rate 85 84 86 Respiratory Rate 26 H 27 H 24 Blood Pressure Pulse Oximetry 96 96 96 Oxygen Delivery Method 07/16/24 11:49 07/16/24 11:50 07/16/24 12:00 Temperature Pulse Rate 86 84 Respiratory Rate 32 H 22 Blood Pressure 133/56 L Pulse Oximetry 96 96 Oxygen Delivery Method 07/16/24 12:00 07/16/24 13:00 07/16/24 13:01 Temperature Pulse Rate 81 82 Respiratory Rate 17 24 Blood Pressure 135/55 L Pulse Oximetry 96 97 Oxygen Delivery Method 07/16/24 14:00 07/16/24 14:00 Temperature Pulse Rate 79 Respiratory Rate 14 Blood Pressure 125/56 L Pulse Oximetry 97 Oxygen Delivery Method Fraction of Inspired Oxygen 48 Oxygen Delivery Method Room Air Oxygen Flow Rate 2 Narrative Exam Narrative: No distress, on high-flow oxygen and lethargic. Very somnolent today. Lungs are diminished breath sounds, increased effort. Heart is regular, no murmur. Abdomen is distended and nontender. No leg edema. He was many excoriations and ecchymosis. right hand 4th finger black with further extension up his R wrist, extensive ecchymosis over this area makes it difficult. Objective Labs 07/16/24 05:40 07/16/24 05:40 Labs: Laboratory Results - last 24 hr 07/15/24 07/15/24 07/16/24 10:38 16:30 05:40 WBC 11.7 H D RBC 3.13 L Hgb 9.6 L Hct 28.1 L MCV 89.6 MCH 30.5 MCHC 34.0 RDW 17.4 H Plt Count 170 Neut % (Auto) Not Reportable Lymph % (Auto) Not Reportable [place] % (Auto) Not Reportable Eos % (Auto) Not Reportable Baso % (Auto) Not Reportable Lymph # (Auto) Not Reportable [place] # (Auto) Not Reportable Baso # (Auto) Not Reportable Total Counted 100 Seg Neutrophils % 89.0 H Band Neutrophils % 5.0 Lymphocytes % (Manual) 1.0 L Monocytes % (Manual) 5.0 Neutrophils # (Manual) 30632 H RBC Morphology Not Reportable Anisocytosis 1+ H Sodium 133 L Potassium 3.3 L 2.9 L Chloride 111 H Carbon Dioxide 14 L BUN 28 H Creatinine 0.95 Estimated GFR > 60 BUN/Creatinine Ratio 29.5 H Glucose 81 Calcium 7.4 L Magnesium 1.7 Total Bilirubin 0.6 AST 29 ALT 54 H Alkaline Phosphatase 80 Total Protein 4.9 L Albumin 2.1 L Globulin 2.8 Albumin/Globulin Ratio 0.8 L Vancomycin Peak Vancomycin Trough 14.9 Blood Type O Positive Antibody Screen Positive Antibody Identification Capture-R Antibody Crossmatch See Detail 07/16/24 08:00 WBC RBC Hgb Hct MCV MCH MCHC RDW Plt Count Neut % (Auto) Lymph % (Auto) [place] % (Auto) Eos % (Auto) Baso % (Auto) Lymph # (Auto) [place] # (Auto) Baso # (Auto) Total Counted Seg Neutrophils % Band Neutrophils % Lymphocytes % (Manual) Monocytes % (Manual) Neutrophils # (Manual) RBC Morphology Anisocytosis Sodium Potassium Chloride Carbon Dioxide BUN Creatinine Estimated GFR BUN/Creatinine Ratio Glucose Calcium Magnesium Total Bilirubin AST ALT Alkaline Phosphatase Total Protein Albumin Globulin Albumin/Globulin Ratio Vancomycin Peak 35.4 Vancomycin Trough Blood Type Antibody Screen Antibody Identification Crossmatch [facility] Medical History Screening due Folliculitis Myalgia COVID-19 BPH w urinary obs/LUTS Bilateral nephrolithiasis Retained ureteral stent Bilateral nephrolithiasis Left ureteral calculus Labyrinthitis Lymphocytic colitis (2012) Rosacea (Unknown) Kidney stones (2011) Kidney disease (Unknown) Myopia (Unknown) Asthma (Unknown) Anemia (Unknown) Depression (Unknown) Hypertriglyceridemia (Unknown) Hypertension (Unknown) Hyperlipidemia (Unknown) Microscopic colitis (10/10/15) Chronic renal insufficiency, stage II (mild) (10/10/15) Depression (09/04/14) Type 2 diabetes mellitus without complication (09/11/15) Essential hypertension (09/11/15) Surgical History Hx of cystoscopy (04/29/21) Family History Father Cancer Mother Stroke Social History marital status: unmarried,single household members: none lives independently: Yes Smoking Status: Former smoker alcohol intake: current Assessment & Plan Assessment & Plan narrative: 1. Septic shock, secondary to MRSA bacteremia possibly from R 4th finger necrosis or rule out endocarditits, present on admission and improved. 2. Acute hypoxic respiratory failure, present on admission and improving. 3. Acute metabolic encephalopathy, present on admission and active. 4. AMELIA, present on admission and improved. 5. Acute on chronic anemia without clinical bleeding, present on admission and active. 6. Hypokalemia, new and active. 7. CAD, recent NSTEMI 12/2023. This is a 74 year old male admitted with septic shock and found to have MRSA bacteremia. Initially was on pressor support but now off of levophed. TTE without any obvious vegetations. His respiratory status has also improved and is on minimal supplemental O2 via nasal cannula. His R 4th finger is necrotic and this may be the underlying source. Endocarditis is another possibility. He did have a R 4th finger bruise after reported fingerstick last admission that would not improve. It is not clear if this is evidence of a septic emboli or if this where his bacteremia is originating from. Orthopedics is taking patient for possible amputation later today given leilani necrosis of his R 4th finger. Plan: -continue ceftriaxone and vancomycin, TTE today unremarkable but will likely need transfer for DONAVAN to rule out endocarditis, will discuss with outside hospital infectious disease after trying to coordinate through transfer centers -orthopedics consultation appreciated, discussed with orthopedic surgeon today. NPO now for possible amputation of R finger. -continue current insulin without change, adjust as needed. -Cr is improving today, WBC up to 11. -repeat blood cultures ordered for today. 3/4 bottles from admission positive for MRSA from admission. No repeated blood cultures since. -wean from O2 as tolerated. Code: DNR, surrogate is patient's sister currently though lives out of state DVT: Lovenox daily I have utilized all available immediate resources to obtain, update, or review the patient's current medications. Dispo: patient admitted under inpatient status to the ICU. Came from SNF, can return once medically stable, but will likely need transfer as noted above. Additional history obtained via discussions with the orthopedic surgeon today and previous hospitalist on duty. These discussions contributed to the creation of the above assessment and plan. I have reviewed patient's presenting documentation, labs, and imaging personally. Time-Based Coding :: [TOTAL MINUTES] spent with patient and on the chart (including review of chart, obtaining history, exam, reviewing outside data, placing orders, documenting exam and treatment plan, and counseling patient) on [DATE].
[2024-07-16] MEDS: ALBUTEROL 2.5 MG/3 ML NEB (ADULT) INH ×3 (16:23→22:50)
[2024-07-16] MEDS: DEXTROSE 50 % IN WATER 25 GM/50 ML SYRINGE IV (16:23)
--- NOTE | 2024-07-16 16:30 | P.CONS_ITS ---
History of Present Illness Consult details Date Patient Seen: 07/16/24 Time Patient Seen: 16:30 Chief complaint: hypotension, weakness Reason for consult: finger necrosis Requesting provider: Dar Foley Narrative: Mr. Serrano is a patient with history of type II DM admitted for confusion and sepsis. Patient has progressive worsening right hand 4th digit poor ciriculation. Ortho service was consulted today for management of right ring finger infection/necrosis. Meds Home Medications and Allergies Home Medications Medication Instructions Recorded Confirmed Type ketoconazole 2 % topical cream 1 applic topical BID PRN 06/07/23 07/07/24 Rx itching/rash #15 grams cholecalciferol (vitamin D3) 50 50 mcg PO DAILY 08/04/23 07/07/24 History mcg (2,000 unit) capsule (Vitamin D3) budesonide 3 mg 3 mg PO BID #180 caps 01/18/24 07/07/24 Rx capsule,delayed,extended release aspirin 81 mg tablet,delayed 81 mg PO DAILY 01/26/24 07/07/24 History release blood sugar diagnostic (Blood #100 ea 01/26/24 07/07/24 Rx Glucose Test strips) blood-glucose meter (Blood Glucose #1 ea 01/26/24 07/07/24 Rx Monitoring kit) lancets 30 gauge #100 ea 01/26/24 07/07/24 Rx nitroglycerin 0.4 mg sublingual 0.4 mg sublingual Q5M PRN chest 01/26/24 07/07/24 Rx tablet pain #10 tabs potassium citrate 10 mEq (1,080 20 meq PO BID 01/26/24 07/09/24 History mg) tablet,extended release rosuvastatin 40 mg tablet 40 mg PO DAILY #90 tabs 01/26/24 07/07/24 Rx omeprazole 20 mg capsule,delayed 20 mg PO DAILY #90 caps 03/27/24 07/07/24 Rx release trazodone 50 mg tablet 25 mg (1/2 x 50 mg) PO BEDTIME PRN 03/28/24 07/07/24 Rx sleep #30 tabs methocarbamol 500 mg tablet 500 mg PO BID PRN muscle spasm #15 06/26/24 07/07/24 Rx tabs insulin glargine 100 unit/mL (3 17 unit SUBCUT QAM 07/07/24 07/07/24 History mL) subcutaneous pen (Basaglar KwikPen U-100 Insulin) sitagliptin phosphate 100 mg 100 mg PO DAILY 07/07/24 07/07/24 History tablet (Januvia) prasugrel 10 mg tablet 10 mg PO DAILY 07/09/24 07/09/24 History allopurinol 100 mg tablet 100 mg PO DAILY 07/16/24 History aspirin 81 mg chewable tablet 1 tab PO DAILY 07/16/24 07/16/24 History carvedilol 6.25 mg tablet 6.25 mg PO BID 07/16/24 History Allergies Allergy/AdvReac Type Severity Reaction Status Date / Time MALCOLM Inhibitors AdvReac Severe Elevated Verified 07/13/24 11:04 creatinine Review of Systems Review of Systems ROS: Yes All systems reviewed with the patient and are negative except as otherwise documented Exam Vital Signs (past 8 hours): - 07/16/24 10:49 07/16/24 11:02 07/16/24 11:03 Temperature Pulse Rate 83 83 Respiratory Rate 16 23 Blood Pressure Pulse Oximetry 91 93 Oxygen Delivery Method Room Air 07/16/24 11:04 07/16/24 11:05 07/16/24 11:06 Temperature Pulse Rate 84 83 84 Respiratory Rate 19 21 27 H Blood Pressure Pulse Oximetry 92 93 92 Oxygen Delivery Method 07/16/24 11:07 07/16/24 11:10 07/16/24 11:15 Temperature Pulse Rate 84 82 84 Respiratory Rate 19 19 13 Blood Pressure Pulse Oximetry 87 L 84 L 80 L Oxygen Delivery Method 07/16/24 11:16 07/16/24 11:18 07/16/24 11:19 Temperature Pulse Rate 85 89 89 Respiratory Rate 19 29 H 30 H Blood Pressure Pulse Oximetry 95 93 Oxygen Delivery Method 07/16/24 11:20 07/16/24 11:22 07/16/24 11:23 Temperature Pulse Rate 89 86 87 Respiratory Rate 32 H 33 H 18 Blood Pressure Pulse Oximetry 92 92 91 Oxygen Delivery Method 07/16/24 11:25 07/16/24 11:26 07/16/24 11:27 Temperature Pulse Rate 90 87 87 Respiratory Rate 23 37 H 28 H Blood Pressure Pulse Oximetry 90 L 91 92 Oxygen Delivery Method 07/16/24 11:30 07/16/24 11:31 07/16/24 11:32 Temperature Pulse Rate 85 85 83 Respiratory Rate 18 16 15 Blood Pressure Pulse Oximetry 90 L 95 95 Oxygen Delivery Method 07/16/24 11:33 07/16/24 11:34 07/16/24 11:35 Temperature Pulse Rate 82 83 82 Respiratory Rate 16 19 17 Blood Pressure Pulse Oximetry 94 95 96 Oxygen Delivery Method 07/16/24 11:36 07/16/24 11:37 07/16/24 11:38 Temperature Pulse Rate 81 81 82 Respiratory Rate 15 23 25 H Blood Pressure Pulse Oximetry 95 95 95 Oxygen Delivery Method 07/16/24 11:39 07/16/24 11:40 07/16/24 11:41 Temperature Pulse Rate 83 84 85 Respiratory Rate 25 H 26 H 21 Blood Pressure Pulse Oximetry 95 96 97 Oxygen Delivery Method 07/16/24 11:42 07/16/24 11:43 07/16/24 11:44 Temperature Pulse Rate 85 87 87 Respiratory Rate 39 H 25 H 30 H Blood Pressure Pulse Oximetry 96 96 96 Oxygen Delivery Method 07/16/24 11:45 07/16/24 11:46 07/16/24 11:47 Temperature Pulse Rate 85 85 84 Respiratory Rate 26 H 26 H 27 H Blood Pressure Pulse Oximetry 96 96 96 Oxygen Delivery Method 07/16/24 11:48 07/16/24 11:49 07/16/24 11:50 Temperature Pulse Rate 86 86 84 Respiratory Rate 24 32 H 22 Blood Pressure Pulse Oximetry 96 96 96 Oxygen Delivery Method 07/16/24 12:00 07/16/24 12:00 07/16/24 13:00 Temperature Pulse Rate 81 82 Respiratory Rate 17 24 Blood Pressure 133/56 L Pulse Oximetry 96 97 Oxygen Delivery Method 07/16/24 13:01 07/16/24 14:00 07/16/24 14:00 Temperature Pulse Rate 79 Respiratory Rate 14 Blood Pressure 135/55 L 125/56 L Pulse Oximetry 97 Oxygen Delivery Method 07/16/24 16:00 Temperature 99.1 F Pulse Rate 85 Respiratory Rate 20 Blood Pressure 144/48 H Pulse Oximetry 95 Oxygen Delivery Method Room Air Fraction of Inspired Oxygen 48 Oxygen Delivery Method Room Air Oxygen Flow Rate 2 Const General: in distress, diaphoretic, frail appearing, ill appearing and lethargic Extrem Other: right hand with bruising in multiple area. Right 4th digit is entirely black and necrotic in appearance. There is no palmar necrosis proximal to the palmar crease. Dorsally, there is some bruising/poor circulation over the 4th ray (metacarpal). There is small wound over the finger tip but no other open wound over the right hand. Objective Labs 07/16/24 05:40 07/16/24 05:40 Labs: Laboratory Results - last 24 hr 07/15/24 07/15/24 07/16/24 10:38 16:30 05:40 WBC 11.7 H D RBC 3.13 L Hgb 9.6 L Hct 28.1 L MCV 89.6 MCH 30.5 MCHC 34.0 RDW 17.4 H Plt Count 170 Neut % (Auto) Not Reportable Lymph % (Auto) Not Reportable [place] % (Auto) Not Reportable Eos % (Auto) Not Reportable Baso % (Auto) Not Reportable Lymph # (Auto) Not Reportable [place] # (Auto) Not Reportable Baso # (Auto) Not Reportable Total Counted 100 Seg Neutrophils % 89.0 H Band Neutrophils % 5.0 Lymphocytes % (Manual) 1.0 L Monocytes % (Manual) 5.0 Neutrophils # (Manual) 83403 H RBC Morphology Not Reportable Anisocytosis 1+ H Sodium 133 L Potassium 3.3 L 2.9 L Chloride 111 H Carbon Dioxide 14 L BUN 28 H Creatinine 0.95 Estimated GFR > 60 BUN/Creatinine Ratio 29.5 H Glucose 81 Calcium 7.4 L Magnesium 1.7 Total Bilirubin 0.6 AST 29 ALT 54 H Alkaline Phosphatase 80 Total Protein 4.9 L Albumin 2.1 L Globulin 2.8 Albumin/Globulin Ratio 0.8 L Vancomycin Peak Vancomycin Trough 14.9 Blood Type O Positive Antibody Screen Positive Antibody Identification Capture-R Antibody Crossmatch See Detail 07/16/24 08:00 WBC RBC Hgb Hct MCV MCH MCHC RDW Plt Count Neut % (Auto) Lymph % (Auto) [place] % (Auto) Eos % (Auto) Baso % (Auto) Lymph # (Auto) [place] # (Auto) Baso # (Auto) Total Counted Seg Neutrophils % Band Neutrophils % Lymphocytes % (Manual) Monocytes % (Manual) Neutrophils # (Manual) RBC Morphology Anisocytosis Sodium Potassium Chloride Carbon Dioxide BUN Creatinine Estimated GFR BUN/Creatinine Ratio Glucose Calcium Magnesium Total Bilirubin AST ALT Alkaline Phosphatase Total Protein Albumin Globulin Albumin/Globulin Ratio Vancomycin Peak 35.4 Vancomycin Trough Blood Type Antibody Screen Antibody Identification Crossmatch [facility] Medical History Screening due Folliculitis Myalgia COVID-19 BPH w urinary obs/LUTS Bilateral nephrolithiasis Retained ureteral stent Bilateral nephrolithiasis Left ureteral calculus Labyrinthitis Lymphocytic colitis (2012) Rosacea (Unknown) Kidney stones (2012) Kidney disease (Unknown) Myopia (Unknown) Asthma (Unknown) Anemia (Unknown) Depression (Unknown) Hypertriglyceridemia (Unknown) Hypertension (Unknown) Hyperlipidemia (Unknown) Microscopic colitis (10/10/15) Chronic renal insufficiency, stage II (mild) (10/10/15) Depression (09/04/14) Type 2 diabetes mellitus without complication (09/11/15) Essential hypertension (09/11/15) Surgical History Hx of cystoscopy (04/29/21) Family History Father Cancer Mother Stroke Social History marital status: unmarried,single household members: none lives independently: Yes Tobacco & Substance Use Smoking Status: Former smoker alcohol intake: current Assessment & Plan Assessment & Plan narrative: Patient with poorly controlled/managed chronic DM currently with sepsis admitted to ICU. Patient currently has right 4th ring finger necrosis up to the MCP region. I discussed with patient's POA (sister) about treatment plan. Patient is being taken to the OR emergently for a right 4th finger disarticulation at the MCP joint and a closure of the wound after disarticulation. Risks for surgery include but not limited to infection, osteomyelitis, persisting infection, worsening necrosis requiring additional amputation, need for additional surgery, even . Patient's sister understands and would like to proceed with the consented surgery. I scheduled him for right 4th finger I&D and disarticulation at MCP joint on emergent basis. Time-Based Coding :: [TOTAL MINUTES] spent with patient and on the chart (including review of chart, obtaining history, exam, reviewing outside data, placing orders, documenting exam and treatment plan, and counseling patient) on [DATE].
[2024-07-16] MEDS: LACTATED RINGERS 1,000 ML 42 ML IV (16:34)
--- NOTE | 2024-07-16 16:43 | PM.OP.1 ---
Operative Date/Time/Diagnoses Date of procedure: 07/16/24 Time of procedure: 17:00 Pre-op diagnosis: 1. Right ring finger necrosis 2. Sepsis Post-op diagnosis: same Procedure & Clinicians Procedure: 1. Right ring finger disarticulation at metacarpal-phalangeal joint 2. Irrigation and debridement of skin, tendon and bone of ring finger Same procedure as scheduled: Yes Indications: Mr. Serrano is a 74 yo M with poorly controlled type II diabetes admitted to ICU for confusion, sepsis. Orthopedic service was consulted for progressively worsening circulation to patient's right 4th digit. Upon examination, patient has 4th digit necrosis up to the level of MCP joint. After discussing plans for patient's treatment with patient's sister, his POA, patient was consented for emergent surgical treatment of right 4th finger I&D and ampuation/disarticulation. Surgeon: Reymundo Garay Click Yes if Unassisted: Yes Anesthesia Type: General Operative Notes Estimated Blood Loss (mL): 5 Blood products transfused: none Procedure in detail: After informed consent was obtained and placed in the chart, patient's surgical site was marked. Patient was taken to the operating room and placed in a supine position. A tourniquet was placed on patient's right upper arm. Arm table was attached to the operating bed patient's right arm was placed onto the arm table. Patient's right hand was prepped and draped in the sterile fashion from the fingertips all the way to his upper arm. Time-out was performed and this time. The wound was inspected. There is necrosis of 4th digit to the metacarpal phlangeal joint. There is generalized edema, poor skin and soft tissue property with sloughing of epidermis with even light touch in the entire hand/wrist/forearm. There is multiple wounds over the arm/wrist. Palmar aspect of the right hand has better perfusion than the dorsal aspect of the right upper extremity. Marking pen was used to richard out the incision for debridement. More palmar skin was preserved proximal to the PIP crease. Incision was made starting on the dorsum aspect of the skin over the proximal phalanx of the 4th finger. The incision was extended to the palmar aspect to just proximal to the PIP crease with more palmar skin being preserved for closure. Disarticulation of the 4th digit was performed at the MCP joint with disarticulation of the proximal phalanx from both the MCP and the PIP joint. The proximal phalanx was excised 1st. The 4th digit distal to the PIP joint was at this time disarticulated along with soft tissue including tendon and joint capsule distal to the PIP joint along with the skin on the tip of the finger of the 4th digit. The preserved palmar skin was flipped over towards the dorsum of the hand in order to close the wound. Prior to closure copious amount of sterile normal saline was used to irrigate the wound. There is significant amount of unhealthy appearing fluid with foul odor in the soft tissue. The fluid did not appear to be purulent in nature. The fluid appears to be more serous with hematoma. Rongeur was used to clean up the distal end of the metacarpal after the disarticulation was completed including soft tissue and bone in preparation for wound closure. 2-0 and 3-0 nylon suture was used to close the wound in interrupted suture fashion. The wound was closed without any difficulty. Tourniquet was deflated at this time. Xeroform 4 x 4 and sterile Kerlix was applied to patient's right hand/fingers for postoperative dressing. The dressing was then stabilized to patient's right arm using Yg bandage loosely wrapped around the soft tissue. Based on the appearance of patient's multiple limbs including upper and lower extremity, patient's prognosis for surgical wound healing is guarded. Patient has extremely delicate skin and soft tissue which makes formation of new wounds very easy even from simple light touch and holding onto patient is arm for examination and medical care. Patient was transferred to recovery room stable condition. Patient will be admitted back to ICU onto the medicine service. Complications: none Post-operative Condition: stable Disposition: PACU Plan for aftercare: Admit to ICU to medicine service
--- NOTE | 2024-07-16 17:08 | SUR.OPER ---
Supine on padded OR bed, head on pillow, left arm secured on padded arm boards at <90 degrees abduction, right arm resting on hand table <90 degrees abduction, legs uncrossed, safety belt at thigh, tape over blanket over lower legs.
[2024-07-16] MEDS: ACETAMINOPHEN IV 1,000 MG/100 ML VIAL 400 MG IV (17:11)
[2024-07-16] MEDS: VANCOMYCIN 750 MG/150 ML PIGGYBACK 150 MG IV (18:48)
[2024-07-16] MEDS: HYDROMORPHONE 0.5 MG INJ 2 MG IV (19:27)
[2024-07-16] MEDS: INSULIN GLARGINE 100 UNIT/ML 3ML PEN 10 UNIT SUBCUT (21:30)
[2024-07-16 21:33] LABS: BUN Creatinine Ratio 22.8 (6-22); Blood Urea Nitrogen 21 mg/dL (9-20); Calcium 7.2 mg/dL (8.4-10.2); Carbon Dioxide 13 mmol/L (22-32); Chloride 112 mmol/L (98-107); Estimated Glomerular Filt Rate > 60 mL/min (>60); Glucose 95 mg/dL (80-110); HEMOLYSIS < 15 (0-50); Potassium 3.5 mmol/L (3.4-5.1); Sodium 133 mmol/L (137-145)
[2024-07-16] MEDS: BUDESONIDE 3 MG CAP PO (21:33)
[2024-07-17] VITALS (31 sets, daily range): BP systolic 109–204; BP diastolic 50–85; PULSE 71–97; RESP 11–34; TEMP 35.9–36.8; O2SAT 96–98
[2024-07-17] MEDS: POTASSIUM CHLORIDE IN WATER 10 MEQ/100 ML PIGGYBACK 100 MEQ IV ×2 (00:25→01:27)
[2024-07-17] MEDS: diphenhydrAMINE 50 MG/ML VIAL IV ×2 (03:23→20:51)
[2024-07-17 04:26] LABS: Add Manual Diff / Slide Review NO; Basophils Absolute Auto 0 /uL (0-100); Basophils Percent Auto 0.2 % (0-2); Eosinophils Absolute Auto 100 /uL (0-450); Eosinophils Percent Auto 1.1 % (2-4); Hemoglobin 8.8 g/dL (13.5-17.5); Lymphocytes Absolute Auto 600 /uL (1100-4500); Lymphocytes Percent Auto 4.8 % (25-40); Mean Corpuscular HGB Conc 33.9 % (30-36); Mean Corpuscular Hemoglobin 30.5 PG (26-34); Mean Corpuscular Volume 89.9 fL (80-100); Monocytes Absolute Auto 700 /uL (0-900); Monocytes Percent Auto 5.5 % (3-14); Neutrophils Absolute Auto 11200 /uL (1500-7000); Neutrophils Percent Auto 88.4 % (50-75); Platelet Count 170 X10^3/uL (150-400); Red Blood Cell Count 2.89 X10^6/uL (4.5-5.9); Red Cell Distribution Width 17.9 % (11.6-14.8); White Blood Cell Count 12.7 X10^3/uL (4.5-11.0)
[2024-07-17 04:42] LABS: Alanine Aminotransferase 46 IU/L (<50); Albumin 2.1 g/dL (3.5-5.0); Albumin Globulin Ratio 0.8 (1.0-2.8); Alkaline Phosphatase 93 U/L (38-126); Aspartate Aminotransferase 29 IU/L (17-59); BUN Creatinine Ratio 21.3 (6-22); Bilirubin Total 0.4 mg/dL (0.2-1.3); Blood Urea Nitrogen 20 mg/dL (9-20); Calcium 7.6 mg/dL (8.4-10.2); Carbon Dioxide 14 mmol/L (22-32); Chloride 113 mmol/L (98-107); Estimated Glomerular Filt Rate > 60 mL/min (>60); Globulin 2.7 g/dL (1.7-4.1); Glucose 83 mg/dL (80-110); HEMOLYSIS < 15 (0-50); Magnesium 1.5 mg/dL (1.6-2.3); Sodium 133 mmol/L (137-145); Total Protein 4.8 g/dL (6.3-8.2)
--- NOTE | 2024-07-17 05:03 | PC.NURSE ---
Addendum entered by Shirley Wilson R.N. 07/17/24 06:56: This AM pt reported visual and auditory hallucinations. He is aware they are not real and states this has never happened before. Oriented x4 otherwise Original Note: mIVF were stopped as pt had fine crackles in his bases. intermittent wheezing. R hand dressing is CDI. R pinky finger is dusky/cool. cap refill >3 sec. pt reports neuropathy is all extremities. benadryl given for generalized itching. pitting edema in BLE. NSR with 1st AVB
[2024-07-17] MEDS: VANCOMYCIN 750 MG/150 ML PIGGYBACK 150 MG IV ×2 (06:26→19:29)
[2024-07-17] MEDS: ACETAMINOPHEN 325 MG TABLET 650 MG PO (08:05)
[2024-07-17] MEDS: OXYCODONE IR 5 MG TABLET PO ×3 (08:05→20:52)
[2024-07-17] MEDS: cefTRIAXone 2,000 MG in SODIUM CHLORIDE 0.9% 100 ML 200 MG IV (09:51)
[2024-07-17] MEDS: BUDESONIDE 3 MG CAP PO ×2 (09:52→20:51)
[2024-07-17] MEDS: ATORVASTATIN 20 MG TABLET 80 MG PO (09:52)
[2024-07-17] MEDS: SODIUM CHLORIDE 0.9% FLUSH 10 ML IV ×2 (09:52→20:52)
[2024-07-17] MEDS: FAMOTIDINE 20 MG/2 ML VIAL IV (09:52)
--- NOTE | 2024-07-17 11:00 | PT.IIE ---
Current Diagnoses Sepsis, unspecified organism (07/13/24) Surgery Performed Operation Date: 07/16/24 17:15 Actual Procedures p 4th Finger Amputation(Right) - Reymundo Garay MD Surgical History (Last Reviewed 07/16/24 @ 16:33 by Reymundo Garay MD) Hx of cystoscopy (04/29/21) Medical History (Last Reviewed 07/16/24 @ 16:33 by Reymundo Garay MD) Anemia (Unknown) Asthma (Unknown) Bilateral nephrolithiasis Bilateral nephrolithiasis BPH w urinary obs/LUTS Chronic renal insufficiency, stage II (mild) (10/10/15) COVID-19 Depression (09/04/14) Depression (Unknown) Essential hypertension (09/11/15) Folliculitis Hyperlipidemia (Unknown) Hypertension (Unknown) Hypertriglyceridemia (Unknown) Kidney disease (Unknown) Kidney stones (2011) Labyrinthitis Left ureteral calculus Lymphocytic colitis (2012) Microscopic colitis (10/10/15) Myalgia Myopia (Unknown) Retained ureteral stent Rosacea (Unknown) Screening due Type 2 diabetes mellitus without complication (09/11/15) Physical Therapy Inpatient Evaluation/Re-Eval M1 PT/OT-IP Prior Functional Status Start: 07/17/24 14:50 Freq: NEEDED Status: Active Protocol: Document 07/17/24 11:00 AB (Rec: 07/17/24 15:07 AB [id number]) Medical Review Prior Functional Status Medical History Reviewed Yes Communication able to make needs known Mobility and Gait per EMR: pt was just admitted here in the hospital 07/07/24 to 07/11/24 and d[facility]'d to [facility]. pt was modified independent without AD indoors and uses a SPC for outdoor mobility but also uses a 4WW when walking long distances (grocery shopping) prior to 07/09 hospitalization . Social History Household Members none Living Arrangements House Number of Floors (Floors) One Floor Number of Stairs To Enter/Railing? pt lives at [facility] housing 2nd floor with access to an elevator Home Environment Standard Height Toilet,Tub/ Shower Home Equipment Four Wheel Walker,Straight Cane,Bedside Commode,Shower Seat with Backrest,Hand Held Shower,Grab Bars Near Toilet, Grab Bars In Shower M2 PT-IP Current Condition Start: 07/17/24 14:50 Freq: NEEDED Status: Active Protocol: Document 07/17/24 11:00 AB (Rec: 07/17/24 15:07 AB [id number]) Physical Therapy Current Condition Current Condition Evaluation Date 07/17/24 Treatment Diagnosis sepsis; difficulty in walking Onset Date 07/13/24 M3 PT-IP Subjective Start: 07/17/24 14:50 Freq: NEEDED Status: Active Protocol: Document 07/17/24 11:00 AB (Rec: 07/17/24 15:07 AB [id number]) Subjective Physical Therapy Visit Type Type Initial Evaluation Visit Start Time 11:00 Visit Stop Time 11:35 Number of SENIOR CYBER INTELLIGENCE ANALYST Visits 0 Physical Therapy Visit Comments Patient Comments agreeable to do PT M4 PT-IP Mobility and Gait Start: 07/17/24 14:50 Freq: NEEDED Status: Active Protocol: Document 07/17/24 11:00 AB (Rec: 07/17/24 15:07 AB [id number]) PT-Bed Mobility Assessment Supine to Sit Supine to Sit Maximum Assistance,1 Person Assistance,2 Person Assistance ,Head of Bed Elevated,Bedrails Sit to Supine Sit to Supine Maximum Assistance,Total Assistance,2 Person Assistance ,Bedrails PT-Transfer Assessment Sit to and From Stand Sit to and from Stand Maximum Assistance,Total Assistance,2 Person Assistance ,Use of Upper Extremities Equipment Transfer Assistive Device Gait Belt,Front Wheeled Walker Orthotic/Prosthetic Devices or Brace: No Comments Mobility Comments pt supine in bed and family in room. obtained PLOF and home set up from pt. family stepped out of the room when mobility started. BP in suine : 135/58. pt completed supine to sit max A x 1-2 and max cues. HOB elevated and pt used bed rail to assist. pt able to sit on EOB mod A and max cues. Attempted sit to stand x 2 but pt unable to stand despite total A x 2 provided. assisted pt back in bed total A x 2 for sit to supine. positioned pt on the bed total A x 2. call light and table placed within reach. Gait Assessment Comments Gait Comments unable at this time PT-Balance Assessment Sitting Balance and Reactions Static Sitting Balance Ability Fair Dynamic Sitting Balance Ability Poor M5 PT-IP Objective Assessments Start: 07/17/24 14:50 Freq: NEEDED Status: Active Protocol: Document 07/17/24 11:00 AB (Rec: 07/17/24 15:07 [id number]) Orientation Orientation/Cognition Level of Alertness Alert Orientation Name,Place,Situation Language Function Ability Hard of Hearing Safety Awareness Decreased Safety Awareness Memory Description Short Term Impaired Gross Range of Motion Lower Extremity ROM Assessment Within Functional Limits Strength Lower Extremity Strength Assessment Bilaterally Impaired Hip 2+/5 Knee 3-/5 Sensation Assessment Sensation Gross Sensation WNL Muscle Tone Muscle Tone WNL Yes M6 PT-IP Treatment Start: 07/17/24 14:50 Freq: NEEDED Status: Active Protocol: Document 07/17/24 11:00 AB (Rec: 07/17/24 15:07 AB [id number]) Physical Therapy Treatment Education Education Provided Safety M7 PT-IP Assessment and Plan Start: 07/17/24 14:50 Freq: NEEDED Status: Active Protocol: Document 07/17/24 11:00 AB (Rec: 07/17/24 15:07 AB [id number]) PT Summary Assessment and Plan Potential Rehabilitation Potential Fair Status of Condition at Evaluation Evolving Summary Impairments Pain,ROM,Strength,Balance, Coordination,Sensation,Tone, Cognition,Bed Mobility, Transfers,Gait,Activity Tolerance Assessment Summary pt is a 74 y/o M who is admitted for sepsis. pt also underwent R 4th finger I&D due to necrosis. pt was just admitted to the hospital 07/07 thru 07/11/24 s/p fall and was d/c'd to [facility]. pt requiring max Ax 2 to total A x 2 with mobility and unable to stand up to transfer or ambulate at this time despite max A x 2 to total A x 2 provided. pt will benefit from SNF rehab to improve overall strength and mobility. Goals Bed Mobility Goal Minimal Assistance Transfer Goal Minimal Assistance,Front Wheeled Walker Gait Goal Minimal Assistance,Front Wheel Walker Gait Distance 50 Other Goals improve bed mobility, transfers, ambulation using FWW 100 ft SBA Days to Meet Goals 10 Frequency of Treatment Frequency Of Treatment Once a Day Treatment Plan Physical Therapy Treatment Plan Bed Mobility Training,Transfer Training,Gait Training, Therapeutic Exercise,Balance Retraining,Post Op Education, Discharge Planning,Hot or Cold Pack,Neuromuscular Re-ed, Coordination Retraining,Manual Therapy Precautions Other Precautions falls Recommendations To Nursing Amount of Assist Needed Mechanical Lift Discharge Recommendations PT Discharge Recommendations SNF Rehab Transportation Needs at Discharge Stretcher/Ambulance
--- NOTE | 2024-07-17 11:26 | CM.DPNOTE ---
Addendum entered by MEENAKSHI Jane 07/17/24 17:05: Per hospitalist, transfer pending to [facility]. pending bed availability. SL Addendum entered by MEENAKSHI Jane 07/17/24 15:27: Per devorah, not able to meet with pt today. JUNIOR SYSTEMS ENGINEER updated family. Report understanding. reported that pt is still working on being transferred out and they would figure out different [facility] service. Original Note: DCP Note JUNIOR SYSTEMS ENGINEER reviewed EMR. Pt is POD1 from finger amputation. Per hospitalist in morning rounds, pt much better today after amputation. Still recommending transfer for [facility] but plans to check in with Dr. Avalos and her recommendations first. Per charge gang weigher, transfer not likely for today based on outside facility bed availability. Per in house devorah, able to meet in room with pt and family at 1400 today. JUNIOR SYSTEMS ENGINEER met with pt and siblings in [place]. [place] in agreement with plan. Deny other questions or needs at this time. P: medical POC continues to develop. Transfer out for [facility] vs return to [facility]. CM team will continue to follow closely MEENAKSHI Jane
[2024-07-17] MEDS: metroNIDAZOLE 500 MG/100 ML PIGGYBACK 100 MG IV ×2 (11:37→19:29)
[2024-07-17] MEDS: MAGNESIUM CHLORIDE 64 MG TABLET 128 MG PO (11:37)
--- NOTE | 2024-07-17 15:15 | PM.PN.1 ---
Subjective Subjective Interval history: POD#1 s/p R 4th finger amputation and washout with orthopedics. He is still mildly confused but much improved mentation today. Vitals are stable. Discussed with Infectious disease provider over the phone, recommended continuing ceftriaxone, vanco, and adding flagyl as current management. Recommended transfer for inpatient infectious disease consultation, DONAVAN. Currently accepted to [facility], awaiting bed. Exam Vital Signs (past 8 hours): - 07/17/24 08:00 07/17/24 08:00 07/17/24 09:00 Pulse Rate 83 95 H Respiratory Rate 20 30 H Blood Pressure 140/59 L Pulse Oximetry 97 96 07/17/24 09:01 07/17/24 09:01 07/17/24 10:00 Pulse Rate 93 H 90 Respiratory Rate 22 24 Blood Pressure 136/55 L Pulse Oximetry 96 98 07/17/24 11:00 07/17/24 11:10 07/17/24 11:10 Pulse Rate 91 H 91 H Respiratory Rate 33 H 19 Blood Pressure 169/70 H Pulse Oximetry 07/17/24 12:00 07/17/24 13:00 Pulse Rate 89 93 H Respiratory Rate 27 H 21 Blood Pressure Pulse Oximetry 98 Fraction of Inspired Oxygen 21 SaO2/FiO2 Ratio 461 Oxygen Delivery Method Room Air Oxygen Flow Rate 0 Narrative Exam Narrative: No distress, alert, joking with provider. Lungs are diminished breath sounds, normal effort. Heart is regular, no murmur. Abdomen is distended and nontender. No leg edema. He was many excoriations and ecchymosis. right hand 4th finger s/p amputation, dusky appearance of R 5th finger, with ecchymosis Objective Labs 07/17/24 04:10 07/17/24 04:10 Labs: Laboratory Results - last 24 hr 07/16/24 07/17/24 21:15 04:10 WBC 12.7 H RBC 2.89 L Hgb 8.8 L Hct 26.0 L MCV 89.9 MCH 30.5 MCHC 33.9 RDW 17.9 H Plt Count 170 Neut % (Auto) 88.4 H Lymph % (Auto) 4.8 L [place] % (Auto) 5.5 Eos % (Auto) 1.1 L Baso % (Auto) 0.2 Neut # (Auto) 99887 H Lymph # (Auto) 600 L [place] # (Auto) 700 Eos # (Auto) 100 Baso # (Auto) 0 Sodium 133 L 133 L Potassium 3.5 4.0 Chloride 112 H 113 H Carbon Dioxide 13 L 14 L BUN 21 H 20 Creatinine 0.92 0.94 Estimated GFR > 60 > 60 BUN/Creatinine Ratio 22.8 H 21.3 Glucose 95 83 Calcium 7.2 L 7.6 L Magnesium 1.5 L Total Bilirubin 0.4 AST 29 ALT 46 Alkaline Phosphatase 93 Total Protein 4.8 L Albumin 2.1 L Globulin 2.7 Albumin/Globulin Ratio 0.8 L [facility] Medical History Screening due Folliculitis Myalgia COVID-19 BPH w urinary obs/LUTS Bilateral nephrolithiasis Retained ureteral stent Bilateral nephrolithiasis Left ureteral calculus Labyrinthitis Lymphocytic colitis (2012) Rosacea (Unknown) Kidney stones (2011) Kidney disease (Unknown) Myopia (Unknown) Asthma (Unknown) Anemia (Unknown) Depression (Unknown) Hypertriglyceridemia (Unknown) Hypertension (Unknown) Hyperlipidemia (Unknown) Microscopic colitis (10/10/15) Chronic renal insufficiency, stage II (mild) (10/10/15) Depression (09/04/14) Type 2 diabetes mellitus without complication (09/11/15) Essential hypertension (09/11/15) Surgical History Hx of cystoscopy (04/29/21) Family History Father Cancer Mother Stroke Social History marital status: unmarried,single household members: none lives independently: Yes Smoking Status: Former smoker alcohol intake: current Assessment & Plan Assessment & Plan narrative: 1. Septic shock, secondary to MRSA and clostridium perfringens bacteremia from R 4th finger necrotizing skin and soft tissue infection or possible endocarditits, present on admission and improved. 2. Acute hypoxic respiratory failure, present on admission and improving. 3. Acute metabolic encephalopathy, present on admission and improving 4. AMELIA, present on admission and improved. 5. Acute on chronic anemia without clinical bleeding, present on admission and active. 6. Hypokalemia, new and active. 7. CAD, recent NSTEMI 12/2023. This is a 74 year old male with anemia, CAD with NSTEMI 12/2023 (complicated by contrast induced nephropathy needing hemodialysis) admitted with septic shock and found to have MRSA bacteremia. Today (07/17) blood cultures also grew clostridium perfringens. Initially was on pressor support on admission on 07/13 but now off of levophed and is slightly hypertensive today. TTE without any obvious vegetations. His respiratory status has also improved and is now on room air. His R 4th finger was necrotic, possible infected hematoma based on operative report vs necrotizing skin and soft tissue infection. He is now s/p amputation and I&D on 07/16/24. Endocarditis is another possibility. He did have a R 4th finger bruise after reported fingerstick last admission that would not improve. It is not clear if this is evidence of a septic emboli or if this where his bacteremia is originating from. Today R 5th finger appears a bit dusky with similar distal bruising, will watch closely. Cultures: MRSA - 3/4 bottles from 07/13. Clostridium perfringens 1/4 bottles from 07/13. - repeat cultures not obtained until 07/16/24 - no growth at 24 hours. Antibiotic courses - Ceftriaxone / vancomycin (07/13/24 - present) - Metronidazole (07/17 - ) Plan: -discussed with ID provider over the phone today. Recommend transfer to center with inpatient ID consultation and DONAVAN capabilities. GI source is also possible given clostridium and recommended addition of vancomycin. There is a sclerotic lesion on his pelvis, colonoscopy is recommended in the near future. -continue to have orthopedics following for possible additional debridement of R hand -currently accepted to [facility] for infectious disease consultation, DONAVAN, along with continued orthopedics management. Accepting physician Dr. Moise. Awaiting a hospital bed. -TTE performed and was unremarkable. DONAVAN is recommended by above ID provider. -slight rise in WBC count today, possibly post surgically, clinically appears improved. Code: DNR, surrogate is patient's sister currently though lives out of state DVT: Lovenox daily I have utilized all available immediate resources to obtain, update, or review the patient's current medications. Dispo: patient admitted under inpatient status to the ICU, if remains stable can downgrade to floor care. Came from SNF, can return once medically stable from above, but will need transfer as above. Additional history obtained via discussions with the orthopedic surgeon today, and multiple providers as noted above in the assessment and plan. These discussions contributed to the creation of the above assessment and plan. I have reviewed patient's presenting documentation, labs, and imaging personally. Time-Based Coding :: [TOTAL MINUTES] spent with patient and on the chart (including review of chart, obtaining history, exam, reviewing outside data, placing orders, documenting exam and treatment plan, and counseling patient) on [DATE].
--- NOTE | 2024-07-17 15:31 | OT.IPNOTE ---
Per Dr. Parveen nichols to hold OT miya as pt looking to go to higher care when bed available.
[2024-07-17] MEDS: HYDROMORPHONE 2 MG INJ IV (16:43)
[2024-07-17] MEDS: INSULIN LISPRO 100 UNIT/ML 3ML VIAL SUBCUT ×2 (17:02→20:56)
--- NOTE | 2024-07-17 17:52 | PM.PNPO.1 ---
Subjective Subjective Date Patient Seen: 07/17/24 Time Patient Seen: 17:30 Interval history: Patient states his right hand painful today. Pain is controlled oral antibiotics. He states that he has no sensation and some fingers and sensation in others. Exam Vital Signs (past 8 hours): - 07/17/24 10:00 07/17/24 11:00 07/17/24 11:10 Temperature Pulse Rate 90 91 H 91 H Respiratory Rate 24 33 H 19 Blood Pressure Pulse Oximetry 98 07/17/24 11:10 07/17/24 12:00 07/17/24 13:00 Temperature Pulse Rate 89 93 H Respiratory Rate 27 H 21 Blood Pressure 169/70 H Pulse Oximetry 98 07/17/24 14:00 07/17/24 15:00 07/17/24 16:00 Temperature 97.0 F L Pulse Rate 89 97 H Respiratory Rate 21 21 Blood Pressure Pulse Oximetry 07/17/24 16:00 07/17/24 16:08 07/17/24 16:08 Temperature Pulse Rate 94 H 94 H Respiratory Rate 33 H 24 Blood Pressure 135/58 L Pulse Oximetry 07/17/24 17:00 07/17/24 17:00 07/17/24 17:33 Temperature 96.7 F L Pulse Rate 92 H Respiratory Rate 12 Blood Pressure 143/64 H Pulse Oximetry 97 Fraction of Inspired Oxygen 21 SaO2/FiO2 Ratio 461 Oxygen Delivery Method Room Air Oxygen Flow Rate 0 Narrative Exam Narrative: Patient found sitting comfortably in his room. Bulky dressing and splint applied to the right hand. Dressing is clean dry intact. Exposed 5th digit appears dusky in color in appearance. No sensation to light touch. Fat pad blanches and returns to color in 3 seconds. No change when nailbed is compressed. Const General: cooperative Resp Effort & Inspection: normal respiratory effort and able to speak in complete sentences Objective Labs 07/17/24 04:10 07/17/24 04:10 Labs: Laboratory Results - last 24 hr 07/16/24 07/17/24 21:15 04:10 WBC 12.7 H RBC 2.89 L Hgb 8.8 L Hct 26.0 L MCV 89.9 MCH 30.5 MCHC 33.9 RDW 17.9 H Plt Count 170 Neut % (Auto) 88.4 H Lymph % (Auto) 4.8 L [place] % (Auto) 5.5 Eos % (Auto) 1.1 L Baso % (Auto) 0.2 Neut # (Auto) 97160 H Lymph # (Auto) 600 L [place] # (Auto) 700 Eos # (Auto) 100 Baso # (Auto) 0 Sodium 133 L 133 L Potassium 3.5 4.0 Chloride 112 H 113 H Carbon Dioxide 13 L 14 L BUN 21 H 20 Creatinine 0.92 0.94 Estimated GFR > 60 > 60 BUN/Creatinine Ratio 22.8 H 21.3 Glucose 95 83 Calcium 7.2 L 7.6 L Magnesium 1.5 L Total Bilirubin 0.4 AST 29 ALT 46 Alkaline Phosphatase 93 Total Protein 4.8 L Albumin 2.1 L Globulin 2.7 Albumin/Globulin Ratio 0.8 L PFSH Medical History Screening due Folliculitis Myalgia COVID-19 BPH w urinary obs/LUTS Bilateral nephrolithiasis Retained ureteral stent Bilateral nephrolithiasis Left ureteral calculus Labyrinthitis Lymphocytic colitis (2012) Rosacea (Unknown) Kidney stones (2011) Kidney disease (Unknown) Myopia (Unknown) Asthma (Unknown) Anemia (Unknown) Depression (Unknown) Hypertriglyceridemia (Unknown) Hypertension (Unknown) Hyperlipidemia (Unknown) Microscopic colitis (10/10/15) Chronic renal insufficiency, stage II (mild) (10/10/15) Depression (09/04/14) Type 2 diabetes mellitus without complication (09/11/15) Essential hypertension (09/11/15) Surgical History Hx of cystoscopy (04/29/21) Family History Father Cancer Mother Stroke Social History marital status: unmarried,single household members: none lives independently: Yes Smoking Status: Former smoker alcohol intake: current Assessment & Plan Post-op Postoperative Procedures: Procedures Operation Date: 07/16/24 17:15 Actual Procedure Side Surgeon p 4th Finger Amputation Right Reymundo Garay MD Postoperative day: 1 Postoperative plan: routine post-op care Postoperative plan narrative: Notified Dr. Garay of findings. Discussed findings with Hospitalist. Plan is to transfer to [facility] for infectious disease consultation and orthopedic management. Antibiotics and pain medications managed by Hospitalist. Time Spent With Patient Time with patient: less than 15 minutes Quality VTE Deep Vein Thrombosis/Pulmonary Embolism Present on Admission: No
[2024-07-17] MEDS: ALBUTEROL 2.5 MG/3 ML NEB (ADULT) INH (19:36)
[2024-07-17] MEDS: FAMOTIDINE 20 MG TABLET PO (20:52)
[2024-07-17] MEDS: INSULIN GLARGINE 100 UNIT/ML 3ML PEN 10 UNIT SUBCUT (20:55)
[2024-07-18] VITALS (12 sets, daily range): BP systolic 134–172; BP diastolic 55–140; PULSE 76–88; RESP 15–28; TEMP 36.4; O2SAT 96–100
[2024-07-18] MEDS: metroNIDAZOLE 500 MG/100 ML PIGGYBACK 100 MG IV ×2 (03:11→10:45)
[2024-07-18] MEDS: OXYCODONE IR 5 MG TABLET PO ×3 (04:25→11:49)
[2024-07-18 06:42] LABS: Add Manual Diff / Slide Review NO; Basophils Absolute Auto 0 /uL (0-100); Basophils Percent Auto 0.3 % (0-2); Eosinophils Absolute Auto 0 /uL (0-450); Eosinophils Percent Auto 0.1 % (2-4); Hematocrit 24.8 % (41-53); Hemoglobin 8.5 g/dL (13.5-17.5); Lymphocytes Absolute Auto 400 /uL (1100-4500); Lymphocytes Percent Auto 3.4 % (25-40); Mean Corpuscular HGB Conc 34.3 % (30-36); Mean Corpuscular Hemoglobin 30.9 PG (26-34); Monocytes Absolute Auto 500 /uL (0-900); Monocytes Percent Auto 4.6 % (3-14); Neutrophils Absolute Auto 10100 /uL (1500-7000); Neutrophils Percent Auto 91.6 % (50-75); Platelet Count 208 X10^3/uL (150-400); Red Blood Cell Count 2.76 X10^6/uL (4.5-5.9); Red Cell Distribution Width 17.7 % (11.6-14.8)
[2024-07-18 06:50] LABS: Alanine Aminotransferase 42 IU/L (<50); Albumin 2.4 g/dL (3.5-5.0); Albumin Globulin Ratio 0.9 (1.0-2.8); Alkaline Phosphatase 143 U/L (38-126); Aspartate Aminotransferase 24 IU/L (17-59); BUN Creatinine Ratio 15.9 (6-22); Bilirubin Total 0.4 mg/dL (0.2-1.3); Blood Urea Nitrogen 14 mg/dL (9-20); Calcium 8.2 mg/dL (8.4-10.2); Carbon Dioxide 17 mmol/L (22-32); Chloride 112 mmol/L (98-107); Estimated Glomerular Filt Rate > 60 mL/min (>60); Globulin 2.7 g/dL (1.7-4.1); Glucose 182 mg/dL (80-110); HEMOLYSIS < 15 (0-50); Magnesium 1.4 mg/dL (1.6-2.3); Potassium 3.3 mmol/L (3.4-5.1); Sodium 136 mmol/L (137-145); Total Protein 5.1 g/dL (6.3-8.2)
[2024-07-18 07:42] LABS: Vancomycin Trough 22.1 ug/mL (10-20)
[2024-07-18] MEDS: ATORVASTATIN 20 MG TABLET 80 MG PO (08:39)
[2024-07-18] MEDS: BUDESONIDE 3 MG CAP PO (08:40)
[2024-07-18] MEDS: SODIUM CHLORIDE 0.9% FLUSH 10 ML IV (08:40)
[2024-07-18] MEDS: SITAGLIPTIN 50 MG TABLET 100 MG PO (08:40)
[2024-07-18] MEDS: INSULIN LISPRO 100 UNIT/ML 3ML VIAL SUBCUT ×2 (08:40→11:32)
[2024-07-18] MEDS: FAMOTIDINE 20 MG TABLET PO (08:40)
--- NOTE | 2024-07-18 08:44 | PM.PN.1 ---
Subjective Subjective Interval history: Jaime is a 74 year old male who has a very complicated pmhx who is POD#2 s/p right ring finger disarticulation at metacarpal-phalangeal joint and irrigation and debridement of skin, tendon and bone of ring finger by Dr. Garay. This morning patient reports he is doing okay at the moment but he does have spikes of pain that are the worst of his life. He reports the R 4th finger swelling and pain began after a reported fingerstick to check his blood sugar upon his last admission that has not improved. He was found to have + blood cultures upon admission, it is not clear if his finger is evidence of a septic emboli or if this where his bacteremia is originating from. He is currently getting Ceftriaxone / vancomycin (07/13/24 - present) and Metronidazole (07/17 - present). Hospitalist has been in consultation with ID who recommended in person evaluation and transfer to a facility who is able to perform DONAVAN. Denies fever, chills, chest pain, SOB, nausea, vomiting. Exam Vital Signs (past 8 hours): - 07/18/24 01:00 07/18/24 01:00 07/18/24 02:00 Temperature Pulse Rate 80 81 Respiratory Rate 19 23 Blood Pressure 172/67 H Pulse Oximetry 98 98 07/18/24 02:01 07/18/24 02:01 07/18/24 03:00 Temperature Pulse Rate 80 82 Respiratory Rate 22 18 Blood Pressure 166/140 H Pulse Oximetry 97 98 07/18/24 03:01 07/18/24 03:01 07/18/24 04:00 Temperature Pulse Rate 80 79 Respiratory Rate 18 15 Blood Pressure 139/58 L Pulse Oximetry 98 97 07/18/24 04:00 07/18/24 05:00 07/18/24 05:00 Temperature Pulse Rate 88 Respiratory Rate 28 H Blood Pressure 143/74 H 157/99 H Pulse Oximetry 99 07/18/24 06:00 07/18/24 06:00 07/18/24 07:00 Temperature Pulse Rate 77 76 Respiratory Rate 20 27 H Blood Pressure 150/64 H Pulse Oximetry 100 96 07/18/24 07:01 07/18/24 07:01 07/18/24 08:00 Temperature 97.5 F L Pulse Rate 80 Respiratory Rate 28 H Blood Pressure 134/55 L Pulse Oximetry 07/18/24 08:00 07/18/24 08:00 Temperature Pulse Rate 79 Respiratory Rate 24 Blood Pressure 139/65 Pulse Oximetry Fraction of Inspired Oxygen 21 SaO2/FiO2 Ratio 461 Oxygen Delivery Method Room Air Oxygen Flow Rate 0 Narrative Exam Narrative: Patient lying in bed comfortably during interview today. Right 4th finger is s/p amputation at the level of the MCP joint, moderate drainage to the gauze overlying the amputated finger. Right 5th finger w/ significant swelling, pallor, and no sensation, 5th finger is cold to the touch, no capillary refill. 1st-3rd finger w/ moderate swelling, some blistering ate the base of the 3rd finger, sensation intact to 1st-3rd finger, warm to the touch. Objective Labs 07/18/24 06:30 07/18/24 06:30 Labs: Laboratory Results - last 24 hr 07/18/24 06:30 WBC 11.0 RBC 2.76 L Hgb 8.5 L Hct 24.8 L MCV 90.0 MCH 30.9 MCHC 34.3 RDW 17.7 H Plt Count 208 Neut % (Auto) 91.6 H Lymph % (Auto) 3.4 L [place] % (Auto) 4.6 Eos % (Auto) 0.1 L Baso % (Auto) 0.3 Neut # (Auto) 99295 H Lymph # (Auto) 400 L [place] # (Auto) 500 Eos # (Auto) 0 Baso # (Auto) 0 Sodium 136 L Potassium 3.3 L Chloride 112 H Carbon Dioxide 17 L BUN 14 Creatinine 0.88 Estimated GFR > 60 BUN/Creatinine Ratio 15.9 Glucose 182 H Calcium 8.2 L Magnesium 1.4 L Total Bilirubin 0.4 AST 24 ALT 42 Alkaline Phosphatase 143 H D Total Protein 5.1 L Albumin 2.4 L Globulin 2.7 Albumin/Globulin Ratio 0.9 L Vancomycin Trough 22.1 H* [facility] Medical History Screening due Folliculitis Myalgia COVID-19 BPH w urinary obs/LUTS Bilateral nephrolithiasis Retained ureteral stent Bilateral nephrolithiasis Left ureteral calculus Labyrinthitis Lymphocytic colitis (2012) Rosacea (Unknown) Kidney stones (2011) Kidney disease (Unknown) Myopia (Unknown) Asthma (Unknown) Anemia (Unknown) Depression (Unknown) Hypertriglyceridemia (Unknown) Hypertension (Unknown) Hyperlipidemia (Unknown) Microscopic colitis (10/10/15) Chronic renal insufficiency, stage II (mild) (10/10/15) Depression (09/04/14) Type 2 diabetes mellitus without complication (09/11/15) Essential hypertension (09/11/15) Surgical History Hx of cystoscopy (04/29/21) Family History Father Cancer Mother Stroke Social History marital status: unmarried,single household members: none lives independently: Yes Smoking Status: Former smoker alcohol intake: current Assessment & Plan Assessment & Plan narrative: Discharge disposition per medicine, currently planning to transfer patient to a higher acuity level facility for in person ID consultation and possible DONAVAN. No further surgery recommended at this hospital, agree w/ transfer to high level of care. Time-Based Coding :: [TOTAL MINUTES] spent with patient and on the chart (including review of chart, obtaining history, exam, reviewing outside data, placing orders, documenting exam and treatment plan, and counseling patient) on [DATE]. Quality VTE Deep Vein Thrombosis/Pulmonary Embolism Present on Admission: No
[2024-07-18] MEDS: cefTRIAXone 2,000 MG in SODIUM CHLORIDE 0.9% 100 ML 200 MG IV (09:45)
--- NOTE | 2024-07-18 10:19 | PM.DS.1 ---
History of Present Illness History of Present Illness Date Patient Seen: 07/18/24 Time Patient Seen: 10:49 Chief complaint: hypotension, weakness Narrative: From ED provider: Patient 74-year-old male history of hypertension diabetes chronic kidney disease depression anemia coronary artery disease drug-eluting stent in December 2023 on prasygrel presenting today with hypotension weakness. He was admitted to this hospital July 09 through the and discharged to rehab facility. A time he was admitted for hypotension anemia frequent falls. Hemoglobin dropped to 6.7 baseline being around 10-12 was given IV iron. Today he is presenting with increasing weakness and again hypotension. He has a rash diffusely all over his body which is new. He is weak also found to be hypoxic not really able to participate in exam or history. Additional information: The patient was recently admitted for hypotension and anemia. He was transfused and improved symptomatically. The patient had no evidence of clinical bleeding. He was transferred to [facility] where he did well for about 1 day. He then apparently became more hypotensive and was brought over from the hospital. He has extensive ecchymosis over his entire body and is quite lethargic and cachectic. The patient has had a history of acute kidney injury and has evidence of mild AMELIA today. Upon arrival in the ED he was hypotensive and central access was obtained with a PICC line. He was started on pressors and given a weight based fluid bolus. The patient was given broad-spectrum antibiotics, cefepime and vancomycin. His chest x-ray was clear. There was no evidence of a focal soft tissue skin infection. The patient was also hypoxic and a chest x-ray was clear. There was a plan to pursue a CT pulmonary angiogram, however he would become more hypoxic with laying flat. The patient is on 1.2 mcg of norepinephrine and relatively stable. He was on high-flow oxygen which was started in the emergency department with sats of about 90% on maximum rate oxygen. He does desaturate if he lays flat. He was quite lethargic and not really able to add much in terms of additional history or symptoms. Discharge Providers Provider Date of admission: 07/13/24 12:06 Discharge Date: 07/18/24 Primary care physician: Nina Joel, Consults: 07/13/24 18:33 Consult to Tele-police manager Routine Comment: Consulting Provider: Noah [employer] Reason for consultation: [employer] Has provider been notified: Yes 07/16/24 09:19 Consult to Orthopedic Surgery Routine Comment: Consulting Provider: Reymundo Garay Reason for consultation: R 4th finger necrosis 07/16/24 18:49 Consult to Discharge Planning Routine Comment: Consult to Occupational Therapy Evaluate & Treat Comment: Physician Instructions: Evaluate and treat Consult to Physical Therapy Evaluate & Treat Comment: Physician Instructions: Evaluate and Treat Discharge provider: Antony Saini DO Summary Hospital Course Discharge Diagnosis: 1. Septic shock, secondary to MRSA and clostridium perfringens bacteremia from R 4th finger necrotizing skin and soft tissue infection or possible endocarditits, present on admission and improved. 2. Acute hypoxic respiratory failure, present on admission and improving. 3. Acute metabolic encephalopathy, present on admission and improving 4. AMELIA, present on admission and improved. 5. Acute on chronic anemia without clinical bleeding, present on admission and active. 6. Hypokalemia, new and active. 7. CAD, recent NSTEMI 12/2023. Hospital Course: This is a 74 year old male with anemia, CAD with NSTEMI 12/2023 (complicated by contrast induced nephropathy needing temporary hemodialysis) admitted with septic shock and found to have MRSA bacteremia. He was also anemic with Hg of 6.2, unclear etiology. Was given 2U PRBC transfusion on 07/15 with stable Hg since between 8-9. On 07/17 admission blood cultures (from 07/13) also grew clostridium perfringens. Initially was on pressor support on admission on 07/13 but now off of levophed and is slightly normotensive today. TTE without any obvious vegetations. His respiratory status has also improved and is now on room air. His R 4th finger was necrotic, possible infected hematoma based on operative report vs necrotizing skin and soft tissue infection. He is now s/p amputation and washout of R 4th finger at the MCP joint on 07/16/24. Endocarditis is another possibility for the etiology of his bacteremia. He did have a R 4th finger bruise after reported fingerstick last admission that would not improve which may indicate a septic emboli. It is not clear if this is evidence of a septic emboli or if this where his bacteremia is originating from. Today R 5th finger appears a bit dusky with similar distal bruising, watching closely. After discussion with infectious disease provider over the phone, he was recommended for in person ID consultation, and likely DONAVAN not available at [facility]. Overall, however, the patient continues to improve with antibiotic therapy. Cultures: MRSA - 3/4 bottles from 07/13. Clostridium perfringens 1/4 bottles from 07/13. - repeat cultures not obtained until 07/16/24 - no growth at 24 hours. Antibiotic courses - Ceftriaxone / vancomycin (07/13/24 - present) - Metronidazole (07/17 - ) Plan: -discussed with ID provider 07/17 over the phone. Recommend transfer to center with inpatient ID consultation and DONAVAN capabilities. GI source is also possible given clostridium and recommended addition of vancomycin. There is a sclerotic lesion on his pelvis, colonoscopy is recommended in the near future. After 24 hours of attempted transfer, he was accepted at [facility] for the above. I have discussed management today with accepting hospitalist, as well as with orthopedics provider, sports agent regarding need for DONAVAN, and ID is aware patient being transferred to [facility] as well. -continue to have orthopedics following for possible additional debridement of R hand -TTE performed and was unremarkable. DONAVAN is recommended by above ID provider. -WBC count improved today. -watching bicarb, today this is improved at 17. -Hg has been stable -Home lantus has been reduced from 17 to 10, continues on sliding scale. Fasting glucose 180, consider increasing lantus at accepting facility. Remains on sliding scale insulin. Code: DNR, surrogate is patient's sister currently though lives out of state DVT: Lovenox daily I have utilized all available immediate resources to obtain, update, or review the patient's current medications. Dispo: patient admitted under inpatient status to the ICU, stable for floor care today. Came from SNF ([facility]), can return once medically stable from above, but will need transfer as above. Additional history obtained via discussions with the orthopedic surgeon today, and multiple providers as noted above in the assessment and plan. These discussions contributed to the creation of the above assessment and plan. I have reviewed patient's presenting documentation, labs, and imaging personally. Time Spent with Patient Time spent: Greater than 30 minutes Exam Vital Signs (past 8 hours): - 07/18/24 03:00 07/18/24 03:01 07/18/24 03:01 Temperature Pulse Rate 82 80 Respiratory Rate 18 18 Blood Pressure 139/58 L Pulse Oximetry 98 98 Oxygen Delivery Method 07/18/24 04:00 07/18/24 04:00 07/18/24 05:00 Temperature Pulse Rate 79 88 Respiratory Rate 15 28 H Blood Pressure 143/74 H Pulse Oximetry 97 99 Oxygen Delivery Method 07/18/24 05:00 07/18/24 06:00 07/18/24 06:00 Temperature Pulse Rate 77 Respiratory Rate 20 Blood Pressure 157/99 H 150/64 H Pulse Oximetry 100 Oxygen Delivery Method 07/18/24 07:00 07/18/24 07:01 07/18/24 07:01 Temperature Pulse Rate 76 80 Respiratory Rate 27 H 28 H Blood Pressure 134/55 L Pulse Oximetry 96 Oxygen Delivery Method 07/18/24 08:00 07/18/24 08:00 07/18/24 08:00 Temperature 97.5 F L Pulse Rate 79 Respiratory Rate 24 Blood Pressure 139/65 Pulse Oximetry Oxygen Delivery Method 07/18/24 08:00 Temperature Pulse Rate Respiratory Rate Blood Pressure Pulse Oximetry Oxygen Delivery Method Room Air Fraction of Inspired Oxygen 21 SaO2/FiO2 Ratio 461 Oxygen Delivery Method Room Air Oxygen Flow Rate 0 Narrative Exam Narrative: No distress, alert, joking with provider. Lungs are diminished breath sounds, normal effort. Heart is regular, no murmur. Abdomen is distended and nontender. No leg edema. He was many excoriations and ecchymosis. right hand 4th finger s/p amputation, dusky appearance of R 5th finger, with ecchymosis, slightly improved color today compared to yesterday. Objective Labs 07/18/24 06:30 07/18/24 06:30 Labs: Laboratory Results - last 24 hr 07/18/24 06:30 WBC 11.0 RBC 2.76 L Hgb 8.5 L Hct 24.8 L MCV 90.0 MCH 30.9 MCHC 34.3 RDW 17.7 H Plt Count 208 Neut % (Auto) 91.6 H Lymph % (Auto) 3.4 L [place] % (Auto) 4.6 Eos % (Auto) 0.1 L Baso % (Auto) 0.3 Neut # (Auto) 74960 H Lymph # (Auto) 400 L [place] # (Auto) 500 Eos # (Auto) 0 Baso # (Auto) 0 Sodium 136 L Potassium 3.3 L Chloride 112 H Carbon Dioxide 17 L BUN 14 Creatinine 0.88 Estimated GFR > 60 BUN/Creatinine Ratio 15.9 Glucose 182 H Calcium 8.2 L Magnesium 1.4 L Total Bilirubin 0.4 AST 24 ALT 42 Alkaline Phosphatase 143 H D Total Protein 5.1 L Albumin 2.4 L Globulin 2.7 Albumin/Globulin Ratio 0.9 L Vancomycin Trough 22.1 H* [facility] Medical History Screening due Folliculitis Myalgia COVID-19 BPH w urinary obs/LUTS Bilateral nephrolithiasis Retained ureteral stent Bilateral nephrolithiasis Left ureteral calculus Labyrinthitis Lymphocytic colitis (2012) Rosacea (Unknown) Kidney stones (2011) Kidney disease (Unknown) Myopia (Unknown) Asthma (Unknown) Anemia (Unknown) Depression (Unknown) Hypertriglyceridemia (Unknown) Hypertension (Unknown) Hyperlipidemia (Unknown) Microscopic colitis (10/10/15) Chronic renal insufficiency, stage II (mild) (10/10/15) Depression (09/04/14) Type 2 diabetes mellitus without complication (09/11/15) Essential hypertension (09/11/15) Surgical History Hx of cystoscopy (04/29/21) Family History Father Cancer Mother Stroke Social History marital status: unmarried,single household members: none lives independently: Yes Smoking Status: Former smoker alcohol intake: current Discharge Plan Discharge Plan Patient Disposition: [facility] Other facility: [facility] Provider Discharge Comment: See discharge summary Discharge Health Status Multidrug resistant organism: MRSA Precautions: [place] Diet/Activity/Treatments Diet: Diet as Tolerated and Carb-consistent/Diabetic Liquid consistency: Normal/Thin Food texture: Regular Activity: No restrictions Discharge Data Primary Care Provider: Nina Joel VTE Deep Vein Thrombosis/Pulmonary Embolism Present on Admission: No
--- NOTE | 2024-07-18 11:27 | OT.IPNOTE ---
Pt to transfer out to higher care, discharge pt for OT services.
[2024-07-18] MEDS: POTASSIUM CHLORIDE 20 MEQ TAB 40 MEQ PO (11:51)
--- NOTE | 2024-07-18 12:23 | PC.NURSE ---
Transfer Note Patient transferred to [facility] via BLS ambulance at 1210. Report given to receiving nurse (Adilene SCHWAB) at [facility] and all questions answered. Paperwork and POLST copy with ambulance personnel. 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 No belongings with patient.
--- NOTE | 2024-07-18 12:24 | PT-IP ANOTE ---
Per MD during rounds meeting: pt may be transferring out to higher level of care. checked with nurse and confirmed that pt is scheduled to go to [facility] this afternoon. will d/c PT.
== END 2024-07-18 12:10 | disposition short-term general hospital (02) | DRG 853 ==
LOC: ED 11:21 → AC 12:08 → ICU 16:00
PROVIDERS: Internal Medicine; Orthopaedic Surgery Orthopaedic Surgery of the Spine; Admitting Provider Hospitalist; Emergency Provider Emergency Medicine; PCP Family Medicine; Referring Provider Emergency Medicine; Visit Provider Hospitalist
PROC: 0X6S0Z0 Detachment at Right Ring Finger, Complete, Open Approach (ICD-10-PCS; CPT 26951; principal; 2024-07-16 17:15)
DX: A41.9 Sepsis, unspecified organism (principal); G93.41 Metabolic encephalopathy; R65.21 Severe sepsis with septic shock; J96.01 Acute respiratory failure with hypoxia; I33.0 Acute and subacute infective endocarditis; N17.9 Acute kidney failure, unspecified; E87.20 Acidosis, unspecified; E11.52 Type 2 diabetes mellitus with diabetic peripheral angiopathy with gangrene; I96 Gangrene, not elsewhere classified; I25.10 Atherosclerotic heart disease of native coronary artery without angina pectoris; R79.89 Other specified abnormal findings of blood chemistry; D64.9 Anemia, unspecified; B95.62 Methicillin resistant Staphylococcus aureus infection as the cause of diseases classified elsewhere; E87.6 Hypokalemia; I25.2 Old myocardial infarction; B96.7 Clostridium perfringens [C. perfringens] as the cause of diseases classified elsewhere; M89.9 Disorder of bone, unspecified; I10 Essential (primary) hypertension; Z66 Do not resuscitate; Z95.5 Presence of coronary angioplasty implant and graft; Z87.891 Personal history of nicotine dependence; Z79.4 Long term (current) use of insulin
CPT/HCPCS: 36415; 36430; 36569; 36592; 36600; 71045; 73130; 80048; 80053; 80202; 81003; 81015; 82805; 82962; 83605; 83690; 83735; 83880; 84132; 84145; 84484; 85007; 85025; 85027; 85610; 85730; 86850; 86870; 86900; 86901; 87040; 87077; 87147; 87154; 87185; 87186; 87797; 93005; 93306; 93970; 94640; 96361; 96365; 96366; 96367; 96368; 96375; 97163; 97530; 99284; 99291; 99292; P9016; A9270; J0136; J0692; J0696; J1100; J1170; J1200; J1642; J1644; J1815; J2405; J2704; J2765; J3010; J3475; J3490; J7613